=== PATIENT | male | born 1950 | race Caucasian/White ===

== ENCOUNTER 2021-01-20 12:40 | Inpatient (IN) | payer OTHER ==
[~2021-01-20] VITALS: Ht 177.8 cm; Wt 68.9 kg
--- OUTSIDE RECORDS SUMMARY | 2021-01-20 12:47 | XMS REPORT | Encounter Summary ---
Author Author [facility] Organization [facility] Healthcare Address Unknown Phone Unavailable Care Team Providers Care Evaluation Specialist Name Role Phone Juan Trejo PA-C PCP Sarah Sun RN [phone] [email or web address] Jo-Ann العلي MD Unavailable Encounter Details Care Team Description Date Type Department Link, Onbase 12/25/2020 [facility] [address] [id number] [place] [address] Social History Date Tobacco Use Types Packs/Day Years Used Never Smoker Smokeless Tobacco: Never Used Social Isolation Answer Date Recorded In a typical week, how many times do you talk on More than three times a week 11/16/2020 the phone with family, friends, or neig hbors? How often do you get together with friends or More than th ree times a week 11/16/2020 relatives? How often do you attend yazidi or hindu Never 11/16/2020 services? Do you belong to any clubs or organizations such No 11/16/2020 as yazidi groups, unions, fraternal or athletic groups, or school groups? How often do you attend meetings of the clubs or Never 11/16/2020 organizations you belong to? Are you now , , , , Divorce d 11/16/2020 never or living with a partner? Physical Activity Answer Date Recorded On average, how many days per week do you engage 4 days 11/16/2020 in moderate to strenuous exercise (like walking fast, running, jogging, dancing, swimmi ng, biking, or other activities that cause a light or heavy sweat)? On average, how many minutes do you engage in 60 min 11/16/2020 exercise at this level? Stress Answer Date Recorded Do you feel stress - tense, restless, nervous, or Only a l ittle 11/16/2020 anxious, or unable to sleep at night be cause your mind is troubled all the time - these d ays? Education Answer Date Recorded What is the highest level of school you have High school g raduate 11/16/2020 completed or the highest degree you hav e received? Financial Resource Strain Answer Date Recorde d How hard is it for you to pay for the very basics Not hard at all 11/16/2020 like food, housing, medical care, and h eating? Intimate Partner Violence Answer Date Recorde d Within the last year, have you been afraid of your No 11/16/2020 partner or ex-partner? Within the last year, have you been humiliated or No 11/16/2020 emotionally abused in other ways by you r partner or ex-partner? Within the last year, have you been kicked, hit, No 11/16/2020 slapped, or otherwise physically hurt b y your partner or ex-partner? Within the last year, have you been raped or No 11/16/2020 forced to have any kind of sexual activ ity by your partner or ex-partner? Food Insecurity Answer Date Recorded Within the past 12 months, you worried that your Never devin e 11/16/2020 food would run out before you got money to buy more. Within the past 12 months, the food you bought Never true 11/16/2020 just didn't last and you didn't have mo sherrie to get more. Transportation Needs Answer Date Recorded In the past 12 months, has lack of transportation No 11/16/2020 kept you from medical appointments or f rom getting medications? In the past 12 months, has lack of transportation No 11/16/2020 kept you from meetings, work, or gettin g things needed for daily living? Sex Assigned at Date Recorded Not on file Industry Job Start Date Occupation Not on file Not on file Not on file documented as of this encounter Plan of Treatment Not on filedocumented as of this encounter Visit Diagnoses Not on filedocumented in this encounter Care Teams Start Date End Date Evaluation Specialist Relationship Specialty 11/19/20 Juan Trejo PA-C PCP - General [address] [place] [address] 12/13/20 01/01/21 Sarah Sun treasury representative [email or web address] 01/03/21 Jo-Ann العلي MD Infectious [address] [facility] [place] [address] [email or web address] documented as of this encounter
--- OUTSIDE RECORDS SUMMARY | 2021-01-20 12:47 | XMS REPORT | Encounter Summary ---
Author Author [facility] Organization [facility] Healthcare Address Unknown Phone Unavailable Care Team Providers Care Hoist Mechanic Name Role Phone Juan Trejo PA-C PCP Sarah Sun RN [phone] [email or web address] Jo-Ann العلي MD Unavailable Encounter Details Care Team Description Date Type Department Haley Duvall APRN [address] [place] [address] [email or web address] Other termite control representative (current) drug therapy 12/17/2020 Lab Requisition LABORATORY [address] [id number] [place] [address] Social History Date Tobacco Use Types Packs/Day [...] 11/16/2020 relatives? How often do you attend buddhism or tenriism Never 11/16/2020 services? Do you belong to any clubs or organizations such No 11/16/2020 as buddhism groups, unions, fraternal or athletic groups, or [...] of school you have High school g [employer] 11/16/2020 completed or the highest degree you rhiannon e received? Financial Resource Strain Answer Date [...] Not on filedocumented as of this encounter Procedures Comments Procedure Name Priority Date/Time Associated Diag nosis C-REACTIVE PROTEIN Routine 12/17/2020 Other termite control representative (current) 5:44 AM CDT drug therapy documented in this encounter Results * C-Reactive Protein (12/17/2020 5:44 AM CDT) CRP 2.1 (H) <=0.9 mg/dL [facility] Specimen Blood Performing Organization Address City/State/ZIP Code P floridalma Number [facility] [address] [place] [address] documented in this encounter Visit Diagnoses Diagnosis Other nursing home (current) drug therapy documented in this encounter Care Teams Start Date End Date Hoist Mechanic Relationship Specialty 11/19/20 Juan Trejo PA-C PCP - General [address] [place], [place] [id number] 12/13/20 01/01/21 Sarah Sun fuel efficient automobile designer [email or web address] 01/03/21 Jo-Ann العلي MD Infectious [address] [facility] [place] [address] [email or web address] documented as of this encounter
--- OUTSIDE RECORDS SUMMARY | 2021-01-20 12:47 | XMS REPORT | Encounter Summary ---
Author Author [facility] Organization [facility] Healthcare Address Unknown Phone Unavailable Care Team Providers Care Clinical Data Assistant Name Role Phone Juan Trejo PA-C PCP Sarah Sun RN [phone] [email or web address] Encounter Details Care Team Description Date Type Department Dusty Deluna MD [address] [address] [email or web address] Kidney stone (Primary Dx); Urinary retention; MSSA infection, non-invasive; Chronic ankle pain, unspecified laterality; Chronic foot pain, unspecified laterality [facility] [address] [address] Social History Date Tobacco Use Types Packs/Day Years Used Never Assessed Social Isolation Answer Date Recorded In a typical week, how many times do you talk on More than three times a week 11/16/2020 the phone with family, friends, or neig hbors? How often do you get together with friends or More than th ree times a week 11/16/2020 relatives? How often do you attend jehovah's witness or caodaism Never 11/16/2020 services? Do you belong to any clubs or organizations such No 11/16/2020 as jehovah's witness groups, unions, fraternal or athletic groups, or [...] of school you have High school g [employer]ju[employer] 11/16/2020 completed or the highest degree you [...] on file documented as of this encounter Miscellaneous Notes * Addendum Note - John Yousif MA - 12/05/2020 10:15 AM CDT Addended by: JOHN YOUSIF on: 12/20/2020 10:32 AM Modules accepted: Orders, Level of Service, SmartSet * Progress Notes - Dusty Deluna MD - 12/05/2020 12:00 AM CDT Name: MAINOR BLANCA Date: 12/05/2020 : 1950 Page 2 The patient was seen at [facility] on December 05, 2020. CHIEF COMPLAINT: Mainor Blanca is a 70-year-old male patient with function and mobility deficits secondary to kidney stone, status post ureteral stent placeme nt; urinary retention, status post indwelling Park catheter placement; MSSA inf ection; acute exacerbation of chronic right foot and ankle pain; chronic pain, o n methadone treatment. HISTORY OF PRESENT ILLNESS: History was obtained from the patient as well as fr om the chart review. Mr. Blanca is a 70-year-old male, , who has been struggling wi th urological issues. The patient developed urinary retention and was found to have a kidney stone. The patient underwent ureteral stent placement. Recently, the patient presented to [facility] with abdominal pain. The patie nt required placement of Park catheter. He had hematuria. On blood culture he was found to have MSSA infection. He underwent sepsis workup including TAYLOR whe re no valvular vegetation was noted. The patient was seen by Infectious Disease who recommended antibiotic treatment through December 07. The patient has chronic right foot and ankle pain, and it was noted to be increase in the pain. Imaging studies ruled out any infection in that area. The patient was transferred to the [facility] for inpatient rehabilitation. PAST MEDICAL HISTORY: Kidney stone. Chronic pain. PAST SURGICAL HISTORY: Reviewed and noncontributory. CURRENT ALLERGIES/MEDICATIONS: Were reviewed and reconciled with the facility EMR. FAMILY HISTORY: Reviewed and noncontributory. SOCIAL HISTORY: The patient lives by himself. He denies any assistive device. Remote history o f drug use. Denies any tobacco use or ongoing alcohol use. REVIEW OF SYSTEMS: The patient complains of pain in his right foot. He has some abdominal discomfo rt. His appetite is poor. He is complaining of nausea. The patient has an ind welling Park. He denies any difficulty with speech, swallowing, or vision. He denies any constipation. He has difficulty with sleep at night. The rest of t he 12-point Review of Systems is negative. PHYSICAL EXAMINATION: Vital Signs: The patient is afebrile. Blood pressure is 121/70. SpO2 is 96%. General Appearance: The patient is alert and responsive. Lungs: Clear to auscultation. Cardiovascular: S1, S2 present. Abdomen: Soft. Genitourinary: The patient has an indwelling Park draining blood-stained urine . Psychological: The patient is pleasant, somewhat anxious. Musculoskeletal: There is no swelling or deformity of right foot or ankle. The patient has active right dorsiflexion. ASSESSMENT: Mainor Blanca is a 70-year-old male patient with function and mobility deficits secondary to kidney stone, status post ureteral stent placement; urinary retent ion, status post indwelling Park catheter placement; MSSA infection; acute exac erbation of chronic right foot and ankle pain; chronic pain, on methadone treatm ent. Kidney stone. Chronic pain. PLAN: 1. Continue physical therapy and occupational therapy. 2. Urology follow-up, kidney stone and recent stent placement. 3. Urinary retention. The patient has an indwelling Park catheter. 4. MSSA bacteremia. TAYLOR was negative for valvular vegetation. 5. The patient is on a regular diet. Maintain strict aspiration precautions. 6. The patient is on methadone for chronic pain. The patient will follow-up wit provider at [facility] for chronic pain management. 7. Park catheter care per Nursing. 8. I reviewed the patient's functional status. Functionally, the patient is simeon ited in participation because of pain and low endurance. 9. Will continue the current rehabilitation program to improve the patient's fun ction, mobility, and safety. DISCHARGE DISPOSITION: To home. CODE STATUS: THE PATIENT IS A FULL CODE. Dusty Deluna M.D. JENNIFER/ole VXP #: [id number] / DEP #: [id number] documented in this encounter Plan of Treatment Not on filedocumented as of this encounter Visit Diagnoses Diagnosis Kidney stone - Primary Calculus of kidney Urinary retention Retention of urine, unspecified MSSA infection, non-invasive Chronic ankle pain, unspecified lateral ity Chronic foot pain, unspecified laterali ty documented in this encounter Care Teams Start Date End Date Clinical Data Assistant Relationship Specialty 11/19/20 Juan Trejo PA-C PCP - General [address] [place] [address] 12/13/20 01/01/21 Sarah Sun RN Care Manager [email or web address] documented as of this encounter
--- OUTSIDE RECORDS SUMMARY | 2021-01-20 12:47 | XMS REPORT | Encounter Summary ---
Author Author [facility] Organization [facility] Healthcare Address Unknown Phone Unavailable Care Team Providers Care News Camera Person Name Role Phone Juan Trejo PA-C PCP Sarah Sun RN [phone] [email or web address] Jo-Ann العلي MD Unavailable Encounter Details Care Team Description Date Type Department Dusty Deluna MD [address] [address] [email or web address] Kidney stone (Primary Dx); Urinary retention; MSSA infection, non-invasive; Chronic ankle pain, unspecified laterality; Chronic foot pain, unspecified laterality 12/26/[address] [facility] Medicine [facility] [address] [address] Social History Date Tobacco Use [...] 11/16/2020 relatives? How often do you attend jainism or zoroastrian Never 11/16/2020 services? Do you belong to any clubs or organizations such No 11/16/2020 as jainism groups, unions, fraternal or athletic groups, or [...] Addendum Note - John Yousif MA - 12/19/2020 12:00 PM CDT Addended by: JOHN YOUSIF on: 2021 11:19 AM Modules accepted: Orders, Level of Service, SmartSet * Progress Notes - Dusty Deluna MD - 12/19/2020 12:00 AM CDT Name: MAINOR BLANCA Date: 12/19/2020 : 1950 Page 2 SUBJECTIVE: The patient was seen and examined at bedside in followup evaluation of function and mobility deficit secondary to right-sided ureteral stent placem ent for kidney stone, indwelling Park for urinary retention, MSSA infection, ri ght ankle and foot pain (orthopedic surgery has ruled out septic arthritis), and chronic pain. The patient is resting in bed and reports that he is doing okay. Still has Fole y catheter in place. He is walking short distances. The pain is somewhat mireille r controlled. He expresses displeasure with urologic care that he has received. PHYSICAL EXAMINATION: The patient's vitals are stable. He is afebrile. Blood pressure 98/67. Oxygen saturation 95%. General: The patient is alert and responsive. Lungs: Clear to auscultation. CV: S1, S2 present. Abdomen: Soft. Genitourinary: The patient has indwelling Park. Extremities: No calf tenderness. No swelling deformity of right ankle. Psychiatric: The patient is pleasant. Neuropsych assessment: The patient is alert and oriented x3. ASSESSMENT AND PLAN: 1. Continue PT/OT. 2. Park care per nursing. 3. Labs done on December 10 suggests a white cell count of 4.9. Sodium 136. Po tassium 3.9. 4. Pain management with methadone. 5. The patient is on Flomax for urinary retention. 6. The patient is on iron supplement. 7. MSSA bacteremia. Infectious Disease followup. Antibiotic completed. Transe sophageal echocardiogram was negative for vegetation. I reviewed the patient's functional status and discussed this with the rehabilit ation team. There has been behavior where the patient is self-limiting in parti cipation of therapy. Encouraged patient to participate well in therapy. The aamir cintron has agreed. Dusty Deluna M.D. JENNIEFR/[place] VXP #: [id number] / DEP #: [id number] documented in this encounter Plan of Treatment Not on filedocumented as of this encounter Visit Diagnoses Diagnosis Kidney stone - Primary Calculus of kidney Urinary retention Retention of urine, unspecified MSSA infection, non-invasive Chronic ankle pain, unspecified lateral ity Chronic foot pain, unspecified laterali ty documented in this encounter Care Teams Start Date End Date News Camera Person Relationship Specialty 11/19/20 Juan Trejo PA-C PCP - General [address] [place] [address] 12/13/20 01/01/21 Sarah Sun RN Care Manager [email or web address] 01/03/21 Jo-Ann العلي MD Infectious [address] [place] [address] [email or web address] documented as of this encounter
--- OUTSIDE RECORDS SUMMARY | 2021-01-20 12:47 | XMS REPORT | Encounter Summary ---
Author Author [facility] Organization [facility] Healthcare Address Unknown Phone Unavailable Care Team Providers Care Solar Energy System Installer Helper Name Role Phone Juan Trejo PA-C PCP Sarah Sun RN [phone] [email or web address]] Jo-Ann العلي MD Unavailable Encounter Details Care Team Description Date Type Department Desmond Murray MD [address] [place] [address] [email or web address] Essential (primary) hypertension 12/21/2020 Lab Requisition LABORATORY [address] [id number] [place], [place] [address] Social History Date Tobacco Use Types Packs/Day [...] 11/16/2020 relatives? How often do you attend judaism or gnosticism Never 11/16/2020 services? Do you belong to any clubs or organizations such No 11/16/2020 as judaism groups, unions, fraternal or athletic groups, or [...] Procedure Name Priority Date/Time Associated Diag nosis BLOOD CULTURE Routine 12/21/2020 Essential (prim iliana) 5:57 AM CDT hypertension documented in this encounter Results * Blood Culture (12/21/2020 5:57 AM CDT) Blood Culture, No Growth after 5 days [facility] Routine incubation LABORATORY Specimen Blood - Peripheral Performing Organization Address City/State/ZIP Code P floridalma Number [facility] [address] [place] [address] documented in this encounter Visit Diagnoses Diagnosis Essential (primary) hypertension Unspecified essential hypertension documented in this encounter Care Teams Start Date End Date Solar Energy System Installer Helper Relationship Specialty 11/19/20 Juan Trejo PA-C PCP - General [address] [place], [place] [id number] 12/13/20 01/01/21 Sarah Sun interactive marketing strategist [email or web address] 01/03/21 Jo-Ann العلي MD Infectious [address] [facility] Diseases [place], [place] [address] [email or web address] documented as of this encounter
--- OUTSIDE RECORDS SUMMARY | 2021-01-20 12:47 | XMS REPORT | Encounter Summary ---
Author Author [facility] Organization [facility] Address Unknown Phone Unavailable Care Team Providers Care Volleyball Assistant Coach Name Role Phone Juan Trejo PA-C PCP Sarah Sun RN [phone] [email or web address] Encounter Details Care Team Description Date Type Department Alie Peters V, PASSENGER CAR INSPECTOR [address] [place] [address] [email or web address] Constipation, unspecified constipation t ype (Primary Dx); Gross hematuria; Anemia due to acute blood loss; Methadone dependence (HCC); MSSA bacteremia; Iron deficiency 12/26/2020 Correction [facility] Post- Acute Care [address] [place] [address] Social History Date Tobacco Use Types Packs/Day [...] 11/16/2020 relatives? How often do you attend lutheran or scientologist Never 11/16/2020 services? Do you belong to any clubs or organizations such No 11/16/2020 as lutheran groups, unions, fraternal or athletic groups, or [...] as of this encounter Miscellaneous Notes * Patient Instructions - Alie Peters APRN - 12/27/2020 10:30 AM CDT START taking: Slow FE iron tablets every Thursday, Thursday, and Thursday Vitamin C every Thursday, Thursday, and Thursday Senna-docusate nightly These are all over the counter [facility] [place]. Iron and Vit C should not be long-term. STOP taking: Meloxicam (it caused kidney dysfunction) Follow up with Primary Care Provider in 1-2 weeks. Reschedule cystoscopy with Ur ology. * Progress Notes - Alie Peters APRN - 12/27/2020 10:30 AM CDT [facility] Post-Acute Care Discharge Note 12/27/2020 Name: Caden Blanca : 1950 Facility: [facility] Type of Visit: Discharge Visit Caden Blanca is a 70 y.o. male who is seen today for a sub-acute rehab (Med A) visit at [facility]. Per Dr. Murray's H&P dated 11/30, "This is a 70-year-old . He receives the bulk of his care through the [place] system. Several weeks ago, he was hospitalized at the [facility]. I am not privy to the details of that stay, except that a right-sided ureteral stent was placed because of kidney stones. A few days prior to November 10, at home, he began to have symptoms of urinary ret ention. He was advised by [facility] to begin self-catheterization. On November 10, he h ad diffuse abdominal pain and generalized weakness. He presented to the [facility]. According to the patient, he was sent home with a prescription for boo n medication after being there for a few hours. He then developed gross hematur ia and decided to go to the [facility]. He was admitted there late on November 10. While at the [facility], cultures of blood and urine were positive for MSSA. A Pedraza catheter was placed and he was started on CBI due to the hematuria. He h ad KOFI with a creatinine of 2.2. Followup blood cultures continued to be positi ve, which is what led to transfer to [facility]. He was at [facility] November 15 through November 29. He was seen by Dr. Escobar of Urology. The most recent Urology note was on November 16,the day afte r admission, in which Dr. Escobar indicated to continue Pedraza catheter. The patient was seen by Drs. العلي and Viji Briscoe of Infectious Diseases. [facility] blood cultures eventually were no growth. A transesophageal echo showed no vegetation. In the most recent Infectious Diseases note, Dr. Viji Briscoe doc umented that the MSSA bacteremia was "of possible urinary source." Recommendati on is to receive antibiotic therapy through December 07. Three other issues were addressed while at [facility]. The 1st is that he roberts d a recurrence of pain of the right foot/ankle. He has had problems there for m any years. Orthopedics saw him. They documented that they did not suspect sept ic arthritis. The 2nd issue is that he had elevated serum sodium. From admission to discharge , that lab went from 153 to 133. The 3rd issue is that his dosage of chronic methadone, which is prescribed by Dr Cesilia Fleming of , was adjusted to that which is dictated below." Patient is now at [facility] for therapies. Scheduled to discharge tomorrow. Seen today, patient resting in bed. Pedraza catheter in place with blood-tinged ur ine in the bag. He reports his R foot and ankle feel much better than what it wa s when he arrived. He states he is able to move it comfortably and walk on it. H is only complaint today is that he hasn't had a bowel movement in a few days. He reports he took milk of magnesia last night with no success. He is passing gas. No abdominal tenderness upon palpation. Bowel sounds are active. He said he will take a suppository this afternoon. Spoke with his sister on the phone and she is managing his [place] home health and setting up methadone clinic. Otherwise, ROS is negative. Patient Active Problem List Diagnosis Gross hematuria KOFI (acute kidney injury) ([facility]) BPH (benign prostatic hyperplasia) Hypernatremia Hypokalemia Elevated LFTs MSSA bacteremia Methadone dependence ([facility]) NSVT (nonsustained ventricular tachycardia) ([facility]) Complicated UTI (urinary tract infection) No Known Allergies No family history on file. Social History Socioeconomic History Marital status: Spouse name: Not on file Number of children: 2 Years of education: 12 Highest education level: High school graduate Occupational History Not on file Tobacco Use Smoking status: Never Smoker Smokeless tobacco: Never Used Substance and Sexual Activity Alcohol use: Not on file Drug use: Not on file Sexual activity: Not on file Other Topics Concern Not on file Social History Narrative Not on file Social Determinants of Health Financial Resource Strain: Low Risk Difficulty of Paying Living Expenses: Not hard at all Food Insecurity: No Food Insecurity Worried About Running Out of Food in the Last Year: Never true Ran Out of Food in the Last Year: Never true Transportation Needs: No Transportation Needs Lack of Transportation (Medical): No Lack of Transportation (Non-Medical): No Physical Activity: Sufficiently Active Days of Exercise per Week: 4 days Minutes of Exercise per Session: 60 min Stress: No Stress Concern Present Feeling of Stress : Only a little Social Connections: Socially Isolated Frequency of Communication with Friends and Family: More than three times a week Frequency of Social Gatherings with Friends and Family: More than three time s a week Attends Synagogue Services: Never Active Member of Clubs or Organizations: No Attends Club or Organization Meetings: Never Marital Status: Intimate Partner Violence: Not At Risk Fear of Current or Ex-Partner: No Emotionally Abused: No Physically Abused: No Sexually Abused: No No past medical history on file. Review of Systems: As per HPI, otherwise the 10-point ROS is negative. Physical Exam: VS: B/P 109/75 HR 78 RR 16 Afebrile O2 96% General: Adult male, alert, cooperative, in no distress, appearing his stated a ge Skin: Cool and dry Coronary: Regular rate and rhythm, no murmurs, rubs or gallops Lungs: Clear to auscultation bilaterally, respirations unlabored, no cough Abdomen: Soft, non-tender, non-distended, bowel sounds present Ext: no edema Genitourinary: pedraza catheter in place with hematuria Psych: Normal affect Neuro: Non-focal Code Status: Full Code Labs: Results in Past 30 Days Result Component Current Result Ref Range Previous Result Ref Range WBC 5.4 (12/24/2020) 3.5 - 10.5 10E9/L 4.5 (12/18/2020) 3.5 - 10.5 10E9/L RBC 2.96 (L) (12/24/2020) 4.32 - 5.72 10E12/L 2.81 (L) (12/18/2020) 4.32 - 5.72 10E 12/L Hemoglobin 8.7 (L) (12/24/2020) 13.5 - 17.5 g/dL 8.2 (L) (12/18/2020) 13.5 - 17.5 g /dL Hematocrit 28.8 (L) (12/24/2020) 38.8 - 50.0 % 26.7 (L) (12/18/2020) 38.8 - 50.0 % MCV 97.3 (H) (12/24/2020) 81.2 - 95.1 fL 95.0 (12/18/2020) 81.2 - 95.1 fL MCH 29.4 (12/24/2020) 26.0 - 34.0 pg 29.2 (12/18/2020) 26.0 - 34.0 pg MCHC 30.2 (L) (12/24/2020) 31.0 - 37.0 g/dL 30.7 (L) (12/18/2020) 31.0 - 37.0 g/dL RDW 13.9 (12/24/2020) 11.8 - 15.6 % 14.1 (12/18/2020) 11.8 - 15.6 % Platelets 243 (12/24/2020) 150 - 450 10E9/L 276 (12/18/2020) 150 - 450 10E9/L Lymphocytes % 19.2 (L) (12/24/2020) 22.0 - 49.0 % 19.1 (L) (12/18/2020) 22.0 - 49.0 % Monocytes % 9.2 (12/24/2020) 2.0 - 10.0 % 10.8 (H) (12/18/2020) 2.0 - 10.0 % Eosinophils % 2.2 (12/24/2020) <=5.0 % 2.0 (12/18/2020) <=5.0 % Basophils % 0.6 (12/24/2020) 0.0 - 2.5 % 0.7 (12/18/2020) 0.0 - 2.5 % Recent Labs 12/24/20 0900 12/18/20 0543 12/10/20 0539 12/03/20 0533 11/29/20 0613 11/28/20 0659 NA 137 137 136 135* 133* 135* K 3.8 3.8 3.9 4.1 3.6 3.6 CL 102 100 98* 99 95* 97* CO2 31 32 30 34 33 33 BUN 15 12 15 10 8 8 CREATININE 1.12 1.16 1.26* 1.00 1.04 1.03 GLU 111* 84 91 91 88 85 CALCIUM 9.2 8.7 8.7 8.7 8.5 8.8 BILITOT <0.3 0.3 <0.3 0.3 0.3 0.4 ALKPHOS 129* 126* 126* 130* 117 115 AST 12* 23 29 32 25 28 ALT <9* 15 13 <9* <9* <9* PROT 6.8 6.5 6.6 6.4 6.3 6.3 ALB 3.5 3.2* 3.2* 3.2* 3.0* 3.0* EGFR >59 >59 57* >59 >59 >59 ANIONGAP 4 5 8 2 5 5 TSH Date Value Ref Range Status 11/19/2020 2.640 0.400 - 4.000 uIU/mL Final No results found for: FREET4 No results found for: HGBA1C No results found for: CHOL, LDL, HDL, TRIG No results found for: PREALBUMIN No results found for: PSA No results found for: [id number] No results found for: FOLATE No results found for: HOMOS, HOMOCYSTEINE, MMAU, MMA No results found for: BNP Magnesium Date Value Ref Range Status 11/19/2020 1.7 1.6 - 2.3 mg/dL Final Phosphorus Date Value Ref Range Status 11/19/2020 2.4 (L) 2.7 - 4.5 mg/dL Final No results found for: VTDTO, VITD No results found for: CPK No results found for: SEDRATE Lab Results Component Value Date CRP 4.1 (H) 12/24/2020 CRP 2.0 (H) 12/18/2020 CRP 2.1 (H) 12/17/2020 Iron (ug/dL) Date Value 12/04/2020 27 (L) Iron Binding Capacity (ug/dL) Date Value 12/04/2020 253 Iron Saturation (%) Date Value 12/04/2020 11 (L) Imaging: MRI Foot Right (without contrast) Result Date: 11/28/2020 EXAM: MRI Right Foot without IV contrast INDICATION: >Recent trauma, unable to bear weight, worsening foot pain TECHNIQUE: Multiplanar, multisequence MRI of the right foot without IV contrast. COMPARISON: Right foot x-rays from 11/15/2020 FINDINGS: OSSEOUS: Prominent marrow edema is seen about the posterior subtalar joint and around the sinus tarsi most pronounced within the calcaneus side. Subchondral cystic change noted in this region.. There are few vertically oriented linear low signal lines in this region more posteriorly which could potentially represent developing insufficiency fracture lines.. No other areas of significant marrow edema are appreciated. ARTICULATIONS: More mild degenerative changes at the tibiotalar joint. Moderate subtalar joint arthrosis with loss of joint space and edema as described above.. Minimal osteophyte spur ring at the midfoot. Small ankle joint effusion. TENDONS & MUSCLES: Tendons and tendinous attachments are unremarkable. Muscles are normal without significant muscle edema or atrophy. OTHER: No soft tissue mass or fluid collection is identified. Plantar fascia is normal. Minimal fluid signal in the sinus tarsi near the subtalar joint. IMPRESSION: 1. Fairly pronounced edema about the posterior subtalar joint, detai led above, felt most likely reactive to relatively advanced subtalar arthropathy . 2. A few vertically oriented linear low signal foci in this region could repre sent developing insufficiency fracture. 3. Small tibiotalar joint effusion, nons pecific. If there is concern for infection, consider attempting fluid sampling. 4. Minimal fluid signal in the sinus tarsi. Correlate for sinus tarsi syndrome. Upload Result Date: 12/05/2020 <Finalized by HMI PACS interface> Assessment and Plan: 1. Urinary retention requiring Pedraza catheter/hematuria of uncertain etiology. W as scheduled for cystoscopy today but apparently he cancelled the appointment. H e needs to reschedule or follow up with urology. Continue pedraza catheter for now . 2. MSSA bacteremia. TAYLOR was negative for vegetation. Most likely source was urinary tract. He has now completed IV antibiotics as ordered by ID. Has a follo w up appointment with ID on 01/04. 3. Chronic pain of right foot. He reports it is much better. 4. Chronic methadone use.His sister has arranged him to restart the methadone clinic Thursday. 5. Anemia. Secondary to hematuria. Hgb today 8.7, improved from 8.2 last week. 6. Iron deficiency. He thinks the iron has constipated him. Sister requests Slo w Fe. That is fine. He can get it over the counter. 7. Acute kidney injury. NSAID was d/c while here at [facility].His creatinine is impr hany at 1.12. 8. Constipation: Will have RN give one Dulcolax suppository now. Will discharge him home on Senna-docusate 8.6-50mg tablet nightly. OTC. Updated Medication List: Current Outpatient Medications Medication Sig bisacodyl (FLEET) 10 MG/30ML ENEM bisacodyl [START ON 12/28/2020] Ferrous Sulfate (SLOW FE) 142 (45 Fe) MG TBCR Take 1 ta blet by mouth 3 (three) times a week. Take 1 tablet by mouth every Thursday, , and Thursday with Vitamin C hyoscyamine (LEVSIN/SL) 0.[address] 0.125 mg under the tongue e very 4 (four) hours as needed for Cramping. Magnesium Hydroxide (MILK OF MAGNESIA PO) Take 30 mLs by mouth as needed. methadone (DOLOPHINE) 10 MG tablet Take 16 tablets (160 mg total) by mouth d aily at 5 pm. (May cause QT prolongation and Torsades de pointes) naloxone (NARCAN) 4 MG/0.1ML nasal spray Place 1 spray nasally as needed for Opioid Reversal. ondansetron (ZOFRAN-ODT) 4 MG disintegrating tablet Take 4 mg by mouth every 6 (six) hours as needed for Nausea. senna-docusate (PERICOLACE) 8.6-50 MG Take 1 tablet by mouth at bedtime. tamsulosin (FLOMAX) 0.4 MG CAPS Take 0.4 mg by mouth at bedtime. [START ON 12/28/2020] vitamin C (ASCORBIC ACID) 250 MG tablet Take 1 tablet ( 250 mg total) by mouth 3 (three) times a week. Take MWF with iron No current facility-administered medications for this visit. Follow-up: Discharge home; follow up with PCP in 1-2 weeks I spent a total of 25 minutes in the care of this patient, with greater than 50% of the total time spent in counseling and coordination of care as detailed in t he above documentation. Alie Peters APRN Electronic Signature 12/27/2020 3:12 PM documented in this encounter Plan of Treatment Not on filedocumented as of this encounter Visit Diagnoses Diagnosis Constipation, unspecified constipation type - Primary Gross hematuria Anemia due to acute blood loss Acute posthemorrhagic anemia Methadone dependence (HCC) Opioid type dependence, unspecified MSSA bacteremia Iron deficiency Iron deficiency anemia, unspecified documented in this encounter Care Teams Start Date End Date Volleyball Assistant Coach Relationship Specialty 11/19/20 Juan Trejo PA-C PCP - General [address] [facility] [place], [place] [id number] 12/13/20 01/01/21 Sarah Sun video machines mechanic [email or web address] documented as of this encounter
--- OUTSIDE RECORDS SUMMARY | 2021-01-20 12:47 | XMS REPORT | Encounter Summary ---
Author Author [facility] Organization [facility] Address Unknown Phone Unavailable Care Team Providers Care Logistics Analytics Manager Name Role Phone Juan Trejo PA-C PCP Sarah Sun RN [phone] [email or web address] Encounter Details Care Team Description Date Type Department Sarah Sun RN [email or web address] 12/28/2020 Patient Sharif Byers`Jose Armando Care Outreach Management [address] [place] [address] Social History Date Tobacco Use [...] 11/16/2020 relatives? How often do you attend islam or mandaen Never 11/16/2020 services? Do you belong to any clubs or organizations such No 11/16/2020 as islam groups, unions, fraternal or athletic groups, or [...] as of this encounter Miscellaneous Notes * Progress Notes - Sarah Sun RN - 12/28/2020 11:19 AM CDT Patient: Caden Blanca : 1950 PCP: Juan Trejo PA-C Today's Date: 12/28/2020 Met with resident regarding Post Acute Care Management follow-up. Discussed stat us, plan of care and goals. Discussion as below: Assessment: Met with Caden this am for discharge instructions. He was found t o be resting in bed at this time. He denies, pain, shortness of breath, slight nausea reported although no vomiting or diarrhea. We reviewed all medications and appointments. He had no questions at this time. This RN did call and speak with Caden's sister Tatyana who will be helping w ith his care. Reviewed medications and appointments with her as well. Plan: Discharged home 12/28/20. Will follow up on Sunday 12/31. Medications: Outpatient Medications Marked as Taking for the 12/28/20 encounter (Patient Outre ach) with Sarah Sun, speeder worker Sig bisacodyl (FLEET) 10 MG/30ML ENEM bisacodyl Ferrous Sulfate (SLOW FE) 142 (45 Fe) MG TBCR Take 1 tablet by mouth 3 (three) times a week. Take 1 tablet by mouth every Thursday, Thursday, and Thursday with Vi tamin C hyoscyamine (LEVSIN/SL) 0.[address] 0.125 mg under the tongue ever y 4 (four) hours as needed for Cramping. Magnesium Hydroxide (MILK OF MAGNESIA PO) Take 30 mLs by mouth as needed. methadone (DOLOPHINE) 10 MG tablet Take 16 tablets (160 mg total) by mouth anjelica y at 5 pm. (May cause QT prolongation and Torsades de pointes) naloxone (NARCAN) 4 MG/0.1ML nasal spray Place 1 spray nasally as needed for Op ioid Reversal. ondansetron (ZOFRAN-ODT) 4 MG disintegrating tablet Take 4 mg by mouth every 6 (six) hours as needed for Nausea. senna-docusate (PERICOLACE) 8.6-50 MG Take 1 tablet by mouth at bedtime. tamsulosin (FLOMAX) 0.4 MG CAPS Take 0.4 mg by mouth at bedtime. vitamin C (ASCORBIC ACID) 250 MG tablet Take 1 tablet (250 mg total) by mouth 3 (three) times a week. Take MWF with iron Questions or concerns: Sister has concerns as [facility]. This RN is printing off notes and sending to Juan Trejo PA-C for review. Health Maintenance: Health Maintenance Due Topic Date Due Zoster Recombinant Vaccine (RZV,Shingrix) (1 of 2 - SV 2 Dose Standard) 1984 Breast Cancer Screening-Mammogram 07/10/2016 Reviewed upcoming appointments and patient verbalized understanding. Future Appointments Date Time Provider Department Center 01/04/2021 1:15 PM Jo-Ann العلي MD [address] Infectious D Will follow-up to discuss plan of care, goals and current status. Encouraged to call the Post Acute Video Tape Duplicator/office directly with questions, concerns or ch anges in the meantime. Sarah Sun RN 12/28/2020 documented in this encounter Plan of Treatment Not on filedocumented as of this encounter Visit Diagnoses Not on filedocumented in this encounter Care Teams Start Date End Date Logistics Analytics Manager Relationship Specialty 11/19/20 Juan Trejo PA-C PCP - General [address] [place] [address] 12/13/20 01/01/21 Sarah Sun RN Care Manager [email or web address] documented as of this encounter
--- OUTSIDE RECORDS SUMMARY | 2021-01-20 12:47 | XMS REPORT | Encounter Summary ---
Author Author [facility] Organization [facility] Address Unknown Phone Unavailable Care Team Providers Care Pharmacy Technician Infusion Name Role Phone Juan Trejo PA-C PCP Sarah Sun RN [phone] [email or web address] Jo-Ann العلي MD Unavailable Encounter Details Care Team Description Date Type Department Haley Duvall APRN [address] [place] [address] [email or web address] Essential (primary) hypertension 12/14/2020 Lab Requisition LABORATORY [id number] [place] [address] Social History Date Tobacco Use [...] 11/16/2020 relatives? How often do you attend cheondoism or mormon Never 11/16/2020 services? Do you belong to any clubs or organizations such No 11/16/2020 as cheondoism groups, unions, fraternal or athletic groups, or [...] Procedure Name Priority Date/Time Associated Diag nosis GASTROINTESTINAL PANEL Routine 12/13/2020 Jayy bermudez (primary) FILMARRAY PCR 5:00 PM CDT hypertension documented in this encounter Results * Gastrointestinal Panel FilmArray PCR (12/13/2020 5:00 PM CDT) Sapovirus (l, Negative Negative [facility] ll, lV, & V LABORATORY Campy PCR Negative Negative [facility] (jejuni, coli, LABORATORY upsaliensis) Vibrio cholera Negative Negative [facility] PCR LABORATORY C. difficile Negative Negative [facility] (toxin A/B) PCR LABORATORY Plesiomonas Negative Negative [facility] shigelloides LAB[facility]ATORY PCR Salmonella PCR Negative Negative [facility] Yersinia Negative Negative [facility] enterocolitica LAB[facility]ATORY PCR Vibrio Negative Negative [facility] (parahaemolytic LABORATORY us, vulnificus & cholerae) PCR Enteroaggregati Negative Negative [facility] ve E. coli LABORATORY (EAEC) PCR Enteropathogeni Negative Negative, N/A [facility] c E. coli LABORATORY (EPEC) PCR Enterotoxigenic Negative Negative [facility] E. coli (ETEC) LABORATORY lt/st PCR Shiga-like Negative Negative [facility] toxin-producing LABORATORY E. coli (STEC) stx1/stx2 PCR Shigella/Entero Negative Negative [facility] invasive E. LABORATORY coli (EIEC) PCR Cryptosporidium Negative Negative [facility] PCR LABORATORY Cyclospora Negative Negative [facility] cayetanensis LABORATORY PCR Entamoeba Negative Negative [facility] histolytica PCR LABORATORY Giardia lamblia Negative Negative [facility] PCR LABORATORY Adenovirus F Negative Negative [facility] 40/41 PCR LABORATORY Astrovirus PCR Negative Negative [facility] Norovirus Negative Negative [facility] GI/GII PCR LABORATORY Rotavirus A PCR Negative Negative [facility] Specimen Stool - Stool specimen (specimen) Performing Organization Address City/State/ZIP Code P floridalma Number [facility] [address] [place] [address] documented in this encounter Visit Diagnoses Diagnosis Essential (primary) hypertension Unspecified essential hypertension documented in this encounter Care Teams Start Date End Date Pharmacy Technician Infusion Relationship Specialty 11/19/20 Juan Trejo PA-C PCP - General [address] [place], [place] [id number] 12/13/20 01/01/21 Sarah Sun r d internship [email or web address] 01/03/21 Jo-Ann العلي MD Infectious [address] [facility] [place] [address] [email or web address] documented as of this encounter
--- OUTSIDE RECORDS SUMMARY | 2021-01-20 12:47 | XMS REPORT | Encounter Summary ---
Author Author [facility] Organization [facility] Healthcare Address Unknown Phone Unavailable Care Team Providers Care Visual Display Manager Name Role Phone Juan Trejo PA-C PCP Sarah Sun RN [phone] [email or web address] Encounter Details Care Team Description Date Type Department Haley Duvall APRN [address] [place], [place] [id number] [email or web address] Methadone dependence (HCC) (Primary Dx); Gross hematuria; MSSA bacteremia; Iron deficiency; KOFI (acute kidney injury) (HCC); Anemia, unspecified type; Numbness of fingers 12/17/2020 [facility] [address] [place], [place] [id number] Social History Date Tobacco Use Types Packs/Day [...] 11/16/2020 relatives? How often do you attend adventism or worship Never 11/16/2020 services? Do you belong to any clubs or organizations such No 11/16/2020 as adventism groups, unions, fraternal or athletic groups, or [...] encounter Miscellaneous Notes * Progress Notes - Haley Duvall APRN - 12/17/2020 10:15 AM CDT [facility] Progress Note 12/17/2020 Name: Mainor Blanca : 1950 Facility: [facility] ([facility] Type of Visit: Sub-Acute Mainor Blanca is a 70 y.o. male who is seen today for a sub-acute rehab (Med A) visit at [facility]. Per Dr. Murray's H&P dated 11/30/20, "This is a 70-year-old . He receives the bulk of his care through the [facility]. Several weeks ago, he was hospitalized at the [facility]. I am not privy to the details of that stay, except that a right-sided ureteral stent was placed because of kidney stones. A few days prior to November 10, at home, he began to have symptoms of urinary ret ention. He was advised by [facility] to begin self-catheterization. On November 10, he h ad diffuse abdominal pain and generalized weakness. He presented to the [facility]. According to the patient, he was sent home with a prescription for boo n medication after being there for a few hours. He then developed gross hematur ia and decided to go to the [facility]. He was admitted there late on November 10. While at the [facility], cultures of blood and urine were positive for MSSA. A Park catheter was placed and he was started on CBI due to the hematuria. He h ad KOFI with a creatinine of 2.2. Followup blood cultures continued to be positi ve, which is what led to transfer to [facility]. He was at [facility] November 15 through November 29. He was seen by Dr. Escobar of Urology. The most recent Urology note was on November 16,the day afte r admission, in which Dr. Escobar indicated to continue Park catheter. The patient was seen by Drs. العلي and Viji Briscoe of Infectious Diseases. Fo [facility] blood cultures eventually were no growth. A transesophageal echo showed no vegetation. In the most recent Infectious Diseases note, Dr. Vjii Briscoe doc umented that the MSSA bacteremia was "of possible urinary source." Recommendati on is to receive antibiotic therapy through December 07. Three other issues were addressed while at [facility]. The 1st is that he roberts d [...] is dictated below." Patient is now at [facility] for therapies. Seen today, Mainor is resting in bed. He states he is doing "ok" today. He tells me has an appointment this after noon with urology. Park catheter remains in place. He still has gross hematuria . He complains of continued pain in his right foot/ankle. He is comfortable at p resent, but has increased pain when he bears weight. He tells me his ankle was v ernie swollen at one point, but the swelling has improved. He does complain of garry e numbness in his 4th and 5th digits on his left hand. He had surgery on his lef t wrist "about 5 years ago." He denies pain in his wrist/hand or neck. He has eq ual berry planter strength bilaterally. The numbness has not interfered with the mobility of his hand. His diarrhea has resolved. Otherwise, he specifically denies SOB, cough, CP, palpitations, N/V, or abdominal pain. Patient Active Problem List Diagnosis Gross hematuria KOFI (acute kidney injury) (HCC) BPH (benign prostatic hyperplasia) Hypernatremia Hypokalemia Elevated LFTs MSSA bacteremia Methadone dependence (HCC) NSVT (nonsustained ventricular tachycardia) (HCC) Complicated UTI (urinary tract infection) Current Outpatient Medications Medication Sig bisacodyl (FLEET) 10 MG/30ML ENEM bisacodyl ferrous sulfate (KIMMY-IN-NICOLA) 325 (65 Fe) MG tablet Take 1 tablet (325 mg tot al) by mouth 3 (three) times a week. Take on MWF with vitamin C hyoscyamine (LEVSIN/SL) 0.125 MG SL tablet [...] 6 (six) hours as needed for Nausea. tamsulosin (FLOMAX) 0.4 MG CAPS Take 0.4 mg by mouth at bedtime. vitamin C (ASCORBIC ACID) 250 MG tablet Take 1 tablet (250 mg total) by mout h 3 (three) times a week. Take MWF with iron No current facility-administered medications for this visit. No Known Allergies No family history on [...] than three time s a week Attends Muslim Services: Never Active Member of Clubs or Organizations: No Attends Club or Organization Meetings: Never Marital Status: Intimate Partner Violence: Not At Risk Fear of Current or Ex-Partner: No Emotionally Abused: No Physically Abused: No Sexually Abused: No No past medical history on file. Review of Systems: As per HPI, otherwise the 10-point ROS is negative. Physical Exam: VS: 112/70, 98.4F, 70 BPM, 96% on RA, 17 breaths/min Physical Exam Constitutional: General: He is not in acute distress. Appearance: Normal appearance. Cardiovascular: Rate and Rhythm: Normal rate and regular rhythm. Pulmonary: Effort: Pulmonary effort is normal. Breath sounds: Normal breath sounds. Abdominal: General: Bowel sounds are increased. Palpations: Abdomen is soft. Tenderness: There is no abdominal tenderness. Genitourinary: Comments: Park in place, hematuria present. Musculoskeletal: Left hand: No swelling. Normal range of motion. Decreased sensation of the ul benedict distribution. Right lower leg: No edema. Left lower leg: No edema. Skin: General: Skin is warm and dry. Neurological: Mental Status: He is alert. Psychiatric: Attention and Perception: Attention normal. Mood and Affect: Affect is flat. Speech: Speech normal. Behavior: Behavior is withdrawn. Code Status: Full Code Labs: Results in Past 30 Days Result Component Current Result Ref Range Previous Result Ref Range WBC 4.9 (12/10/2020) 3.5 - 10.5 10E9/L 5.5 (12/03/2020) 3.5 - 10.5 10E9/L RBC 2.68 (L) (12/10/2020) 4.32 - 5.72 10E12/L 2.67 (L) (12/03/2020) 4.32 - 5.72 10 E12/L Hemoglobin 8.0 (L) (12/10/2020) 13.5 - 17.5 g/dL 8.1 (L) (12/03/2020) 13.5 - 17.5 g/dL Hematocrit 26.4 (L) (12/10/2020) 38.8 - 50.0 % 26.3 (L) (12/03/2020) 38.8 - 50.0 % MCV 98.5 (H) (12/10/2020) 81.2 - 95.1 fL 98.5 (H) (12/03/2020) 81.2 - 95.1 fL MCH 29.9 (12/10/2020) 26.0 - 34.0 pg 30.3 (12/03/2020) 26.0 - 34.0 pg MCHC 30.3 (L) (12/10/2020) 31.0 - 37.0 g/dL 30.8 (L) (12/03/2020) 31.0 - 37.0 g/dL RDW 14.6 (12/10/2020) 11.8 - 15.6 % 14.7 (12/03/2020) 11.8 - 15.6 % Platelets 299 (12/10/2020) 150 - 450 10E9/L 204 (12/03/2020) 150 - 450 10E9/L Lymphocytes % 23.2 (12/10/2020) 22.0 - 49.0 % 19.0 (L) (12/03/2020) 22.0 - 49.0 % Monocytes % 11.2 (H) (12/10/2020) 2.0 - 10.0 % 9.6 (12/03/2020) 2.0 - 10.0 % Eosinophils % 2.4 (12/10/2020) <=5.0 % 1.6 (12/03/2020) <=5.0 % Basophils % 0.4 (12/10/2020) 0.0 - 2.5 % 0.5 (12/03/2020) 0.0 - 2.5 % Recent Labs 12/10/20 0539 12/03/20 0533 11/29/20 0613 11/28/20 0659 11/27/20 0606 11/26/20 0629 NA 136 135* 133* 135* 134* 136 K 3.9 4.1 3.6 3.6 3.6 3.3* CL 98* 99 95* 97* 98* 100 CO2 30 34 33 33 31 32 BUN 15 10 8 8 10 10 CREATININE 1.26* 1.00 1.04 1.03 1.09 1.04 GLU 91 91 88 85 89 89 CALCIUM 8.7 8.7 8.5 8.8 8.3 8.2* BILITOT <0.3 0.3 0.3 0.4 0.3 0.4 ALKPHOS 126* 130* 117 115 112 106 AST 29 32 25 28 31 29 ALT 13 <9* <9* <9* <9* <9* PROT 6.6 6.4 6.3 6.3 6.1 5.8 ALB 3.2* 3.2* 3.0* 3.0* 2.9* 2.8* EGFR 57* >59 >59 >59 >59 >59 ANIONGAP 8 2 5 5 5 4 TSH Date Value Ref Range Status 11/19/2020 2.640 0.400 - 4.000 uIU/mL Final No results found for: FREET4 No results found for: HGBA1C No results found for: CHOL, LDL, HDL, TRIG No results found for: PREALBUMIN No results found for: PSA No results found for: [id number] No results found for: FOLATE No results [...] SEDRATE Lab Results Component Value Date CRP 2.1 (H) 12/17/2020 CRP 2.8 (H) 12/10/2020 CRP 4.4 (H) 12/03/2020 Iron (ug/dL) Date Value 12/04/2020 27 (L) Iron Binding Capacity (ug/dL) Date Value 12/04/2020 253 Iron Saturation (%) Date Value 12/04/2020 11 (L) @LABRCNTIP(laburin)@ Imaging: X-ray Chest 1 view Result Date: 11/15/2020 EXAM: Chest series INDICATION: PICC line placement TECHNIQUE: AP view(s) of the chest COMPARISON: None FINDINGS: Support apparatus: Right arm PICC has been plac ed, tip is at the cavoatrial junction. Lungs: Lungs are clear without consolidat ion or vascular congestion. Pleura: No pleural effusion. No pneumothorax. Heart and mediastinum: Cardiomediastinal silhoutte and great vessels are within normal limits. No evidence of mediastinal or hilar mass. Bones and soft tissues: No ac lucille osseous abnormalities. Upper abdomen: Unremarkable. IMPRESSION: Right arm PICC in expected location. Foot Right (2 views) Result Date: 11/15/2020 EXAM: Right foot series INDICATION: Pain TECHNIQUE: Frontal and lateral view(s) of the right foot COMPARISON: None FINDINGS: Bone mineralization is diffusely de creased. No lytic or destructive process. No acute or healing fracture. Normal o sseous alignment. Mild relative degenerative disease at the 1st MTP joint. The s oft tissues are unremarkable. IMPRESSION: Diffuse osteopenia without acute osseous abnormality. Abdomen and Pelvis with IV Contrast Result Date: 11/18/2020 EXAM: CT Abdomen and Pelvis with IV contrast INDICATION: bacteremia, unknown luis felipe rce TECHNIQUE: Multi-detector row CT images were acquired from the lung bases th rough the abdomen and pelvis with the use of IV contrast. Sagittal and coronal i mages were acquired from the transaxial data. All CT scans performed at this regional medical center utilize dose optimization techniques as appropriate to the exam, includin g the following: Automated exposure control and adjustment of the mA and/or KV a ccording to patient size (this includes techniques or standardized protocols for targeted exams where dose is matched to the indication/reason for exam). IV CON TRAST: 100 mL Omnipaque 350 ORAL CONTRAST: None DLP 280 mGycm COMPARISON: None F INDINGS: LOWER CHEST: There is mild pleural thickening at the posterior costophr enic angles more prominent on left than right. Lung bases are otherwise clear. L IVER: Unremarkable BILIARY SYSTEM: Gallbladder is unremarkable. Bile ducts are not dilated. PANCREAS: Unremarkable SPLEEN: Unremarkable ADRENALS: Unremarkab le KIDNEYS & URETERS: Small nonobstructing stone is present in the lower pole collecting system of the right kidney. The stone measures approximate 6 mm in size. Right internal ureteral stent is present and in satisfactory position. BLADDER: Park catheter noted in the bladder. REPRODUCTIVE ORGANS: Unremarkable GASTROINTESTINAL: The stomach, small bowel, and colon are unremarkable. The appendix is normal. MESENTERY/PERITONEUM/RETROPERITONEUM: Unremarkable VASCULAR: Unremarkable LYMPH NODES: No adenopathy OSSEOUS & SOFT TISSUES: Unremarkable IMPRESSION: 1. Nonobstructing lower pole right renal calculus. 2. Right internal ureteral stent. 3. Otherwise negative CT abdomen and pelvis. Electronically sig nolan by Antoine Martinez MD MRI Foot Right (without contrast) Result Date: [...] sinus tarsi. Correlate for sinus tarsi syndrome. Echo-TAYLOR (use contrast as indicated) Result Date: 11/21/2020 Transesophageal Echocardiogram Report Patient Name: MAINOR BLANCA Med Rec #: [id number] Reading MD: Jeff Guzmán MD [facility] Date: 11/21/2020 Referring MD: NASEEM العلي MD Technologist: Teri LANGLEY [id number] Location: [facility] : 1950 Room: [facility] Gender: Male Height: 70.08in BP: 137/80 mmHg Weight: 169.76lb HR: Diagnosis Cod es: I38 Endocarditis, valve unspecified Procedures: 90990 Echo TAYLOR 9 3325 Color Doppler Echo 31650 Spectral Doppler Echo Conclusions: Th e left ventricular systolic function is normal. The left ventricular chamber size is normal. Borderline LVH Mildly dilated right ventricular cavity siz e. The right ventricular systolic function is normal. The left atrium is m ildly dilated. There is no evidence of a thrombus in the left atrial appendag e. PICC catheter is visible in the RA. The aortic valve is sclerotic. T here is mild mitral valve regurgitation. Small plaque is seen in the arch and descending thoracic aorta. Mild valve changes are noted and appear to be con sistent with age of 70 years. No valvular vegetation identified on this exam. F indings Procedure Information The patient is being monitored per protocol. The quality of the study was good. Consent was obtained prior to the procedure. Pr e TAYLOR oral cavity was checked and revealed no overcrowding. The probe was passe d with no difficulty. Total sedation time was 12 minutes. There were no complic ations. Normal sinus rhythm noted at rest. Left Ventricle The left ventricular chamber size is normal. The left ventricular systolic function is normal. Bord jen LVH Right Ventricle Mildly dilated right ventricular cavity size. The ri ght ventricular systolic function is normal. Atria The left atrium is mildly dil ated. There is no evidence of a thrombus in the left atrial appendage. There i s no evidence of a patent foramen ovale. The right atrium is normal in size. T here is a prominent eustachian valve. PICC catheter is visible in the RA. Aorti c Valve There is a trileaflet aortic valve. The aortic valve is sclerotic. The re is no aortic valve stenosis. There is trace (trivial) aortic valve regurgita tion. Mitral Valve The mitral valve appears normal. Mitral leaflets are mildly thickened. There is no mitral valve prolapse. There is mild mitral valve regur gitation. There is no mitral valve stenosis. Pulmonic Valve The pulmonic valve is normal. There is mild pulmonic valve regurgitation. There is no pulmonic va lve stenosis. Tricuspid Valve Normal tricuspid valve structure. There is trace tricuspid valve regurgitation. Tricuspid regurgitation envelope is inadequate f or calculation of right ventricular systolic pressure. There is no tricuspid va lve stenosis. Great Vessels The pulmonary artery was not well visualized. Small plaque is seen in the arch and descending thoracic aorta. Venous The inferior v katie cava was not well visualized. Pericardium/Pleural There is no evidence of pe ricardial effusion. Jeff Guzmán MD electronically signed on 11/21/2020 6:16:5 2 PM with a status of Final CD Upload Result Date: 12/05/2020 <Finalized by HMI PACS interface> Assessment and Plan: 1. Kidney stone/History of R ureteral stent placement. This was done at [facility]. 2. Urinary retention requiring Park catheter/hematuria of uncertain etiology. Corinna yap remains in place today. Continues to have gross hematuria. He has a follow up with urology this afternoon. 3. MSSA bacteremia. TAYLOR was negative for vegetation. Most likely source was ur inary tract. He has now completed IV antibiotics as ordered by ID. Denies fevers /chills. Vitals stable. Labs improved. 4. Chronic pain of right foot. 5. Hypernatremia. Resolved. 6. Chronic methadone use. Continue Methadone as ordered. 7. Anemia. Last Hgb stable at 8.0. CBC tomorrow. 8. Iron deficiency. Iron saturation was 11%. Now on ferrous sulfate 325mg 3x wee kly with vitamin C 250 mg. 9. Acute kidney injury. CMP tomorrow. 10. Diarrhea. Resolved. GI panel was negative. 11. Numbness of 4th and 5th fingers, left hand. Hx of left wrist fracture. Possi ble ulnar nerve entrapment. It is not painful and has not affected hand/wrist mo bility. Defer workup to PCP. Follow-up: Next week I spent a total of 25 minutes in the care of this patient, with greater than 50% of the total time spent in counseling and coordination of care as detailed in t he above documentation. Haley Duvall APRN Electronic Signature 12/17/2020 2:02 PM documented in this encounter Plan of Treatment Not on filedocumented as of this encounter Visit Diagnoses Diagnosis Methadone dependence (HCC) - Primary Opioid type dependence, unspecified Gross hematuria MSSA bacteremia Iron deficiency Iron deficiency anemia, unspecified KOFI (acute kidney injury) (HCC) Acute kidney failure, unspecified Anemia, unspecified type Numbness of fingers Disturbance of skin sensation documented in this encounter Care Teams Start Date End Date Visual Display Manager Relationship Specialty 11/19/20 Juan Trejo PA-C PCP - General [address] [place] [address] 12/13/20 01/01/21 Sarah Sun RN Care Manager [email or web address] documented as of this encounter
--- OUTSIDE RECORDS SUMMARY | 2021-01-20 12:47 | XMS REPORT | Encounter Summary ---
Author Author [facility] Organization [facility] Address Unknown Phone Unavailable Care Team Providers Care Housekeeper Supervisor Name Role Phone Juan Trejo PA-C PCP Jo-Ann العلي MD Unavailable Reason for Visit * Reason Comments Other MSSA bacteremia Encounter Details Care Team Description Date Type Department Jo-Ann العلي MD [address] [place] [address] [email or web address]acte[facility] (Primary Dx) 2021 Telemedicine Loraine Azul Infec tious Disease [address] [place] [address] Social History Date Tobacco Use [...] 11/16/2020 relatives? How often do you attend synagogue or methodist Never 11/16/2020 services? Do you belong to any clubs or organizations such No 11/16/2020 as synagogue groups, unions, fraternal or athletic groups, or [...] encounter Miscellaneous Notes * Progress Notes - Jo-Ann العلي MD - 01/04/2021 1:15 PM CDT Images from the original note were not included. [address] [id number] Infectious Diseases Progress Note Patient Name: Caden Blanca : 1950 Date: 12/07/20 Referring Physician: No att. providers found Chief Complaint: MSSA bacteremia Background history: The patient is a 70 y.o. male with PMH of BPH, ureteral doc nt placement, nephrolithiasis, methadone dependence/ transferred from [place] for HERMES A bacteremia. Pt was admitted at [facility] in October/ November 2020. Pt with history of Rt sided ureteral stones, post ureteral stent placement on . Since then, he had hematuria. Pt was self catheterizing as per urology instructions, because of the hematuria. In the week prior, Pt presented to [place] for symptoms of hematuria, lower abdominal pain. Pt was found to have an KOFI, urinary catheter inserted. Pt also with feve rs, leukocytosis, thought to be septic. Pt had infection work up done- found to have blood cultures and urine cultures positive for MSSA. Transferred to [facility] for further care. Pt treated with Ancef initially. No obvious source of infection identified. CT A /P negative as well. Pt's repeat blood cultures were positive, therefore a TAYLOR w as obtained which was negative. PICC line placed at outside hospital was discont inued as well. Repeat Blood cultures obtained on 11/22/20 were finally negative. Pt was eventually discharged on ceftriaxone to complete a 2 week course of IV Ab x. Interval history: Pt currently seen in follow up via a video visit through [facility], due to ongoing pa ndemic and Pt preference. Pt not seen or examined in person. At last follow up on 12/07/20, Pt seen to be doing well. He had completed his IV Abx therapy with no signs or symptoms of infection. Pt did not require any furt her Abx. Pt was asked to obtain BCx x 2 at 2 weeks following completion of IV Abx- these have remained negative. Pt reports he has remained afebrile. He saw a urologist in [place], but is now go ing to be seen by a urologist at the [facility] who plans for removal of ure teral/ kidney stones. Pt accompanied by his on video call who reports he has had some skin peelin g of hand and fingers, is resolving now. No other complaints. Review of Systems: Respiratory: No cough or dyspnea Cardiac: No chest pain or palpitations GI: No vomiting or diarrhea Past Medical and Social history- Has been reviewed Please refer to my consult note from 11/16/20 Allergies: No Known Allergies Physical Examination: Temp: [98.3 F (36.8 C)-99.4 F (37.4 C)] 99.4 F (37.4 C) Heart Rate: [67-73] 67 Resp: [16-18] 18 BP: (123-135)/(67-81) 130/67 SpO2: [94 %-97 %] 97 % MAP (calculated): [88 mm Hg-99 mm Hg] 88 mm Hg There is no height or weight on file to calculate BMI. Patient weight not recorded Pt currently seen in follow up via a video visit through [facility], due to ongoing pa ndemic and Pt preference. Pt not seen or examined in person. Lab Results: No results for input(s): WBC, HGB, HCT, MCV, MCH, MCHC, PLT, RDWCV in the last 7 2 hours. No results for input(s): ALBE, NA, K, CO2, CL, BUN, ALT, AST in the last 72 hour s. Invalid input(s): GLUC, CA, TP, CREA, TAP, BILU Creatinine clearance cannot be calculated (Unknown ideal weight.) Microbiology: OSH- 11/10/20- BCx- 2/2- MSSA 11/13/20- BCx- GPCs UCx- MSSA 11/15/20- BCx- 1/2- Staphylococcus aureus 11/22/20- UCx- No growth 11/22/20- BCx- NGTD 12/13/20- GI panel- negative 12/21/20- BCx- NGTD Radiology: OSH- CT Angio Chest- No infiltrates. Pulmonary nodule seen. No pulmonary emboli 11/15/20- CXR-IMPRESSION: Right arm PICC in expected location. 11/18/20- CT A/P- IMPRESSION: 1. Nonobstructing lower pole right renal calculus. 2. Right internal ureteral stent. 3. Otherwise negative CT abdomen and pelvis. 11/21/20- TAYLOR- Conclusions: The left ventricular systolic function is normal. The left ventricular chamber size is normal. Borderline LVH Mildly dilated right ventricular cavity size. The right ventricular systolic function is normal. The left atrium is mildly dilated. There is no evidence of a thrombus in the left atrial appendage. PICC catheter is visible in the RA. The aortic valve is sclerotic. There is mild mitral valve regurgitation. Small plaque is seen in the arch and descending thoracic aorta. Mild valve changes are noted and appear to be consistent with age of 70 years. No valvular vegetation identified on this exam. 11/27/20- MRI Rt foot- IMPRESSION: 1. Fairly pronounced edema about the posterior subtalar joint, detailed above, f elt most likely reactive to relatively advanced subtalar arthropathy. 2. A few vertically oriented linear low signal foci in this region could represe nt developing insufficiency fracture. 3. Small tibiotalar joint effusion, nonspecific. If there is concern for infecti on, consider attempting fluid sampling. 4. Minimal fluid signal in the sinus tarsi. Correlate for sinus tarsi syndrome. Images reviewed Events: 11/21/20- TAYLOR ASSESSMENT: The patient is a 70 y.o. male who presents for a follow up. Pt with PMH of BPH, ureteral stent placement, nephrolithiasis, methadone dependence/ transferred [facility] for MSSA bacteremia. MSSA bacteremia- persistent Recent history of Rt ureteral stent placement Hematuria KOFI PLAN: -Pt currently seen in follow up via a video visit through [facility], due to ongoing p andemic and Pt preference. Pt not seen or examined in person. -Unknown source of MSSA bacteremia. No obvious skin source identified -CT A/P without any obvious source. Thought to possibly be secondary to self cat heterization. -TAYLOR negative for vegetations. PICC line inserted at OSH was removed -Finally, repeat BCx cleared -Pt treated with Ancef while admitted, was switched to ceftriaxone at the time o f discharge -Pt completed a 2 week course of IV Abx -At last visit- Pt doing well, no further Abx were recommended -Pt obtained repeat BCx at 2 weeks from completion of IV Abx- remained negative -Labs, cultures reviewed -No further Abx indicated presently -Peeling of skin of hand and toes- resolving. Pt's asked to send in photos if worse -Pt has urology follow up, planned for stone removal soon -Pt asked to call ID office with any recurrent/ worsening symptoms Jo-Ann العلي MD Electronic Signature 01/04/2021 1:46 PM Sharif Lin Infectious Diseases Pager: [phone] Clinic Phone: [phone]. Fax: [phone]. 50% or more of my time was spent in counseling/coordination of care discussing t he above. Total time spent was 30 minutes. documented in this encounter Plan of Treatment Not on filedocumented as of this encounter Visit Diagnoses Diagnosis Bacteremia - Primary documented in this encounter Care Teams Start Date End Date Housekeeper Supervisor Relationship Specialty 11/19/20 Juan Trejo PA-C PCP - General [address] [place] [address] 01/03/21 Jo-Ann العلي MD Infectious [address] [place], [place] [address] [email or web address] documented as of this encounter
--- OUTSIDE RECORDS SUMMARY | 2021-01-20 12:47 | XMS REPORT | Encounter Summary ---
Author Author [facility] Organization [facility] Address Unknown Phone Unavailable Care Team Providers Care Political Cartoonist Name Role Phone Juan Trejo PA-C PCP Sarah Sun RN [phone] [email or web address] Jo-Ann العلي MD Unavailable Encounter Details Care Team Description Date Type Department Link, Onbase 12/17/2020 OnBase Clinic [facility] nathan Scan [address] [id number] [place] [address] Social History Date Tobacco Use Types Packs/Day [...] 11/16/2020 relatives? How often do you attend religion or hoahaoism Never 11/16/2020 services? Do you belong to any clubs or organizations such No 11/16/2020 as religion groups, unions, fraternal or athletic groups, or [...] encounter Care Teams Start Date End Date Political Cartoonist Relationship Specialty 11/19/20 Juan Trejo PA-C PCP - General [address] [place] [address] 12/13/20 01/01/21 Sarah Sun italian lecturer [email or web address] 01/03/21 Jo-Ann العلي MD Infectious [address] [facility] [address] [email or web address] documented as of this encounter
--- OUTSIDE RECORDS SUMMARY | 2021-01-20 12:47 | XMS REPORT | Encounter Summary ---
Author Author [facility] Organization [facility] Address Unknown Phone Unavailable Care Team Providers Care Slot Shift Supervisor Name Role Phone Juan Trejo PA-C PCP Jo-Ann العلي MD Unavailable Encounter Details Care Team Description Date Type Department Dusty Deluna MD [address] [address] [email or web address] Kidney stone (Primary Dx); Urinary retention; MSSA infection, non-invasive; Chronic ankle pain, unspecified laterality; Chronic foot pain, unspecified laterality 2021 [facility] [address] [address] Social History Date Tobacco Use [...] 11/16/2020 relatives? How often do you attend religious or tenriism Never 11/16/2020 services? Do you belong to any clubs or organizations such No 11/16/2020 as religious groups, unions, fraternal or athletic groups, or [...] Addendum Note - John Yousif MA - 12/26/2020 11:30 AM CDT Addended by: JOHN YOUSIF on: 01/17/2021 10:17 AM Modules accepted: Orders, Level of Service, SmartSet * Progress Notes - Dusty Deluna MD - 12/26/2020 12:00 AM CDT Name: MAINOR BLANCA Date: 12/26/2020 : 1950 Page 1 SUBJECTIVE: This is a 70-year-old male patient with function and mobility defic its secondary to recurrent kidney stones status-post ureteral stent placement. The patient has an indwelling Park catheter. The patient has also seen Infecti ous Disease for MSSA bacteremia. The patient has chronic right foot and ankle p ain with intermittent exacerbation. During his stay at [facility] the patient's foot and ankle has not improved. He is ambulatory short dista nces with a walker. He still has indwelling Park. He will followup with Urolo gy as an outpatient. PHYSICAL EXAMINATION: The patient is afebrile. Blood pressure 109/75. General: The patient is alert and responsive. Lungs: Clear to auscultation. CV: S1, S2 present. Abdomen: Soft. Bowel sounds present. Genitourinary: Indwelling Park draining blood tinged urine. Extremities: No edema. He is ambulating short distances with a walker. Gait is antalgic. ASSESSMENT/PLAN: 1. Continue physical therapy and occupational therapy. 2. Labs done on December 24 suggestive of a white cell count of 5.4, hemoglobin 8.7. Sodium 137, potassium 3.8. 3. 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 4. Urinary retention. Ureteral stone. The patient has indwelling Park. Urolo gy followup. 5. Right foot pain has improved. Pain management with methadone. 6. Acute kidney injury, monitor renal function closely. 7. I reviewed the patient's functional status and discussed it with the rehabili tation team. 8. I reviewed the patient's discharge plan, he is in agreement. Dusty Deluna M.D. JENNIFER/kathleen VXP #: [id number] / DEP #: [id number] documented in this encounter Plan of Treatment Not on filedocumented as of this encounter Visit Diagnoses Diagnosis Kidney stone - Primary Calculus of kidney Urinary retention Retention of urine, unspecified MSSA infection, non-invasive Chronic ankle pain, unspecified lateral ity Chronic foot pain, unspecified laterali ty documented in this encounter Care Teams Start Date End Date Slot Shift Supervisor Relationship Specialty 11/19/20 Juan Trejo PA-C PCP - General [address] [place] [address] 01/03/21 Jo-Ann العلي MD Infectious [address] [facility] [place] [address] [email or web address] documented as of this encounter
--- OUTSIDE RECORDS SUMMARY | 2021-01-20 12:47 | XMS REPORT | Encounter Summary ---
Author Author [facility] Organization [facility] Address Unknown Phone Unavailable Care Team Providers Care Big 6 Dealer Name Role Phone Juan Trejo PA-C PCP Sarah Sun RN [phone] [email or web address] Jo-Ann العلي MD Unavailable Encounter Details Care Team Description Date Type Department Desmond Murray MD [address] [place] [address] [email or web address] Other intermission coordinator (current) drug therapy 12/10/2020 Lab Requisition LABORATORY [address] [id number] [place], [place] [id number] Social History Date Tobacco Use Types Packs/Day [...] 11/16/2020 relatives? How often do you attend scientology or adventist Never 11/16/2020 services? Do you belong to any clubs or organizations such No 11/16/2020 as scientology groups, unions, fraternal or athletic groups, or [...] Procedure Name Priority Date/Time Associated Diag nosis CBC WITH AUTO Routine 12/10/2020 Other fci (current) DIFFERENTIAL 5:39 AM CDT drug therapy CBC AND DIFFERENTIAL Routine 12/10/2020 Other tanja g term (current) 5:39 AM CDT drug therapy C-REACTIVE PROTEIN Routine 12/10/2020 Other fci (current) 5:39 AM CDT drug therapy COMPREHENSIVE METABOLIC Routine 12/10/2020 Other fci (current) PANEL 5:39 AM CDT drug therapy documented in this encounter Results * CBC auto differential (12/10/2020 5:39 AM CDT) WBC 4.9 3.5 - 10.5 10E9/L [facility] RBC 2.68 (L) 4.32 - 5.72 10E12/L [facility] Hemoglobin 8.0 (L) 13.5 - 17.5 g/dL [facility] Hematocrit 26.4 (L) 38.8 - 50.0 % [facility] MCV 98.5 (H) 81.2 - 95.1 fL [facility] MCH 29.9 26.0 - 34.0 pg [facility] MCHC 30.3 (L) 31.0 - 37.0 g/dL [facility] RDW 14.6 11.8 - 15.6 % [facility] Platelets 299 150 - 450 10E9/L [facility] nRBC 0.00 <=0.00 10E9/L [facility] Neutrophils % 62.8 40.0 - 75.0 % [facility] Lymphocytes % 23.2 22.0 - 49.0 % [facility] Monocytes % 11.2 (H) 2.0 - 10.0 % [facility] Eosinophils % 2.4 <=5.0 % [facility] Basophils % 0.4 0.0 - 2.5 % [facility] Neutrophils 3.09 1.70 - 7.00 10E9/L [facility] Lymphocytes 1.14 0.90 - 2.90 10E9/L [facility] Monocytes 0.55 0.30 - 0.90 10E9/L [facility] Eosinophils 0.12 0.05 - 0.50 10E9/L [facility] Basophils 0.02 0.00 - 0.30 10E9/L [facility] % nRBC 0 % [facility] Specimen Blood Performing Organization Address City/State/ZIP Code P flor[place] Number [facility] [address] [place] [address] * Comprehensive Metabolic Panel (12/10/2020 5:39 AM CDT) Sodium 136 136 - 145 mmol/L [facility] Potassium 3.9 3.6 - 4.9 mmol/L [facility] Chloride 98 (L) 99 - 111 mmol/L [facility] CO2 30 20 - 36 mmol/L [facility] Anion Gap 8 [facility] Glucose 91 74 - 106 mg/dL [facility] Total Protein 6.6 5.7 - 8.2 g/dL [facility] Albumin 3.2 (L) 3.4 - 4.8 g/dL [facility] Calcium 8.7 8.3 - 10.6 mg/dL [facility] BUN, Bld 15 6 - 20 mg/dL [facility] Creatinine 1.26 (H) 0.60 - 1.20 mg/dL [facility] eGFR 57 (L) >59 mL/min [facility] Total Bilirubin <0.3 0.0 - 1.2 mg/dL [facility] Alkaline 126 (H) 29 - 122 U/L [facility] Phosphatase LABORATORY ALT 13 10 - 46 U/L [facility] AST 29 16 - 37 U/L [facility] Specimen Blood Performing Organization Address City/[facility]/ZIP Code P [place] Number [facility] [address] [place] [address] * C-Reactive Protein (12/10/2020 5:39 AM CDT) CRP 2.8 (H) <=0.9 mg/dL [facility] Specimen Blood Performing Organization Address City/[facility]/ZIP Code P [place] Number [facility] [address] [place] [address] documented in this encounter Visit Diagnoses Diagnosis Other fci (current) drug therapy documented in this encounter Care Teams Start Date End Date Big 6 Dealer Relationship Specialty 11/19/20 Juan Trejo PA-C PCP - General [address] [place], [place] [id number] 12/13/20 01/01/21 Sarah Sun RN Care Manager [email or web address] 01/03/21 Jo-Ann العلي MD Infectious [address] [facility] [place] [address] [email or web address] documented as of this encounter
--- OUTSIDE RECORDS SUMMARY | 2021-01-20 12:47 | XMS REPORT | Encounter Summary ---
Author Author [facility] Organization [facility] Address Unknown Phone Unavailable Care Team Providers Care Dry Cell Assembly Supervisor Name Role Phone Juan Trejo PA-C PCP Encounter Details Care Team Description Date Type Department Haley Duvall APRN [address] [place] [address] [email or web address] Anemia due to acute blood loss (Primary Dx); Gross hematuria; MSSA bacteremia; Methadone dependence (HCC); Iron deficiency; KOFI (acute kidney injury) (HCC); Diarrhea, unspecified type 12/10/2020 Jail [facility] Post- Acute Care [address] [place] [address] Social History Date Tobacco Use [...] How often do you attend islam or hinduism Never 11/16/2020 services? Do you belong to [...] Progress Notes - Haley Duvall APRN - 12/10/2020 10:45 AM CDT [facility] Post-Acute Care Progress Note 12/10/2020 Name: Mainor Blanca : 1950 Facility: [facility] () Type of Visit: Sub-Acute Mainor Blanca is a 70 y.o. male who is seen today for a sub-acute rehab (Med A) visit at [facility]. Per Dr. Murray's H&P dated 11/30/20, "This is a 70-year-old [place]. He receives the bulk of his care through the [facility]. Several weeks ago, he was hospitalized at the [facility]. I am not privy to the details of that stay, except that a right-sided ureteral stent was placed because of kidney stones. A few days prior to November 10, at home, he began to have symptoms of urinary ret ention. He was advised by [facility] to begin self-catheterization. On November 10, he h ad diffuse abdominal pain and generalized weakness. He presented to the [facility]. According to the patient, he was sent home with a prescription for boo n medication after being there for a few hours. He then developed gross hematur ia and decided to go to the [facility]. He was admitted there late on November 10. While at the [facility], cultures of blood and urine were positive for MSSA. A Pedraza catheter was placed and he was started on CBI due to the hematuria. He h ad KOFI with a creatinine of 2.2. Followup blood cultures continued to be positi ve, which is what led to transfer to [facility]. He was at [facility] [place] November 15 through November 29. He was seen by Dr. Escobar of Urology. The most recent Urology note was on November 16,the day afte r admission, in which Dr. Escobar indicated to continue Pedraza catheter. The patient was seen by Drs. العلي and Viji Briscoe of Infectious Diseases. [facility] eventually were no growth. A transesophageal echo showed no vegetation. In the most recent Infectious Diseases note, Dr. Viji Briscoe doc umented that the MSSA bacteremia was "of possible urinary source." Recommendati on is to receive antibiotic therapy through December 07. Three other issues were addressed while at [facility]. The 1st is that he [...] is dictated below." Patient is now at [facility] for therapies. Patient was recently seen by Delfin Peters APRN. That note is reviewed. Seen today, Mainor is resting in bed. He states he is "not real well" today. He tells me he is having issues with his c atheter tubing, as the device that holds in place has broken. He continues to roberts ve hematuria. He voices frustration with urology regarding stent placement, rath er than stone extraction. He is not sure why this was done. He has not yet been told if/when he has a follow up with urology, which has also been frustrating fo r him. He denies pain at present. He states he has been having 2-3 episodes of d iarrhea daily since he arrived. He describes the stools as liquid. He denies abd ominal pain, nausea, or vomiting. He has completed IV antibiotics and his midlin e was discontinued. He denies fevers or chills. Beyond what is listed above, 10 point ROS is negative. Patient Active Problem List Diagnosis Gross hematuria KOFI (acute kidney injury) (HCC) BPH (benign prostatic hyperplasia) Hypernatremia Hypokalemia Elevated LFTs MSSA bacteremia Methadone dependence ([facility]) NSVT (nonsustained ventricular tachycardia) (HCC) Complicated UTI (urinary tract infection) Current Outpatient Medications Medication Sig bisacodyl (FLEET) 10 MG/30ML ENEM bisacodyl hyoscyamine (LEVSIN/SL) 0.[address] [...] Take 0.4 mg by mouth at bedtime. No current facility-administered medications for this visit. [...] than three time s a week Attends Yazidi Services: Never Active Member of Clubs or Organizations: No Attends Club or Organization Meetings: Never Marital Status: Intimate Partner Violence: Not At Risk Fear of Current or Ex-Partner: No Emotionally Abused: No Physically Abused: No Sexually Abused: No No past medical history on file. Review of Systems: As per HPI, otherwise the 10-point ROS is negative. Physical Exam: VS: 102/65, 98.9F, 82 BPM, 93% on RA, 18 breaths/min Physical Exam Constitutional: General: He is not in acute distress. Appearance: Normal appearance. Cardiovascular: Rate and Rhythm: Normal rate and regular rhythm. Pulmonary: Effort: Pulmonary effort is normal. Breath sounds: Normal breath sounds. Abdominal: General: Bowel sounds are increased. Palpations: Abdomen is soft. Tenderness: There is no abdominal tenderness. Genitourinary: Comments: Pedraza in place, hematuria present. Musculoskeletal: Right lower leg: No edema. Left lower [...] found for: PSA No results found for: [id number] No results found for: FOLATE No results [...] SEDRATE Lab Results Component Value Date CRP 2.8 (H) 12/10/2020 CRP 4.4 (H) 12/03/2020 CRP 1.8 (H) 11/17/2020 Iron (ug/dL) Date Value 12/04/2020 27 (L) [...] data. All CT scans performed at [facility] utilize dose optimization techniques as [...] is present and in satisfactory position. BLADDER: Pedraza catheter noted in the bladder. REPRODUCTIVE ORGANS: [...] Date: 11/21/2020 Transesophageal Echocardiogram Report Patient Name: MARE MAINOR, Med Rec #: [id number] Reading MD: Jeff Guzmán MD [facility] Date: 11/21/2020 Referring MD: NASEEM العلي MD Technologist: Teri Luther [facility] [place] [id number] Location: [facility] [place] : 1950 Room: 625 Gender: Male Height: 70.08in BP: 137/80 mmHg Weight: 169.76lb HR: Diagnosis Cod es: I38 Endocarditis, valve unspecified Procedures: 99232 Echo TAYLOR 9 3325 Color Doppler Echo 63441 Spectral Doppler Echo Conclusions: Th e left [...] CD Upload Result Date: 12/05/2020 <Finalized by I PACS interface> Assessment and Plan: 1. Kidney stone/History of R ureteral stent placement. This was done at [facility]. 2. Urinary retention requiring Pedraza catheter/hematuria of uncertain etiology. Fatoumata ramirez needs urology follow up. I am told his hiv/aids care nurse at the [facility] was getting this set up. Continue pedraza catheter for now. 3. MSSA bacteremia. TAYLOR was negative for vegetation. Most likely source was ur inary tract. He has now completed IV antibiotics as ordered by ID. 4. Chronic pain of right foot. He does not mention this today. 5. Hypernatremia. Resolved. It was noted this was likely due to NS IVF. 6. Chronic methadone use. This had to be sent to retail pharmacy for pickup d /t facility pharmacy unable to fill. 7. Anemia. Secondary to hematuria. Hgb stable at 8.0. Recheck CBC in 1 week. 8. Iron deficiency. Iron saturation was 11%. Start ferrous sulfate 325mg 3x week ly with vitamin C 250 mg. 9. Acute kidney injury. NSAID was d/c last week. He still has a somewhat elevate d creatinine, 1.26 today. Recheck CMP next week. 10. Diarrhea. Due to recent extended IV antibiotic use, get stool sample by PCR to rule out C. Diff as cause of diarrhea. Follow-up: Next week I spent a total of 25 minutes in the care of this patient, with greater than 50% of the total time spent in counseling and coordination of care as detailed in t he above documentation. Haley Duvall APRN Electronic Signature 12/10/2020 11:29 AM documented in this encounter Plan of Treatment Not on filedocumented as of this encounter Visit Diagnoses Diagnosis Anemia due to acute blood loss - Primar y Acute posthemorrhagic anemia Gross hematuria MSSA bacteremia Methadone dependence (HCC) Opioid type dependence, unspecified Iron deficiency Iron deficiency anemia, unspecified KOFI (acute kidney injury) (HCC) Acute kidney failure, unspecified Diarrhea, unspecified type documented in this encounter Care Teams Start Date End Date Dry Cell Assembly Supervisor Relationship Specialty 11/19/20 Juan Trejo PA-C PCP - General [address] [place] [address] documented as of this encounter
--- OUTSIDE RECORDS SUMMARY | 2021-01-20 12:47 | XMS REPORT | Encounter Summary ---
Author Author [facility] Organization [facility] Address Unknown Phone Unavailable Care Team Providers Care Quality Improvement Manager Name Role Phone Juan Trejo PA-C PCP Encounter Details Care Team Description Date Type Department Provider, Notinsystem_2, MODEL USER [address] [place] [address] 999.99 12/04/2020 [facility] nstic Encounter Radiology [address] [id number] [place] [address] Social History Date Tobacco Use Types Packs/Day [...] 11/16/2020 relatives? How often do you attend orthodox or catholic Never 11/16/2020 services? Do you belong to any clubs or organizations such No 11/16/2020 as orthodox groups, unions, fraternal or athletic groups, or [...] on file documented as of this encounter Medications at Time of Discharge Start Date End Date Medication Sig Dispensed Refills hyoscyamine (LEVSIN/SL) Place 0.125 0 0.125 MG SL tablet mg under the tongue every 4 (four) hours as needed for Cramping. naloxone (NARCAN) 4 Place 1 spray 0 MG/0.1ML nasal spray nasally as needed for Opioid Reversal. ondansetron (ZOFRAN-ODT) Take 4 mg by 0 4 MG disintegrating mouth every 6 tablet (six) hours as needed for Nausea. tamsulosin (FLOMAX) 0.4 Take 0.4 mg 0 MG CAPS by mouth at bedtime. 11/30/2020 12/07/2020 cefTRIAXone (ROCEPHIN) 1 Inject 2 g 14 g 0 g injectionIndications: into the vein MSSA bacteremia daily for 7 days. To be given through 12-07-2020. Weekly labs: CBC, CMP, CRP; results to Dr. العلي at [phone]. Midline care per facility protocol. 11/30/2020 12/13/2020 methadone (DOLOPHINE) 10 Take 16 224 tablet 0 MG tabletIndications: tablets (160 Methadone dependence mg total) by (HCC) mouth daily at 5 pm. (May cause QT prolongation and Torsades de pointes) documented as of this encounter Plan of Treatment Not on filedocumented as of this encounter Procedures Comments Procedure Name Priority Date/Time Associated Diag nosis CD Routine 12/04/2020 999.99 9:32 AM CDT documented in this encounter Results * CD Upload (12/04/2020 9:32 AM CDT) Modality Anatomical Region Laterality Computed Radiography Specimen Narrative PACS - 12/05/2020 9:41 AM CDT <Finalized by I PACS interface> Procedure Note Provider, Default, MODEL USER - 12/05/2020 <Finalized by [employer] PACS interface> Performing Organization Address City/State/ZIP Code P floridalma Number PACS documented in this encounter Visit Diagnoses Diagnosis 999.99 NO DIAGNOSIS documented in this encounter Care Teams Start Date End Date Quality Improvement Manager Relationship Specialty 11/19/20 Juan Trejo PA-C PCP - General [address] [facility] [place] [address] documented as of this encounter
--- OUTSIDE RECORDS SUMMARY | 2021-01-20 12:47 | XMS REPORT | Encounter Summary ---
Author Author [facility] Organization [facility] Address Unknown Phone Unavailable Care Team Providers Care Stock Receiver Name Role Phone Juan Trejo PA-C PCP Sarah Sun RN [phone] [email or web address] Jo-Ann العلي MD Unavailable Encounter Details Care Team Description Date Type Department Desmond Murray MD [address] [place] [address] [email or web address] 12/24/2020 Lab Requisition LABORATORY [address] [id number] [place], [place] [id number] Social History Date Tobacco Use Types Packs/Day [...] 11/16/2020 relatives? How often do you attend faith or yazidism Never 11/16/2020 services? Do you belong to any clubs or organizations such No 11/16/2020 as faith groups, unions, fraternal or athletic groups, or [...] Associated Diag nosis CBC WITH AUTO Routine 12/24/2020 DIFFERENTIAL 9:00 AM CDT CBC AND DIFFERENTIAL Routine 12/24/2020 9:00 AM CDT C-REACTIVE PROTEIN Routine 12/24/2020 9:00 AM CDT COMPREHENSIVE METABOLIC Routine 12/24/2020 PANEL 9:00 AM CDT documented in this encounter Results * CBC auto differential (12/24/2020 9:00 AM CDT) WBC 5.4 3.5 - 10.5 10E9/L [facility] RBC 2.96 (L) 4.32 - 5.72 10E12/L [facility] Hemoglobin 8.7 (L) 13.5 - 17.5 g/dL [facility] Hematocrit 28.8 (L) 38.8 - 50.0 % [facility] MCV 97.3 (H) 81.2 - 95.1 fL [facility] MCH 29.4 26.0 - 34.0 pg [facility] MCHC 30.2 (L) 31.0 - 37.0 g/dL [facility] RDW 13.9 11.8 - 15.6 % [facility] Platelets 243 150 - 450 10E9/L [facility] nRBC 0.00 <=0.00 10E9/L [facility] Neutrophils % 68.8 40.0 - 75.0 % [facility] Lymphocytes % 19.2 (L) 22.0 - 49.0 % [facility] Monocytes % 9.2 2.0 - 10.0 % [facility] Eosinophils % 2.2 <=5.0 % [facility] Basophils % 0.6 0.0 - 2.5 % [facility] Neutrophils 3.73 1.70 - 7.00 10E9/L [facility] LABORAT[facility] Lymphocytes 1.04 0.90 - 2.90 10E9/L [facility] Monocytes 0.50 0.30 - 0.90 10E9/L [facility] Eosinophils 0.12 0.05 - 0.50 10E9/L [facility] Basophils 0.03 0.00 - 0.30 10E9/L [facility] % nRBC 0 % [facility] Specimen Blood Performing Organization Address [facility] P floridalma Number [facility] [address] [place] [address] * Comprehensive Metabolic Panel (12/24/2020 9:00 AM CDT) Sodium 137 136 - 145 mmol/L [facility] Potassium 3.8 3.6 - 4.9 mmol/L [facility] Chloride 102 99 - 111 mmol/L [facility] CO2 31 20 - 36 mmol/L [facility] Anion Gap 4 [facility] Glucose 111 (H) 74 - 106 mg/dL [facility] Total Protein 6.8 5.7 - 8.2 g/dL [facility] Albumin 3.5 3.4 - 4.8 g/dL [facility] Calcium 9.2 8.3 - 10.6 mg/dL [facility] BUN, Bld 15 6 - 20 mg/dL [facility] Creatinine 1.12 0.60 - 1.20 mg/dL [facility] eGFR >59 >59 mL/min [facility] Total Bilirubin <0.3 0.0 - 1.2 mg/dL [facility] Alkaline 129 (H) 29 - 122 U/L [facility] Phosphatase LABORATORY ALT <9 (L) 10 - 46 U/L [facility] AST 12 (L) 16 - 37 U/L [facility] Specimen Blood Performing Organization Address City/[facility] P floridalma Number [facility] [address] [place] [address] * C-Reactive Protein (12/24/2020 9:00 AM CDT) CRP 4.1 (H) <=0.9 mg/dL [facility] Specimen Blood Performing Organization Address City/State/ZIP Code P floridalma Number [facility] [address] [place] [address] documented in this encounter Visit Diagnoses Not on filedocumented in this encounter Care Teams Start Date End Date Stock Receiver Relationship Specialty 11/19/20 Juan Trejo PA-C PCP - General [address] [place] [address] 12/13/20 01/01/21 Sarah Sun internet site designer [email or web address] 01/03/21 Jo-Ann العلي MD Infectious [address] [place] [address] [email or web address] documented as of this encounter
--- OUTSIDE RECORDS SUMMARY | 2021-01-20 12:47 | XMS REPORT | Encounter Summary ---
Author Author [facility] Organization [facility] Healthcare Address Unknown Phone Unavailable Care Team Providers Care Venetian Blind Washer Name Role Phone Juan Trejo PA-C PCP Sarah Sun RN [phone] [email or web address] Encounter Details Care Team Description Date Type Department Dusty Deluna MD [address] [address] [email or web address] Kidney stone (Primary Dx); Urinary retention; MSSA infection, non-invasive; Chronic ankle pain, unspecified laterality; Chronic foot pain, unspecified laterality [facility] [address] [address] Social History Date Tobacco Use [...] 11/16/2020 relatives? How often do you attend hinduism or muslim Never 11/16/2020 services? Do you belong to any clubs or organizations such No 11/16/2020 as hinduism groups, unions, fraternal or athletic groups, or [...] Addendum Note - John Yousif MA - 12/12/2020 9:45 AM CDT Addended by: JOHN YOUSIF on: 12/27/2020 03:06 PM Modules accepted: Orders, Level of Service, SmartSet * Progress Notes - Dusty Deluna MD - 12/12/2020 12:00 AM CDT Name: MAINOR BLANCA Date: 12/12/2020 : 1950 Page 2 SUBJECTIVE: The patient was seen and examined at bedside in evaluation of funct ion and mobility deficits secondary to urinary retention, ureteral stones status -post stent placement, indwelling Park catheter for urinary retention, acute ki dney injury, MSSA bacteremia urological source, right foot pain, chronic pain. The patient is undergoing inpatient rehabilitation at [facility]. He still has indwelling Park. He has right foot pain. The patient is ambul ating short distances. He is frustrated with blood in his urine. He has some p ain during urination. PHYSICAL EXAMINATION: The patient's vitals are stable. He is afebrile. Blood p ressure 117/65. Oxygen saturation 94%. General: The patient is alert and responsive. Lungs: Clear to auscultation. CV: S1, S2 present. Abdomen: Soft. Bowel sounds present. Extremities: The right lower extremity is elevated on a few pillows. Intact dis nathan pulses noted. No visible swelling or deformity. Ice pack is in place. Genitourinary: The patient has indwelling Prak. Blood tinged urine was noted in the urine bag. Psychiatric: The patient is pleasant, somewhat anxious. Neuropsych assessment: The patient is alert and oriented x3. ASSESSMENT/PLAN: 1. Continue physical therapy and occupational therapy. 2. Chronic pain management with methadone. The patient is on bowel protocol. 3. Park care per nursing. Encourage oral hydration. 4. Labs done on December 10, 2020, suggestive of white cell count of 4.9, hemoglob in 8, sodium 136, potassium 3.9. 5. I reviewed the patient's functional status. The patient is self limiting. __ . The patients participation in therapy is limited by pain in his rig ht foot and ankle. The patient is awaiting shoe for his right foot. 6. Continue current rehabilitation program to improve the patient's function, mo bility and safety. 7. Family training will be completed prior to discharge. Dusty Deluna M.D. JENNIFER/kathleen VXP #: [id number] / DEP #: [id number] documented in this encounter Plan of Treatment Not on filedocumented as of this encounter Visit Diagnoses Diagnosis Kidney stone - Primary Calculus of kidney Urinary retention Retention of urine, unspecified MSSA infection, non-invasive Chronic ankle pain, unspecified lateral ity Chronic foot pain, unspecified laterali ty documented in this encounter Care Teams Start Date End Date Venetian Blind Washer Relationship Specialty 11/19/20 Juan Trejo PA-C PCP - General [address] [place] [address] 12/13/20 01/01/21 Sarah Sun RN Care Manager [email or web address] documented as of this encounter
--- OUTSIDE RECORDS SUMMARY | 2021-01-20 12:47 | XMS REPORT | Clinical Summary ---
Author Author [facility] Address Unknown Phone Unavailable Care Team Providers Care Customer Account Specialist Name Role Phone Juan Trejo PA-C PCP Naseem العلي MD Unavailable Allergies No known active allergies Medications End Date Status Medication Sig Dispensed Refills Start Date Active tamsulosin (FLOMAX) 0.4 Take 0.4 mg 0 MG CAPS by mouth at bedtime. Active ondansetron (ZOFRAN-ODT) Take 4 mg by 0 4 MG disintegrating mouth every 6 tablet (six) hours as needed for Nausea. Active hyoscyamine (LEVSIN/SL) Place 0.125 0 0.125 MG SL tablet mg under the tongue every 4 (four) hours as needed for Cramping. Active naloxone (NARCAN) 4 Place 1 spray 0 MG/0.1ML nasal spray nasally as needed for Opioid Reversal. Active bisacodyl (FLEET) 10 bisacodyl 0 MG/30ML ENEM Active Magnesium Hydroxide (MILK Take 30 mLs 0 OF MAGNESIA PO) by mouth as needed. Active methadone (DOLOPHINE) 10 Take 16 224 tablet 0 0 MG tabletIndications: tablets (160 1 Methadone dependence mg total) by (HCC) mouth daily at 5 pm. (May cause QT prolongation and Torsades de pointes) Active vitamin C (ASCORBIC ACID) Take 1 tablet 15 tablet 0 250 MG tablet (250 mg 1 total) by mouth 3 (three) times a week. Take MWF with iron Active senna-docusate Take 1 tablet 30 tablet 0 (PERICOLACE) 8.6-50 MG by mouth at 1 bedtime. Active Ferrous Sulfate (SLOW FE) Take 1 tablet 15 tablet 0 142 (45 Fe) MG TBCR by mouth 3 1 (three) times a week. Take 1 tablet by mouth every Thursday, Thursday, and Thursday with Vitamin C Active sulfamethoxazole-trimetho TAKE 1 TABLET 0 prim (BACTRIM DS) 800-160 (800/160MG) 1 MG per tablet BY MOUTH TWO TIMES A DAY FOR INFECTION. TAKE WITH WATER/AVOID SUNLIGHT. START TAKING ON 01/01 (SEVEN DAYS BEFORE SURGERY) Active acetaminophen (TYLENOL) Take 500 mg 0 500 MG tablet by mouth every 6 (six) hours as needed for Mild Pain. 12/27/2020 Discontinued ferrous sulfate Take 1 tablet 0 (KIMMY-IN-NICOLA) 325 (65 Fe) (325 mg 1 MG tablet total) by mouth 3 (three) times a week. Take on MWF with vitamin C 12/27/2020 Discontinued (Reorder) vitamin C (ASCORBIC ACID) Take 1 tablet 0 11/19 250 MG tablet (250 mg 1 total) by mouth 3 (three) times a week. Take MWF with iron Active Problems Problem Noted Date NSVT (nonsustained ventricular tachycardia) 11/20/19 21 Gross hematuria 11/15/2020 KOFI (acute kidney injury) 11/15/2020 BPH (benign prostatic hyperplasia) 11/15/2020 Hypernatremia 11/15/2020 Hypokalemia 11/15/2020 Elevated LFTs 11/15/2020 MSSA bacteremia 11/15/2020 Methadone dependence 11/15/2020 Complicated UTI (urinary tract infectio n) Encounters Care Team Description Date Type Specialty Naseem العلي MD Bacteremia (Primary Dx) 2021 Telemedicine Infectious Diseases Dusty Deluna MD Kidney stone (Primary Dx); Urinary retention; MSSA infection, non-invasive; Chronic ankle pain, unspecified laterality; Chronic foot pain, unspecified laterality 2021 [facility] Thelma Moreno RN 01/02/2021 Transitional Care Management Care Management (TCM) Dechand, Sarah S, RN 12/28/2020 Patient Care Management Outreach Sarah Sun RN 12/27/2020 Patient Care Management Outreach Dusty Deluna MD Kidney stone (Primary Dx); Urinary retention; MSSA infection, non-invasive; Chronic ankle pain, unspecified laterality; Chronic foot pain, unspecified laterality 12/26/2020 [facility] Alie Peters APRN Constipation, unspecified constipation t ype (Primary Dx); Gross hematuria; Anemia due to acute blood loss; Methadone dependence (HCC); MSSA bacteremia; Iron deficiency 12/26/2020 [facility] Internal Medicine Link, Onbase 12/25/2020 [facility] Scan Desmond Murray MD 12/24/2020 Lab Requisition Lab Desmond Murray MD Essential (primary) hypertension 12/21/2020 Lab Requisition Lab Haley Duvall APRN Essential (primary) hypertension 12/18/2020 Lab Requisition Lab Haley Duvall APRN Methadone dependence (HCC) (Primary Dx); Gross hematuria; MSSA bacteremia; Iron deficiency; KOFI (acute kidney injury) (HCC); Anemia, unspecified type; Numbness of fingers 12/17/2020 [facility] Internal Medicine Link, Onbase 12/17/2020 [facility] Scan Haley Duvall APRN Other computer terminal operator (current) drug therapy 12/17/2020 Lab Requisition Lab Dusty Deluna MD Kidney stone (Primary Dx); Urinary retention; MSSA infection, non-invasive; Chronic ankle pain, unspecified laterality; Chronic foot pain, unspecified laterality 12/14/2020 [facility] Haley Duvall APRN Essential (primary) hypertension 12/14/2020 Lab Requisition Lab Sarah Sun RN 12/13/2020 Patient Care Management Outreach Haley Duvall APRN Methadone dependence (HCC) 12/13/2020 Orders Only Internal Medicine Haley Duvall APRN Anemia due to acute blood loss (Primary Dx); Gross hematuria; MSSA bacteremia; Methadone dependence (HCC); Iron deficiency; KOFI (acute kidney injury) (HCC); Diarrhea, unspecified type 12/10/2020 [facility] Internal Medicine Haley Duvall APRN Essential (primary) hypertension 12/10/2020 Lab Requisition Lab Desmond Murray MD Other computer terminal operator (current) drug therapy 12/10/2020 Lab Requisition Lab Naseem العلي MD MSSA bacteremia (Primary Dx) 12/07/2020 Office Visit Infectious Diseases Naseem العلي MD Other (D/C midline ) 12/07/2020 Telephone Infectious Diseases Dusty Deluna MD Kidney stone (Primary Dx); Urinary retention; MSSA infection, non-invasive; Chronic ankle pain, unspecified laterality; Chronic foot pain, unspecified laterality 12/06/2020 [facility] Provider, [email or web address], MODEL USER [phone] 12/04/2020 Hospital Radiology Encounter Alie Peters APRN Essential (primary) hypertension 12/04/2020 Lab Requisition Lab Alie Peters APRN Anemia due to acute blood loss (Primary Dx); Gross hematuria; MSSA bacteremia 12/03/2020 [facility] Internal Medicine Haley Duvall APRN Essential (primary) hypertension 12/03/2020 Lab Requisition Lab Desmond Murray MD Gross hematuria (Primary Dx); Anemia due to acute blood loss; Benign prostatic hyperplasia with lower urinary tract symptoms, symptom details unspecified; Stage 3 chronic kidney disease, unspecified whether stage 3a or 3b CKD (HCC); Methadone dependence (HCC) 11/30/2020 [facility] Internal Medicine Haley Duvall APRN Methadone dependence (HCC) 11/30/2020 Orders Only Internal Medicine Haley Duvall APRN Methadone dependence (HCC) (Primary Dx) 11/30/2020 Orders Only Internal Medicine Yo Murray MD Alshekh Mousa, Amer, MD Racherla, Sumiran, MD MSSA bacteremia (Primary Dx) 11/15/2020 Hospital - Encounter 11/29/2020 from Last 3 Months Social History Date Tobacco Use Types Packs/Day [...] 11/16/2020 relatives? How often do you attend sabianism or evangelical Never 11/16/2020 services? Do you belong to any clubs or organizations such No 11/16/2020 as sabianism groups, unions, fraternal or athletic groups, or [...] file Not on file Not on file Last Filed Vital Signs Reading Time Taken Comments Vital Sign 114/68 12/07/2020 2:13 PM CDT Blood Pressure 83 12/07/2020 2:13 PM CDT Pulse 36.9 C (98.5 F) 12/07/2020 2:13 PM CDT Temperature 16 12/07/2020 2:13 PM CDT Respiratory Rate 95% 12/07/2020 2:13 PM CDT Oxygen Saturation - - Inhaled Oxygen Concentration 71.6 kg (157 lb 14.4 oz) 11/29/2020 3:02 AM CDT Weight 177.8 cm (5' 10") 11/29/2020 3:02 AM CDT Height 22.66 11/29/2020 3:02 AM CDT Body Mass Index Plan of Treatment Health Maintenance Due Date Last Done Comments Pneumo-Vaccine: 65+Yrs (1 [birth year]02/1956 of 4 - PCV13) Pneumo-Vaccine: Peds (0-5 01[birth year]02[birth year]1958 Yrs) & At-Risk Patients (6-64 Yrs) (1 of 4 - PCV13) Hepatitis C Screening 01/02/1970 DTaP,Tdap,and Td Vaccines 01/02/1971 (1 - Tdap) Colon Cancer Screening 01/02/2002 Zoster Vaccine (1 of 2) 01/02/2002 Influenza Vaccine (#1) 2020 02/17/2018 COVID-19 Vaccine Completed 06/20/2020, 05/23/2020 HIB Vaccines Aged Out No longer eligible based on patient's age to complete this topic IPV Vaccines Aged Out No longer eligible based on patient's age to complete this topic Meningococcal Vaccine Aged Out No longer eligib le based on patient's age to complete this topic Rotavirus Vaccines Aged Out No longer eligible based on patient's age to complete this topic Procedures Comments Procedure Name Priority Date/Time Associated Diag nosis CBC WITH AUTO Routine 12/24/2020 DIFFERENTIAL 9:00 AM CDT COMPREHENSIVE METABOLIC Routine 12/24/2020 PANEL 9:00 AM CDT CBC AND DIFFERENTIAL Routine 12/24/2020 9:00 AM CDT C-REACTIVE PROTEIN Routine 12/24/2020 9:00 AM CDT BLOOD CULTURE Routine 12/21/2020 Essential (prim iliana) 5:57 AM CDT hypertension CBC WITH AUTO Routine 12/18/2020 Essential (prim iliana) DIFFERENTIAL 5:43 AM CDT hypertension C-REACTIVE PROTEIN Routine 12/18/2020 Essential ( primary) 5:43 AM CDT hypertension COMPREHENSIVE METABOLIC Routine 12/18/2020 Essent ial (primary) PANEL 5:43 AM CDT hypertension CBC AND DIFFERENTIAL Routine 12/18/2020 Essential (primary) 5:43 AM CDT hypertension C-REACTIVE PROTEIN Routine 12/17/2020 Other care home (current) 5:44 AM CDT drug therapy GASTROINTESTINAL PANEL Routine 12/13/2020 Essenti al (primary) FILMARRAY PCR 5:00 PM CDT hypertension STOOL CULTURE BY PCR Routine 12/10/2020 Essential (primary) 1:55 PM CDT hypertension CBC WITH AUTO Routine 12/10/2020 Other computer terminal operator (current) DIFFERENTIAL 5:39 AM CDT drug therapy COMPREHENSIVE METABOLIC Routine 12/10/2020 Other computer terminal operator (current) PANEL 5:39 AM CDT drug therapy CBC AND DIFFERENTIAL Routine 12/10/2020 Other tanja g term (current) 5:39 AM CDT drug therapy C-REACTIVE PROTEIN Routine 12/10/2020 Other computer terminal operator (current) 5:39 AM CDT drug therapy CD Routine 12/04/2020 999.99 9:32 AM CDT IRON SATURATION Routine 12/04/2020 Essential (luli esdras) 6:28 AM CDT hypertension IRON BINDING CAPACITY Routine 12/04/2020 Essentia l (primary) 6:28 AM CDT hypertension IRON Routine 12/04/2020 Essential (prim iliana) 6:28 AM CDT hypertension CBC WITH AUTO Routine 12/03/2020 Essential (prim iliana) DIFFERENTIAL 5:33 AM CDT hypertension COMPREHENSIVE METABOLIC Routine 12/03/2020 Essent ial (primary) PANEL 5:33 AM CDT hypertension CBC AND DIFFERENTIAL Routine 12/03/2020 Essential (primary) 5:33 AM CDT hypertension C-REACTIVE PROTEIN Routine 12/03/2020 Essential ( primary) 5:33 AM CDT hypertension COVID-19 ANTIGEN Routine 11/29/2020 1:15 PM CDT COVID-19 PCR/AG Routine 11/29/2020 1:15 PM CDT CBC WITH AUTO Timed 11/29/2020 DIFFERENTIAL 6:13 AM CDT COMPREHENSIVE METABOLIC Timed 11/29/2020 PANEL 6:13 AM CDT CBC AND DIFFERENTIAL Timed 11/29/2020 6:13 AM CDT EKG 12-LEAD 11/29/2020 12:00 AM CDT TELEMETRY WAVEFORMS 11/28/2020 11:01 PM CDT TELEMETRY WAVEFORMS 11/28/2020 11:00 AM CDT TELEMETRY WAVEFORMS 11/28/2020 10:42 AM CDT CBC WITH AUTO Timed 11/28/2020 DIFFERENTIAL 6:59 AM CDT COMPREHENSIVE METABOLIC Timed 11/28/2020 PANEL 6:59 AM CDT CBC AND DIFFERENTIAL Timed 11/28/2020 6:59 AM CDT TELEMETRY WAVEFORMS 11/27/2020 11:09 PM CDT MRI FOOT RIGHT WO Routine 11/27/2020 CONTRAST 8:40 PM CDT TELEMETRY WAVEFORMS 11/27/2020 9:42 AM CDT CBC WITH AUTO Timed 11/27/2020 DIFFERENTIAL 6:06 AM CDT COMPREHENSIVE METABOLIC Timed 11/27/2020 PANEL 6:06 AM CDT CBC AND DIFFERENTIAL Timed 11/27/2020 6:06 AM CDT EKG 12-LEAD Routine 11/27/2020 5:48 AM CDT TELEMETRY WAVEFORMS 11/27/2020 1:59 AM CDT TELEMETRY WAVEFORMS 11/26/2020 11:00 PM CDT TELEMETRY WAVEFORMS 11/26/2020 11:00 AM CDT EKG 12-LEAD Routine 11/26/2020 9:36 AM CDT CBC WITH AUTO Timed 11/26/2020 DIFFERENTIAL 6:30 AM CDT CBC AND DIFFERENTIAL Timed 11/26/2020 6:30 AM CDT COMPREHENSIVE METABOLIC Timed 11/26/2020 PANEL 6:29 AM CDT TELEMETRY WAVEFORMS 11/25/2020 11:00 PM CDT TELEMETRY WAVEFORMS 11/25/2020 7:16 PM CDT TELEMETRY WAVEFORMS 11/25/2020 12:33 PM CDT TELEMETRY WAVEFORMS 11/25/2020 10:17 AM CDT CBC WITH AUTO Timed 11/25/2020 DIFFERENTIAL 7:21 AM CDT COMPREHENSIVE METABOLIC Timed 11/25/2020 PANEL 7:21 AM CDT CBC AND DIFFERENTIAL Timed 11/25/2020 7:21 AM CDT EKG 12-LEAD Routine 11/25/2020 6:06 AM CDT TELEMETRY WAVEFORMS 11/24/2020 11:01 PM CDT EKG 12-LEAD Routine 11/24/2020 7:52 AM CDT TELEMETRY WAVEFORMS 11/24/2020 7:00 AM CDT CBC WITH AUTO Timed 11/24/2020 DIFFERENTIAL 6:00 AM CDT COMPREHENSIVE METABOLIC Timed 11/24/2020 PANEL 6:00 AM CDT CBC AND DIFFERENTIAL Timed 11/24/2020 6:00 AM CDT TELEMETRY WAVEFORMS 11/24/2020 3:00 AM CDT TELEMETRY WAVEFORMS 11/23/2020 9:04 PM CDT TELEMETRY WAVEFORMS 11/23/2020 9:12 AM CDT CBC WITH AUTO Timed 11/23/2020 DIFFERENTIAL 6:57 AM CDT COMPREHENSIVE METABOLIC Timed 11/23/2020 PANEL 6:57 AM CDT CBC AND DIFFERENTIAL Timed 11/23/2020 6:57 AM CDT EKG 12-LEAD Routine 11/23/2020 6:10 AM CDT TELEMETRY WAVEFORMS 11/22/2020 11:00 PM CDT URINALYSIS, REFLEX Routine 11/22/2020 CULTURE IF NEEDED 9:29 PM CDT URINE CULTURE Routine 11/22/2020 9:29 PM CDT TELEMETRY WAVEFORMS 11/22/2020 8:28 PM CDT TELEMETRY WAVEFORMS 11/22/2020 11:13 AM CDT BLOOD CULTURE Timed 11/22/2020 7:16 AM CDT COMPREHENSIVE METABOLIC Timed 11/22/2020 PANEL 7:02 AM CDT CBC WITH AUTO Timed 11/22/2020 DIFFERENTIAL 7:00 AM CDT CBC AND DIFFERENTIAL Timed 11/22/2020 7:00 AM CDT BLOOD CULTURE Timed 11/22/2020 7:00 AM CDT TELEMETRY WAVEFORMS 11/21/2020 11:00 PM CDT TELEMETRY WAVEFORMS 11/21/2020 8:03 PM CDT TELEMETRY WAVEFORMS 11/21/2020 7:46 PM CDT NI ECHO-TAYLOR Routine 11/21/2020 4:20 PM CDT TELEMETRY WAVEFORMS 11/21/2020 10:37 AM CDT TELEMETRY WAVEFORMS 11/21/2020 7:59 AM CDT TELEMETRY WAVEFORMS 11/21/2020 7:58 AM CDT CBC WITH AUTO Timed 11/21/2020 DIFFERENTIAL 7:08 AM CDT COMPREHENSIVE METABOLIC Timed 11/21/2020 PANEL 7:08 AM CDT CBC AND DIFFERENTIAL Timed 11/21/2020 7:08 AM CDT TELEMETRY WAVEFORMS 11/20/2020 11:02 PM CDT TELEMETRY WAVEFORMS 11/20/2020 10:48 AM CDT CBC WITH AUTO Timed 11/20/2020 DIFFERENTIAL 7:35 AM CDT COMPREHENSIVE METABOLIC Timed 11/20/2020 PANEL 7:35 AM CDT CBC AND DIFFERENTIAL Timed 11/20/2020 7:35 AM CDT TELEMETRY WAVEFORMS 11/19/2020 11:05 PM CDT POTASSIUM Routine 11/19/2020 3:43 PM CDT EKG 12-LEAD Routine 11/19/2020 11:37 AM CDT TELEMETRY WAVEFORMS 11/19/2020 10:26 AM CDT EKG 12-LEAD Routine 11/19/2020 6:10 AM CDT TELEMETRY CODE/EVENT 11/19/2020 STRIP REPORT 4:29 AM CDT TELEMETRY WAVEFORMS 11/19/2020 4:27 AM CDT TELEMETRY WAVEFORMS 11/19/2020 4:27 AM CDT TELEMETRY WAVEFORMS 11/19/2020 4:27 AM CDT TELEMETRY WAVEFORMS 11/19/2020 4:27 AM CDT TELEMETRY WAVEFORMS 11/19/2020 4:24 AM CDT TELEMETRY WAVEFORMS 11/19/2020 4:24 AM CDT TELEMETRY WAVEFORMS 11/19/2020 4:22 AM CDT CBC WITH AUTO Timed 11/19/2020 DIFFERENTIAL 3:49 AM CDT TSH Routine 11/19/2020 3:49 AM CDT PHOSPHORUS STAT 11/19/2020 3:49 AM CDT MAGNESIUM STAT 11/19/2020 3:49 AM CDT COMPREHENSIVE METABOLIC Timed 11/19/2020 PANEL 3:49 AM CDT CBC AND DIFFERENTIAL Timed 11/19/2020 3:49 AM CDT EKG 12-LEAD Routine 11/19/2020 3:26 AM CDT TELEMETRY WAVEFORMS 11/19/2020 3:11 AM CDT TELEMETRY WAVEFORMS 11/19/2020 3:10 AM CDT TELEMETRY WAVEFORMS 11/19/2020 3:10 AM CDT TELEMETRY WAVEFORMS 11/19/2020 3:10 AM CDT TELEMETRY WAVEFORMS 11/19/2020 3:10 AM CDT TELEMETRY WAVEFORMS 11/19/2020 3:10 AM CDT TELEMETRY WAVEFORMS 11/18/2020 11:[address] ABDOMEN PELVIS W Routine 11/18/2020 CONTRAST 5:25 PM CDT TELEMETRY WAVEFORMS 11/18/2020 11:34 AM CDT CBC WITH AUTO Timed 11/18/2020 DIFFERENTIAL 8:31 AM CDT COMPREHENSIVE METABOLIC Timed 11/18/2020 PANEL 8:31 AM CDT CBC AND DIFFERENTIAL Timed 11/18/2020 8:31 AM CDT EKG 12-LEAD Routine 11/18/2020 6:38 AM CDT TELEMETRY WAVEFORMS 11/18/2020 12:00 AM CDT TELEMETRY WAVEFORMS 11/17/2020 10:44 PM CDT PHOSPHORUS Routine 11/17/2020 7:26 PM CDT MAGNESIUM STAT 11/17/2020 7:26 PM CDT POTASSIUM STAT 11/17/2020 7:26 PM CDT TELEMETRY WAVEFORMS 11/17/2020 10:08 AM CDT CBC WITH AUTO Timed 11/17/2020 DIFFERENTIAL 8:39 AM CDT C-REACTIVE PROTEIN Routine 11/17/2020 8:39 AM CDT COMPREHENSIVE METABOLIC Timed 11/17/2020 PANEL 8:39 AM CDT CBC AND DIFFERENTIAL Timed 11/17/2020 8:39 AM CDT EKG 12-LEAD Routine 11/17/2020 6:28 AM CDT TELEMETRY WAVEFORMS 11/17/2020 1:31 AM CDT TELEMETRY WAVEFORMS 11/16/2020 11:56 PM CDT TELEMETRY WAVEFORMS 11/16/2020 11:55 PM CDT TELEMETRY WAVEFORMS 11/16/2020 11:00 PM CDT MAGNESIUM STAT 11/16/2020 10:02 PM CDT BASIC METABOLIC PANEL STAT 11/16/2020 10:02 PM CDT TELEMETRY WAVEFORMS 11/16/2020 8:44 PM CDT TELEMETRY WAVEFORMS 11/16/2020 3:30 PM CDT TELEMETRY WAVEFORMS 11/16/2020 3:21 PM CDT EKG 12-LEAD Routine 11/16/2020 2:22 PM CDT CBC WITH AUTO Timed 11/16/2020 DIFFERENTIAL 10:12 AM CDT MAGNESIUM Routine 11/16/2020 10:12 AM CDT HC PROCALCITONIN Timed 11/16/2020 10:12 AM CDT COMPREHENSIVE METABOLIC Timed 11/16/2020 PANEL 10:12 AM CDT CBC AND DIFFERENTIAL Timed 11/16/2020 10:12 AM CDT EKG 12-LEAD Routine 11/15/2020 11:09 PM CDT XR FOOT RIGHT AP AND Routine 11/15/2020 LATERAL 7:56 PM CDT XR CHEST PA OR AP Routine 11/15/2020 7:55 PM CDT CBC WITH AUTO Timed 11/15/2020 DIFFERENTIAL 7:31 PM CDT HC PROCALCITONIN Routine 11/15/2020 7:31 PM CDT COMPREHENSIVE METABOLIC Timed 11/15/2020 PANEL 7:31 PM CDT CBC AND DIFFERENTIAL Timed 11/15/2020 7:31 PM CDT BLOOD CULTURE PCR Routine 11/15/2020 IDENTIFICATION PANEL 7:31 PM CDT BLOOD CULTURE Timed 11/15/2020 7:31 PM CDT BLOOD CULTURE Timed 11/15/2020 7:25 PM CDT from Last 3 Months Results * CBC auto differential (12/24/2020 9:00 AM CDT) Only the most recent of 19 results within the time period is included. WBC 5.4 3.5 - 10.5 10E9/L [facility] RBC 2.96 (L) 4.32 - 5.72 10E12/L [facility] Hemoglobin 8.7 (L) 13.5 - 17.5 g/dL [facility] Hematocrit 28.8 (L) 38.8 - 50.0 % [facility] MCV 97.3 (H) 81.2 - 95.1 fL [facility] MCH 29.4 26.0 - 34.0 pg [facility] MCHC 30.2 (L) 31.0 - 37.0 g/dL [facility] RDW 13.9 11.8 - 15.6 % [facility] Platelets 243 150 - 450 10E9/L [facility] nRBC 0.00 <=0.00 10E9/L [facility] Neutrophils % 68.8 40.0 - 75.0 % [facility] Lymphocytes % 19.2 (L) 22.0 - 49.0 % [facility] Monocytes % 9.2 2.0 - 10.0 % [facility] Eosinophils % 2.2 <=5.0 % [facility] Basophils % 0.6 0.0 - 2.5 % [facility] Neutrophils 3.73 1.70 - 7.00 10E9/L [facility] Lymphocytes 1.04 0.90 - 2.90 10E9/L [facility] Monocytes 0.50 0.30 - 0.90 10E9/L [facility] Eosinophils 0.12 0.05 - 0.50 10E9/L [facility] Basophils 0.03 0.00 - 0.30 10E9/L [facility] % nRBC 0 % [facility] Specimen Blood Performing Organization Address City/State/ZIP Code P [place] Number [facility] [address] [place] [address] * C-Reactive Protein (12/24/2020 9:00 AM CDT) Only the most recent of 6 results within the time period is included. Pathologist [facility] CRP 4.1 (H) <=0.9 mg/dL [facility] Specimen Blood Performing Organization Address City/[facility]/ZIP [facility] P [place] Number [facility] [address] [place] [id number] * Comprehensive Metabolic Panel (12/24/2020 9:00 AM CDT) Only the most recent of 19 results within the time period is included. [facility] Sodium 137 136 - 145 mmol/L [facility] Potassium 3.8 3.6 - 4.9 mmol/L [facility] Chloride 102 99 - 111 mmol/L [facility] CO2 31 20 - 36 mmol/L [facility] Anion Gap 4 [facility] Glucose 111 (H) 74 - 106 mg/dL [facility] Total Protein 6.8 5.7 - 8.2 g/dL [facility] Albumin 3.5 3.4 - 4.8 g/dL [facility] Calcium 9.2 8.3 - 10.6 mg/dL [facility] BUN, Bld 15 6 - 20 mg/dL [facility] Creatinine 1.12 0.60 - 1.20 mg/dL [facility] eGFR >59 >59 mL/min [facility] Total Bilirubin <0.3 0.0 - 1.2 mg/dL [facility] Alkaline 129 (H) 29 - 122 U/L [facility] Phosphatase LABORATORY ALT <9 (L) 10 - 46 U/L [facility] AST 12 (L) 16 - 37 U/L [facility] Specimen Blood Performing Organization Address City/[facility]/ZIP Code [place] Number [facility] [address] [place] [phone] * Blood Culture (12/21/2020 5:57 AM CDT) Only the most recent of 5 results within the time period is included. [facility] Blood Culture, No Growth after 5 days [facility] Routine incubation LABORATORY Specimen Blood - Peripheral Performing Organization Address City/State/ZIP [facility] P [place] Number [facility] [address] [place] [address] * Gastrointestinal Panel FilmArray PCR (12/13/2020 5:00 PM CDT) Pathologist [facility] Sapovirus (l, Negative Negative [place] [facility] ll, [...] Organization Address City/State/ZIP Code P [place] Number [facility] [address] [place] [address] * STOOL CULTURE BY PCR (12/10/2020 1:55 PM CDT) Pathologist [facility] Salmonella NegativeComment: Negative [facility] [facility] species [facility] Shigella NegativeComment: Negative [facility] species/[facility] Shiga NegativeComment: Negative [facility] toxin/[facility] Campylobacter NegativeComment: Negative [facility] species [facility] Specimen Stool - Stool specimen (specimen) Performing Organization Address [facility]/ZIP Code P [place] Number [facility] [address] [place] [phone] * CD Upload (12/04/2020 9:32 AM CDT) Modality Anatomical Region Laterality Computed Radiography Specimen Narrative PACS - 12/05/2020 9:41 AM CDT <Finalized by [facility] PACS interface> Procedure Note Provider, Default, MODEL USER - 12/05/2020 <Finalized by [facility] PACS interface> Performing Organization Address [facility] Code P [place] Number PACS * Iron Saturation (12/04/2020 6:28 AM CDT) Iron Saturation 11 (L)Comment: Unable to 20 - 55 % [facility] calculate due to one or both LABORATORY results out of reportable range. Specimen Blood Performing Organization Address [facility] P [place] Number [facility] [address] [place] [phone] * Iron Binding Capacity (12/04/2020 6:28 AM CDT) Iron Binding 253 250 - 450 ug/dL [facility] Capacity [facility] Specimen Blood Performing Organization Address [facility] P [place] Number [facility] [address] [place] [phone] * Iron (12/04/2020 6:28 AM CDT) Iron 27 (L) 81 - 208 ug/dL [facility] Specimen Blood Performing Organization Address City/[facility] P [place] Number [facility] [address] [place] [address] * COVID-19 ANTIGEN (11/29/2020 1:15 PM CDT) COVID-19 Negative Negative [facility] Antigen LABORATORY Specimen Nose - Swab of internal nose (specimen) Performing Organization Address [facility] P [place] Number [facility] [address] [place] [address] * TELEMETRY WAVEFORMS (11/28/2020 11:01 PM CDT) Only the most recent of 55 results within the time period is included. TELE FL 0.16 PHILIPSTELEMONI TORING TELE QRS 0.08 PHILIPSTELEMONI TORING TELE QT 0.36 PHILIPSTELEMONI TORING TELE COMMENTS SDB HR-60 PHILIPSTELEMONI TORING TELE rsr PHILIPSTELEMONI INTERPRETATION TORING NIGHT TIME BABYSITTER/TOBACCO CLASSER Yes PHILIPSTELEMONI APPROVED TORING Specimen Performing Organization Address City/State/ZIP Code [place] Number [facility]ITOR[facility] * MRI Foot Right (without contrast) (11/27/2020 8:40 PM CDT) Modality Anatomical Region Laterality Magnetic Resonance Ankle, Foot Specimen Impressions [facility] - 11/28/2020 9:22 AM CDT IMPRESSION: 1. Fairly pronounced edema about the pos terior subtalar joint, detailed above, felt most likely reactive to relatively advanced subtalar arthropathy. 2. A few vertically oriented linear low signal foci in this region could represent developing insufficiency fracture. 3. Small tibiotalar joint effusion, nons pecific. If there is concern for infection, consider attempting fluid sampling. 4. Minimal fluid signal in the sinus tar si. Correlate for sinus tarsi syndrome. Narrative [facility] - 11/28/2020 9:22 AM CDT EXAM: MRI Right Foot without IV contrast [...] and edema as described above.. Minimal osteophyte spurring at the midfoot. Small ankle joint effusion. TENDONS & MUSCLES: Tendons and tendinous attachments are unremarkable. Muscles are normal without significant muscle edema or atrophy. OTHER: No soft tissue mass or fluid collection is identified. Plantar fascia is normal. Minimal fluid signal in the sinus tarsi near the subtalar joint. Procedure Note Darrion Steele MD - 11/28/2020 EXAM: MRI Right Foot without IV [...] and edema as described above.. Minimal osteophyte spurring at the midfoot. Small ankle joint effusion. TENDONS & MUSCLES: Tendons and tendinous attachments are unremarkable. Muscles are normal without significant muscle edema or atrophy. OTHER: No soft tissue mass or fluid collection is identified. Plantar fascia is normal. Minimal fluid signal in the sinus tarsi near the subtalar joint. IMPRESSION: IMPRESSION: 1. Fairly pronounced edema about the pos terior subtalar joint, detailed above, felt most likely reactive to relatively advanced subtalar arthropathy. 2. A few vertically oriented linear low signal foci in this region could represent developing insufficiency fracture. 3. Small tibiotalar joint effusion, nons pecific. If there is concern for infection, consider attempting fluid sampling. 4. Minimal fluid signal in the sinus tar si. Correlate for sinus tarsi syndrome. Performing Organization Address City/State/ZIP Code [place] Number [facility] [place] [place], [place] * EKG 12 lead (11/27/2020 5:48 AM CDT) Only the most recent of 12 results within the time period is included. Height PHILIPSECG Heart Rate 66 bpm PHILIPSECG Interval 909 ms PHILIPSECG Atrial Rate 65 ms PHILIPSECG SV P-R Interval 174 ms PHILIPSECG P Duration 114 ms PHILIPSECG P Horizontal -7 deg PHILIPSECG [place] P Front [place] 85 deg PHILIPSECG Q Onset 499 ms PHILIPSECG QRSD Interval 80 ms PHILIPSECG QT Interval 403 ms PHILIPSECG QTcB 423 ms PHILIPSECG QTcF 416 ms PHILIPSECG QRS Horizontal 13 deg PHILIPSECG [place] QRS AXIS 55 deg PHILIPSECG I40 Horizontal 58 deg PHILIPSECG [place] I40 Front [place] 84 deg PHILIPSECG T-40 Horizontal -7 deg PHILIPSECG [place] T-40 Front [place] 47 deg PHILIPSECG T Horizontal 28 deg PHILIPSECG [place] T Wave [place] 63 deg PHILIPSECG S-T HORIZONTAL 29 deg PHILIPSECG AXIS S-T FRONT AXIS 87 deg PHILIPSECG ECG Impression - NORMAL ECG - PHILIPSECG ECG Impression SR PHILIPSECG ECG Impression Sinus rhythm PHILIPSECG ECG Impression normal P axis, V-rate 60-99 PHILIPSEC G Specimen Performing Organization Address City/State/ZIP Code [place] Number PHILIPSECG * Urinalysis, Reflex Culture If Needed (11/22/2020 9:29 PM CDT) Color, UA Red [facility] Appearance Cloudy [facility] Specific 1.013 1.003 - 1.030 [facility] [place], [facility] pH, UA 7.0 5.0 - 8.0 [facility] Leukoesterase, 3+ (A) Negative [facility] Nitrites, UA Negative Negative [facility] Protein, UA 2+ (A) Negative [facility] Glucose, UA Negative Negative [facility] Ketones, UA Negative Negative [facility] Urobilinogen, 0.2 0.2 EU [facility] Bilirubin, UA Negative Negative [facility] Hemoglobin, UA 3+ (A) Negative [facility] Squam Epithel, Rare [facility] WBC, UA 21-50 (A) 0 - 3 [facility] RBC, UA >100 (A) 0 - 3 [facility] Hyaline Casts, 3 [facility] Specimen Urine - Urine specimen (specimen) Narrative [facility] - 11/22/2020 9:44 PM CDT Urine was cultured. Urinalysis results indicated culture criteria was met. Performing Organization Address City/State/ZIP Code [place] [facility] [address] [place] [address] * Urine Culture (11/22/2020 9:29 PM CDT) Urine Culture No Growth [facility] Specimen Urine - Urine specimen (specimen) Performing Organization Address City/State/ZIP Code P [place] Number [facility] [address] [place] [address] * CVUS Echo-TAYLOR (use contrast as indicated) (11/21/2020 4:20 PM CDT) Modality Anatomical Region Laterality Ultrasound Chest Specimen Narrative [facility] - 11/21/2020 6:16 PM CDT Transesophageal Echocardiogram Report Patient Name: MAINOR BLANCA, [facility] Rec #: [id number] Reading MD: Jeff Guzmán MD Study Date: 11/21/2020 Referring MD: NASEEM العلي MD Technologist: Teri LANGLEY Location: [facility] : 1950 Room: [facility] Gender: Male Height: 70.08in BP: 137/80 mmHg Weight: 169.76lb HR: Diagnosis Codes: I38 Endocarditis, valve unspecified Procedures: 91110 Echo TAYLOR 27683 Color Doppler Echo 33906 Spectral Doppler Echo Conclusions: The left ventricular systolic function is [...] No valvular vegetation identified on this exam. Findings Procedure Information The patient is being monitored per protocol. The quality of the study was good. Consent was obtained prior to the procedure. Pre TAYLOR oral cavity was checked and revealed no overcrowding. The probe was passed with no difficulty. Total sedation time was 12 minutes. There were no complications. Normal sinus rhythm noted at rest. Left Ventricle The left ventricular chamber size is normal. The left ventricular systolic function is normal. Borderline LVH Right Ventricle Mildly dilated right ventricular cavity size. The right ventricular systolic function is normal. Atria The left atrium is mildly dilated. There is no evidence of a thrombus in the left atrial appendage. There is no evidence of a patent foramen ovale. The right atrium is normal in size. There is a prominent eustachian valve. PICC catheter is visible in the RA. Aortic Valve There is a trileaflet aortic valve. The aortic valve is sclerotic. There is no aortic valve stenosis. There is trace (trivial) aortic valve regurgitation. Mitral Valve The mitral valve appears normal. Mitral leaflets are mildly thickened. There is no mitral valve prolapse. There is mild mitral valve regurgitation. There is no mitral valve stenosis. Pulmonic Valve The pulmonic valve is normal. There is mild pulmonic valve regurgitation. There is no pulmonic valve stenosis. Tricuspid Valve Normal tricuspid valve structure. There is trace tricuspid valve regurgitation. Tricuspid regurgitation envelope is inadequate for calculation of right ventricular systolic pressure. There is no tricuspid valve stenosis. Great Vessels The pulmonary artery was not well visualized. Small plaque is seen in the arch and descending thoracic aorta. Venous The inferior vena cava was not well visualized. Pericardium/Pleural There is no evidence of pericardial effusion. Jeff Guzmán MD electronically signed on 11/21/2020 6:16:52 PM with a status of Final Procedure Note Jeff Guzmán MD - 11/21/2020 Transesophageal Echocardiogram Report Patient Name: MAINOR BLANCA, Med Rec #: [id number] Reading MD: Jeff Guzmán MD Study Date: 11/21/2020 Referring MD: NASEEM العلي MD Technologist: Teri LANGLEY SV Location: [facility] : 1950 Room: [facility] Gender: Male Height: 70.08in BP: 137/80 mmHg Weight: 169.76lb HR: Diagnosis Codes: I38 Endocarditis, valve unspecified Procedures: 84772 Echo TAYLOR 89100 Color Doppler Echo 03856 Spectral Doppler Echo Conclusions: The left ventricular systolic function is [...] No valvular vegetation identified on this exam. Findings Procedure Information The patient is being monitored per protocol. The quality of the study was good. Consent was obtained prior to the procedure. Pre TAYLOR oral cavity was checked and revealed no overcrowding. The probe was passed with no difficulty. Total sedation time was 12 minutes. There were no complications. Normal sinus rhythm noted at rest. Left Ventricle The left ventricular chamber size is normal. The left ventricular systolic function is normal. Borderline LVH Right Ventricle Mildly dilated right ventricular cavity size. The right ventricular systolic function is normal. Atria The left atrium is mildly dilated. There is no evidence of a thrombus in the left atrial appendage. There is no evidence of a patent foramen ovale. The right atrium is normal in size. There is a prominent eustachian valve. PICC catheter is visible in the RA. Aortic Valve There is a trileaflet aortic valve. The aortic valve is sclerotic. There is no aortic valve stenosis. There is trace (trivial) aortic valve regurgitation. Mitral Valve The mitral valve appears normal. Mitral leaflets are mildly thickened. There is no mitral valve prolapse. There is mild mitral valve regurgitation. There is no mitral valve stenosis. Pulmonic Valve The pulmonic valve is normal. There is mild pulmonic valve regurgitation. There is no pulmonic valve stenosis. Tricuspid Valve Normal tricuspid valve structure. There is trace tricuspid valve regurgitation. Tricuspid regurgitation envelope is inadequate for calculation of right ventricular systolic pressure. There is no tricuspid valve stenosis. Great Vessels The pulmonary artery was not well visualized. Small plaque is seen in the arch and descending thoracic aorta. Venous The inferior vena cava was not well visualized. Pericardium/Pleural There is no evidence of pericardial effusion. Jeff Guzmán MD electronically signed on 11/21/2020 6:16:52 PM with a status of Final Performing Organization Address [facility] P [place] Number [facility] * Potassium (11/19/2020 3:43 PM CDT) Only the most recent of 2 results within the time period is included. Potassium 3.3 (L) 3.6 - 4.9 mmol/L [facility] Specimen Blood Performing Organization Address [facility] P [place] Number [facility] [address] [place] [address] * TELEMETRY CODE/EVENT STRIP REPORT (11/19/2020 4:29 AM CDT) Specimen Performing Organization Address [facility] P [place] Number [facility]ITOR[facility] * TSH (11/19/2020 3:49 AM CDT) TSH 2.640 0.400 - 4.000 uIU/mL [facility] Specimen Blood Performing Organization Address [facility] [place] Number [facility] [address] [place] [address] * Phosphorus (11/19/2020 3:49 AM CDT) Only the most recent of 2 results within the time period is included. Phosphorus 2.4 (L) 2.7 - 4.5 mg/dL [facility] Specimen Blood Performing Organization Address [facility] [place] Number [facility] [address] [place] [address] * Magnesium (11/19/2020 3:49 AM CDT) Only the most recent of 4 results within the time period is included. Magnesium 1.7 1.6 - 2.3 mg/dL [facility] Specimen Blood Performing Organization Address [facility] [place] Number [facility] [address] [place] [address] * CT ABDOMEN PELVIS W CONTRAST (11/18/2020 5:25 PM CDT) Modality Anatomical Region Laterality Computed Tomography Abdomen, Pelvis, Hip Specimen Impressions [facility] - 11/18/2020 11:51 PM CDT IMPRESSION: 1. Nonobstructing lower pole right renal calculus. 2. Right internal ureteral stent. 3. Otherwise negative CT abdomen and pel vis. Electronically signed by Antoine Martinez MD Narrative [facility] - 11/18/2020 11:51 PM CDT EXAM: CT Abdomen and Pelvis with IV contrast INDICATION: bacteremia, unknown source TECHNIQUE: Multi-detector row CT images were acquired from the lung bases through the abdomen and pelvis with the use of IV contrast. Sagittal and coronal images were acquired from the transaxial data. All CT scans performed at this facility utilize dose optimization techniques as appropriate to the exam, including the following: Automated exposure control and adjustment of the mA and/or KV according to patient size (this includes techniques or standardized protocols for targeted exams where dose is matched to the indication/reason for exam). IV CONTRAST: 100 mL Omnipaque 350 ORAL CONTRAST: None DLP 280 mGycm COMPARISON: None FINDINGS: LOWER CHEST: There is mild pleural thickening at the posterior costophrenic angles more prominent on left than right. Lung bases are otherwise clear. LIVER: Unremarkable BILIARY SYSTEM: Gallbladder is unremarkable. Bile ducts are not dilated. PANCREAS: Unremarkable SPLEEN: Unremarkable ADRENALS: Unremarkable KIDNEYS & URETERS: Small nonobstructing stone is [...] No adenopathy OSSEOUS & SOFT TISSUES: Unremarkable Procedure Note Antoine Martinez MD - 11/18/2020 EXAM: CT Abdomen and Pelvis with IV contrast INDICATION: bacteremia, unknown source TECHNIQUE: Multi-detector row CT images were acquired from the lung bases through the abdomen and pelvis with the use of IV contrast. Sagittal and coronal images were acquired from the transaxial data. All CT scans performed at this facility utilize dose optimization techniques as appropriate to the exam, including the following: Automated exposure control and adjustment of the mA and/or KV according to patient size (this includes techniques or standardized protocols for targeted exams where dose is matched to the indication/reason for exam). IV CONTRAST: 100 mL Omnipaque 350 ORAL CONTRAST: None DLP 280 mGycm COMPARISON: None FINDINGS: LOWER CHEST: There is mild pleural thickening at the posterior costophrenic angles more prominent on left than right. Lung bases are otherwise clear. LIVER: Unremarkable BILIARY SYSTEM: Gallbladder is unremarkable. Bile ducts are not dilated. PANCREAS: Unremarkable SPLEEN: Unremarkable ADRENALS: Unremarkable KIDNEYS & URETERS: Small nonobstructing stone is [...] adenopathy OSSEOUS & SOFT TISSUES: Unremarkable IMPRESSION: IMPRESSION: 1. Nonobstructing lower pole right renal calculus. 2. Right internal ureteral stent. 3. Otherwise negative CT abdomen and pel vis. Electronically signed by Antoine Martinez MD Performing Organization Address City/State/ZIP Code [place] Number [facility] * Basic metabolic panel (11/16/2020 10:02 PM CDT) Sodium 152 (H) 136 - 145 mmol/L [facility] Potassium 2.7 (LL) 3.6 - 4.9 mmol/L [facility] Chloride 116 (H) 99 - 111 mmol/L [facility] CO2 31 20 - 36 mmol/L [facility] Anion Gap 5 [facility] Glucose 167 (H) 74 - 106 mg/dL [facility] Calcium 8.0 (L) 8.3 - 10.6 mg/dL [facility] BUN, Bld 27 (H) 6 - 20 mg/dL [facility] Creatinine 1.27 (H) 0.60 - 1.20 mg/dL [facility] eGFR 56 (L) >59 mL/min [facility] Specimen Blood Performing Organization Address City/State/ZIP Code P [place] Number [facility] [address] [place] [address] * Procalcitonin (11/16/2020 10:12 AM CDT) Only the most recent of 2 results within the time period is included. Procalcitonin 2.54 (H) <=0.09 ng/ml [facility] Specimen Blood Narrative [facility] - 11/16/2020 11:34 AM CDT PCT <0.5 ng/ml represents low risk of severe sepsis. PCT >2 ng/ml represents high risk of severe sepsis. PCT concentrations <0.5 ng/ml do not exclude bacterial infection. Localized bacterial infections without systemic signs or systemic infection in its initial states (<6 hours) can be associated with concentrations <0.5 ng/ml. If sepsis is highly suspected, it is recommended to retest PCT within 6-24 hours when initial concentration of <2 ng/ml are obtained. PCT elevation may occur independent of sepsis in newborns, and patients with non-infectious conditions (e.g. multiple trauma, fermin, major surgery, prolonged, or severe cardiogenic shock). Performing Organization Address City/State/ZIP Code P [place] Number [facility] [address] [place] [address] * XR Foot Right (2 views) (11/15/2020 7:56 PM CDT) Modality Anatomical Region Laterality Computed Radiography Foot, Ankle Specimen Impressions [facility] - 11/15/2020 9:01 PM CDT IMPRESSION: Diffuse osteopenia without acute osseous abnormality. Narrative [facility] - 11/15/2020 9:01 PM CDT EXAM: Right foot series INDICATION: Pain TECHNIQUE: Frontal and lateral view(s) of the right foot COMPARISON: None FINDINGS: Bone mineralization is diffusely decreased. No lytic or destructive process. No acute or healing fracture. Normal osseous alignment. Mild relative degenerative disease at the 1st MTP joint. The soft tissues are unremarkable. Procedure Note Darrion Steele MD - 11/15/2020 EXAM: Right foot series INDICATION: Pain TECHNIQUE: Frontal and lateral view(s) of the right foot COMPARISON: None FINDINGS: Bone mineralization is diffusely decreased. No lytic or destructive process. No acute or healing fracture. Normal osseous alignment. Mild relative degenerative disease at the 1st MTP joint. The soft tissues are unremarkable. IMPRESSION: IMPRESSION: Diffuse osteopenia without acute osseous abnormality. Performing Organization Address [facility]/ZIP Code P [place] Number LUC[place] Aquino * XR CHEST PA OR AP (11/15/2020 7:55 PM CDT) Modality Anatomical Region Laterality Computed Radiography Chest Specimen Impressions [facility] - 11/15/2020 8:59 PM CDT IMPRESSION: Right arm PICC in expected location. Narrative [facility] - 11/15/2020 8:59 PM CDT EXAM: Chest series INDICATION: PICC line placement TECHNIQUE: AP view(s) of the chest COMPARISON: None FINDINGS: Support apparatus: Right arm PICC has been placed, tip is at the cavoatrial junction. Lungs: Lungs are clear without consolidation or vascular congestion. Pleura: No pleural effusion. No pneumothorax. Heart and mediastinum: Cardiomediastinal silhoutte and great vessels are within normal limits. No evidence of mediastinal or hilar mass. Bones and soft tissues: No acute osseous abnormalities. Upper abdomen: Unremarkable. Procedure Note Darrion Steele MD - 11/15/2020 EXAM: Chest series INDICATION: PICC line placement TECHNIQUE: AP view(s) of the chest COMPARISON: None FINDINGS: Support apparatus: Right arm PICC has been placed, tip is at the cavoatrial junction. Lungs: Lungs are clear without consolidation or vascular congestion. Pleura: No pleural effusion. No pneumothorax. Heart and mediastinum: Cardiomediastinal silhoutte and great vessels are within normal limits. No evidence of mediastinal or hilar mass. Bones and soft tissues: No acute osseous abnormalities. Upper abdomen: Unremarkable. IMPRESSION: IMPRESSION: Right arm PICC in expected location. Performing Organization Address City/[facility]/ZIP Code P [place] Number LUCIO Aquino * Blood Culture PCR Identification Panel (11/15/2020 7:31 PM CDT) Staphylococcus Positive (AA) Negative [facility] aureus PCR [facility] Specimen Blood - Peripheral Narrative [facility] - 11/20/2020 1:46 AM CDT This test panel detects: Enterococcus spp., Listeria monocytogenes, Staphylococcus spp., Staphylococcus aureus, Streptococcus spp., Streptococcus agalactiae, Streptococcus pneumoniae, Streptococcus pyogenes, mecA - Methicillin resistance gene, van A/B - Vancomycin resistance gene, Acinetobacter baumannii, Enterobacteriaceae spp., Enterobacter cloacae complex, Escherichia coli, Klebsiella oxytoca, Klebsiella pneumoniae, Proteus spp., Serratia marcescens, Haemophilus influenza, Neisseria meningitides, Pseudomonas aeruginosa, KPC - carbapenem resistance gene, Vannesa albicans, Vannesa glabrata, Vannesa krusei, Vannesa parapsilosis, Vannesa tropicalis. Performing Organization Address City/State/ZIP Code P [place] Number [facility] [address] [place] [address] from Last 3 Months Insurance Type Payer Benefit Subscriber ID Effective Phone Address Plan / Dates Group [facility] [id number] 2020- 11 PC SS UNAUTHORIZ Present [address] [place] [address] [facility]LY [facility] [id number] 2020- [phone] [address] [place] [address] Advance Directives For more information, please contact: [phone] Patient Airport Security Screener Explanation Type Date Recorded Advance Directives and Living Will Power of Administrative Medical Director POWER_OF_ATTORNEY Power of Administrative Medical Director 11/21/2020 3:34 PM Date Inactivated Comments Code Status Date Activated Full Code 11/24/2020 3:33 PM 11/24/2020 3:33 PM Full Code 11/15/2020 6:16 PM Care Teams Start Date End Date Customer Account Specialist Relationship Specialty 11/19/20 Juan Trejo PA-C PCP - General [address] [place] [address] 01/03/21 Naseem العلي MD Infectious [address] [place] [address] [email or web address] [place]
--- OUTSIDE RECORDS SUMMARY | 2021-01-20 12:47 | XMS REPORT | Encounter Summary ---
Author Author [facility] Organization [facility] Address Unknown Phone Unavailable Care Team Providers Care Scraper Operator Name Role Phone Juan Trejo PA-C PCP Sarah Sun RN [phone] [email or web address] Encounter Details Care Team Description Date Type Department Haley Duvall APRN [address] [place] [address] [email or web address] Methadone dependence (HCC) 12/13/2020 Orders Only [facility] Post- Acute Care [address] [place] [address] Social History Date Tobacco Use [...] 11/16/2020 relatives? How often do you attend worship or caodaism Never 11/16/2020 services? Do you belong to any clubs or organizations such No 11/16/2020 as worship groups, unions, fraternal or athletic groups, or [...] encounter Visit Diagnoses Diagnosis Methadone dependence (HCC) Opioid type dependence, unspecified documented in this encounter Care Teams Start Date End Date Scraper Operator Relationship Specialty 11/19/20 Juan Trejo PA-C PCP - General [address] [place] [address] 12/13/20 01/01/21 Sarah Sun RN Care Manager [email or web address] documented as of this encounter
--- OUTSIDE RECORDS SUMMARY | 2021-01-20 12:47 | XMS REPORT | Encounter Summary ---
Author Author [facility] Organization [facility] Address Unknown Phone Unavailable Care Team Providers Care Registered Nurse Obstetrics Name Role Phone Juan Trejo PA-C PCP Sarah Sun RN [phone] [email or web address] Encounter Details Care Team Description Date Type Department Sarah Sun RN [email or web address] 12/27/2020 Patient Sharif Byers`Jose Armando Care Outreach Management [address] [place] [address] Social History Date Tobacco Use [...] 11/16/2020 relatives? How often do you attend sikh or spiritism Never 11/16/2020 services? Do you belong to any clubs or organizations such No 11/16/2020 as sikh groups, unions, fraternal or athletic groups, or [...] encounter Care Teams Start Date End Date Registered Nurse Obstetrics Relationship Specialty 11/19/20 Juan Trejo PA-C PCP - General [address] [facility] [place] [id number] 12/13/20 01/01/21 Sarah Sun capacity planning analyst [email or web address] documented as of this encounter
--- OUTSIDE RECORDS SUMMARY | 2021-01-20 12:47 | XMS REPORT | Encounter Summary ---
Author Author [facility] Organization [facility] Address Unknown Phone Unavailable Care Team Providers Care Sewage Plant Supervisor Name Role Phone Juan Trejo PA-C PCP Sarah Sun RN [phone] [email or web address] Encounter Details Care Team Description Date Type Department Sarah Sun RN [email or web address] 12/13/2020 Patient Sharif Byers`Jose Armando Care Outreach Management [address] [place] [address] Social History Date Tobacco Use [...] 11/16/2020 relatives? How often do you attend advent or druze Never 11/16/2020 services? Do you belong to any clubs or organizations such No 11/16/2020 as advent groups, unions, fraternal or athletic groups, or [...] Progress Notes - Sarah Sun RN - 12/13/2020 11:02 AM CDT Patient: Caden Blanca : 1950 PCP: Juan Trejo PA-C Today's Date: 12/13/2020 Met with resident regarding Post Acute Care Management follow-up. Discussed stat us, plan of care and goals. Discussion as below: Assessment: Caden was found to be resting in watching television. He is alert and oriented to person, place and time. Reports discomfort in his right foot, h e does have slight edema in his right foot (1+ non-pitting edema). He also repo rts slight discomfort to his RLQ. No need for medication at this time. Per rep orts of nursing staff he has been having some diarrhea at times. He does take methadone, staff at [facility] working on getting his script filled. Lisa Duvall APRN has called in script for refill of his methadone. He states that he has been driving himself to appointments. He does have siblin gs and friends that can help "depending on what it is." Plan: Home Questions or concerns: No immediate questions or concerns. 12/13/20 1100 PAC Flowsheet PAC Facility Name [facility] Facility customer contact representative Nursing Staff Facility contact phone [phone] Date admitted to PAC facility 11/29/20 Primary diagnosis in hospital UTI/BPH Caregiver/family contact name Tatyana Blanca: Sister Caregiver/family contact phone [phone] Preferred pharmacy [facility] Medicaid application started no Projected discharge destination home Current DME no DME Needed at Discharge yes DME needed at discharge Front wheel walker ([facility] could sisal picker his new walker. Will follow up) PCP follow up appointment scheduled no Specialty follow up appointment scheduled yes Currently established with PCP CM or ALBARO no Health Maintenance: Health Maintenance Due Topic Date Due Zoster Recombinant Vaccine (RZV,Shingrix) (1 of 2 - SVH 2 Dose Standard) 1984 Breast Cancer Screening-Mammogram 07/10/2016 Reviewed upcoming appointments and patient verbalized understanding. Future Appointments Date Time Provider Department Center 01/04/2021 1:15 PM Jo-Ann العلي MD 901 Inf Dis Infectious D Will follow-up to discuss plan of care, goals and current status. Encouraged to call the Post Acute Environmental Monitoring Technician/office directly with questions, concerns or ch anges in the meantime. Sarah Sun RN 12/13/2020 documented in this encounter Plan of Treatment Not on filedocumented as of this encounter Visit Diagnoses Not on filedocumented in this encounter Care Teams Start Date End Date Sewage Plant Supervisor Relationship Specialty 11/19/20 Juan Trejo PA-C PCP - General [address] [place], [place] [id number] 12/13/20 01/01/21 Sarah Sun RN Care Manager [email or web address] documented as of this encounter
--- OUTSIDE RECORDS SUMMARY | 2021-01-20 12:47 | XMS REPORT | Encounter Summary ---
Author Author [facility] Organization [facility] Address Unknown Phone Unavailable Care Team Providers Care Polystyrene Bead Molder Name Role Phone Juan Trejo PA-C PCP Sarah Sun RN [phone] [email or web address] Reason for Visit * Reason Comments Other MSSA bacteremia Encounter Details Care Team Description Date Type Department Jo-Ann العلي MD [address] [place] [address] [email or web address] [place] MSSA bacteremia (Primary Dx) 12/07/2020 Office Visit Sharif Liang Infec tious Disease [address] [place] [address] Social History Date Tobacco Use [...] 11/16/2020 relatives? How often do you attend denominational or holiness Never 11/16/2020 services? Do you belong to any clubs or organizations such No 11/16/2020 as denominational groups, unions, fraternal or athletic groups, or [...] on file documented as of this encounter Last Filed Vital Signs Reading Time Taken Comments Vital Sign 114/68 12/07/2020 2:13 PM CDT Blood Pressure 83 12/07/2020 2:13 PM CDT Pulse 36.9 C (98.5 F) 12/07/2020 2:13 PM CDT Temperature 16 12/07/2020 2:13 PM CDT Respiratory Rate 95% 12/07/2020 2:13 PM CDT Oxygen Saturation - - Inhaled Oxygen Concentration - - Weight - - Height - - Body Mass Index documented in this encounter Miscellaneous Notes * Progress Notes - Jo-Ann العلي MD - 12/07/2020 2:00 PM CDT Images from the original note were not included. [address] [id number] Infectious Diseases Progress Note Patient Name: Caden Blanca : 1950 Date: 12/07/20 Referring Physician: No att. providers found Chief Complaint: MSSA bacteremia Background history: The patient is a 70 y.o. male with PMH of BPH, ureteral doc nt placement, nephrolithiasis, methadone dependence/ transferred from [place] for HERMES A bacteremia. [facility]. Pt with history of Rt sided ureteral stones, post ureteral stent placement on . Since then, he had hematuria. Pt was self catheterizing as per urology instructions, because of the hematuria. In the week prior, Pt presented to [place] for symptoms of hematuria, lower abdominal pain. Pt was found to have an KOFI, urinary catheter inserted. Pt also with feve rs, leukocytosis, thought to be septic. Pt had infection work up done- found to have blood cultures and urine cultures positive for MSSA. [facility]. Pt treated with [...] of IV Ab x. Interval history: Pt presents for a follow up. He is doing well. Pt has remained afebrile. Pt continues to have an indwelling urinary catheter. He does not yet have a urology follow up. Pt denies any pain. No Respiratory/ GI complaints either. Pt has completed his IV Abx today. Review of Systems: Respiratory: No cough or [...] to calculate BMI. Patient weight not recorded General: Comfortable. Not in acute distress HEENT: PERRLA, MMM Neck: Supple. Lungs: CTAB. Cardiac: Regular rate and rhythm. No murmurs. Abdomen: Soft. Positive bowel sounds. Non-tender.Non-distended Genitourinary: + urinary catheter. Vascular:PP+, No LE edema. . Neurologic: CN intact. No focal neurologic deficit. Psychiatric: Oriented, Appropriate affect Vascular access: Midline Lab Results: Recent Labs 12/24/20 0900 WBC 5.4 HGB 8.7* HCT 28.8* MCV 97.3* MCH 29.4 MCHC 30.2* PLT 243 Recent Labs 12/24/20 0900 NA 137 K 3.8 CO2 31 CL 102 BUN 15 ALT <9* AST 12* Creatinine clearance cannot be calculated (Unknown ideal weight.) OSH- Procalcitonin- 15 Ref. Range 11/15/2020 19:31 11/16/2020 10:12 Procalcitonin Latest Ref Range: <=0.09 ng/ml 3.27 (H) 2.54 (H) Ref. Range 11/17/2020 08:39 CRP Latest Ref Range: <=0.9 mg/dL 1.8 (H) Microbiology: OSH- 11/10/20- BCx- 2/2- MSSA 11/13/20- BCx- GPCs UCx- MSSA 11/15/20- BCx- 1/2- Staphylococcus aureus 11/22/20- UCx- No growth 11/22/20- BCx- NGTD Radiology: OSH- CT Angio Chest- [...] ureteral stent placement, nephrolithiasis, methadone dependence/ transferred [facility] for MSSA bacteremia. Sepsis MSSA bacteremia- persistent Recent history of Rt ureteral stent placement Hematuria KOFI PLAN: -Unknown source of MSSA bacteremia. No obvious skin source identified -CT A/P without any obvious source. Thought to possibly be secondary to self cat heterization. -TAYLOR negative for vegetations. PICC line inserted at OSH removed -Finally, repeat BCx cleared -Pt treated with Ancef while admitted, was switched to ceftriaxone at the time o f discharge -Pt has now completed a 2 week course of IV Abx -No signs and symptoms of infection presently. No further Abx indicated -Midline to be discontinued -Will assist Pt in obtaining urology follow up -Pt asked to call ID office with any recurrent/ worsening symptoms Jo-Ann العلي MD Electronic Signature 12/25/2020 11:20 AM [facility] Pager: [phone] Clinic Phone: [phone]. Fax: [phone]. documented in this encounter Plan of Treatment Not on filedocumented as of this encounter Visit Diagnoses Diagnosis MSSA bacteremia - Primary documented in this encounter Care Teams Start Date End Date Polystyrene Bead Molder Relationship Specialty 11/19/20 Juan Trejo PA-C PCP - General [address] [place], [place] [phone] 12/13/20 01/01/21 Sarah Sun carbon accountant [email or web address] documented as of this encounter
--- OUTSIDE RECORDS SUMMARY | 2021-01-20 12:47 | XMS REPORT | Encounter Summary ---
Author Author [facility] Organization [facility] Address Unknown Phone Unavailable Care Team Providers Care Oracle Ascp Consultant Name Role Phone Juan Trejo PA-C PCP Sarah Sun RN [phone] [email or web address] Jo-Ann العلي MD Unavailable Encounter Details Care Team Description Date Type Department Haley Duvall APRN [address] [place] [address] [email or web address] Essential (primary) hypertension 12/10/2020 Lab Requisition LABORATORY [address] [id number] [place] [address] Social History Date Tobacco Use [...] How often do you attend yazidi or methodist Never 11/16/2020 services? Do you [...] Procedure Name Priority Date/Time Associated Diag nosis STOOL CULTURE BY PCR Routine 12/10/2020 Essential (primary) 1:55 PM CDT hypertension documented in this encounter Results * STOOL CULTURE BY PCR (12/10/2020 1:55 PM CDT) Salmonella NegativeComment: Negative [facility] Shigella NegativeComment: Negative [facility] species/[facility] Shiga NegativeComment: Negative [facility] toxin/[facility] Campylobacter NegativeComment: Negative [facility] Specimen Stool - Stool specimen (specimen) Performing Organization Address City/State/ZIP Code P floridalma Number [facility] [address] [place] [address] documented in this encounter Visit Diagnoses Diagnosis Essential (primary) hypertension Unspecified essential hypertension documented in this encounter Care Teams Start Date End Date Oracle Ascp Consultant Relationship Specialty 11/19/20 Juan Trejo PA-C PCP - General [address] [place], [place] [id number] 12/13/20 01/01/21 Sarah Sun RN Care Manager [email or web address] 01/03/21 Jo-Ann العلي MD Infectious [address] [facility] [place] [address] [email or web address] documented as of this encounter
--- OUTSIDE RECORDS SUMMARY | 2021-01-20 12:47 | XMS REPORT | Encounter Summary ---
Author Author [facility] Organization [facility] Address Unknown Phone Unavailable Care Team Providers Care Hedis Analyst Name Role Phone Juan Trejo PA-C PCP Encounter Details Care Team Description Date Type Department Thelma Moreno RN 01/02/2021 Transitional [facility] Care Care Management Management (TCM) [address] [place] [address] Social History Date Tobacco Use Types Packs/Day [...] 11/16/2020 relatives? How often do you attend restorationist or jew Never 11/16/2020 services? Do you belong to any clubs or organizations such No 11/16/2020 as restorationist groups, unions, fraternal or athletic groups, or [...] encounter Miscellaneous Notes * Progress Notes - Thelma Moreno RN - 01/02/2021 9:16 AM CDT Patient: Caden Blanca : 1950 PCP: Juan Trejo PA-C Today's Date: 01/02/2021 Contacted Caden Blanca regarding Transitional Care Management (TCM) phone call . Patient questions or concerns: Patient reports that he hasn't had a bowel moveme nt in a few days. He was going to try some warm prune juice and if that doesn't work, he was going to have his sister get a suppository from the drug store. Assessment: Call placed to Caden for TCM follow up. He reports that he is doing well, other than feeling constipated (see above). He states that he was able to lease picker all of his medications. He is scheduled for a video visit on 01/[address] العلي. Caden is aware of this and doesn't have any questions. No needs or concerns at this time. Health Maintenance: Health Maintenance Due Topic Date Due Pneumo-Vaccine: 65+Yrs (1 of 4 - PCV13) Never done Pneumo-Vaccine: Peds (0-5 Yrs) & At-Risk Patients (6-64 Yrs) (1 of 4 - PCV13) Never done Hepatitis C Screening Never done DTaP,Tdap,and Td Vaccines (1 - Tdap) Never done Zoster Vaccine (1 of 2) Never done Colon Cancer Screening Never done Reviewed upcoming appointments and patient verbalized understanding. Future Appointments Date Time Provider Department Center 01/04/2021 1:15 PM Jo-Ann العلي MD 901 Inf Dis Infectious D 01/02/21 0000 Transitional Care Management Admission date 11/29/20 Discharge date 12/28/20 Date interactive contact was made to patient or caregiver 01/02/21 Do you have questions about your home instructions? No Were you able to fill and lease picker all of your prescriptions? Yes Do you have questions about your medication instructions? No Do you know when your follow up appointment is? Yes Do you have transportation to your appointment? No Do you need anything between now and your scheduled appointment? No Medications reviewed with patient and correct dose is in the chart? Patient decl ined Care Team updated & specialists added as needed? Yes 2 call attempts were made but I did NOT reach the patient Not Applicable Reviewed Survey Participation? No Thelma Moreno RN 01/02/2021 9:16 AM documented in this encounter Plan of Treatment Not on filedocumented as of this encounter Visit Diagnoses Not on filedocumented in this encounter Care Teams Start Date End Date Hedis Analyst Relationship Specialty 11/19/20 Juan Trejo PA-C PCP - General [address] [place], [place] [phone] documented as of this encounter
--- OUTSIDE RECORDS SUMMARY | 2021-01-20 12:47 | XMS REPORT | Encounter Summary ---
Author Author [facility] Organization [facility] Address Unknown Phone Unavailable Care Team Providers Care Exhaust Tender Name Role Phone Juan Trejo PA-C PCP Reason for Visit * Reason Onset Date Comments Other 12/07/2020 D/C midline Encounter Details Care Team Description Date Type Department Jo-Ann العلي MD [address] [place] [address] [email or web address] Other (D/C midline ) 12/07/2020 Telephone Sharif Liang Infec tious Disease [address] [place] [address] Social History Date Tobacco Use [...] 11/16/2020 relatives? How often do you attend rastafari or spiritism Never 11/16/2020 services? Do you belong to any clubs or organizations such No 11/16/2020 as rastafari groups, unions, fraternal or athletic groups, or [...] as of this encounter Miscellaneous Notes * Telephone Encounter - Michael Teague LPN - 12/07/2020 2:50 PM CDT Sent order with patient to DC midline after last dose of Rocephin today and bloo d cultures X2 in 2 weeks. documented in this encounter Plan of Treatment Not on filedocumented as of this encounter Visit Diagnoses Not on filedocumented in this encounter Care Teams Start Date End Date Exhaust Tender Relationship Specialty 11/19/20 Juan Trejo PA-C PCP - General [address] [place], [place] [phone] documented as of this encounter
--- OUTSIDE RECORDS SUMMARY | 2021-01-20 12:47 | XMS REPORT | Encounter Summary ---
Author Author [facility] Organization [facility] Address Unknown Phone Unavailable Care Team Providers Care Home Performance Consultant Name Role Phone Juan Trejo PA-C PCP Sarah Sun RN [phone] [email or web address] Jo-Ann العلي MD Unavailable Encounter Details Care Team Description Date Type Department Haley Duvall APRN [address] [place] [address] [email or web address] Essential (primary) hypertension 12/18/2020 Lab Requisition LABORATORY [address] [id number] [place] [address] Social History Date Tobacco Use [...] 11/16/2020 relatives? How often do you attend orthodoxy or restoration Never 11/16/2020 services? Do you belong to any clubs or organizations such No 11/16/2020 as orthodoxy groups, unions, fraternal or athletic groups, or [...] Associated Diag nosis CBC WITH AUTO Routine 12/18/2020 Essential (prim iliana) DIFFERENTIAL 5:43 AM CDT hypertension CBC AND DIFFERENTIAL Routine 12/18/2020 Essential (primary) 5:43 AM CDT hypertension C-REACTIVE PROTEIN Routine 12/18/2020 Essential ( primary) 5:43 AM CDT hypertension COMPREHENSIVE METABOLIC Routine 12/18/2020 Essent ial (primary) PANEL 5:43 AM CDT hypertension documented in this encounter Results * CBC auto differential (12/18/2020 5:43 AM CDT) WBC 4.5 3.5 - 10.5 10E9/L [facility] RBC 2.81 (L) 4.32 - 5.72 10E12/L [facility] Hemoglobin 8.2 (L) 13.5 - 17.5 g/dL [facility] Hematocrit 26.7 (L) 38.8 - 50.0 % [facility] MCV 95.0 81.2 - 95.1 fL [facility] MCH 29.2 26.0 - 34.0 pg [facility] MCHC 30.7 (L) 31.0 - 37.0 g/dL [facility] RDW 14.1 11.8 - 15.6 % [facility] Platelets 276 150 - 450 10E9/L [facility] nRBC 0.00 <=0.00 10E9/L [facility] Neutrophils % 67.4 40.0 - 75.0 % [facility] Lymphocytes % 19.1 (L) 22.0 - 49.0 % [facility] Monocytes % 10.8 (H) 2.0 - 10.0 % [facility] Eosinophils % 2.0 <=5.0 % [facility] Basophils % 0.7 0.0 - 2.5 % [facility] Neutrophils 3.00 1.70 - 7.00 10E9/L [facility] Lymphocytes 0.85 (L) 0.90 - 2.90 10E9/L [facility] Monocytes 0.48 0.30 - 0.90 10E9/L [facility] Eosinophils 0.09 0.05 - 0.50 10E9/L [facility] Basophils 0.03 0.00 - 0.30 10E9/L [facility] % nRBC 0 % [facility] Specimen Blood Performing Organization Address City/[facility]/ZIP Code P floridalma Number [facility] [address] [place] [address] * C-Reactive Protein (12/18/2020 5:43 AM CDT) [facility] CRP 2.0 (H) <=0.9 mg/dL [facility] Specimen Blood Performing Organization Address City/[facility] P floridalma Number [facility] [address] [place] [address] * Comprehensive Metabolic Panel (12/18/2020 5:43 AM CDT) [facility] Sodium 137 136 - 145 mmol/L [facility] Potassium 3.8 3.6 - 4.9 mmol/L [facility] Chloride 100 99 - 111 mmol/L [facility] CO2 32 20 - 36 mmol/L [facility] Anion Gap 5 [facility] Glucose 84 74 - 106 mg/dL [facility] Total Protein 6.5 5.7 - 8.2 g/dL [facility] Albumin 3.2 (L) 3.4 - 4.8 g/dL [facility] Calcium 8.7 8.3 - 10.6 mg/dL [facility] BUN, Bld 12 6 - 20 mg/dL [facility] Creatinine 1.16 0.60 - 1.20 mg/dL [facility] eGFR >59 >59 mL/min [facility] Total Bilirubin 0.3 0.0 - 1.2 mg/dL [facility] Alkaline 126 (H) 29 - 122 U/L [facility] Phosphatase LABORATORY ALT 15 10 - 46 U/L [facility] AST 23 16 - 37 U/L [facility] Specimen Blood Performing Organization Address City/State/ZIP Code P floridalma Number [facility] [address] [place] [address] documented in this encounter Visit Diagnoses Diagnosis Essential (primary) hypertension Unspecified essential hypertension documented in this encounter Care Teams Start Date End Date Home Performance Consultant Relationship Specialty 11/19/20 Juan Trejo PA-C PCP - General [address] [place], [place] [id number] 12/13/20 01/01/21 Sarah Sun RN Care Manager [email or web address] 01/03/21 Jo-Ann العلي MD Infectious [address] [facility] [place] [address] [email or web address] documented as of this encounter
--- OUTSIDE RECORDS SUMMARY | 2021-01-20 12:48 | XMS REPORT | Encounter Summary ---
Author Author [facility] Organization [facility] Address Unknown Phone Unavailable Care Team Providers Care Skip Miner Blasting Name Role Phone Juan Trejo PA-C PCP Encounter Details Care Team Description Date Type Department Haley Duvall APRN [address] [place] [address] [email or web address] Methadone dependence (HCC) 11/30/2020 Orders Only [facility] Post- Acute Care [address] [place] [address] Social History Date Tobacco Use [...] 11/16/2020 relatives? How often do you attend uatsdin or jewish Never 11/16/2020 services? Do you belong to any clubs or organizations such No 11/16/2020 as uatsdin groups, unions, fraternal or athletic groups, or [...] encounter Care Teams Start Date End Date Skip Miner Blasting Relationship Specialty 11/19/20 Juan Trejo PA-C PCP - General [address] [place], [place] [id number] documented as of this encounter
--- OUTSIDE RECORDS SUMMARY | 2021-01-20 12:48 | XMS REPORT | Encounter Summary ---
Author Author [facility] Organization [facility] Address Unknown Phone Unavailable Care Team Providers Care Water Plumber Name Role Phone Juan Trejo PA-C PCP Sarah Sun RN [phone] [email or web address] Jo-Ann العلي MD Unavailable Encounter Details Care Team Description Date Type Department Haley Duvall APRN [address] [place] [address] [email or web address] Essential (primary) hypertension 12/03/2020 Lab Requisition LABORATORY [id number] [place] [address] Social History Date Tobacco Use [...] 11/16/2020 relatives? How often do you attend methodist or roman catholic Never 11/16/2020 services? Do you belong to any clubs or organizations such No 11/16/2020 as methodist groups, unions, fraternal or athletic groups, or [...] Associated Diag nosis CBC WITH AUTO Routine 12/03/2020 Essential (prim iliana) DIFFERENTIAL 5:33 AM CDT hypertension CBC AND DIFFERENTIAL Routine 12/03/2020 Essential (primary) 5:33 AM CDT hypertension C-REACTIVE PROTEIN Routine 12/03/2020 Essential ( primary) 5:33 AM CDT hypertension COMPREHENSIVE METABOLIC Routine 12/03/2020 Essent ial (primary) PANEL 5:33 AM CDT hypertension documented in this encounter Results * CBC auto differential (12/03/2020 5:33 AM CDT) WBC 5.5 3.5 - 10.5 10E9/L [facility] RBC 2.67 (L) 4.32 - 5.72 10E12/L [facility] Hemoglobin 8.1 (L) 13.5 - 17.5 g/dL [facility] Hematocrit 26.3 (L) 38.8 - 50.0 % [facility] MCV 98.5 (H) 81.2 - 95.1 fL [facility] MCH 30.3 26.0 - 34.0 pg [facility] MCHC 30.8 (L) 31.0 - 37.0 g/dL [facility] RDW 14.7 11.8 - 15.6 % [facility] Platelets 204 150 - 450 10E9/L [facility] nRBC 0.00 <=0.00 10E9/L [facility] Neutrophils % 69.3 40.0 - 75.0 % [facility] Lymphocytes % 19.0 (L) 22.0 - 49.0 % [facility] Monocytes % 9.6 2.0 - 10.0 % [facility] Eosinophils % 1.6 <=5.0 % [facility] Basophils % 0.5 0.0 - 2.5 % [facility] Neutrophils 3.83 1.70 - 7.00 10E9/L [facility] Lymphocytes 1.05 0.90 - 2.90 10E9/L [facility] Monocytes 0.53 0.30 - 0.90 10E9/L [facility] Eosinophils 0.09 0.05 - 0.50 10E9/L [facility] Basophils 0.03 0.00 - 0.30 10E9/L [facility] % nRBC 0 % [facility] Specimen Blood Performing Organization Address City/State/ZIP Code P [place] Number [facility] [address] [place] [address] * Comprehensive Metabolic Panel (12/03/2020 5:33 AM CDT) Sodium 135 (L) 136 - 145 mmol/L [facility] Potassium 4.1 3.6 - 4.9 mmol/L [facility] Chloride 99 99 - 111 mmol/L [facility] CO2 34 20 - 36 mmol/L [facility] Anion Gap 2 [facility] Glucose 91 74 - 106 mg/dL [facility] Total Protein 6.4 5.7 - 8.2 g/dL [facility] Albumin 3.2 (L) 3.4 - 4.8 g/dL [facility] Calcium 8.7 8.3 - 10.6 mg/dL [facility] BUN, Bld 10 6 - 20 mg/dL [facility] Creatinine 1.00 0.60 - 1.20 mg/dL [facility] eGFR >59 >59 mL/min [facility] Total Bilirubin 0.3 0.0 - 1.2 mg/dL [facility] Alkaline 130 (H) 29 - 122 U/L [facility] Phosphatase LABORATORY ALT <9 (L) 10 - 46 U/L [facility] AST 32 16 - 37 U/L [facility] Specimen Blood Performing Organization Address City/State/ZIP Code P [place] Number [facility] [address] [place] [address] * C-Reactive Protein (12/03/2020 5:33 AM CDT) CRP 4.4 (H) <=0.9 mg/dL [facility] Specimen Blood Performing Organization Address City/State/ZIP Code P [place] Number [facility] [address] [place] [address] documented in this encounter Visit Diagnoses Diagnosis Essential (primary) hypertension Unspecified essential hypertension documented in this encounter Care Teams Start Date End Date Water Plumber Relationship Specialty 11/19/20 Juan Trejo PA-C PCP - General [address] [place], [place] [id number] 12/13/20 01/01/21 Sarah Sun RN Care Manager [email or web address] 01/03/21 Jo-Ann العلي MD Infectious [address] [place] [place] [address] [email or web address] documented as of this encounter
--- OUTSIDE RECORDS SUMMARY | 2021-01-20 12:48 | XMS REPORT | Encounter Summary ---
Author Author [facility] Organization [facility] Address Unknown Phone Unavailable Care Team Providers Care Aquatic Facility Manager Name Role Phone Juan Trejo PA-C PCP Encounter Details Care Team Description Date Type Department Desmond Murray MD [address] [place] [address] [email or web address] Gross hematuria (Primary Dx); Anemia due to acute blood loss; Benign prostatic hyperplasia with lower urinary tract symptoms, symptom details unspecified; Stage 3 chronic kidney disease, unspecified whether stage 3a or 3b CKD (HCC); Methadone dependence (HCC) 11/30/2020 Long Term [facility] Post- Acute Care [address] [place] [address] Social History Date Tobacco Use [...] 11/16/2020 relatives? How often do you attend mormon or shinto Never 11/16/2020 services? Do you belong to any clubs or organizations such No 11/16/2020 as mormon groups, unions, fraternal or athletic groups, or [...] encounter Miscellaneous Notes * Progress Notes - Desmond Murray MD - 11/30/2020 12:00 AM CDT PATIENT: Caden Blanca MR#: [id number] PAGE 2 : 1950 [facility]. HISTORY OF PRESENT ILLNESS: This is a 70-year-old . He receiv es the bulk of his care through the [facility]. Several weeks ago, he was hospit alized at the [facility]. I am not privy to the details of that st ay, except that a right-sided ureteral stent was placed because of kidney stones . A few days prior to November 10, at home, he began to have symptoms of urinary ret ention. He was advised by [facility] to begin self-catheterization. On November 10, he h ad diffuse abdominal pain and generalized weakness. He presented to the [facility]. According to the patient, he was sent home with a prescription for boo n medication after being there for a few hours. He then developed gross hematur ia and decided to go to the [facility]. He was admitted there late on November 10. While at the [facility], cultures of blood and urine were positive for MSSA. A Park catheter was placed and he was started on CBI due to the hematuria. He h ad KOFI with a creatinine of 2.2. Followup blood cultures continued to be positi ve, which is what led to transfer to [facility]. He was at [facility] November 15 through November 29. He was seen by Dr. Escobar of Urology. The most recent Urology note was on November 16,the day afte r admission, in which Dr. Escobar indicated to continue Park catheter. The patient was seen by Drs. العلي and Viji Briscoe of Infectious Diseases. Fo llowup blood cultures eventually were no growth. A transesophageal echo showed no vegetation. In the most recent Infectious Diseases note, Dr. Viji Briscoe doc umented that the MSSA bacteremia was "of possible urinary source." Recommendati on is to receive antibiotic therapy through December 07. Three other issues were addressed while at [facility]. The 1st is that [...] was adjusted to that which is dictated below. He said today his appetite is quite poor. He is not nauseated. He has no abdom inal pain. At first, when I went in the room, he said "I'm still bleeding." Th e urine in the Park bag is blood-tinged, but there is no isa hematuria. He junior jansen said that it "looks a lot better than it did." PAST MEDICAL HISTORY: 1. Kidney stones. As I noted above, several weeks ago he underwent placement of right ureteral stent at [facility]. 2. BPH. 3. Chronic pain, for which he is on methadone. DISCHARGE MEDICATIONS: Ceftriaxone 2 g IV daily through December 07; Levsin 0.1 25 mg every 4 hours p.r.n.; meloxicam 15 daily; methadone 160 mg every 5 p.m.; n aloxone p.r.n.; Zofran p.r.n.; Flomax 0.4 at bedtime. I want to note that the pharmacy that supplies [facility] refuses to fill the methadone prescription. ALLERGIES: None. SOCIAL HISTORY: Remote history of drug abuse. He told me he has not been smoki ng or drinking alcohol. REVIEW OF SYSTEMS: He has no current shortness of breath or chest discomfort. He denies abdominal pain, current nausea, diarrhea or constipation. PHYSICAL EXAMINATION: VITALS: 109/60, heart rate 76, room air 94%. GENERAL: At first, he made rather poor eye contact, but as we continued to visi t he would look me in the eye. He seems calm and comfortable at this time. As I noted, the urine in the Park bag is blood-tinged, but there is no isa hemat uria and no clots. SKIN: No rash. CORONARY: Regular rate. No murmur. LUNG LEE: Clear. No crackles. ABDOMEN: I palpated everywhere and there is no pain including in the suprapubic region. EXTREMITIES: Somewhat gaunt. No pitting edema. HOSPITAL STUDIES: 1. Chest x-ray: Unremarkable. 2. X-ray right foot: Osteopenia. No acute abnormality. 3. CT abdomen and pelvis: Nonobstructing lower pole right renal calculus, right internal ureteral stent, otherwise negative. LABS: Creatinine at discharge 1. TSH 2.5. During his [facility] stay, hemo globin went from 7.1 to 8.0 with an MCV of 98. IMPRESSION/PLAN: 1. History a few weeks ago of right ureteral stent placement at [facility] b ecause of kidney stone. 2. Urinary retention requiring Park catheter/hematuria of uncertain etiology. I do not believe he underwent cystoscopy while at [facility] or at the [facility]. Cause of bleeding is unclear. It did get much better with CBI. It will be of vital importance that we get him set up to see a urologist. He does not know the name of the urologist in [place] who placed the stent. My hope is that someone at the [facility] in the Urology Department there can see him in the near future. In the meantime, I think we should maintain the Park catheter. 3. MSSA bacteremia. TAYLOR was negative for vegetation. Most likely source was ur inary tract. Complete antibiotic as per Infectious Diseases. 4. Chronic pain of right foot. 5. Hypernatremia, resolved. 6. Chronic methadone use. The [facility] refuses to fill this. I have instructed the nurse to contact the [facility] to see if we can acquire it there. 7. Anemia, probably in most part secondary to hematuria. 8. Acute kidney injury. He still has a somewhat elevated creatinine. Discontin ue nonsteroidal anti-inflammatory drug. He came with orders to get a CBC, comprehensive, and CRP on a weekly basis. 50% or more of my time was spent in counseling and coordination of care. Total time spent was 50 minutes. ADDENDUM: When my nurse practitioner sees him, one of the goals will be to secu re a Urology followup, hopefully at the [facility]. Desmond Murray M.D. [email or web address]//[email or web address] Job ID: [id number] documented in this encounter Plan of Treatment Not on filedocumented as of this encounter Visit Diagnoses Diagnosis Gross hematuria - Primary Anemia due to acute blood loss Acute posthemorrhagic anemia Benign prostatic hyperplasia with lower urinary tract symptoms, symptom details unspecified Stage 3 chronic kidney disease, unspeci fied whether stage 3a or 3b CKD (HCC) Methadone dependence (HCC) Opioid type dependence, unspecified documented in this encounter Care Teams Start Date End Date Aquatic Facility Manager Relationship Specialty 11/19/20 Juan Trejo PA-C PCP - General [address] [place], [place] [id number] documented as of this encounter
--- OUTSIDE RECORDS SUMMARY | 2021-01-20 12:48 | XMS REPORT | Encounter Summary ---
Author Author [facility] Organization [facility] Address Unknown Phone Unavailable Care Team Providers Care Medical Education Manager Name Role Phone Juan Trejo PA-C PCP Encounter Details Care Team Description Date Type Department Alie Peters V, PLAN NURSE [address] [place] [address] [email or web address] Anemia due to acute blood loss (Primary Dx); Gross hematuria; MSSA bacteremia 12/03/2020 [facility] [address] [place] [address] Social History Date Tobacco Use [...] How often do you attend synagogue or jehovah's witness Never 11/16/2020 services? Do you belong to [...] completed or the highest degree you rhiannon ramirez received? Financial Resource Strain Answer Date Recorde [...] encounter Miscellaneous Notes * Progress Notes - HarikawaedAlie VSANCHEZ - 12/03/2020 10:45 AM CDT [facility] Progress Note 12/03/2020 Name: Mainor Blanca : 1950 Facility: [facility] () Type of Visit: Sub-Acute Mainor Blanca is a 70 y.o. male who is seen today for a sub-acute rehab (Med A) visit at [facility]. Per Dr. Murray's H&P dated 11/30/20, "He receives the bulk of his care through the [facility]. Several weeks ago, he was hospitalized at the [facility]. I am not privy to the details of that stay, except that a right-sided ureteral stent was placed because of kidney stones. A few days prior to November 10, at home, he began to have symptoms of urinary ret ention. He was advised by [facility] to begin self-catheterization. On November 10, he h ad diffuse abdominal pain and generalized weakness. He presented to the [facility]. According to the patient, he was sent home with a prescription for boo n medication after being there for a few hours. He then developed gross hematur ia and decided to go to the [facility]. He was admitted there late on November 10. While at the [facility], cultures of blood and urine were positive for MSSA. A Park catheter was placed and he was started on CBI due to the hematuria. He h ad KOFI with a creatinine of 2.2. Followup blood cultures continued to be positi ve, which is what led [facility] He was at [facility] November 15 through November 29. He was seen by Dr. Escobar of Urology. The most recent Urology note was on November 16,the day afte r admission, in which Dr. Escobar indicated to continue Park catheter. The patient was seen by Drs. العلي and Viji Briscoe of Infectious Diseases. Grace tijerina blood cultures eventually were no growth. A transesophageal echo showed no vegetation. In the most recent Infectious Diseases note, Dr. Viji Briscoe doc umented that the MSSA bacteremia was "of possible urinary source." Recommendati on is to receive antibiotic therapy through December 07. Three other issues were addressed [facility]. The 1st is that he roberts d [...] adjusted to that which is dictated below. Patient is now at [facility] [place] for therapies. Dr. Murray saw the patient 3 da ys ago. That note is reviewed. He dc'd mobic and ordered labs. [place] [facility]. I told him I couldn't answer that. I asked if he'd had a cysto since being in and he did not think so. He is willing to go to the [facility] in [place] for f/u so I will try to get that scheduled. He denies trouble with the catheter. No blood in the drainage bag. No trouble with constipation. Denies SOB/cough, CP, palpita tions, fevers/chills, insomnia, N/V, diminished appetite, or uncontrolled pain. Otherwise, 10 pt ROS is negative. Patient Active Problem List Diagnosis Gross hematuria KOFI (acute kidney injury) (HCC) BPH (benign prostatic hyperplasia) Hypernatremia Hypokalemia Elevated LFTs MSSA bacteremia Methadone dependence (HCC) NSVT (nonsustained ventricular tachycardia) ([facility]) Complicated UTI (urinary tract infection) No Known Allergies No family history on file. Social History Socioeconomic History Marital status: Spouse name: Not on file Number of children: 2 Years of education: 12 Highest education level: High school graduate Occupational History Not on file Tobacco Use Smoking status: Not on file Substance and Sexual Activity Alcohol use: Not [...] than three time s a week Attends Restorationism Services: Never Active Member of Clubs or Organizations: No Attends Club or Organization Meetings: Never Marital Status: Intimate Partner Violence: Not At Risk Fear of Current or Ex-Partner: No Emotionally Abused: No Physically Abused: No Sexually Abused: No No past medical history on file. Review of Systems: As per HPI, otherwise the 10-point ROS is negative. Physical Exam: VS: 114/73 afeb 75 General: Adult male, alert, cooperative, in no distress, appearing his stated a ge Skin: Cool and dry, large area of ecchymosis on the L anterior forearm Coronary: Regular rate and rhythm, no murmurs, rubs or gallops Lungs: Clear to auscultation bilaterally, respirations unlabored, no cough Abdomen: Soft, non-tender, non-distended, bowel sounds present Ext: no edema Psych: Normal affect Neuro: Non-focal Code Status: Full Code Labs: Results in Past 30 Days Result Component Current Result Ref Range Previous Result Ref Range WBC 5.5 (12/03/2020) 3.5 - 10.5 10E9/L 5.0 (11/29/2020) 3.5 - 10.5 10E9/L RBC 2.67 (L) (12/03/2020) 4.32 - 5.72 10E12/L 2.66 (L) (11/29/2020) 4.32 - 5.72 10 E12/L Hemoglobin 8.1 (L) (12/03/2020) 13.5 - 17.5 g/dL 8.0 (L) (11/29/2020) 13.5 - 17.5 g/dL Hematocrit 26.3 (L) (12/03/2020) 38.8 - 50.0 % 25.9 (L) (11/29/2020) 38.8 - 50.0 % MCV 98.5 (H) (12/03/2020) 81.2 - 95.1 fL 97.4 (H) (11/29/2020) 81.2 - 95.1 fL MCH 30.3 (12/03/2020) 26.0 - 34.0 pg 30.1 (11/29/2020) 26.0 - 34.0 pg MCHC 30.8 (L) (12/03/2020) 31.0 - 37.0 g/dL 30.9 (L) (11/29/2020) 31.0 - 37.0 g/dL RDW 14.7 (12/03/2020) 11.8 - 15.6 % 15.3 (11/29/2020) 11.8 - 15.6 % Platelets 204 (12/03/2020) 150 - 450 10E9/L 184 (11/29/2020) 150 - 450 10E9/L Lymphocytes % 19.0 (L) (12/03/2020) 22.0 - 49.0 % 17.6 (L) (11/29/2020) 22.0 - 49. 0 % Monocytes % 9.6 (12/03/2020) 2.0 - 10.0 % 9.5 (11/29/2020) 2.0 - 10.0 % Eosinophils % 1.6 (12/03/2020) <=5.0 % 2.2 (11/29/2020) <=5.0 % Basophils % 0.5 (12/03/2020) 0.0 - 2.5 % 0.4 (11/29/2020) 0.0 - 2.5 % Recent Labs 12/03/20 0533 11/29/20 0613 11/28/20 0659 11/27/20 0606 11/26/20 0629 11/25/20 0721 NA 135* 133* 135* 134* 136 136 K 4.1 3.6 3.6 3.6 3.3* 3.6 CL 99 95* 97* 98* 100 100 CO2 34 33 33 31 32 31 BUN 10 8 8 10 10 11 CREATININE 1.00 1.04 1.03 1.09 1.04 1.11 GLU 91 88 85 89 89 109* CALCIUM 8.7 8.5 8.8 8.3 8.2* 8.0* BILITOT 0.3 0.3 0.4 0.3 0.4 0.3 ALKPHOS 130* 117 115 112 106 111 AST 32 25 28 31 29 35 ALT <9* <9* <9* <9* <9* <9* PROT 6.4 6.3 6.3 6.1 5.8 5.9 ALB 3.2* 3.0* 3.0* 2.9* 2.8* 3.0* EGFR >59 >59 >59 >59 >59 >59 ANIONGAP 2 5 5 5 4 5 TSH Date Value Ref Range Status 11/19/2020 2.640 0.400 - 4.000 uIU/mL Final No results found for: FREET4 No results found for: HGBA1C No results found for: CHOL, LDL, HDL, TRIG No results found for: PREALBUMIN No results found for: PSA No results found for: [id number] No results found for: FOLATE No results [...] SEDRATE Lab Results Component Value Date CRP 4.4 (H) 12/03/2020 CRP 1.8 (H) 11/17/2020 No results found for: IRON No results found for: TIBC No results found for: ISAT Imaging: X-ray Chest 1 view Result Date: [...] mass. Bones and soft tissues: No ac [place] osseous abnormalities. Upper abdomen: Unremarkable. IMPRESSION: Right [...] data. All CT scans performed at this [facility] utilize dose optimization techniques as [...] Patient Name: MAINOR BLANCA Med Rec #: [id number] Reading MD: Jeff Guzmán MD [facility] Date: 11/21/2020 Referring MD: NASEEM العلي MD Technologist: Teri LANGLEY [place] [id number] Location: [facility] : 1950 Room: [facility] Gender: Male Height: 70.08in BP: 137/80 mmHg Weight: 169.76lb HR: Diagnosis Cod es: I38 Endocarditis, valve unspecified Procedures: 69929 Echo TAYLOR 9 3325 Color Doppler Echo 59146 Spectral Doppler Echo Conclusions: Th e left [...] 2 PM with a status of Final Assessment and Plan: 1. History of recent R ureteral stent placement at [facility] because of kid sherrie stone. 2. Urinary retention requiring Park catheter/hematuria of uncertain etiology. He needs urology f/u in [place]. I will attempt to arrange that. 3. MSSA bacteremia. TAYLOR was negative for vegetation. Most likely source was ur inary tract. He has 4 more days of the Ab. 4. Chronic pain of right foot. 5. Hypernatremia, resolved. 6. Chronic methadone use. In order to get the medication, the facility had to [facility]. 7. Anemia, probably in most part secondary to hematuria. Get iron and TIBC tomor row. 8. Acute kidney injury. Creat 1.0 today. Mobic was stopped. Updated Medication List: Current Outpatient Medications Medication Sig cefTRIAXone (ROCEPHIN) 1 g injection Inject 2 g into the vein daily for 7 da ys. To be given through 12-07-2020. Weekly labs: CBC, CMP, CRP; results to Dr. العلي at [phone]. Midline care per facility protocol. hyoscyamine (LEVSIN/SL) 0.[address] 0.125 mg under the tongue e very 4 (four) hours as needed for Cramping. methadone (DOLOPHINE) 10 MG tablet Take 16 [...] current facility-administered medications for this visit. Follow-up: Thursday I spent a total of 25 minutes in the care of this patient, with greater than 50% of the total time spent in counseling and coordination of care as detailed in t he above documentation. Alie Peters APRN Electronic Signature 12/03/2020 3:28 PM documented in this encounter Plan of Treatment Not on filedocumented as of this encounter Visit Diagnoses Diagnosis Anemia due to acute blood loss - Primar y Acute posthemorrhagic anemia Gross hematuria MSSA bacteremia documented in this encounter Care Teams Start Date End Date Medical Education Manager Relationship Specialty 11/19/20 Juan Trejo PA-C PCP - General [address] [place] [address] documented as of this encounter
--- OUTSIDE RECORDS SUMMARY | 2021-01-20 12:48 | XMS REPORT | Encounter Summary ---
Author Author [facility] Organization [facility] Address Unknown Phone Unavailable Care Team Providers Care Traveling Inventory Associate Name Role Phone Juan Trejo PA-C PCP Encounter Details Care Team Description Date Type Department Haley Duvall APRN [address] [place] [address] [email or web address] Methadone dependence (HCC) (Primary Dx) 11/30/2020 Orders Only [facility] Post- Acute Care [address] [place] [address] Social History Date Tobacco Use [...] 11/16/2020 relatives? How often do you attend druze or voodoo Never 11/16/2020 services? Do you belong to any clubs or organizations such No 11/16/2020 as druze groups, unions, fraternal or athletic groups, or [...] (HCC) - Primary Opioid type dependence, unspecified documented in this encounter Care Teams Start Date End Date Traveling Inventory Associate Relationship Specialty 11/19/20 Juan Trejo PA-C PCP - General [address] [facility] [place] [id number] documented as of this encounter
--- OUTSIDE RECORDS SUMMARY | 2021-01-20 12:48 | XMS REPORT | Encounter Summary ---
Author Author [facility] Organization [facility] Healthcare Address Unknown Phone Unavailable Care Team Providers Care Manager Studio Name Role Phone Juan Trejo PA-C PCP Sarah Sun RN [phone] [email or web address] Jo-Ann العلي MD Unavailable Encounter Details Care Team Description Date Type Department Alie Peters V, FRUIT PICKER MACHINE OPERATOR [address] [place] [address] [email or web address] Essential (primary) hypertension 12/04/2020 Lab Requisition LABORATORY [id number] [place], [place] [address] Social History Date Tobacco Use Types Packs/Day [...] 11/16/2020 relatives? How often do you attend yarsani or bahai Never 11/16/2020 services? Do you belong to any clubs or organizations such No 11/16/2020 as yarsani groups, unions, fraternal or athletic groups, or [...] Procedure Name Priority Date/Time Associated Diag nosis IRON SATURATION Routine 12/04/2020 Essential (luli esdras) 6:28 AM CDT hypertension IRON BINDING CAPACITY Routine 12/04/2020 Essentia l (primary) 6:28 AM CDT hypertension IRON Routine 12/04/2020 Essential (prim iliana) 6:28 AM CDT hypertension documented in this encounter Results * Iron Saturation (12/04/2020 6:28 AM CDT) Iron Saturation 11 (L)Comment: Unable to 20 - 55 % [facility] calculate due to one or both LABORATORY results out of reportable range. Specimen Blood Performing Organization Address City/[facility]/ZIP Code P floridalma Number [facility] [address] [place] [phone] * Iron Binding Capacity (12/04/2020 6:28 AM CDT) Iron Binding 253 250 - 450 ug/dL [facility] Capacity LABORATORY Specimen Blood Performing Organization Address City/[facility]/ZIP [facility] P floridalma Number [facility] [address] [place] [id number] * Iron (12/04/2020 6:28 AM CDT) Iron 27 (L) 81 - 208 ug/dL [facility] LABORATORY Specimen Blood Performing Organization Address City/[facility]/ZIP Code P floridalma Number [facility] [address] [place] [address] documented in this encounter Visit Diagnoses Diagnosis Essential (primary) hypertension Unspecified essential hypertension documented in this encounter Care Teams Start Date End Date Manager Studio Relationship Specialty 11/19/20 Juan Trejo PA-C PCP - General [address] [place] [id number] 12/13/20 01/01/21 Sarah Sun composing machine operator/tender [email or web address] 01/03/21 Jo-Ann العلي MD Infectious [address] [place] [address] [email or web address] documented as of this encounter
--- OUTSIDE RECORDS SUMMARY | 2021-01-20 12:49 | XMS REPORT | Encounter Summary ---
Author Author [facility] Address Unknown Phone Unavailable Care Team Providers [employer] Consultant Name Role Phone Juan Trejo PA-C PCP Provider, Michelystem MODEL USER PCP Unavail able Juan Trejo PA-C PCP Reason for Referral * Hospital-Follow up (Routine) - Closed Diagnoses / Procedures Referred By Contact Referred To [facility] Kody Ramey MD [address] [address] Kody Ramey MD [address] [address] Orthopedic Surgery Referral ID Status Reason Start Date Expiration Visits Vi sits Date Requested Authorized [id number] Closed Post-Hospital Follow up 11/29/2020 11/29/2021 1 1 * Hospital-Follow up (Routine) - New Request Diagnoses / Procedures [facility]erred By [facility] [address] [place] [id number] Referral ID Status Reason Start Date Expiration Visits Vi sits Date Requested Authorized [id number] New Request Post-Hospital Follow up 11/24/2020 11/24/2021 1 1 Reason for Visit * Auth/Cert Diagnoses / Procedures Referred By Contact Referred To [facility] Specialty Diagnoses Gross hematuria hematuria Gross hematuria Referral ID Status Reason Start Date Expiration Visits Vi sits Date Requested Authorized [id number] 1 1 Encounter Details Care Team Description Date Type Department Yo Murray MD [address] [place] [address] [email or web address] Ashley Haile MD [address] [place] [address] [email or web address] Desirae Gatica MD [address] [place] [address] MSSA bacteremia (Primary Dx) 11/15/2020 [facility] h - Encounter [address] 11/29/2020 [id number] [place] [address] Social History Date Tobacco Use [...] How often do you attend methodist or yazidism Never 11/16/2020 services? Do you [...] Signs Reading Time Taken Comments Vital Sign 117/71 11/29/2020 8:02 AM CDT Blood Pressure 82 11/29/2020 8:02 AM CDT Pulse 37 C (98.6 F) 11/29/2020 8:02 AM CDT Temperature 18 11/29/2020 8:02 AM CDT Respiratory Rate 95% 11/29/2020 8:02 AM CDT Oxygen Saturation - - Inhaled Oxygen Concentration 71.6 kg (157 lb 14.4 oz) 11/29/2020 3:02 AM CDT Weight 177.8 cm (5' 10") 11/29/2020 3:02 AM CDT Height 22.66 11/29/2020 3:02 AM CDT Body Mass Index documented in this encounter Discharge Instructions * Instructions* Jonatan Berger RN - 11/24/2020 Images from the original note were not included. Midline Catheter A midline catheter is a thin, flexible tube that is inserted into a vein in the upper arm or at the bend in the elbow. Its tip ends at or near the armpit (axill iliana) area. A midline catheter is a type of IV access. What are the risks? Generally, midline catheters are safe to use. However, problems may occur, inclu ding: Clots. A clot can form in the midline catheter or at its tip. Phlebitis. This is when the vein becomes warm, swollen, and tender. A red str eak may develop along the vein where the midline catheter is inserted. Leakage (infiltration) of IV fluids or medicine into the surrounding tissue o f the vein. This can cause swelling, pain, and tissue damage in the arm with the midline catheter. Infection. Nerve or tendon injury or irritation during midline catheter insertion. How are midline catheters used? A midline catheter is used to: Give IV fluids and nutrients. Give medicines. Draw blood. Give blood back to the body, such as during a blood transfusion or hemodialys is. Inject a contrast dye for a CT scan (power injection). Provide IV access for treatment that lasts 14 weeks. Follow these instructions at home: Follow instructions from your health care provider about how to take care of you r midline catheter at home. To make sure that your catheter works well: Wash your hands with soap and water before and after caring for or using for your midline catheter. If soap and water are not available, use hand grounds restoration specialist. Before connecting a syringe or tubing to your midline catheter, scrub the tip of your catheter with a new alcohol wipe for 1014 seconds. Allow the catheter tip to dry completely. Do this every time before you connect the syringe or tu joe to your midline. Do not let the midline catheter bandage (dressing) get wet. Cover it with a w atertight covering when you take a bath or a shower. Change the dressing right a way if it becomes wet. Do not take baths, swim, or use a hot tub until your health care provider king roves. Do not pull on the midline catheter or tubing. Doing that can move the midlin e catheter out of its place in the vein. If the midline catheter is pulled out o f place, the IV fluids or medicine you are getting can leak into the surrounding tissue. Do not allow blood pressure monitoring or needle punctures on the side where the midline catheter is located. Do not lift anything that is heavier than 10 lb (4.5 kg) or the limit given b y your health care provider. Check your insertion site every day for signs of infection. Check for: Redness, swelling, or pain. Fluid or blood. Warmth. Pus or a bad smell. Contact a health care provider if: The dressing is loose and the midline catheter insertion site is exposed. The skin is irritated where the dressing has been applied. Get help right away if: You have chills or fever. There is bleeding at the site where the midline catheter enters your arm. There is drainage, redness, swelling, discomfort, or warmth in the arm with t he midline catheter. You are unable to flush your midline catheter or it feels blocked. The midline catheter is partially or completely pulled out. Your catheter is broken or leaking. You are dizzy. You have shortness of breath. You have an irregular heartbeat. Summary A midline catheter is a thin, flexible tube that is inserted into a vein in t he upper arm or at the bend in the elbow. A midline catheter is used to give IV fluids or nutrients, give medicines, dr aw blood, give blood back to the body, inject a dye for a CT scan (power injecti on), or provide IV access for treatment that lasts 14 weeks. Check your insertion site every day for signs of infection. Signs include red ness, swelling, pain, fluid, blood, warmth, pus, or a bad smell. This information is not intended to replace advice given to you by your health c are provider. Make sure you discuss any questions you have with your health care provider. Document Revised: 06/11/2020 Document Reviewed: 05/08/2017 [employer] Patient Education 2020 [employer]. documented in this encounter Medications at Time of Discharge [...] CMP, CRP; results to Dr. العلي at [phone]. Midline care per facility protocol. 12/03/2020 meloxicam (MOBIC) 7.5 MG Take 15 mg by 0 tablet mouth daily. 11/30/2020 methadone (DOLOPHINE) 10 Take 160 mg 0 MG tablet by mouth Daily At 5 pm. May cause QT prolongation and Torsades de pointes documented as of this encounter Miscellaneous Notes * Progress Notes - Julien Miller RN - 11/29/2020 4:10 PM CDT Transportation here at this time for transfer to shelter facility. Revie wed with sprinkling truck driver, patient name as it appears on discharge instructions and confir med correct patient for transport. Discharge instructions, Follow up appointment s, Medications & plan of care packet sent with sprinkling truck driver, and report called to facility. No questions or concerns at this time. PICC and park remain intact at discharge. Dressed and all belongings sent out with transport. Placed in wheelchair and discharge from discharge lounge at this time. * Progress Notes - Giulia Burton, RN - 11/29/2020 3:10 PM CDT Today's Date: 11/29/2020 Time: Notes: 1508: Oumou w/ [facility] called - pt needs evening dose of methadone prior to leavin g as facility will not have supply until tomorrow AM. Sandy, izaiah [facility] nurse notified. 1250: Patient will be discharged to: [facility] [place] authroized Notes: Needs discharge COVID AG test resulted prior to leaving ID is changing discharge IVAB to Rocephin daily - needs first dose here Transportation provided by: Facility Transportation Date: 11/29/20 Time: 1500 Equipment requested for transportation: Wheelchair Pharmacy has been changed to: [facility] Patient notified: Yes - he is agreeable Family notified: TARA Guerra has updated sister, Tatyana who is delighted w/ discharge plan so he could get IP rehab Caregiver notified: Patient has identified caregiver, pt & his sister - Tatyana who was contacted by Giulia Burton RN, regarding the patient's identified discharge goal. Nurse to Nurse Report Number: [id number] Infection: COVID-19 Rule Out Isolation: No active isolations PPE worn by staff: did not enter room PPE worn by patient: did not enter room Was in close contact with the patient (6 ft or less for 10 minutes or more)? No 1055: VM from Mari castro/ TARA: TARA arzola has signed/approved SNF at [facility] for 30 days. Mari has emailed & left VM for [facility] w/ [facility]. On 2nd attempt, NICK was able to speak to [facility]um[facility] who will contact Mari to get auth #. [facility] has bed available today if necessary paperwork received. No discharge IM required as pt does not have Medicare A or B. Communicated with: Phone calls/text; chart review; virtual visit Discharge Goal: Disposition: Senior Living Facility (SNF) (pending VA auth) Pharmacy changed to: [facility] Infection: COVID-19 Rule Out Isolation: No active isolations PPE worn by staff: did not enter room PPE worn by patient: did not enter room Was in close contact with the patient (6 ft or less for 10 minutes or more)? No Giulia Burton RN Electronically Signed Today's Date: 11/28/2020 Time: Notes: 1535: Phone call from TARA Guerra: She requested [facility] transfer & was denied. Reports multiple phone calls / emails advocating for [place] coverage for SNF care as pt appears to not have Medicare A active, low income & had been sent to from the [place] for care. Mari is waiting for Dr Cervantes, [place] administrative review for request for SNF. Mari will call [facility] w/ [facility] to discuss 2nd review to accept if [place] authorization is approved. 1305: S/w [facility] who reports request for authorization for [facility] was emigdio lora today. This CM informed [place] that [facility] had denied pt earlier this week due t o lack of insurance coverage or auth from them. S/w [facility] w/ [facility] to update that [place] was referring again. O[facility] will call Kerri ramirez, [place] community care nurse at ext [phone] to get more info. [facility] reports pt davies s not have Medicare A benefits. She will call back when more info available. No ortho consult/recommendations in chart at this time. 1115: Is medically ready for discharge when plan is complete. Midline placed 8 -7. Needs cefazolin or rocephin through 8-20 & IP rehab. If [place] does not approve IP rehab: 1. Will explore pt staying w/ sister 2. Would need for rehab - need VA approval 3. Home IVAB: Infusions arranged by [place] if sister is willing to do. Pt likely not reliable to self infuse. Frandy w/ rehab called: He is providing dual recommendations. Pt was fixated on new stress fx in foot during today's visit - "wants a shoe for it." Pt holds f oot higher than needed off floor therefore more off balanced than usual. Ortho consult today. 1030: left for TARA Guerra, [phone]: Requesting update on SNF request. Communicated with: Text/phone calls from care team Discharge Goal: Disposition: Senior Living Facility (SNF) (pending VA auth) Pharmacy changed to: [facility]anged back to [facility] as no accepting facility Infection: COVID-19 Rule Out Isolation: No active isolations PPE worn by staff: did not enter room PPE worn by patient: did not enter room Was in close contact with the patient (6 ft or less for 10 minutes or more)? No Giulia Burton RN Electronically Signed Today's Date: 11/27/2020 Time: 11:19 AM Notes: Call Mari Dasilva line worker for PCP in [place] [phone], she is going to investigate patient status for getting into rehab. Sent clinical to [phone]. Spoke with Sister in [place], she has been in contact with the Care in the [facility] regarding eligibility as well, She could potential take him Home but w ould need to setup the Methadone Supply, patient gets out of , would need the HH and MAHNAZ authorized thru [facility]. Tatyana also requested follow up on Why patient continues no to be able to walk on Right foot, and if the Kidney Stone and stent removal could be done while inpatient here. Sent Message to Renato MARIN/NATALIO regard ing this request. Tatyana is trying to get the [facility] to authorize SNF due to his Low income status, not the service connected regulation. Karena Bonilla checked Medicare Status and patient is inactive, Oumou at [facility] check ed as well and he is not active. 1146: Received call from Mari DALE at [place] , she is resubmitting the consult fo r SNF , she reports that the [place] physician has already approved, so she is contac ting the [facility] training personnel supervisor and requesting the [place] contract for rehab care since the has no other resources . Updated Sister.and Patient 1300: Discussed the Availability of Methadone with Pharmacist/ Colby, He said he had to connect the Clinic at and go thru a simple process, he said the use of the Methadone was for addiction withdrawal and not pain, he was able to see when the script was last filled and reports patient should have a ten day supply at home Dr Gatica indicated he had spoke with Dr. Michelle Burns at psychiatry about t he dosage of the Methadone Communicated with: See note Discharge Goal: Disposition: Senior Living Facility (SNF) (HCR pending) Pharmacy changed to: na Infection: COVID-19 Rule Out Isolation: No active isolations PPE worn by staff: surgical mask and face shield PPE worn by patient: no PPE worn Was in close contact with the patient (6 ft or less for 10 minutes or more)? No Kehinde Harvey RN Electronically Signed Today's Date: 11/26/2020 Time: 4:07 PM Notes: [place] authorization failed as SWS authorizing said he was only 60% Service connected so they would not authorized SNF, Called and spoke Sister Tatyana at great length, Patient does have Medicare par t A, attempting to get this information as well from [facility]. Need to get the Information regarding Medicare Billing at [facility] guidelines for Visit there. Tatyana wonder what plan is for stent removal Does need 6 weeks of Antibiotic IV Communicated with: See Note Discharge Goal: Disposition: Senior Living Facility (SNF) (HCR pending) Pharmacy changed to: NA Infection: COVID-19 Rule Out Isolation: No active isolations PPE worn by staff: did not enter room PPE worn by patient: did not enter room Was in close contact with the patient (6 ft or less for 10 minutes or more)? No Kehinde Harvey RN Electronically Signed Today's Date: 11/26/2020 Time: 10:01 AM Notes: Called Fiona at the [place] Care in the [phone], she reports she submitted the referral on Thursday and Doctor Andrea approved this AM. The referra l now must go to the line worker to make Authorization arrangements with [facility], Sent [facility]ou a message at [facility]....pending bed availability. Updated patient. Discussed with Infectious disease on DC ABX. Communicated with: See note Discharge Goal: Disposition: Senior Living Facility (SNF) (HCR pending) [facility] Infection: COVID-19 Rule Out Isolation: No active isolations PPE worn by staff: surgical mask and face shield PPE worn by patient: no PPE worn Was in close contact with the patient (6 ft or less for 10 minutes or more)? No Kehinde Harvey RN Electronically Signed Today's Date: 11/23/2020 Time: 2:17 PM Notes: 3:10 Notified by Rufino at [place] that RFS was received. 2:15 [facility] was decliined by [facility]. Recommending SNF. [facility]. [facility] is contracted by [place] and patient chose [facility] as first choic e. Referral sent to [facility] . Spoke to [facility]um[facility] and they do not have beds now but may have by Thursday. RFS resubmitted to [place]. Communicated with: Patient; TOMAS Gross. Infection: No active infections Isolation: No active isolations PPE worn by staff: surgical mask and face shield PPE worn by patient: no PPE worn Was in close contact with the patient (6 ft or less for 10 minutes or more)? No Referrals Destination - Admitted Since 11/15/2020 Service Provider Request Status Selected Services Address Phone Fax Last Update d [facility] Pending - Request Sent N/A [address] [facility] 66 [phone] Giulia Burton, RN 11/21/2020 14[address] [facility] Pending - Request Sent N/A [address] [facility] [phone] Darline Marrufo RN 11/23 1406 Home Medical Care - Admitted Since 11/15/2020 Coordination has not been started for this encounter. Dialysis/Infusion - Admitted Since 11/15/2020 Coordination has not been started for this encounter. Community Resources - Admitted Since 11/15/2020 Coordination has not been started for this encounter. Darline Marrufo RN * Progress Notes - Alize Fairchild RN - 11/29/2020 2:13 PM CDT Patient arrived to the [facility]. * Plan of Care - Alize Fairchild RN - 11/29/2020 2:12 PM CDT Problem: INFECTION PREVENTION Goal: Absence or improvement of infection during hospitalization Outcome: Completed Problem: PAIN Goal: Verbalizes/displays adequate comfort level or baseline comfort level helenin g hospitalization Outcome: Completed Problem: SAFETY - FALL Goal: Absence from falls during hospitalization Outcome: Completed Problem: DISCHARGE PLANNING Goal: Discharge to next level of care with appropriate resources Outcome: Completed Problem: GENITOURINARY Goal: Urinary catheter remains patent; urinary tract remains free from infection during hospitalization Outcome: Completed Problem: METABOLIC/FLUID AND ELECTROLYTES Goal: Electrolytes remain within normal limits during hospitalization Outcome: Completed Problem: ANXIETY Goal: Will report anxiety at manageable levels Outcome: Completed Problem: MUSCULOSKELETAL Goal: Return mobility to safest level of function prior to discharge Outcome: Completed Goal: Return ADL status to a safe level of function prior to discharge Description: Outcome: Completed Problem: SKIN/TISSUE INTEGRITY Goal: Skin integrity remains intact during hospitalization Outcome: Completed Goal: Incision(s), wounds(s) or drain site(s) healing without S/S of infection d uring hospitalization Description: I Outcome: Completed Goal: Oral mucous membranes remain intact during hospitalization Outcome: Completed Problem: HEMATOLOGIC Goal: Maintains hematologic stability during hospitalization Outcome: Completed Problem: GASTROINTESTINAL Goal: Maintains or returns to baseline bowel function prior to discharge Outcome: Completed Goal: Maintains adequate nutritional intake during hospitalization Outcome: Completed Problem: Decreased Ability to Complete ADLs Goal: Maximize independence in ADLs prior to discharge Outcome: Completed Problem: Functional Mobility Goal: Maximize mobility to the highest level of function prior to discharge Outcome: Completed * Rx Pharmacy Consult - Tyrone Mayo RPh - 11/29/2020 1:37 PM CDT Pharmacy Discharge Referral Form Review Inpatient consult to pharmacy: Patient discharging, please review discharge ref erral form. Discharge medication referral form reviewed. There were no issues identified wi th the discharge referral form. The Hospitalist and floor nurse were contacted with information. Thank you, Tyrone Mayo 11/29/20 * Progress Notes - Og Davis - 11/29/2020 12:57 PM CDT [address] 29 Nov 2020 - Follow up today with pt who was awake in bed, room had sh ades drawn and lights out, television on. He said that things were okay today, he was to be discharged to inpatient physical rehab. Offered words of blessing. Mask x Face Shield x PPE N/A Maintain 6 ft Yes Others present: Pt, associate francine Davis Electronically Signed 11/29/2020 1:05 PM Spiritual Care Note Patient Name: Mainor Blanca : 1950 Referring Physician: Juan Trejo PA-C Admission Date: 11/15/2020 Room/Bed: 625/[facility] Admitting Diagnosis/Principal Problem Gross hematuria Demographic Information Patient's Race: White or [1] Patient's Ethnic Group: Non- [1] Patient's Marital Status: [4] Patient's Temple: Pentecostalism [32] Address: [address] [place] [address] [place], [place] [17], [facility] Spiritual Encounter Reason for visit: Continuing Plan of Care Referral source: Admission Screening Person visited: Patient Encounter type: Routine Location of encounter: Unit (comment) Surgical encounter type: Tenriism care provided: Tenriism Online Merchandising Manager, Prayer Sacraments/Rites: Contact spiritual leader/methodist: Spiritual care provided: Spiritual/Emotional Support and Online Merchandising Manager Follow-up: Needed Affiliation Assessment Tenriism/Spiritual affiliation: Pentecostalism Chen group support: [place] Patient shared he'd been here for a while and he doesn't know when he will leave . He said his delivery tech came to see him from [place]. THey've known each other a lo ng time. He said he misses the Olympics, more interesting than regular televisio n. He welcomed continued prayers and visits. Vishnu Robison Spiritual Care Provider * Plan of Care - Imtiza Cornelius Jr., MONICA - 11/29/2020 12:25 PM CDT Nursing End of Shift Summary Note Changes During This Shift: Procedures/Interventions: All scheduled medications administered. No PRN medications given. Family/Social Issues: PT calm & cooperative this evening. Additional Updates/Changes: Med clear d/c. Likely d/c to [facility] today. Code Status: The patient's current code status is Full Code, and has not changed within the p revious 24 hours. Significant Event: No Risk Assessment Scores: Liat: 20 Melo: 60 Current Status: Most recent assessment documentation: Neuro (WDL): Exceptions to WDL Level of Consciousness: Alert Orientation Level: Oriented X4 Cognition: Follows commands Respiratory (WDL): Within Defined Limits SpO2: 95 % $ RT Oxygen Device: None (Room air)* Cardiac Cardiac (WDL): Within Defined Limits Gastrointestinal Gastrointestinal (WDL): Within Defined Limits Last BM Date: 11/28/20 Abdomen Inspection: Nondistended Bowel Sounds (All Quadrants): Active Tenderness: No guarding Passing Flatus: Yes Gastrointestinal Additional Assessments: No Genitourinary Genitourinary (WDL): Exceptions to WDL Urinary Device: Yes Urinary Device Type: Urethral Catheter Most recent mobility documentation: Activity: Ambulate in room, Dangle Level of Assistance: 1:1 Assistive Device: Front wheel walker, Gait Belt Imtiaz Cornelius Jr, MONICA Problem: INFECTION PREVENTION Goal: Absence or improvement of infection during hospitalization Outcome: Progressing Problem: PAIN Goal: Verbalizes/displays adequate comfort level or baseline comfort level durin g hospitalization Outcome: Progressing Problem: SAFETY - FALL Goal: Absence from falls during hospitalization Outcome: Progressing Problem: DISCHARGE PLANNING Goal: Discharge to next level of care with appropriate resources Outcome: Progressing Problem: GENITOURINARY Goal: Urinary catheter remains patent; urinary tract remains free from infection during hospitalization Outcome: Progressing Problem: METABOLIC/FLUID AND ELECTROLYTES Goal: Electrolytes remain within normal limits during hospitalization Outcome: Progressing Problem: ANXIETY Goal: Will report anxiety at manageable levels Outcome: Progressing Problem: MUSCULOSKELETAL Goal: Return mobility to safest level of function prior to discharge Outcome: Progressing Goal: Return ADL status to a safe level of function prior to discharge Description: Outcome: Progressing Problem: SKIN/TISSUE INTEGRITY Goal: Skin integrity remains intact during hospitalization Outcome: Progressing Goal: Incision(s), wounds(s) or drain site(s) healing without S/S of infection d uring hospitalization Description: I Outcome: Progressing Goal: Oral mucous membranes remain intact during hospitalization Outcome: Progressing Problem: HEMATOLOGIC Goal: Maintains hematologic stability during hospitalization Outcome: Progressing Problem: GASTROINTESTINAL Goal: Maintains or returns to baseline bowel function prior to discharge Outcome: Progressing Goal: Maintains adequate nutritional intake during hospitalization Outcome: Progressing * Discharge Summary - Desirae Gatica MD - 11/29/2020 11:15 AM CDT Images from the original note were not included. [address] [place] [id number] Discharge Summary Patient ID: Mainor Blanca [id number] 70 y.o. 1950 Admit Date: 11/15/2020 Discharge Date: 11/29/20 Admitting Physician: Ashley Barrera MD Discharge Physician: Desirae Gatica MD Admission Diagnoses: Gross hematuria [R31.0] Discharge Diagnoses: Active Hospital Problems: Diagnosis Date Noted *Principal Problem*: Gross hematuria [R31.0] 11/15/2020 Complicated UTI (urinary tract infection) [N39.0] NSVT (nonsustained ventricular tachycardia) ([facility]) [I47.2] 11/19/2020 KOFI (acute kidney injury) ([facility]) [N17.9] 11/15/2020 BPH (benign prostatic hyperplasia) [N40.0] 11/15/2020 Hypernatremia [E87.0] 11/15/2020 Hypokalemia [E87.6] 11/15/2020 Elevated LFTs [R79.89] 11/15/2020 MSSA bacteremia [R78.81, B95.61] 11/15/2020 Methadone dependence ([facility]) [F11.20] 11/15/2020 Resolved Hospital Problems No resolved problems to display. Indication for Admission: Mainor Blanca is a 70 y.o. male who is directly admit [facility] for gross hematuria and bacteremia. Patient has history of BPH, he does intermittent straight cath at home 3 times a day chronically. Patient reports that he was admitted to the [facility] on 11/10 for hematuria, lower abdo eloise pain. Patient reports that several hours prior to admission, he started n oticing difficulties straight cathing himself at home, associated with gross hem aturia. He also reports associated lower abdominal pain, radiating to his epiga strium. At the [facility] ED, was found and KOFI with gross hematuria. Patient was admit sammy to inpatient, Park catheter was placed with CBI started. Urine and blood c ultures collected on 11/10 both grew MSSA. Patient was started on cefazolin. Maryellen cintron reports that hematuria improved with CBI and his abdominal pain completely resolved. Documents from [facility] indicates that patient was admitted on 11/10 for KOIF and chest pain. Upon further questioning, patient reports that his chest pain on 11/10 was actual ly abdominal pain radiating from suprapubic area, completely resolved after Fole y cath was placed. Patient is active at baseline, and he denies any anginal exe rtional symptoms. Denies any history of cardiac disease. Repeat blood culture on 11/13 came back today positive for gram-positive cocci. Thus, a transfer was requested. Patient reports history of nephrolithiasis status post ureteral stent placement about 2.5 weeks ago. He denies taking antiplatelets or any blood thinners at [facility]. Patient reports history of old right foot injury. While walking at home few day s ago, he reinjured his right foot while stepping on it but denies any associate d falls. Since that time of reinjury, he reports sharp pain in right foot upon weightbearing. Currently patient is alert and oriented x4. Of note, patient tested negative for COVID-9 at [facility]. (Per H&P) Hospital Course: During this hospitalization the following diagnosis were discu ssed with patient / family: Gross hematuria: Patient presented as transfer from the [facility] for further manage ment of gross hematuria as well as MSSA bacteremia as further detailed above in H&P. Patient has a history of BPH and performs straight cath three times a day at baseline. Patient also has history of recent nephrolithiasis s/p ureteral stent placement. Patient was admitted to the [facility] on 11/10/20 with gross hematuria and lower abdominal pain. Park catheter was placed and he was started on CBI. He was then transferred here to [facility] for further urological evaluation. On arrival, his urine was pink in color. He was continued on CBI. Urology (Dr. Escobar) was consulted and felt that hematuria was likely secondary to traumatic cath vs recent urological procedure. He recommended trying to wean CBI off but keeping Park catheter in place. CBI continued to run for several more days. Patient worked with physical and occupational therapies and was discharged to [facility] for ongoing rehabilitation efforts. Patient discharged in stable condition. Patient will need to follow up with PCP within 7 days and with Urology. MSSA bacteremia: Urine and blood cultures collected at outside hospital on grew MSSA. PICC line was placed in [facility] and patient was started on cefazoli n at outside hospital. Blood cultures were repeated on 11/13/20 were again positi ve. He was continued on IV cefazolin on arrival here. Infectious Disease (Dr. Shantanu lucas) was consulted and recommended discontinuing PICC line as patient had not cleared bacteremia before PICC line was placed. However patient refused to have PICC line removed as he does not have good peripheral IV access due to history o f drug abuse. CT abdomen/pelvis was unremarkable for any source of infection. Bl ood cultures were repeated here on 11/15/20 and had no growth after 48 hours. PIC C line was removed on 11/22/20. Infectious Disease recommended switching antibioti cs to IV Rocephin 2 grams daily to continue for 2 weeks. However, then on 11/20/20 , one of the blood cultures began growing staph aureus again. ID recommended PIC C line and TAYLOR was ordered which showed no evidence of valvular vegetation on ex am with LV of normal size and systolic function with an EF of 65%. Midline place d on 11/24/20. Infectious Disease recommended IV Cefazolin 2mg q8hr (if unable to do Cefazaling, then would recommend IV Rocephin daily) through 12/07, with weekl y labs and follow up in ID clinic in 2 weeks. History of nephrolithiasis requiring right ureteral sent placement on October 18, 2020: Patient's sister requested a definitive plan of possible intervention dur ing hospital stay for his nephrolithiasis especially given his staph aureus bact eremia. Urology consulted and started CBI and likely due to tramatic catheteriza tion. CBI titrated down and discontinued on 11/20/20. Dr. Escobar recommended outpati ent follow-up with his urologist for further treatment and to avoid further katie pulation in setting of recent staph bacteremia. Acute on chronic right foot pain: Recent fall with exacerbation of chronic ri ght foot pain. Swelling noted. Xray negative. MRI foot showed fairly pronounced edema related to advanced arthropathy. Orthopedics were consulted, no further r ecommendations at this time NSVT: During hospitalization, patient had a few runs of asymptomatic nonsusta ined V tach. QTC was within normal limits on EKG. Replaced electrolytes and cont inued to monitor closely on telemetry. KOFI: Creatinine on initial labs at outside hospital was 2.19 in the setting o f gross hematuria with possible obstruction. Park catheter was placed and he wa s started on IV fluids. Creatinine improved and was down to 1.21 on arrival here . Continued to monitor closely. Hypernatremia: Sodium was noted to be elevated at 155 on arrival here, associ ated with hyperchloremia. Patient reported that he had been on continuous IV flu ids while he was hospitalized at the [facility]. Suspect hypernatremia iatrogenic due to normal saline. He was given several doses of IV lasix 20 mg with improvement. R esolved. Hypokalemia: Mild. Monitored closely and replaced as needed. Resolved. Elevated LFTs: Patient denied any abdominal pain. Monitored closely. LFTs con tinued to trend down. Right foot pain: Patient has history of right foot fracture. He reported he h ad re-injured his foot recently and has had increased pain with weightbearing ev er since. X-ray on arrival showed diffuse osteopenia without acute osseous abnor mality. BPH: Chronic. Continued home medications. Methadone dependence: Patient is on methadone reportedly due to history of dr tristen abuse when he was younger. EKG here showed prolonged QTC. Discussed with [facility] ent's psychiatrist, Dr. Michelle Burns at who prescribes and manages patient's m ethadone regimen and she recommended decreasing dose by 5 mg until QTC <500. Therefore, patient was continued on methadone 155 mg with close monitoring of serial EKGs. Admission Condition: serious Discharged Condition: stable Consults: Infectious Disease, Rehabilitation Medicine and Urology Procedures and therapies with patients results: Radiology: X-ray Chest 1 view Result Date: 11/15/2020 IMPRESSION: Right arm PICC in expected location. XR Foot Right (2 views) Result Date: 11/15/2020 IMPRESSION: Diffuse osteopenia without acute osseous abnormality. CT Abdomen and Pelvis with IV Contrast Result Date: 11/18/2020 IMPRESSION: 1. Nonobstructing lower pole right renal calculus. 2. Right internal ureteral stent. 3. Otherwise negative CT abdomen and pelvis. Recent Labs Lab 11/29/20 0611/28/20 0659 11/27/20 0606 WBC 5.0 4.6 4.2 HGB 8.0* 8.1* 7.8* HCT 25.9* 26.1* 25.8* PLT 184 186 181 NEUTOPHILPCT 70.3 66.8 66.9 LYMPHOPCT 17.6* 18.6* 18.8* MONOPCT 9.5 11.0* 10.7* EOSPCT 2.2 3.2 3.1 Recent Labs Lab 11/29/20 0611/28/20 0659 11/27/20 0606 NA 133* 135* 134* K 3.6 3.6 3.6 CL 95* 97* 98* CO2 33 33 31 BUN 8 8 10 CREATININE 1.04 1.03 1.09 GLU 88 85 89 CALCIUM 8.5 8.8 8.3 PROT 6.3 6.3 6.1 BILITOT 0.3 0.4 0.3 ALKPHOS 117 115 112 ALT <9* <9* <9* AST 25 28 31 No results for input(s): CPK, CKMB, TROPONINI, CKIND in the last 168 hours. No results for input(s): APTT, INR, LABPROT in the last 168 hours. TSH Date Value Ref Range Status 11/19/2020 2.640 0.400 - 4.000 uIU/mL Final No results for input(s): CHOL, TRIG, HDL, LDL, NHDL in the last 168 hours. Disposition: [facility] Patient Instructions: Current Discharge Medication List START taking these medications Details cefTRIAXone (ROCEPHIN) 1 g injection Inject 2 g into the vein daily for 7 days. To be given through 12-07-2020. Weekly labs: CBC, CMP, CRP; results to Dr. العلي at [phone]. Midline care per facility protocol. Qty: 14 g, Refills: 0 Associated Diagnoses: MSSA bacteremia CONTINUE these medications which have NOT CHANGED Details hyoscyamine (LEVSIN/SL) 0.[address] 0.125 mg under the tongue every 4 (four) hours as needed for Cramping. meloxicam (MOBIC) 7.5 MG tablet Take 15 mg by mouth daily. methadone (DOLOPHINE) 10 MG tablet Take 160 mg by mouth Daily At 5 pm. May cause QT prolongation and [place] pointes naloxone (NARCAN) 4 MG/0.1ML nasal spray Place 1 spray nasally as needed for Opi oid Reversal. ondansetron (ZOFRAN-ODT) 4 MG disintegrating tablet Take 4 mg by mouth every 6 ( six) hours as needed for Nausea. tamsulosin (FLOMAX) 0.4 MG CAPS Take 0.4 mg by mouth at bedtime. Activity: activity as tolerated Diet: regular diet Wound Care: none needed Follow-up: Contact information for follow-up providers Naseem العلي MD Follow up on 12/07/2020. Specialty: Infectious Diseases Why: 2:00 pm Contact information: [address] [facility] [address] Kody Ramey MD. Schedule an appointment as soon as possible for a visit i n 1 week(s). Specialty: Orthopedics Contact information: [address] [facility] [address] Contact information for after-discharge care Destination [facility] . Service: Senior Living Contact information: [address] [place] [phone] Future Appointments Date Time Provider Department Center 12/07/2020 2:00 PM Naseem العلي MD [address] [facility] [address] Infectious D Instructions given to: Patient and staff Patient Teaching: See DC Instructions Total Discharge time: 35 minutes Signed: Heydi Jarquin RN / Renato Cantor RN Hospitalist Nurse Associate Examined patient on the day of discharge, alert and oriented x3, feeling better, abdomen soft, nontender, Park catheter present with mild blood-tinged urine bu t no clots, moving all 4 extremities, no SI/HI , lungs clear to auscultation has midline for ceftriaxone for MSSA bacteremia secondary to unclear source, he will need follow-up with ID clinic prior to discontinuing antibiotics And outpatient urology follow-up for management of his renal stone requiring ure teral stent placement early October at [facility]. Desirae Gatica MD Electronically Signed 11/29/2020 4:05 PM Desirae Gatica MD Electronically Signed 11/29/2020 4:04 PM CC: Juan Daniels Dr., PA-C [facility] * Progress Notes - Kindra Longoria COTA - 11/29/2020 9:49 AM CDT [address] [phone] Occupational Therapy Patient Name: Mainor Blanca : 1950 Billing Number: [id number] Physician: Desirae Gatica MD Admission Dx: Gross hematuria [R31.0] Admit Date: 11/15/2020 Principal Problem: Gross hematuria Today's Date: 11/29/2020 Occupational Therapy Progress Note Precautions: fall risk Medical Equipment: urinary catheter Subjective: Nursing gives permission to treat. Patient gives permission to treat . Pain rating: Pt reported 0/10 pain at rest however " If I put any weight on it then it hurts". Patient stated goal: to get better Objective: Patient receiving skilled Occupational Therapy treatment for Self-Ca re Management Training, functional transfer training, energy conservation, coord ination activities, endurance activities, safety training, patient/family educat ion and home management training. Mainor is alert. He was supine in bed when therapist arrived. Functional Transfer Instruction: Supine to sit: modified independently and set-up, extra time and HOB elevated fo r task Sit to supine: modified independently and extra time for task Sit to stand: From EOB requiring minimal assist of 1 staff and verbal cues for t ask, safety and correct hand placement Stand to sit: To EOB requiring minimal assist of 1 staff and verbal cues for tas k and safety Toilet transfer: requiring minimal assist of 1 staff and verbal cues for task an d safety. Ambulated with front-wheeled walker requiring minimal assist of 1 staff to bathr oom and to the bedside; Distance: 15' x 2. Pt ambulated in room and maintained NWB in R LE due to pain. Pt did place foot o n floor while standing at sink. Self-Care Management Training: Grooming: hand hygiene standing at the sink requiring minimal assist of 1 staff. Pt had LOB and required assistance to recover. Endurance: limited: reports fatigue and needs frequent rest breaks Therapeutic Exercises: None this session Neuromuscular Re-Education: None Testing Completed: None Education Provided: Fall prevention strategies Role of Occupational Therapy and OT Plan of Care Additional Comments: returned patient to bed call light placed in reach pad alarm activated Assessment / Recommendations: Patient presents with decreased strength, decreased safety, decreased ability to perform self-cares, decreased ability to perform functional transfers, general debilitation, decreased endurance, decreased mobility and increased risk for fal ls. Patient continues to benefit from Occupational Therapy. ST addressed Short-term Goals: (Time frame=Length of stay) 1.Pt will stand at sink for all grooming tasks modified independent and good saf ety addressed 11/29 2.Pt will complete UE/LE dressing modified independent with use of adaptive equi pment as needed addressed 11/26 3.Pt will complete toilet transfer modified independent with good safety address ed 11/29 4.Pt will complete toileting modified independent 5.Pt will be SBA for shower transfer with good safety 6.Pt will tolerate BUE graded exercise to increase strength and endurance for AD Ls addressed 11/21 7.Pt will increase AM-PAC Daily Living score to at [id number] of 24 or no mo re than 0% impairment to increase patient's self care skills addressed 11/26 Occupational Therapy Discharge Recommendations: Plan: Discharge to Inpatient Rehabilitation or Senior Living Facility or Swing bed Reasons for Rehab: Fall risk/balance deficits, Physical assist is needed for saf ety and Lack of adequate support at home Activity Tolerance: Patient would likely tolerate 3 hours of therapy Projected Equipment for discharge: Will continue to assess. Patient will have support person available post discharge? Unknown - patient re porting that his sister wants him to come live with her Plan: Continue plan of care. Time in/out: Charge: 2 self-care management training Infection: COVID-19 Rule Out Isolation: No active isolations PPE worn by staff: surgical mask, gloves and face shield PPE worn by patient: no PPE worn MELISSA Anderson Date: 11/29/2020 * Plan of Care - Jonatan Berger RN - 11/29/2020 7:40 AM CDT No evidence of erythema, edema or drainage from midline insertion site. * Progress Notes - Yenifer Smith RN - 11/29/2020 6:52 AM CDT [address] [phone] Orthopaedic Team Daily Progress Note 11/29/2020 The patient was rounded on today by CIRO Ojeda, RN, NA and Dr. Jason fraire MD.. Orthopaedics is the consulting Service This note documents the patient's recent hospital course and the exam as observe d by both the physician and the nurse associate today. All elements of the patie nt's plan documented here have been formulated by the physician and communicated to the orthopaedic team. If questions about this plan arise please contact the orthopaedic team for mirta fication. Patient Name: Mainor Blanca : 1950 Primary Care Provider: Juan Trejo PA-C Admission Date: 11/15/2020 Reason for Admission: Gross hematuria [R31.0] Subjective: Patient is resting in the bed and is alert and oriented. Patient reports pain wh en ambulating. Continues on IV abx. Denies any needs at this time. PHYSICAL EXAMINATION Vital Signs: Visit Vitals BP 117/71 (BP Location: Right arm, Patient Position: Supine) Pulse 82 Temp 98.6 F (37 C) Resp 18 Ht 1.778 m (5' 10") Wt 71.6 kg (157 lb 14.4 oz) SpO2 95% BMI 22.66 kg/m General: in no apparent distress, alert and oriented times 3 Cardiovascular: Normal Peripheral Perfusion Lungs: Symmetric chest rise and non-labored respirations. Musculoskeletal/Neurologic/Skin: Patient is able to DF/PF of RLE. Sensations ar e NV intact to light touch and palpations. Noted to have an area of redness on t he anterior foot near toes. Appears to be a popped blister. Continue to encourag e DF/PF of RLE. LAB Hematology Recent Labs 11/29/20 0613 11/17/20 0839 11/16/20 1012 WBC 5.0 < > 12.7* RBC 2.66* < > 2.57* HGB 8.0* < > 7.8* HCT 25.9* < > 24.8* MCV 97.4* < > 96.5* MCH 30.1 < > 30.4 MCHC 30.9* < > 31.5 RDW 15.3 < > 16.0* PLT 184 < > 384 NEUTOPHILPCT 70.3 < > 91.1* LYMPHOPCT 17.6* < > 4.2* PCT -- -- 2.54* EOSPCT 2.2 < > 0.0 BASOPCT 0.4 < > 0.1 < > = values in this interval not displayed. Chemistry Recent Labs 11/29/20 0613 NA 133* K 3.6 CL 95* CO2 33 BUN 8 CREATININE 1.04 GLU 88 CALCIUM 8.5 BILITOT 0.3 ALKPHOS 117 AST 25 ALT <9* PROT 6.3 ALB 3.0* EGFR >59 CoagulationNo results for input(s): LABPROT, INR in the last 720 hours. Urinalysis Recent Labs 11/22/209 BILIRUBINUR Negative COLORU Red GLUCOSEU Negative HGBUR 3+* KETONESU Negative LEUKOCYTESUR 3+* NITUR Negative PHUR 7.0 RBCUA >100* SPECGRAV 1.013 SQEP Rare UROBILINOGEN 0.2 WBCUA 21-50* PROCEDURE(S): IMPRESSION: Mainor Blanca is a 70 y.o. male PLAN outlined by Physician and/or Midlevel Provider: Activity: activity as tolerated Physical Therapy: PT/OT recommendations Weight-Bearing Status: As tolerated DVT Prophylaxis recommendations: Per Hospitalist's Recommendations Dressing Recommendations: Per ET recommendations Pain Management: PRN Prescriptions as per MRT PT/OT for mobilization, gait training and ADL instruction Social Work for discharge planning Patient Education: Probable increased pain, swelling, redness, ecchymosis over t he next couple of weeks and to call our office with any and all questions or con cerns. Follow-up: Physician follow-up in 10-14 days Ortho will sign off at this time. Will be available if needed. Yenifer Smith RN BSN Electronic Signature 11/29/2020 9:38 AM This note requires a provider co-signature if authored by a nurse associate. * Consults - Yenifer Smith RN - 11/29/2020 6:14 AM CDT Associated Order(s): IP CONSULT TO ORTHOPEDIC SURGERY Note entered to clear Orthopedic consult basket. Please see official consult not e completed by Dr Ramey on 11/28/20. Yenifer Smith RN * Plan of Care - Stephanie Summers RN - 11/29/2020 3:13 AM CDT Nursing End of Shift Summary Note Changes During This Shift: Procedures/Interventions: Park remains in place with pink tinged urine. IV antibiotics continued. Family/Social Issues: None Additional Updates/Changes: Patient would like shoes for discharge. Has insoles to wear with shoes. Code Status: The patient's current code status is Full Code, and has not changed within the p revious 24 hours. Significant Event: No Risk Assessment Scores: Liat: 20 Melo: 60 Current Status: Most recent assessment documentation: Neuro (WDL): Exceptions to WDL Level of Consciousness: Alert Orientation Level: Oriented X4 Cognition: Follows commands Respiratory (WDL): Within Defined Limits Respiratory Pattern: Regular, Unlabored Chest Assessment: Chest expansion symmetrical Bilateral Breath Sounds: Clear SpO2: 94 % $ RT Oxygen Device: None (Room air)* Cardiac Cardiac (WDL): Within Defined Limits Cardiac Regularity: Regular Heart Sounds: S1, S2 Jugular Venous Distention (JVD): No Cardiac Rhythm: Normal sinus rhythm Gastrointestinal Gastrointestinal (WDL): Within Defined Limits Last BM Date: 11/25/20 Abdomen Inspection: Nondistended Bowel Sounds (All Quadrants): Active Tenderness: No guarding Passing Flatus: Yes Gastrointestinal Additional Assessments: No Genitourinary Genitourinary (WDL): Exceptions to WDL Genitourinary Symptoms: Unable to assess Urinary Device: Yes Urinary Device Type: Urethral Catheter Most recent mobility documentation: Activity: Resting in Bed Level of Assistance: Standby assist, set-up cues, supervision of patient - no roberts nds on Assistive Device: Front wheel walker, Gait Belt Stephanie Summers RN Problem: INFECTION PREVENTION Goal: Absence or improvement of infection during hospitalization Outcome: Progressing Problem: PAIN Goal: Verbalizes/displays adequate comfort level or baseline comfort level durin g hospitalization Outcome: Progressing Problem: SAFETY - FALL Goal: Absence from falls during hospitalization Outcome: Progressing Problem: METABOLIC/FLUID AND ELECTROLYTES Goal: Electrolytes remain within normal limits during hospitalization Outcome: Progressing Problem: ANXIETY Goal: Will report anxiety at manageable levels Outcome: Progressing Problem: SKIN/TISSUE INTEGRITY Goal: Skin integrity remains intact during hospitalization Outcome: Progressing Goal: Incision(s), wounds(s) or drain site(s) healing without S/S of infection d uring hospitalization Description: I Outcome: Progressing Goal: Oral mucous membranes remain intact during hospitalization Outcome: Progressing Problem: HEMATOLOGIC Goal: Maintains hematologic stability during hospitalization Outcome: Progressing Problem: GASTROINTESTINAL Goal: Maintains or returns to baseline bowel function prior to discharge Outcome: Progressing Goal: Maintains adequate nutritional intake during hospitalization Outcome: Progressing Problem: Decreased Ability to Complete ADLs Goal: Maximize independence in ADLs prior to discharge Outcome: Progressing Problem: Functional Mobility Goal: Maximize mobility to the highest level of function prior to discharge Outcome: Progressing Problem: DISCHARGE PLANNING Goal: Discharge to next level of care with appropriate resources Outcome: Not Progressing Note: Patient still waiting on insurance approval for inpatient rehab. Problem: GENITOURINARY Goal: Urinary catheter remains patent; urinary tract remains free from infection during hospitalization Outcome: Not Progressing Note: Park remains in place with pink tinged urine. Problem: MUSCULOSKELETAL Goal: Return mobility to safest level of function prior to discharge Outcome: Not Progressing Note: Patient remains weak from prolonged hospital stay. Goal: Return ADL status to a safe level of function prior to discharge Description: Outcome: Not Progressing Note: Swelling to RLE causing patient to become more unsteady. * Consults - Kody Ramey MD - 11/28/2020 5:19 PM CDT [address] [address] Orthopedic Consultation 11/28/2020 Patient Name: Mainor Blanca : 1950 Primary Care Provider: Juan Trejo PA-C Admission Date: 11/15/2020 REASON FOR CONSULTATION r ankle soreness HISTORY OF PRESENT ILLNESS Mainor Blanca is a 70 y.o. male With increased atraumatic r ankle pain over la st few days PAST MEDICAL HISTORY No past medical history on file. PAST SURGICAL HISTORY No past surgical history on file. ALLERGIES No Known Allergies MEDICATIONS Current Facility-Administered Medications Medication Dose Route Frequency Provider Last Rate Last Admin calcium carbonate (TUMS) chewable tablet 1,000 mg 1,000 mg Oral BID PRN Alie Seth APRN 1,000 mg at 11/23/20 2215 ceFAZolin (ANCEF) 2000 mg in sterile water (PF) 20 mL IV syringe 2,000 mg I ntravenous Q8H Naseem العلي MD 2,000 mg at 11/28/20 0956 dextrose (GLUTOSE) 40 % oral gel 15-30 g 15-30 g Oral PRN Jude Haile MD Or glucagon (GLUCAGEN) injection 1 mg 1 mg Intravenous PRN Ashley Haile MD Or glucagon (GLUCAGEN) injection 1 mg 1 mg Intramuscular PRN Jude Haile MD Or dextrose 50 % solution 25 g 25 g Intravenous PRN Ashley Haile MD Or dextrose 50 % solution 50 g 50 g Intravenous PRN Ashley Haile MD LORazepam (ATIVAN) tablet 0.5 mg 0.5 mg Oral Q4H PRN Ashley Haile M D 0.5 mg at 11/16/20 1259 methadone (DOLOPHINE) tablet 155 mg 155 mg Oral Daily At 1700 Ashley Haile MD 155 mg at 11/28/20 1721 prochlorperazine (COMPAZINE) injection 10 mg 10 mg Intravenous Q6H PRN [facility] glen Ashley Barrera MD 10 mg at 11/20/20 1705 sodium chloride 0.9% flush bag 25 mL Intravenous flush line as needed Ashley Perry MD Stopped at 11/23/20 1900 tamsulosin (FLOMAX) capsule 0.4 mg 0.4 mg Oral Bedtime Ashley Haile MD 0.4 mg at 11/27/202056 PHYSICAL EXAMINATION Vital Signs: Visit Vitals BP 128/75 (BP Location: Right arm, Patient Position: Supine) Pulse 80 Temp 98.2 F (36.8 C) Resp 20 Ht 5' 10" (1.778 m) Wt 157 lb 11.2 oz (71.5 kg) SpO2 100% BMI 22.63 kg/m General: Well-developed, well-nourished, and in NAD Musculoskeletal: No erythema. Minimal swelling. Pain larterally Neurological: A&O x3. Motor & sensory function grossly intact. Integumentary: Warm, dry, and intact. No lesions. RADIOLOGY slight effusion. Degenerative changes of subtalar jt ASSESSMENT intra-articular infection Unlikely PLAN will follow conservatively Entered by MD Kody Santos MD, Electronic Signature 11/28/2020 5:23 PM * Progress Notes - Jasmyne Samson RN - 11/28/2020 3:30 PM CDT Leadership round completed at this time. Assisted patient back to bed, patient denies further needs or concerns with care. Bed alarm on and call light within reach. * Progress Notes - Desirae Gatica MD - 11/28/2020 2:03 PM CDT Images from the original note were not included. [address] [address] Hospitalist Progress Note 11/28/2020 Patient Name: Mainor Blanca : 1950 Primary Care Physician: Juan Trejo PA-C Admission Date: 11/15/2020 Loc: 625/625-A LOS: 13 days SUBJECTIVE: Patient resting in chair, no gross hematuria but has pink-tinged urine in Park bag, lungs clear to auscultation, TAYLOR negative for endocarditis, repeat blood c ultures drawn from 11/22/2020 ntd. Has midline placed now, on IV cefazolin Spoke with patient's sister yesterday, patient had right ureteral stent placed for nephrolithiasis on October 18 by urology at [place], I discussed with Dr. Escobar urolog y again on 11/27/2020, he recommended just outpatient follow-up with urology at t his time for continuity of care purposes and he does not think it is too early t o manipulate there is urethral/bladder given possible recent trauma and his niles turia is slowly resolving at this time and recent staph bacteremia. Given worsening right foot pain, MRI foot was ordered which showed probably adva nced subtalar arthropathy. There is also questioned possible new insufficiency fracture, tibiotalar effusion, consulted orthopedics for further input OBJECTIVE: Scheduled Medications: ceFAZolin 2,000 mg Intravenous Q8H methadone 155 mg Oral Daily At 1700 tamsulosin 0.4 mg Oral Bedtime Infusions: PRN Medications: calcium carbonate, dextrose OR glucagon OR glucagon OR dextrose OR dextrose, LORazepam, prochlorperazine, sodium chloride Vital signs in last 24 hours: Temp: [98 F (36.7 C)-98.6 F (37 C)] 98 F (36.7 C) Heart Rate: [73-78] 76 Resp: [18-19] 18 BP: (112-123)/(67-77) 115/67 SpO2: [93 %-98 %] 98 % MAP (calculated): [83 mm Hg-92 mm Hg] 83 mm Hg I&O: 11/27 0701 - 11/28 0700 In: 1000 [P.O.:960; I.V.:40] Out: 2650 [Urine:2650] Exam: Visit Vitals BP 115/67 (BP Location: Right arm, Patient Position: Supine) Pulse 76 Temp 98 F (36.7 C) Resp 18 Ht 1.778 m (5' 10") Wt 71.5 kg (157 lb 11.2 oz) SpO2 98% BMI 22.63 kg/m Temp (24hrs), Av.4 F (36.9 C), Min:98 F (36.7 C), Max:98.6 F (37 C) General: Adult male, alert, cooperative, no resp distress, appears stated age Head: Normocephalic, atraumatic Eyes: EOM's intact Neck: No JVD, no bruits Lungs: Clear to auscultation bilaterally, respirations unlabored Chest Wall: No tenderness or deformity Heart: Regular rate and rhythm, no murmurs, rubs, or gallop Abdomen: Soft, non-tender, non-distended, bowel sounds present Ext: Trace edema in b/l ankles Vascular: Distal pulses intact Skin: Warm and dry Neuro: Non-focal Psych: Normal affect Labs / Imaging: All recent data have been reviewed. PROBLEM LIST: Principal Problem: Gross hematuria Active Problems: KOFI (acute kidney injury) (HCC) BPH (benign prostatic hyperplasia) Hypernatremia Hypokalemia Elevated LFTs MSSA bacteremia Methadone dependence (HCC) NSVT (nonsustained ventricular tachycardia) (HCC) Complicated UTI (urinary tract infection) ASSESSMENT / PLAN: Gross hematuria Admitted to OSH with gross hematuria on 11/10. History of BPH and recent right u reteral stent placement for kidney stones in first week of October. Urology consul sammy Park catheter was placed and started on CBI, overall hematuria is improving. suspected hematuria is related to traumatic catheterization, recommended keeping Park catheter in place, given clinical improvement, CBI is stopped, he will be discharged with Park catheter and will need outpatient follow-up History of nephrolithiasis requiring right ureteral stent placement on October 18 021: -Patient's sister requested a definitive plan of possible intervention during is hospital stay for his nephrolithiasis especially given his staph aureus bacte edgar -I reached out to urology again on 11/27/[address] Macias and he recommended ou tpatient follow-up with his urologist as before for continued of care purposes a nd to avoid further manipulation in the setting of recent staph bacteremia Acute on chronic right foot pain: -Recent fall with exacerbation of chronic right foot pain, noted some swelling a s well, x-rays negative, MRI of foot comments on possible new insufficiency frac ture, small tibiotalar effusion. In the setting of recent staph bacteremia, gissel mckeon consult Ortho to comment on possibly the insufficiency fracture and also if th is effusion needs to be sampled MSSA bacteremia Urine and blood cultures collected on 11/10 grew MSSA. Source: renal/UTI possibl y?. Hx of recent right ureteral stent placement (October 18, 2020] PICC line was placed in right upper extremity, and patient was started on cefazo dalia. However blood cultures from 11/15/2020 again were growing staph aureus and hence PICC line was removed Denies any having artificial joints, valves or implantable cardiac devices. TAYLOR negative for endocarditis CT abdomen/pelvis on 11/18 showed no obvious source of bacteremia. Repeat blood cultures from 11/22/2020 sent and are -ve to date, Has midline, DC to [facility] bed available, per ID he will need IV antibiotics at least until 12/07 and he will need ID follow-up in the clinic prior to discontin uing these Hypernatremia Resolved KOFI Creatinine on initial labs was 2.19 in setting of gross hematuria with possible obstruction. Resolved Elevated LFTs No abdominal pain or tenderness at this time. LFTs trended down. NSVT Few runs of asymptomatic nonsustained V. tach on telemetry on 11/19. TSH 2.640. QTc is WNL on EKG. we will replete electrolytes aggressively Hypokalemia Monitor and replace as needed. BPH Chronic. Continue home medications. Atypical chest pain Patient reports that this was an abdominal pain radiating from his suprapubic ar ea in setting of gross hematuria. No specific EKG changes were mentioned (no EKG to review). Troponin x3 was negat josefina. Noncardiac, improved after Park catheter was inserted. Methadone dependence Reportedly due to history of drug abuse when he was young. EKG on 11/16 showed prolonged QTC. Discussed with Dr. Michelle Burns at psychiatry who prescribes and manages mandi 's methadone regimen, recommended decreasing total daily dose 25 mg till QTC< 500. Home dose of 160 mg daily was decreased to 155 mg daily on 11/16. Repeat EKG on 11/17 showed QTC <500. Continue to monitor daily EKG. DVT prophylaxis SCDs. Code Full code. Continued hospitalization is necessary due to bacteremia Disposition: rehab / SNF as per PT/OT recs Expected date of discharge: When bed available Desirae Gatica MD Electronic Signature 11/28/2020 2:03 PM * Progress Notes - Gibran Stuart COTA - 11/28/2020 1:43 PM CDT [address] [address] Occupational Therapy Patient Name: Mainor Blanca : 1950 Billing Number: [id number] Physician: Desirae Gatica MD Admission Dx: Gross hematuria [R31.0] Admit Date: 11/15/2020 Principal Problem: Gross hematuria Today's Date: 11/28/2020 Therapy Session Not Completed Patient declined Occupational Therapy Treatment session. Reason(s) session was not done: Pt declined therapy at this time as pt persevera ting on " I need a shoe" before I do anything now. Pt provided with encouragemen t with participation however still politely declined wanting to wait until speak ing with a physician. Plan: Will attempt again on 11/29 Infection: COVID-19 Rule Out Isolation: No active isolations PPE worn by staff: surgical mask and face shield PPE worn by patient: no PPE worn MELISSA Conrad Electronically Signed 11/28/2020 2:35 PM * Plan of Care - Imtiaz Cornelius Jr., MONICA - 11/28/2020 11:52 AM CDT Nursing End of Shift Summary Note Changes During This Shift: Procedures/Interventions: All scheduled medications administered. No PRN medications given. Family/Social Issues: PT calm & cooperative this evening. Additional Updates/Changes: Med stable d/c. Ortho consult; possible beginning stress fracture L foot. Will need OP Ivabx thru 12/07. Rehab pending [place] insurance approval. OP urology fol low up. Ortho no medical intervention of ankle. Code Status: The patient's current code status is Full Code, and has not changed within the p revious 24 hours. Significant Event: No Risk Assessment Scores: Liat: 20 Melo: 60 Current Status: Most recent assessment documentation: Neuro (WDL): Exceptions to WDL Level of Consciousness: Alert Orientation Level: Oriented X4 Cognition: Follows commands Respiratory (WDL): Within Defined Limits SpO2: 98 % $ RT Oxygen Device: None (Room air)* Cardiac Cardiac (WDL): Within Defined Limits Gastrointestinal Gastrointestinal (WDL): Within Defined Limits Last BM Date: 11/25/20 Abdomen Inspection: Nondistended Bowel Sounds (All Quadrants): Active Tenderness: No guarding Passing Flatus: Yes GI Symptoms: (pt denies) Gastrointestinal Additional Assessments: No Genitourinary Genitourinary (WDL): Exceptions to WDL Urinary Device: Yes Urinary Device Type: Urethral Catheter Most recent mobility documentation: Activity: Ambulate in room, Chair Level of Assistance: Standby assist, set-up cues, supervision of patient - no roberts nds on Assistive Device: Front wheel walker, Gait Belt Imtiaz Cornelius Jr, MONICA Problem: INFECTION PREVENTION Goal: Absence or improvement of infection during hospitalization Outcome: Progressing Problem: PAIN Goal: Verbalizes/displays adequate comfort level or baseline comfort level durin g hospitalization Outcome: Progressing Problem: SAFETY - FALL Goal: Absence from falls during hospitalization Outcome: Progressing Problem: DISCHARGE PLANNING Goal: Discharge to next level of care with appropriate resources Outcome: Progressing Problem: GENITOURINARY Goal: Urinary catheter remains patent; urinary tract remains free from infection during hospitalization Outcome: Progressing Problem: METABOLIC/FLUID AND ELECTROLYTES Goal: Electrolytes remain within normal limits during hospitalization Outcome: Progressing Problem: ANXIETY Goal: Will report anxiety at manageable levels Outcome: Progressing Problem: MUSCULOSKELETAL Goal: Return mobility to safest level of function prior to discharge Outcome: Progressing Goal: Return ADL status to a safe level of function prior to discharge Description: Outcome: Progressing Problem: SKIN/TISSUE INTEGRITY Goal: Skin integrity remains intact during hospitalization Outcome: Progressing Goal: Incision(s), wounds(s) or drain site(s) healing without S/S of infection d uring hospitalization Description: I Outcome: Progressing Goal: Oral mucous membranes remain intact during hospitalization Outcome: Progressing Problem: HEMATOLOGIC Goal: Maintains hematologic stability during hospitalization Outcome: Progressing Problem: GASTROINTESTINAL Goal: Maintains or returns to baseline bowel function prior to discharge Outcome: Progressing Goal: Maintains adequate nutritional intake during hospitalization Outcome: Progressing * Progress Notes - Gibran Stuart COTA - 11/28/2020 11:17 AM CDT [address] [address] Occupational Therapy Patient Name: Mainor Blanca : 1950 Billing Number: [id number] Physician: Desirae Gatica MD Admission Dx: Gross hematuria [R31.0] Admit Date: 11/15/2020 Principal Problem: Gross hematuria Today's Date: 11/28/2020 Therapy Session Not Completed Patient declined Occupational Therapy Treatment session. Reason(s) session was not done: Pt on phone with friend/family upon entry while sitting in recliner asking for time to talk on phone. 1 st attempt at 1005 pt re ceiving morning medications at this time. Plan: Will attempt again as schedule allows Infection: COVID-19 Rule Out Isolation: No active isolations PPE worn by staff: surgical mask and face shield PPE worn by patient: no PPE worn MELISSA Conrad Electronically Signed 11/28/2020 11:27 AM * Progress Notes - Frandy Valadez CPTA - 11/28/2020 11:08 AM CDT [address] [address] Physical Therapy Patient Name: Mainor Blanca : 1950 Billing Number: [id number] Physician: Desirae Gatica MD Admission Dx: Gross hematuria [R31.0] Admit Date: 11/15/2020 Principal Problem: Gross hematuria Today's Date: 11/28/2020 Physical Therapy Treatment Note S: Nursing gives permission to treat. Patient gives permission to treat. Mr. Hellen strickland stated that the Dr told him that he has stress fracture in his foot. The maryellen cintron was very concerned and focused on getting shoes and this was relayed to rubia miranda RN and disability case manager. O: Precautions: fall risk Medical Equipment: urinary catheter Mental Status: alert and anxious Pain Ratin/10 mild pain for pain in the right foot with patient stating th at "it would be higher if I tried to walk on it." Endurance: limited: needs frequent rest breaks and pain in the right foot Weight Bearing Status: no current orders in chart or any restrictions. Patient chooses to keep the rig ht foot off of the floor due to pain Bed Mobility/Transfers: Supine to sit: modified independently and no cues required for task Sit to stand: From bed requiring stand by assist (SBA) and no cues required for task Stand to sit: To recliner requiring stand by assist (SBA) and no cues required f or task Gait: Distance: 45' Device: front-wheeled walker Assist: SBA Gait deviations: NWB gait per patient's preference Stairs: not tested decreased activity tolerance Exercise/ROM: bilateral ankle pumps and long arc quads Standardized Testing: AM-PAC Basic Mobility Inpatient Short Form How much difficulty does the patient have ... 1. Turning over in bed (including adjusting bedclothes, sheets, and blankets)? 3 A little 2. Sitting down on and standing up from a chair with arms (wheelchair, bedside c ommode, etc.)? 4 None 3. Moving from lying on back to sitting on the side of the bed? 4 None How much help from another person does the patient currently need .... 1. Moving to and from a bed to a chair (including wheelchair)? 3 A little 2. Need to walk in hospital room? 3 A little 3. Climbing 3-5 steps with a railing? 1 Total Total Score: 18 / 24 (46.58% impaired) Patient left with call light placed within reach, pad alarm activated and patie nt up in the recliner post treatment A: Mr. Blanca presented resting in bed with the lights out, door closed and bli nds closed and patient watching TV upon entering room. Patient was very distract ed and anxious about the status of his right foot and wanting shoes. He stated t hat he could go live with his sister in [place] but wasn't sure if she had st airs to negotiate at her home or not. Gait is somewhat erratic and slightly unst rosa due to patient not wanting to put his right foot on the floor but no actual loss of balance. P: Continue plan of care. 1. Goals: Bed Transfer Goal: Patient will complete a bed transfer (from flat bed without rails) with independenceto progress toward independent bed transf ers.Addressed 11/28 2. Sit to stand Goal: Patient will complete sit to stand transfer with indepen dence with front-wheeled walkerto progress toward independent transfers.Addr essed 11/28 3. Gait Goal: Patient will complete gait withindependenceon level surfaces w ithfront-wheeled walkerfor 150feet to progress toward independent gait.Add ressed 11/28 4. Stair Goal: Patient will be able to negotiate1+1stairs [id number] withstep togait pattern, front wheeled walker, andwith modified independe nce. 5. Balance Goal: Patient will perform 3minutes of static and dynamic standin g balance activities with 0-1 upper extremity support with good balance to impro ve independence with transfers and gait Test Goal: Patient will improve score onAMPACto at least18/24to demonstr ate minimal detectable change in functional mobility safety and independence. Me t 11/28 Physical Therapy Discharge Recommendations: Plan[facility] If pt does not qualify or declines placement, pt could go home. Support fro m family/friends and out patient PT or home health PT Reasons for Rehab: Fall risk/balance deficits and Physical assist is needed for safety Activity Tolerance: Patient would likely tolerate 3 hours of therapy Transportation: Patient safe to transport by wheelchair. Projected Equipment for discharge: front wheeled walker Today's charge: Therapeutic exercise 1 unit(s) Gait training 1 unit(s) Time spent with patient: [id number] Infection: COVID-19 Rule Out Isolation: No active isolations PPE worn by staff: surgical mask, gloves and face shield PPE worn by patient: no PPE worn AMBERLY Early 11/28/2020 11:08 AM * Progress Notes - Hien Spangler RD LD - 11/28/2020 10:29 AM CDT [address] [address] Patient Name: Mainor Blanca : 1950 Primary Care Physician: Juan Trejo PA-C Admission Date: 11/15/2020 RM/BED: 625/625-A Length of Stay: LOS: 13 days Nutrition Assessment Chief Complaint: No chief complaint on file. REASON FOR ASSESSMENT: Follow-up NUTRITION INTERVENTIONS Nutrition Prescription: Est Kcal needs: 3420-0416 Kcal (25-30 kcal/kg Actual BW) REE/EEE Calculator Est protein needs: 71-85 g (1-1.2 g/kg Actual BW) Est fluid needs: 2268 mL (1500 ml 1st 20 kg + 15 ml/kg remainder body weight ( > 50 yo) Actual BW) Intervention: Meals and Snacks Encourage good po intake as tolerated. May offer diet appropriate snacks/supple ments prn. Goals: Pt will consume > 75% of meals (to include protein source) on average by follow up. NUTRITION DIAGNOSIS Nutrition Problem: Resolved Nutrition Diagnosis (problem): Inadequate oral intake Related to (etiology): decreased appetite As Evidenced by (signs/symptoms): 100%, 100%, 50% meal intake recorded since l ast RD note (11/21) Nutrition Problem: Resolved Nutrition Diagnosis (problem): Altered GI function Related to (etiology): constipation As Evidenced by (signs/symptoms): pt has not had a BM since admission (11/15) p er I/O records Nutrition Problem: New Nutrition Diagnosis (problem): Increased nutrient needs (protein) Related to (etiology): current medical condition As Evidenced by (signs/symptoms): assessed protein needs 1.0-1.2 g/kg Actual B W ASSESSMENT Mainor Blanca is a 70 y.o. male admitted with Gross hematuria. Current diet is regular with 100% x 2 meals recorded since last RD note (11/26). Liat nutritio n score = 3, indicating adequate po intake. Hyponatremia and hypochloremia note d. Wt has ranged from 154-174 lb via bed scale and standing scale since admissi on. Nutrition History: 11/16/20: Pt with decreased po intake for> 5 days and unintentional wt loss per nursing nutrition screen. Pt with abdominal pain area captain. Note pt tried taking PO meds last night and began to cough and became tearful and did not take remaining meds per nursing note. No wt hx available to assess. Pt appears a bit dry per review of labs; dx KOFI noted. Anthropometrics: Height: 1.778 m (5' 10") Most recent weight: Weight: 71.5 kg (157 lb 11.2 oz) (11/28/20409) Weight Method: Bed scale (11/28/20409) Utilized 11/25 standing scale wt of 156 lb (71.2 kg) in calculations. IBW: 75.5 kg 9% IBW Adj BW: --- Body mass index is 22.52 kg/m. Active Medical Diagnoses this Hospitalization: Principal Problem: Gross hematuria Active Problems: KOFI (acute kidney injury) (HCC) BPH (benign prostatic hyperplasia) Hypernatremia Hypokalemia Elevated LFTs MSSA bacteremia Methadone dependence (HCC) NSVT (nonsustained ventricular tachycardia) (HCC) Complicated UTI (urinary tract infection) He has no past medical history on file. He has no past surgical history on file. No Known Allergies Current diet order: Regular Oral intake: Last documented- % of meal eaten: 100 % Current EN: - GRV: - Current PN: - Nutrition screen: Home Tube feeding/PN : No Poor appetite > 5 days : Yes Unintentional weight loss : Yes Nutrition screen score : 10 Liat Scale Score: 20 Nutrition: Adequate Skin: generalized bruising/redness; pinkness to bilateral heels; redness on cocc yx; blister to R foot; bruising to LUE; 1+ BLE edema noted per RN shift assessme nt Labs: Recent Labs Lab 11/28/20 0659 11/27/20 0606 11/26/20 0630 11/26/20 0629 11/25/20 0721 NA 135* 134* -- 136 136 K 3.6 3.6 -- 3.3* 3.6 CL 97* 98* -- 100 100 BUN 8 10 -- 10 11 CREATININE 1.03 1.09 -- 1.04 1.11 GLU 85 89 -- 89 109* CALCIUM 8.8 8.3 -- 8.2* 8.0* CO2 33 31 -- 32 31 HGB 8.1* 7.8* 7.5* -- 7.7* HCT 26.1* 25.8* 24.2* -- 25.7* WBC 4.6 4.2 3.8 -- 5.0 NEUTOPHILPCT 66.8 66.9 68.4 -- 74.2 ALB 3.0* 2.9* -- 2.8* 3.0* No results for input(s): PHOS, MG in the last 168 hours. No results for input(s): TRIG, LIPASE, AMYLASE in the last 168 hours. No results found for: AMMONIA, HGBA1C Current Medications: Scheduled Meds: ceFAZolin 2,000 mg Intravenous Q8H methadone 155 mg Oral Daily At 1700 tamsulosin 0.4 mg Oral Bedtime Continuous Infusions: none TOP FRAME [employer]ER Medications: Prior to Admission medications Medication Sig Start Date End Date Taking? Authorizing Provider hyoscyamine (LEVSIN/SL) 0.[address] 0.125 mg under the tongue every 4 (four) hours as needed for Cramping. Yes Outreach, Physician meloxicam (MOBIC) 7.5 MG tablet Take 15 mg by mouth daily. Yes Outreach, Physi nigel methadone (DOLOPHINE) 10 MG tablet Take 160 mg by mouth Daily At 5 pm. May cause QT prolongation and Torsades de pointes Yes Outreach, Physician naloxone (NARCAN) 4 MG/0.1ML nasal spray Place 1 spray nasally as needed for Opi oid Reversal. Yes Outreach, Physician ondansetron (ZOFRAN-ODT) 4 MG disintegrating tablet Take 4 mg by mouth every 6 ( six) hours as needed for Nausea. Yes Outreach, Physician tamsulosin (FLOMAX) 0.4 MG CAPS Take 0.4 mg by mouth at bedtime. Yes Outreach, Physician Vitals: SpO2: 98 % Oxygen Device: None (Room air)* Temp (24hrs), Av.4 F (36.9 C), Min:98 F (36.7 C), Max:98.6 F (37 C) Intake/Output Summary (Last 24 hours) at 11/28/2020 1029 Last data filed at 11/28/2020 1010 Gross per 24 hour Intake 1220 ml Output 1850 ml Net -630 ml Fluid balance since admit: - 17,841 mL Last BM: 11/25, passing flatus per RN shift assessment MONITORING AND EVALUATION food and beverage intake weight Reassess according to Level of Care: within 4-6 days (Moderate). RD remains avai lable prn. SHEN Kohli Electronic Signature 11/28/2020 10:29 AM * Plan of Care - Stephanie Summers RN - 11/28/2020 2:34 AM CDT Nursing End of Shift Summary Note Changes During This Shift: Procedures/Interventions: IV antibiotics continued. MRI of right foot completed this shift. No need to pain medication this shift. Family/Social Issues: None Additional Updates/Changes: Waiting on insurance approval for inpatient rehab. Code Status: The patient's current code status is Full Code, and has not changed within the p revious 24 hours. Significant Event: No Risk Assessment Scores: Liat: 20 Melo: 60 Current Status: Most recent assessment documentation: Neuro (WDL): Exceptions to WDL Level of Consciousness: Alert Orientation Level: Oriented X4 Cognition: Appropriate judgement Respiratory (WDL): Within Defined Limits Respiratory Pattern: Regular, Unlabored Chest Assessment: Chest expansion symmetrical Bilateral Breath Sounds: Clear SpO2: 97 % $ RT Oxygen Device: None (Room air)* Cardiac Cardiac (WDL): Exceptions to WDL Cardiac Regularity: Regular Heart Sounds: S1, S2 Jugular Venous Distention (JVD): No Cardiac Rhythm: Normal sinus rhythm Gastrointestinal Gastrointestinal (WDL): Within Defined Limits Last BM Date: 11/25/20 Abdomen Inspection: Soft, Nondistended Bowel Sounds (All Quadrants): Active Tenderness: No guarding Passing Flatus: Yes Gastrointestinal Additional Assessments: No Genitourinary Genitourinary (WDL): Exceptions to WDL Genitourinary Symptoms: Unable to assess Urinary Device: Yes Urinary Device Type: Urethral Catheter Most recent mobility documentation: Activity: Sleeping Level of Assistance: Minimal assist, patient does 75% or more Assistive Device: Front wheel walker, Gait Belt Stephanie Summers RN Problem: INFECTION PREVENTION Goal: Absence or improvement of infection during hospitalization Outcome: Progressing Problem: PAIN Goal: Verbalizes/displays adequate comfort level or baseline comfort level durin g hospitalization Outcome: Progressing Problem: SAFETY - FALL Goal: Absence from falls during hospitalization Outcome: Progressing Problem: GENITOURINARY Goal: Urinary catheter remains patent; urinary tract remains free from infection during hospitalization Outcome: Progressing Problem: METABOLIC/FLUID AND ELECTROLYTES Goal: Electrolytes remain within normal limits during hospitalization Outcome: Progressing Problem: ANXIETY Goal: Will report anxiety at manageable levels Outcome: Progressing Problem: MUSCULOSKELETAL Goal: Return mobility to safest level of function prior to discharge Outcome: Progressing Goal: Return ADL status to a safe level of function prior to discharge Description: Outcome: Progressing Problem: SKIN/TISSUE INTEGRITY Goal: Skin integrity remains intact during hospitalization Outcome: Progressing Goal: Incision(s), wounds(s) or drain site(s) healing without S/S of infection d uring hospitalization Description: I Outcome: Progressing Goal: Oral mucous membranes remain intact during hospitalization Outcome: Progressing Problem: HEMATOLOGIC Goal: Maintains hematologic stability during hospitalization Outcome: Progressing Problem: GASTROINTESTINAL Goal: Maintains or returns to baseline bowel function prior to discharge Outcome: Progressing Goal: Maintains adequate nutritional intake during hospitalization Outcome: Progressing Problem: Decreased Ability to Complete ADLs Goal: Maximize independence in ADLs prior to discharge Outcome: Progressing Problem: Functional Mobility Goal: Maximize mobility to the highest level of function prior to discharge Outcome: Progressing Problem: DISCHARGE PLANNING Goal: Discharge to next level of care with appropriate resources Outcome: Not Progressing Note: Patient needing inpatient rehab. Waiting on insurance approval. * Consults - Kody Ramey MD - 11/28/2020 12:00 AM CDT CONSULTATION CLAIM ADMINISTRATOR: Kody Ramey MD NAME: MAINOR BLANCA ADMIT DATE: 11/15/2020 ROOM NO: 625 UNIT NO: [id number] : 1950 PATIENT TYPE: I [place], [place] Page 1 CONSULTATION DATE OF CONSULTATION: 11/28/2020 HISTORY OF PRESENT ILLNESS: Mainor is a pleasant 70-year-old aidan, who has had s ome trouble with right ankle swelling and soreness over the last 3 or 4 days. Fatoumata ramirez had a remote history of a fall about 5 years ago off a ladder. He has had an MSSA bacteremia. He had a stent placed recently in the kidney. With inspection of the ankle, there is no erythema. He has minimal warmth. There is slight so ft tissue swelling. He does have some tenderness along the ATFL laterally. Wit h his MRI, there is a slight increase over physiologic fluid in the tibiotalar j oint. He has some soft tissue swelling noted peripherally. He also has degener ative change along the subtalar joint. At this point, given his clinical history and his MRI appearance, an intra-artic ular infection is unlikely. We will follow him closely conservatively at this point. CLAIM ADMINISTRATOR: Kody Ramey MD BP//MEDQ Job ID: [id number] CC: KODY RAMEY MD * Progress Notes - Tatyana Rodriguez, CPTA - 11/27/2020 4:24 PM CDT [address] [address] Physical Therapy Patient Name: Mainor Blanca : 1950 Billing Number: [id number] Physician: Desirae Gatica MD Admission Dx: Gross hematuria [R31.0] Admit Date: 11/15/2020 Principal Problem: Gross hematuria Today's Date: 11/27/2020 Physical Therapy Treatment Note S: Nursing (Hector Wilson getting report)gives permission to treat. Patient giv es permission to treat. Pt did report the need for shoes, however sister lives in [place]. Pt asked a uthor what size her shoes were, author reported irrelevance. O: Precautions: fall risk Medical Equipment: urinary catheter Mental Status: alert Pain Ratin/10 mild pain at rest following TX, 3/10 with NWB gait, pt repor sammy he would have 4/10 if he weight bears on right foot. Endurance: limited: pain in right foot. Weight Bearing Status: no restrictions Pt has MRI for right foot ordered. Pt remained NWB due to pain. Bed Mobility/Transfers: Supine to sit: modified independently and extra time for task Scooting: EOB modified independently and no cues required for task Sit to supine: modified independently and extra time for task Sit to stand: From EOB requiring minimal assist of 1 staff and verbal cues for c orrect hand placement Stand to sit: To EOB requiring minimal assist of 1 staff and no cues required fo r task Gait: Distance: 60' Device: front-wheeled walker Assist: minimal assist of 1 staff Gait deviations: pt NWB on RLE performs hopping on LLE. No LOB fatigues with dis tance with reported increase pain 3/10 with rest pain decreased to 1/10. Stairs: not tested Increased pain and decreased activity tolerance Exercise/ROM: Long arc quads, quad sets, seated hip flexion, straight leg raise on CASSIA LE's X 10. Standardized Testing: not addressed. Patient left with call light placed within reach and bed alarm activated A: Pt resting in supine agreeable to TX with c/o increased pain during gait. Pt required no assist with bed mobility however HOB was modified upon entry to [facility]. Pt progressed with gait distance however declines weight bearing through RLE secondary to pain. Pt put forth good effort with LE exercises. Pt will require shoes at time of DC to allow for best progression of activity. P: Continue plan of care. Goals: 1. Bed Transfer Goal: Patient will complete a bed transfer (from flat bed with out rails) with independenceto progress toward independent bed transfers.Add ressed 11/23 2. Sit to stand Goal: Patient will complete sit to stand transfer with indepen dence with front-wheeled walkerto progress toward independent transfers.Addr essed 11/23 3. Gait Goal: Patient will complete gait withindependenceon level surfaces w ithfront-wheeled walkerfor 150feet to progress toward independent gait.Add ressed 11/23 4. Stair Goal: Patient will be able to negotiate1+1stairs [id number] withstep togait pattern, front wheeled walker, andwith modified independe nce. 5. Balance Goal: Patient will perform 3minutes of static and dynamic standin g balance activities with 0-1 upper extremity support with good balance to impro ve independence with transfers and gait 6. Test Goal: Patient will improve score onAMPACto at least18/24to demon strate minimal detectable change in functional mobility safety and independence. Addressed 11/23 Physical Therapy Discharge Recommendations: Plan: Discharge to Inpatient Rehabilitation or Senior Living Facility or [facility] Reasons for Rehab: Fall risk/balance deficits, Physical assist is needed for sa fety, Lack of adequate support at home, Unable to manage restrictions/precaution s/equipment and pain. Activity Tolerance: Patient would likely tolerate 3 hours of therapy Transportation: Patient safe to transport by wheelchair. Projected Equipment for discharge: front wheeled walker, shoes. Today's charge: Therapeutic exercise 1 unit(s) Gait training 2 unit(s) Time spent with patient: [id number] Infection: COVID-19 Rule Out Isolation: No active isolations PPE worn by staff: surgical mask, gloves and face shield PPE worn by patient: mask at all times AMBERLY Greenwood 11/27/2020 4:24 PM * Plan of Care - Hector Cortés RN - 11/27/2020 3:04 PM CDT Nursing End of Shift Summary Note Changes During This Shift: Procedures/Interventions: Pt ambulating with staff 3-4 times a shift, MRI of R foot in relation to pain to rule out any missed fractures. Awaiting [place] insurance approval. 155 methadone provided for pt. Family/Social Issues: Pt pleasant and cooperative with staff. Additional Updates/Changes: R Foot MRI. Code Status: The patient's current code status is Full Code, and has not changed within the p revious 24 hours. Significant Event: No Risk Assessment Scores: Liat: 20 Melo: 60 Current Status: Most recent assessment documentation: Neuro (WDL): Within Defined Limits Level of Consciousness: Alert Orientation Level: Oriented X4 Cognition: Appropriate judgement, Follows commands Respiratory (WDL): Exceptions to WDL Respiratory Pattern: Regular, Unlabored Chest Assessment: Chest expansion symmetrical Bilateral Breath Sounds: Clear SpO2: 96 % $ RT Oxygen Device: None (Room air)* Cardiac Cardiac (WDL): Exceptions to WDL Cardiac Regularity: Regular Heart Sounds: S1, S2 Jugular Venous Distention (JVD): No Cardiac Rhythm: Normal sinus rhythm Gastrointestinal Gastrointestinal (WDL): Within Defined Limits Last BM Date: 11/27/20 Abdomen Inspection: Soft, Nondistended Bowel Sounds (All Quadrants): Active Tenderness: No guarding Passing Flatus: Yes Genitourinary Genitourinary (WDL): Exceptions to WDL Most recent mobility documentation: Activity: Ambulate in [place] Level of Assistance: 1:1 Assistive Device: Front wheel walker, Gait Belt Hector Cortés RN Problem: INFECTION PREVENTION Goal: Absence or improvement of infection during hospitalization Outcome: Progressing Problem: PAIN Goal: Verbalizes/displays adequate comfort level or baseline comfort level [facility] hospitalization Outcome: Progressing Problem: SAFETY - FALL Goal: Absence from falls during hospitalization Outcome: Progressing Problem: DISCHARGE PLANNING Goal: Discharge to next level of care with appropriate resources Outcome: Progressing Problem: GENITOURINARY Goal: Urinary catheter remains patent; urinary tract remains free from infection during hospitalization Outcome: Progressing Problem: METABOLIC/FLUID AND ELECTROLYTES Goal: Electrolytes remain within normal limits during hospitalization Outcome: Progressing Problem: HEMATOLOGIC Goal: Maintains hematologic stability during hospitalization Outcome: Progressing Problem: GASTROINTESTINAL Goal: Maintains or returns to baseline bowel function prior to discharge Outcome: Progressing Goal: Maintains adequate nutritional intake during hospitalization Outcome: Progressing Problem: ANXIETY Goal: Will report anxiety at manageable levels Outcome: Progressing Problem: MUSCULOSKELETAL Goal: Return mobility to safest level of function prior to discharge Outcome: Progressing Goal: Return ADL status to a safe level of function prior to discharge Description: Outcome: Progressing Problem: SKIN/TISSUE INTEGRITY Goal: Skin integrity remains intact during hospitalization Outcome: Progressing Goal: Incision(s), wounds(s) or drain site(s) healing without S/S of infection d uring hospitalization Outcome: Progressing Goal: Oral mucous membranes remain intact during hospitalization Outcome: Progressing * Progress Notes - Desirae Gatica MD - 11/27/2020 2:37 PM CDT Images from the original note were not included. [address] [place], [place] [address] Hospitalist Progress Note 11/27/2020 Patient Name: Mainor Blanca : 1950 Primary Care Physician: Juan Trejo PA-C Admission Date: 11/15/2020 Loc: 625/625-A LOS: 12 days SUBJECTIVE: Patient resting in chair, no gross hematuria but has pink-tinged urine in Park bag, lungs clear to auscultation, has chronic right foot pain but is slightly wo rse than before, also noted to have mild swelling, TAYLOR negative for endocarditis , repeat blood cultures drawn from 11/22/2020 ntd. Has midline placed now Spoke with patient's sister, patient had right ureteral stent placed for nephro lithiasis on October 18 by urology at [place], OBJECTIVE: Scheduled Medications: ceFAZolin 2,000 mg Intravenous Q8H methadone 155 mg Oral Daily At 1700 tamsulosin 0.4 mg Oral Bedtime Infusions: PRN Medications: calcium carbonate, dextrose OR glucagon OR glucagon OR dextrose OR dextrose, LORazepam, prochlorperazine, sodium chloride Vital signs in last 24 hours: Temp: [98.3 F (36.8 C)-98.8 F (37.1 C)] 98.6 F (37 C) Heart Rate: [66-73] 73 Resp: [16-19] 19 BP: (105-118)/(65-77) 112/73 SpO2: [96 %-97 %] 96 % MAP (calculated): [78 mm Hg-90 mm Hg] 86 mm Hg MAP (mmHg): [88] 88 I&O: / 0701 - 08 0700 In: 520 [P.O.:500; I.V.:20] Out: 2250 [Urine:2250] Exam: Visit Vitals BP 112/73 (BP Location: Right arm, Patient Position: Sitting) Pulse 73 Temp 98.6 F (37 C) Resp 19 Ht 1.778 m (5' 10") Wt 70.1 kg (154 lb 8 oz) SpO2 96% BMI 22.17 kg/m Temp (24hrs), Av.6 F (37 C), Min:98.3 F (36.8 C), Max:98.8 F (37.1 C) General: Adult male, alert, cooperative, no resp distress, appears stated age Head: Normocephalic, atraumatic Eyes: EOM's intact Neck: No JVD, no bruits Lungs: Clear to auscultation bilaterally, respirations unlabored Chest Wall: No tenderness or deformity Heart: Regular rate and rhythm, no murmurs, rubs, or gallop Abdomen: Soft, non-tender, non-distended, bowel sounds present Ext: Trace edema in b/l ankles Vascular: Distal pulses intact Skin: Warm and dry Neuro: Non-focal Psych: Normal affect Labs / Imaging: All recent data have been reviewed. PROBLEM LIST: Principal Problem: Gross hematuria Active Problems: KOFI (acute kidney injury) ([facility]) BPH (benign prostatic hyperplasia) Hypernatremia Hypokalemia Elevated LFTs MSSA bacteremia Methadone dependence ([facility]) NSVT (nonsustained ventricular tachycardia) ([facility]) Complicated UTI (urinary tract infection) ASSESSMENT / PLAN: Gross hematuria Admitted to OSH with gross hematuria on 11/10. History of BPH and recent right u reteral stent placement. Urology consulted Park catheter was placed and started on CBI, overall hematuria is improving. suspected hematuria is related to traumatic catheterization, recommended keeping Park catheter in place, given clinical improvement, CBI is stopped, he will be discharged with Park catheter and will need outpatient follow-up History of nephrolithiasis requiring right ureteral stent placement on October 18 021: -Patient's sister requested a definitive plan of possible intervention during [facility] hospital stay for his nephrolithiasis especially given his staph aureus bacte remia -We will reach out to urology today on 11/27/2020 if they want to intervene durin g this hospitalization or if they would recommend it as an outpatient Acute on chronic right foot pain: -Recent fall with exacerbation of chronic right foot pain, noted some swelling a s well, x-rays negative, will obtain MRI of right foot to look for occult fractu re MSSA bacteremia Urine and blood cultures collected on 11/10 grew MSSA. Source: renal/UTI possibl y?. Hx of recent right ureteral stent placement (October 18, 2020] PICC line was placed in right upper extremity, and patient was started on cefazo dalia. However blood cultures from 11/15/2020 again were growing staph aureus and hence PICC line was removed Denies any having artificial joints, valves or implantable cardiac devices. TAYLOR negative for endocarditis CT abdomen/pelvis on 11/18 showed no obvious source of bacteremia. Repeat blood cultures from 11/22/2020 sent and are -ve to date, Has midline, DC to snfwhen bed available, per ID he will need IV antibiotics at least until 12/07 and he will need ID follow-up in the clinic prior to discontin uing these Hypernatremia Resolved KOFI Creatinine on initial labs was 2.19 in setting of gross hematuria with possible obstruction. Resolved Elevated LFTs No abdominal pain or tenderness at this time. LFTs trended down. NSVT Few runs of asymptomatic nonsustained V. tach on telemetry on 11/19. TSH 2.640. QTc is WNL on EKG. we will replete electrolytes aggressively Hypokalemia Monitor and replace as needed. BPH Chronic. Continue home medications. Atypical chest pain Patient reports that this was an abdominal pain radiating from his suprapubic ar ea in setting of gross hematuria. No specific EKG changes were mentioned (no EKG to review). Troponin x3 was negat josefina. Noncardiac, improved after Park catheter was inserted. Methadone dependence Reportedly due to history of drug abuse when he was young. EKG on 11/16 showed prolonged QTC. Discussed with Dr. Michelle Burns at psychiatry who prescribes and manages patijames coulter's methadone regimen, recommended decreasing total daily dose 25 mg till QTC< 500. Home dose of 160 mg daily was decreased to 155 mg daily on 11/16. Repeat EKG on 11/17 showed QTC <500. Continue to monitor daily EKG. DVT prophylaxis SCDs. Code Full code. Continued hospitalization is necessary due to bacteremia Disposition: rehab / SNF as per PT/OT recs Expected date of discharge: When bed available Desirae Gatica MD Electronic Signature 11/27/2020 2:37 PM * Progress Notes - Lindy Martinez COTA - 11/27/2020 2:00 PM CDT [address] [address] Occupational Therapy Patient Name: Mainor Blanca : 1950 Billing Number: [id number] Physician: Desirae Gatica MD Admission Dx: Gross hematuria [R31.0] Admit Date: 11/15/2020 Principal Problem: Gross hematuria Today's Date: 11/27/2020 Occupational Therapy Progress Note Precautions: fall risk Medical Equipment: urinary catheter Subjective: Nursing gives permission to treat. Patient gives permission to treat . Pain ratin/10 mild pain in foot Patient stated goal: to get better Objective: Patient receiving skilled Occupational Therapy treatment for Self-Ca re Management Training, functional transfer training, energy conservation, coord ination activities, endurance activities, safety training, patient/family educat ion and home management training. Mainor is alert. He was supine in bed when therapist arrived. Functional Transfer Instruction: Supine to sit: modified independently and set-up, extra time and HOB elevated fo r task Sit to supine: modified independently and extra time for task Sit to stand: From EOB requiring minimal assist of 1 staff and verbal cues for t ask, safety and correct hand placement Stand to sit: To EOB requiring minimal assist of 1 staff and verbal cues for tas k and safety Ambulated with front-wheeled walker requiring minimal assist of 1 staff in the h allway; Distance: ~20'. Self-Care Management Training: None this session Endurance: limited: reports fatigue and needs frequent rest breaks Therapeutic Exercises: None this session Neuromuscular Re-Education: None Testing Completed: None Education Provided: Fall prevention strategies Role of Occupational Therapy and OT Plan of Care Additional Comments: returned patient to bed call light placed in reach pad alarm activated Assessment / Recommendations: Patient presents with decreased strength, decreased safety, decreased ability to perform self-cares, decreased ability to perform functional transfers, general debilitation, decreased endurance, decreased mobility and increased risk for fal ls. Patient continues to benefit from Occupational Therapy. ST addressed Short-term Goals: (Time frame=Length of stay) 1.Pt will stand at sink for all grooming tasks modified independent and good saf ety 2.Pt will complete UE/LE dressing modified independent with use of adaptive equi pment as needed addressed 11/26 3.Pt will complete toilet transfer modified independent with good safety address ed sit to stand 11/27 4.Pt will complete toileting modified independent 5.Pt will be SBA for shower transfer with good safety 6.Pt will tolerate BUE graded exercise to increase strength and endurance for AD Ls addressed 11/21 7.Pt will increase AM-PAC Daily Living score to at [id number] of 24 or no mo re than 0% impairment to increase patient's self care skills addressed 11/26 Occupational Therapy Discharge Recommendations: Plan: Discharge to Inpatient Rehabilitation or Senior Living Facility or Swing bed Reasons for Rehab: Fall risk/balance deficits, Physical assist is needed for saf ety and Lack of adequate support at home Activity Tolerance: Patient would likely tolerate 3 hours of therapy Projected Equipment for discharge: Will continue to assess. Patient will have support person available post discharge? Unknown - patient re porting that his sister wants him to come live with her Plan: Continue plan of care. Time in/out: [id number] Charge: 1 self-care management training 1 non-billable: time spent while patient was on the phone with family member Infection: COVID-19 Rule Out Isolation: No active isolations PPE worn by staff: surgical mask, gloves and face shield PPE worn by patient: mask only when ambulating in halls MELISSA Maldonado Date: 11/27/2020 * Plan of Care - Stephanie Summers RN - 11/27/2020 12:41 AM CDT Nursing End of Shift Summary Note Changes During This Shift: Procedures/Interventions: IV antibiotics continued. Park remains in place. Red/pink output this shift. No need for pain medication. Family/Social Issues: None Additional Updates/Changes: Need inpatient rehab. Waiting on insurance approval. Code Status: The patient's current code status is Full Code, and has not changed within the p revious 24 hours. Significant Event: No Risk Assessment Scores: Liat: 20 Melo: 60 Current Status: Most recent assessment documentation: Neuro (WDL): Within Defined Limits Level of Consciousness: Alert Orientation Level: Oriented X4 Cognition: Follows commands Respiratory (WDL): Exceptions to WDL Respiratory Pattern: Regular, Unlabored Chest Assessment: Chest expansion symmetrical Bilateral Breath Sounds: Clear, Diminished SpO2: 97 % $ RT Oxygen Device: None (Room air)* Cardiac Cardiac (WDL): Exceptions to WDL Cardiac Regularity: Regular Heart Sounds: S1, S2 Jugular Venous Distention (JVD): No Cardiac Rhythm: Normal sinus rhythm Gastrointestinal Gastrointestinal (WDL): Within Defined Limits Last BM Date: 11/25/20 Abdomen Inspection: Soft, Nondistended Bowel Sounds (All Quadrants): Active Tenderness: No guarding Passing Flatus: Yes Gastrointestinal Additional Assessments: No Genitourinary Genitourinary (WDL): Exceptions to WDL Genitourinary Symptoms: Unable to assess Urinary Device: Yes Urinary Device Type: Urethral Catheter Most recent mobility documentation: Activity: Resting in Bed Stephanie Summers RN Problem: INFECTION PREVENTION Goal: Absence or improvement of infection during hospitalization Outcome: Progressing Problem: PAIN Goal: Verbalizes/displays adequate comfort level or baseline comfort level durin g hospitalization Outcome: Progressing Problem: SAFETY - FALL Goal: Absence from falls during hospitalization Outcome: Progressing Problem: METABOLIC/FLUID AND ELECTROLYTES Goal: Electrolytes remain within normal limits during hospitalization Outcome: Progressing Problem: ANXIETY Goal: Will report anxiety at manageable levels Outcome: Progressing Problem: MUSCULOSKELETAL Goal: Return mobility to safest level of function prior to discharge Outcome: Progressing Goal: Return ADL status to a safe level of function prior to discharge Description: Outcome: Progressing Problem: SKIN/TISSUE INTEGRITY Goal: Skin integrity remains intact during hospitalization Outcome: Progressing Goal: Incision(s), wounds(s) or drain site(s) healing without S/S of infection d uring hospitalization Description: I Outcome: Progressing Goal: Oral mucous membranes remain intact during hospitalization Outcome: Progressing Problem: HEMATOLOGIC Goal: Maintains hematologic stability during hospitalization Outcome: Progressing Problem: GASTROINTESTINAL Goal: Maintains or returns to baseline bowel function prior to discharge Outcome: Progressing Goal: Maintains adequate nutritional intake during hospitalization Outcome: Progressing Problem: Decreased Ability to Complete ADLs Goal: Maximize independence in ADLs prior to discharge Outcome: Progressing Problem: Functional Mobility Goal: Maximize mobility to the highest level of function prior to discharge Outcome: Progressing Problem: DISCHARGE PLANNING Goal: Discharge to next level of care with appropriate resources Outcome: Not Progressing Note: Need to inpatient rehab. Waiting for insurance approval. Problem: GENITOURINARY Goal: Urinary catheter remains patent; urinary tract remains free from infection during hospitalization Outcome: Not Progressing Note: Urine remains red/pink in color. * Progress Notes - Desirae Gatica MD - 11/26/2020 4:05 PM CDT Images from the original note were not included. [address] [id number] Hospitalist Progress Note 11/26/2020 Patient Name: Mainor Blanca : 1950 Primary Care Physician: Juan Trejo PA-C Admission Date: 11/15/2020 Loc: 625/625-A LOS: 11 days SUBJECTIVE: Patient resting in chair, no gross hematuria but has pink-tinged urine in Park bag, lungs clear to auscultation, has chronic right foot pain, TAYLOR negative for endocarditis, repeat blood cultures drawn from 11/22/2020 ntd. Has midline placed now OBJECTIVE: Scheduled Medications: ceFAZolin 2,000 mg Intravenous Q8H methadone 155 mg Oral Daily At 1700 tamsulosin 0.4 mg Oral Bedtime Infusions: PRN Medications: calcium carbonate, dextrose OR glucagon OR glucagon OR dextrose OR dextrose, LORazepam, prochlorperazine, sodium chloride Vital signs in last 24 hours: Temp: [98.2 F (36.8 C)-99 F (37.2 C)] 98.2 F (36.8 C) Heart Rate: [72-88] 88 Resp: [16] 16 BP: (96-120)/(70-79) 111/76 SpO2: [96 %-100 %] 100 % MAP (calculated): [80 mm Hg-90 mm Hg] 88 mm Hg MAP (mmHg): [81] 81 I&O: 11/25 0701 - 11/26 0700 In: 935 [P.O.:925; I.V.:10] Out: 2150 [Urine:2150] Exam: Visit Vitals BP 111/76 (BP Location: Right arm, Patient Position: Sitting) Pulse 88 Temp 98.2 F (36.8 C) Resp 16 Ht 1.778 m (5' 10") Wt 70.2 kg (154 lb 12.8 oz) SpO2 100% BMI 22.21 kg/m Temp (24hrs), Av.6 F (37 C), Min:98.2 F (36.8 C), Max:99 F (37.2 C) General: Adult male, alert, cooperative, no resp distress, appears stated age Head: Normocephalic, atraumatic Eyes: EOM's intact Neck: No JVD, no bruits Lungs: Clear to auscultation bilaterally, respirations unlabored Chest Wall: No tenderness or deformity Heart: Regular rate and rhythm, no murmurs, rubs, or gallop Abdomen: Soft, non-tender, non-distended, bowel sounds present Ext: Trace edema in b/l ankles Vascular: Distal pulses intact Skin: Warm and dry Neuro: Non-focal Psych: Normal affect Labs / Imaging: All recent data have been reviewed. PROBLEM LIST: Principal Problem: Gross hematuria Active Problems: KOFI (acute kidney injury) (HCC) BPH (benign prostatic hyperplasia) Hypernatremia Hypokalemia Elevated LFTs MSSA bacteremia Methadone dependence (HCC) NSVT (nonsustained ventricular tachycardia) ([facility]) Complicated UTI (urinary tract infection) ASSESSMENT / PLAN: Gross hematuria Admitted to OSH with gross hematuria on 11/10. History of BPH and recent right u reteral stent placement. Urology consulted Park catheter was placed and started on CBI, overall hematuria is improving. suspected hematuria is related to traumatic catheterization, recommended keeping Park catheter in place, given clinical improvement, CBI is stopped, he will be discharged with Park catheter and will need outpatient follow-up MSSA bacteremia Urine and blood cultures collected on 11/10 grew MSSA. Source: renal/UTI possibl y?. Hx of recent right ureteral stent placement (2.5 wks ago per patient' report ). PICC line was placed in right upper extremity, and patient was started on cefazo dalia. However blood cultures from 11/15/2020 again were growing staph aureus and hence PICC line was removed Denies any having artificial joints, valves or implantable cardiac devices. TAYLOR negative for endocarditis CT abdomen/pelvis on 11/18 showed no obvious source of bacteremia. Repeat blood cultures from 11/22/2020 sent and are -ve to date, Has midline, DC to snfwhen bed available, per ID he will need IV antibiotics at least until 12/07 and he will need ID follow-up in the clinic prior to discontin uing these Hypernatremia Resolved KOFI Creatinine on initial labs was 2.19 in setting of gross hematuria with possible obstruction. Resolved Elevated LFTs No abdominal pain or tenderness at this time. LFTs trended down. NSVT Few runs of asymptomatic nonsustained V. tach on telemetry on 11/19. TSH 2.640. QTc is WNL on EKG. we will replete electrolytes aggressively Hypokalemia Monitor and replace as needed. BPH Chronic. Continue home medications. Atypical chest pain Patient reports that this was an abdominal pain radiating from his suprapubic ar ea in setting of gross hematuria. No specific EKG changes were mentioned (no EKG to review). Troponin x3 was negat josefina. Noncardiac, improved after Park catheter was inserted. Methadone dependence Reportedly due to history of drug abuse when he was young. EKG on 11/16 showed prolonged QTC. Discussed with Dr. Michelle Burns at psychiatry who prescribes and manages mandi coulter's methadone regimen, recommended decreasing total daily dose 25 mg till QTC< 500. Home dose of 160 mg daily was decreased to 155 mg daily on 11/16. Repeat EKG on 11/17 showed QTC <500. Continue to monitor daily EKG. Right foot pain Since reinjury at home while walking few days ago. Hx of right foot fracture. X-ray showed no fractures. PT/OT. DVT prophylaxis SCDs. Code Full code. Continued hospitalization is necessary due to bacteremia Disposition: rehab / SNF as per PT/OT recs Expected date of discharge: When bed available Desirae Gatica MD Electronic Signature 11/26/2020 4:05 PM * Plan of Care - Denzel Pathak RN - 11/26/2020 2:33 PM CDT Nursing End of Shift Summary Note Changes During This Shift: Procedures/Interventions: Afebrile to low grade temperatures today. Continues on IV antibiotics. Right ank le swelling and edema noted by PT/OT staff today. They also noted absence of lat eral xray of right foot. Family/Social Issues: Continues on methadone treatment with daily EKG's per orders. Tolerated well. Additional Updates/Changes: Waiting on rehab bed at [facility]. Code Status: The patient's current code status is Full Code, and has not changed within the p revious 24 hours. Significant Event: No Risk Assessment Scores: Liat: 20 Melo: 60 Current Status: Most recent assessment documentation: Neuro (WDL): Within Defined Limits Level of Consciousness: Alert Orientation Level: Oriented X4 Cognition: Follows commands Respiratory (WDL): Exceptions to WDL Respiratory Pattern: Regular, Unlabored Chest Assessment: Chest expansion symmetrical Bilateral Breath Sounds: Clear, Diminished SpO2: 100 % $ RT Oxygen Device: None (Room air)* Cardiac Cardiac (WDL): Within Defined Limits Cardiac Regularity: Regular Heart Sounds: S1, S2 Jugular Venous Distention (JVD): No Cardiac Rhythm: Normal sinus rhythm Gastrointestinal Gastrointestinal (WDL): Within Defined Limits Last BM Date: 11/25/20 Abdomen Inspection: Soft, Nondistended Bowel Sounds (All Quadrants): Active Tenderness: Nontender, No guarding Passing Flatus: Yes Gastrointestinal Additional Assessments: No Genitourinary Genitourinary (WDL): Exceptions to WDL Genitourinary Symptoms: Unable to assess Urinary Device: Yes Urinary Device Type: Urethral Catheter Most recent mobility documentation: Activity: Sleeping Level of Assistance: 1:1 Assistive Device: Front wheel walker, Gait Belt Denzel Pathak RN Problem: INFECTION PREVENTION Goal: Absence or improvement of infection during hospitalization Outcome: Progressing Afebrile to low grade temperatures noted today. Continues on IV antibiotics wit hout signs of adverse reaction. Problem: PAIN Goal: Verbalizes/displays adequate comfort level or baseline comfort level durin g hospitalization Outcome: Progressing Denies pain when asked. Pain medications per orders. Problem: SAFETY - FALL Goal: Absence from falls during hospitalization Outcome: Progressing 1:1 to 2:1 staff assist. Worked with PT/OT. Problem: GASTROINTESTINAL Goal: Maintains adequate nutritional intake during hospitalization Outcome: Progressing Eating and drinking monitored. * Progress Notes - Hien Spangler, RD LD - 11/26/2020 1:35 PM CDT [address] [address] Patient Name: Mainor Blanca : 1950 Primary Care Physician: Juan Trejo PA-C Admission Date: 11/15/2020 RM/BED: 625/625-A Length of Stay: LOS: 11 days Nutrition Assessment Chief Complaint: No chief complaint on file. REASON FOR ASSESSMENT: Follow-up NUTRITION INTERVENTIONS Nutrition Prescription: Est Kcal needs: 5818-3649 Kcal (25-30 kcal/kg Actual BW) REE/EEE Calculator Est protein needs: 71-85 g (1-1.2 g/kg Actual BW) Est fluid needs: 2268 mL (1500 ml 1st 20 kg + 15 ml/kg remainder body weight ( > 50 yo) Actual BW) Intervention: Meals and Snacks Encourage good po intake as tolerated. May offer diet appropriate snacks/supple ments prn. Goals: Pt will consume > 65% of meals (to include protein source) on average by follow up. NUTRITION DIAGNOSIS Nutrition Problem: Improvement shown/unresolved Nutrition Diagnosis (problem): Inadequate oral intake Related to (etiology): decreased appetite As Evidenced by (signs/symptoms): 100%, 100%, 50% meal intake recorded since l ast RD note (11/21) Nutrition Problem: Resolved Nutrition Diagnosis (problem): Altered GI function Related to (etiology): constipation As Evidenced by (signs/symptoms): pt has not had a BM since admission (11/15) p er I/O records ASSESSMENT Mainor Blanca is a 70 y.o. male admitted with Gross hematuria. Current diet is regular with 100%, 100%, 50% meal intake recorded since last RD note (11/21). Gomes spect some meals are lacking documentation; liat nutrition score = 3, indicati ng adequate po intake. Hypokalemia noted. Corrected Ca++ 2' depleted albumin = 9.16 mg/dL (WNL). Wt has ranged from 154-174 lb via bed scale and standing sca le since admission. Nutrition History: 11/16/20: Pt with decreased po intake for> 5 days and unintentional wt loss per nursing nutrition screen. Pt with abdominal pain area captain. Note pt tried taking PO meds last night and began to cough and became tearful and did not take remaining meds per nursing note. No wt hx available to assess. Pt appears a bit dry per review of labs; dx KOFI noted. Anthropometrics: Height: 1.778 m (5' 10") Most recent weight: Weight: 70.2 kg (154 lb 12.8 oz) (11/26/20434) Weight Method: Bed scale (refused standing scale) (11/26/20434) Utilized 11/25 standing scale wt of 156 lb (71.2 kg) in calculations. IBW: 75.5 kg 9% IBW Adj BW: --- Body mass index is 22.52 kg/m. Active Medical Diagnoses this Hospitalization: Principal Problem: Gross hematuria Active Problems: KOFI (acute kidney injury) (HCC) BPH (benign prostatic hyperplasia) Hypernatremia Hypokalemia Elevated LFTs MSSA bacteremia Methadone dependence (HCC) NSVT (nonsustained ventricular tachycardia) (HCC) Complicated UTI (urinary tract infection) He has no past medical history on file. He has no past surgical history on file. No Known Allergies Current diet order: Regular Oral intake: Last documented- % of meal eaten: 50 % Current EN: - GRV: - Current PN: - Nutrition screen: Home Tube feeding/PN : No Poor appetite > 5 days : Yes Unintentional weight loss : Yes Nutrition screen score : 10 Liat Scale Score: 20 Nutrition: Adequate Skin: redness to lower back and coccyx; pinkness to bilateral heels; blister to R foot; bruising to LUE; 1+ RLE edema noted per RN shift assessment Labs: Recent Labs Lab 11/26/20 0630 11/26/20 0629 11/25/20 0721 11/24/20 0600 11/23/20 0657 NA -- 136 136 135* 135* K -- 3.3* 3.6 3.7 3.9 CL -- 100 100 99 100 BUN -- 10 11 14 13 CREATININE -- 1.04 1.11 1.17 1.08 GLU -- 89 109* 90 96 CALCIUM -- 8.2* 8.0* 8.5 8.2* CO2 -- 32 31 30 31 HGB 7.5* -- 7.7* 7.9* 8.5* HCT 24.2* -- 25.7* 26.0* 28.2* WBC 3.8 -- 5.0 6.2 5.9 NEUTOPHILPCT 68.4 -- 74.2 76.8* 72.3 ALB -- 2.8* 3.0* 2.9* 3.0* No results for input(s): PHOS, MG in the last 168 hours. No results for input(s): TRIG, LIPASE, AMYLASE in the last 168 hours. No results found for: AMMONIA, HGBA1C Current Medications: Scheduled Meds: ceFAZolin 2,000 mg Intravenous Q8H methadone 155 mg Oral Daily At 1700 tamsulosin 0.4 mg Oral Bedtime Continuous Infusions: none [employer]ER Medications: Prior to Admission medications Medication Sig Start Date End Date Taking? Authorizing Provider hyoscyamine (LEVSIN/SL) 0.[address] 0.125 mg under the tongue every 4 (four) hours as needed for Cramping. Yes Outreach, Physician meloxicam (MOBIC) 7.5 MG tablet Take 15 mg by mouth daily. Yes Outreach, Physi nigel methadone (DOLOPHINE) 10 MG tablet Take 160 mg by mouth Daily At 5 pm. May cause QT prolongation and Torsades de pointes Yes Outreach, Physician naloxone (NARCAN) 4 MG/0.1ML nasal spray Place 1 spray nasally as needed for Opi oid Reversal. Yes Outreach, Physician ondansetron (ZOFRAN-ODT) 4 MG disintegrating tablet Take 4 mg by mouth every 6 ( six) hours as needed for Nausea. Yes Outreach, Physician tamsulosin (FLOMAX) 0.4 MG CAPS Take 0.4 mg by mouth at bedtime. Yes Outreach, Physician Vitals: SpO2: 96 % Oxygen Device: None (Room air)* Temp (24hrs), Av.7 F (37.1 C), Min:98.4 F (36.9 C), Max:99 F (37.2 C) Intake/Output Summary (Last 24 hours) at 11/26/2020 1335 Last data filed at 11/26/2020 0905 Gross per 24 hour Intake 945 ml Output 1850 ml Net -905 ml Fluid balance since admit: - 14,921 mL Last BM: 11/25, passing flatus per RN shift assessment MONITORING AND EVALUATION food and beverage intake weight Reassess according to Level of Care: within 4-6 days (Moderate). RD remains brenda lopez. SHEN Kohli Electronic Signature 11/26/2020 1:35 PM * Progress Notes - Kindra Longoria COTA - 11/26/2020 12:58 PM CDT [address] [address] Occupational Therapy Patient Name: Mainor Blanca : 1950 Billing Number: [id number] Physician: Desirae Gatica MD Admission Dx: Gross hematuria [R31.0] Admit Date: 11/15/2020 Principal Problem: Gross hematuria Today's Date: 11/26/2020 Occupational Therapy Progress Note Precautions: fall risk Medical Equipment: urinary catheter Subjective: Nursing gives permission to treat. Patient gives permission to treat . Pain rating: Pt reported pain in R LE, did not formally rate, pt very sensitive to tactile touch Patient stated goal: to get better and to go home Objective: Patient receiving skilled Occupational Therapy treatment for Self-Ca re Management Training, functional transfer training, coordination activities, e ndurance activities and safety training. Mainor is alert. He was supine in bed when therapist arrived. Functional Transfer Instruction: Supine to sit: modified independently and no cues required for task and HOB slig htly elevated Scooting: to EOB modified independently and no cues required for task Sit to stand to sit: from EOB to EOB requiring minimal assistance of 1 staff See CPTA note for further details Self-Care Management Training: Lower body dressing: While sitting at edge of the bed patient donned shorts requ iring minimal assistance to landon over R foot, pt attempted however due to pain u nable to complete. Pt stood at EOB requiring minimal assistance for standing ba henrry to complete donning over hips. Upper body dressing: while seated at EOB pt donned shirt independently Endurance: limited: reports fatigue and needs frequent rest breaks Therapeutic Exercises: Not in plan of care at this time Neuromuscular Re-Education: Not in plan of care at this time Testing Completed: AM-PAC Daily Activity Inpatient Short Form This assessment uses predictive values to measure possible level of assistance n eeded to complete daily activities. Scores below reflect both direct observatio n, and clinical judgement based on patient's performance. How much help from another person does the patient currently need ... 1. Putting on and taking off regular lower body clothing? 3 A little 2. Bathing (including washing, rinsing, drying)? 3 A little 3.Toileting, which includes using toilet, bedpan or urinal? 3 A little 4. Putting on and taking off regular upper body clothing? 4 None 5. Taking care of personal grooming such as brushing teeth? 4 None 6. Eating meals? 4 None Total Score: 21 / 24 (32.79%) AM-PAC Functional Stages: Score 20-22: Score suggests that the pt. may require some assistance with housekeeping and laundry, but otherwise they may be able t o complete daily tasks of bathing, dressing, grooming and eating independently w ithout much difficulty. Education Provided: Fall prevention strategies Role of Occupational Therapy and OT Plan of Care Additional Comments: returned patient to chair call light placed in reach pad alarm activated nurse (RN/BOND CLERK) notified Assessment / Recommendations: Patient presents with decreased strength, decreased safety, decreased ability to perform self-cares, decreased ability to perform functional transfers, decrease d endurance, decreased mobility, balance impairment, limitations due to pain and increased risk for falls. ST, 3 and 6 addressed Short-term Goals: (Time frame= Length of stay) 1.Pt will stand at sink for all grooming tasks modified independent and good saf ety 2.Pt will complete UE/LE dressing modified independent with use of adaptive equi pment as needed addressed 11/26 3.Pt will complete toilet transfer modified independent with good safety address ed sit to stand 11/26 4.Pt will complete toileting modified independent 5.Pt will be SBA for shower transfer with good safety 6.Pt will tolerate BUE graded exercise to increase strength and endurance for AD Ls addressed 11/21 7.Pt will increase AM-PAC Daily Living score to at least 23 out of 24 or no more than 0% impairment to increase patient's self care skills addressed 11/26 10/06 4 Occupational Therapy Discharge Recommendations: Plan: Discharge to Inpatient Rehabilitation or Senior Living Facility or Swing bed Reasons for Rehab: Fall risk/balance deficits, Physical assist is needed for saf ety and Lack of adequate support at home Activity Tolerance: Patient would likely tolerate 3 hours of therapy Projected Equipment for discharge: Will continue to assess. Patient will have support person available post discharge? Unknown however pt r eported today (11/21) that his sister wants him to live with her. Plan: Continue plan of care. Time in/out: [id number] Charge: 1 self-care management training 1 non-billable: co-tx with CPTA 1 non-billable nursing Infection: COVID-19 Rule Out Isolation: No active isolations PPE worn by staff: surgical mask, gloves and face shield PPE worn by patient: no PPE worn MELISSA Anderson Date: 11/26/2020 * Progress Notes - Marion Hinojosa CPTA - 11/26/2020 12:46 PM CDT [place] [id number] Physical Therapy Patient Name: Mainor Blanca : 1950 Billing Number: [id number] Physician: Desirae Gatica MD Admission Dx: Gross hematuria [R31.0] Admit Date: 11/15/2020 Principal Problem: Gross hematuria Today's Date: 11/26/2020 Physical Therapy Treatment Note S: Nursing gives permission to treat. Patient gives permission to treat. O: Precautions: fall risk Medical Equipment: urinary catheter Mental Status: alert and oriented x 3 Pain Rating: Pt continued to report complaints of pain with tactile touch of hi s R foot/ankle and any pressure on his R foot when attempting stance on R foot. He had pain with tactile touch on the top of his foot, at his ankle, and his macey l. Pt's R latera ankle/malleolus area appeared very edematous with observed ann ing edema when compared to his L LE. This author did make his nurse Stef aware. This author did elevate pt's R foot at the end of tx. Endurance: limited: reports pain Weight Bearing Status: no restrictions Bed Mobility/Transfers: Supine to sit: requiring stand by assist (SBA) and set-up for task Sit to stand: From bed requiring minimal assist of 1 staff and manual assistance and verbal instruction for task and safe walker management Stand to sit: To recliner requiring minimal assist of 1 staff and EOB requiring minimal assist of 1 staff and verbal cues and manual assistance for task Gait: Distance: Pt performing only 5 feet Device: front-wheeled walker Assist: minimal assist of 1 staff Gait deviations: antalgic gait, very slow margarita as limited by pain. Patient a ppears to be bearing about 50% weight through R LE. This author did attempt to progress pt towards a crutches today. Demonstration a long with verbal and tactile cues were given on use. He was unable to/did not fe el comfortable taking step with the crutches. Stairs: not tested not safe at this time Exercise/ROM: Education provided on passive DF stretching, standing gastroc str etch, active ankle pf/df, toe flexion/ext, and attempted ankle rotation with min imal assistance but pt is unable to actively rotate ankles and appeared very sti ff/rigid. Standardized Testing:not tested Patient left with call light placed within reach and chair alarm activated A: Patient limited by pain in regards to transfers. He did not tolerate WB on hi s R LE and was only able to complete short distances of gait this AM. Pt did ind icate he has not been moving his R foot much at all, so this author encouraged p t to begin performing ROM with exercises above to improve activity tolerance and mobility. Placement still recommended at discharge as patient continues to req uire physical assist and skilled intervention with all mobility tasks. P: Continue plan of care. Continue active and active assisted R ankle ROM as ruy erated Goals: By the end of the patient's stay 1. Bed Transfer Goal: Patient will complete a bed transfer (from flat bed with out rails) with independenceto progress toward independent bed transfers. Addr essed 11/23 2. Sit to stand Goal: Patient will complete sit to stand transfer with indepen dence with front-wheeled walkerto progress toward independent transfers. Addre ssed 11/23 3. Gait Goal: Patient will complete gait withindependenceon level surfaces w ithfront-wheeled walkerfor 150feet to progress toward independent gait. Addr essed 11/23 4. Stair Goal: Patient will be able to negotiate1+1stairs [id number] withstep togait pattern, front wheeled walker, andwith modified independe nce. 5. Balance Goal: Patient will perform 3minutes of static and dynamic standin g balance activities with 0-1 upper extremity support with good balance to impro ve independence with transfers and gait 6. Test Goal: Patient will improve score onAMPACto at least18/24to demon strate minimal detectable change in functional mobility safety and independence. Addressed 11/23 Physical Therapy Discharge Recommendations: Plan: Discharge to Inpatient Rehabilitation or Senior Living Facil ity or Swingbed Reasons for Rehab: Fall risk/balance deficits, Physical assist is ne eded for safety and Lack of adequate support at home Activity Tolerance: Patient would likely tolerate 3 hours of therapy Transportation: Patient safe to transport by wheelchair. Projected Equipment for discharge: front wheeled walker Today's charge: Therapeutic activity 1 unit(s) Non-billable co-tx with TORRES and time spent while doctor is speaking with pt and nursing performing tasks 2 units(s) Time spent with patient: [id number] Infection: COVID-19 Rule Out Isolation: No active isolations PPE worn by staff: surgical mask, gloves and face shield PPE worn by patient: no PPE worn AMBERLY Moyer 11/26/2020 12:46 PM * Plan of Care - Stephanie Summers RN - 11/26/2020 12:55 AM CDT Nursing End of Shift Summary Note Changes During This Shift: Procedures/Interventions: IV antibiotics given. No need for pain medication this shift. Park remains in place. Will keep until follow up appointment. Family/Social Issues: Patient updated family on current status. Additional Updates/Changes: Waiting on rehab approval. Code Status: The patient's current code status is Full Code, and has not changed within the p revious 24 hours. Significant Event: No Risk Assessment Scores: Liat: 20 Melo: 60 Current Status: Most recent assessment documentation: Neuro (WDL): Within Defined Limits Level of Consciousness: Alert Orientation Level: Oriented X4 Cognition: Follows commands Respiratory (WDL): Exceptions to WDL Respiratory Pattern: Regular, Unlabored Chest Assessment: Chest expansion symmetrical Bilateral Breath Sounds: Clear, Diminished SpO2: 96 % $ RT Oxygen Device: None (Room air)* Cardiac Cardiac (WDL): Within Defined Limits Cardiac Regularity: Regular Heart Sounds: S1, S2 Jugular Venous Distention (JVD): No Cardiac Rhythm: Normal sinus rhythm Gastrointestinal Gastrointestinal (WDL): Within Defined Limits Last BM Date: 11/25/20 Abdomen Inspection: Soft, Nondistended Bowel Sounds (All Quadrants): Active Tenderness: Nontender Passing Flatus: Yes Gastrointestinal Additional Assessments: No Genitourinary Genitourinary (WDL): Exceptions to WDL Genitourinary Symptoms: Unable to assess Urinary Device: Yes Urinary Device Type: Urethral Catheter Most recent mobility documentation: Activity: Resting in Bed Level of Assistance: Standby assist, set-up cues, supervision of patient - no roberts nds on Stephanie Summers RN Problem: INFECTION PREVENTION Goal: Absence or improvement of infection during hospitalization Outcome: Progressing Problem: PAIN Goal: Verbalizes/displays adequate comfort level or baseline comfort level durin g hospitalization Outcome: Progressing Problem: SAFETY - FALL Goal: Absence from falls during hospitalization Outcome: Progressing Problem: GENITOURINARY Goal: Urinary catheter remains patent; urinary tract remains free from infection during hospitalization Outcome: Progressing Problem: METABOLIC/FLUID AND ELECTROLYTES Goal: Electrolytes remain within normal limits during hospitalization Outcome: Progressing Problem: ANXIETY Goal: Will report anxiety at manageable levels Outcome: Progressing Problem: SKIN/TISSUE INTEGRITY Goal: Skin integrity remains intact during hospitalization Outcome: Progressing Goal: Incision(s), wounds(s) or drain site(s) healing without S/S of infection d uring hospitalization Description: I Outcome: Progressing Goal: Oral mucous membranes remain intact during hospitalization Outcome: Progressing Problem: GASTROINTESTINAL Goal: Maintains or returns to baseline bowel function prior to discharge Outcome: Progressing Goal: Maintains adequate nutritional intake during hospitalization Outcome: Progressing Problem: Decreased Ability to Complete ADLs Goal: Maximize independence in ADLs prior to discharge Outcome: Progressing Problem: Functional Mobility Goal: Maximize mobility to the highest level of function prior to discharge Outcome: Progressing Problem: DISCHARGE PLANNING Goal: Discharge to next level of care with appropriate resources Outcome: Not Progressing Note: Patient waiting on placement. [facility] Problem: MUSCULOSKELETAL Goal: Return mobility to safest level of function prior to discharge Outcome: Not Progressing Note: Patient weak from hospital stay will require rehab at discharge. Goal: Return ADL status to a safe level of function prior to discharge Description: Outcome: Not Progressing Note: PT/OT working with patient. Inpatient rehab recommended. Problem: HEMATOLOGIC Goal: Maintains hematologic stability during hospitalization Outcome: Not Progressing Note: Patient hemoglobin 7.7. will recheck in AM. * Progress Notes - Desirae Gatica MD - 11/25/2020 2:48 PM CDT Images from the original note were not included. [address] [place], [place] [id number] Hospitalist Progress Note 11/25/2020 Patient Name: Mainor Blanca : 1950 Primary Care Physician: Juan Trejo PA-C Admission Date: 11/15/2020 Loc: 625/625-A LOS: 10 days SUBJECTIVE: Patient resting in chair, no gross hematuria but has pink-tinged urine in Park bag, lungs clear to auscultation, has chronic right foot pain, TAYLOR negative for endocarditis, repeat blood cultures drawn from 11/22/2020 ntd. Has midline placed now OBJECTIVE: Scheduled Medications: ceFAZolin 2,000 mg Intravenous Q8H methadone 155 mg Oral Daily At 1700 tamsulosin 0.4 mg Oral Bedtime Infusions: PRN Medications: calcium carbonate, dextrose OR glucagon OR glucagon OR dextrose OR dextrose, LORazepam, prochlorperazine, sodium chloride Vital signs in last 24 hours: Temp: [98.2 F (36.8 C)-98.7 F (37.1 C)] 98.7 F (37.1 C) Heart Rate: [70-85] 73 Resp: [16] 16 BP: (108-116)/(73-81) 116/81 SpO2: [95 %-98 %] 98 % MAP (calculated): [85 mm Hg-93 mm Hg] 93 mm Hg I&O: 11/24 0701 - 11/25 0700 In: 2106.9 [P.O.:840; I.V.:1266.9] Out: 1974 [Urine:1975] Exam: Visit Vitals BP 116/81 (BP Location: Right arm, Patient Position: Supine) Pulse 73 Temp 98.7 F (37.1 C) Resp 16 Ht 1.778 m (5' 10") Wt 71.2 kg (156 lb 14.4 oz) SpO2 98% BMI 22.51 kg/m Temp (24hrs), Av.4 F (36.9 C), Min:98.2 F (36.8 C), Max:98.7 F (37 .1 C) General: Adult male, alert, cooperative, no resp distress, appears stated age Head: Normocephalic, atraumatic Eyes: EOM's intact Neck: No JVD, no bruits Lungs: Clear to auscultation bilaterally, respirations unlabored Chest Wall: No tenderness or deformity Heart: Regular rate and rhythm, no murmurs, rubs, or gallop Abdomen: Soft, non-tender, non-distended, bowel sounds present Ext: Trace edema in b/l ankles Vascular: Distal pulses intact Skin: Warm and dry Neuro: Non-focal Psych: Normal affect Labs / Imaging: All recent data have been reviewed. PROBLEM LIST: Principal Problem: Gross hematuria Active Problems: KOFI (acute kidney injury) (HCC) BPH (benign prostatic hyperplasia) Hypernatremia Hypokalemia Elevated LFTs MSSA bacteremia Methadone dependence (HCC) NSVT (nonsustained ventricular tachycardia) ([facility]) Complicated UTI (urinary tract infection) ASSESSMENT / PLAN: Gross hematuria Admitted to OSH with gross hematuria on 11/10. History of BPH and recent right u reteral stent placement. Urology consulted Park catheter was placed and started on CBI, overall hematuria is improving. suspected hematuria is related to traumatic catheterization, recommended keeping Park catheter in place, given clinical improvement, CBI is stopped, he will be discharged with Park catheter and will need outpatient follow-up MSSA bacteremia Urine and blood cultures collected on 11/10 grew MSSA. Source: renal/UTI possibl y?. Hx of recent right ureteral stent placement (2.5 wks ago per patient' report ). PICC line was placed in right upper extremity, and patient was started on cefazo dalia. However blood cultures from 11/15/2020 again were growing staph aureus and hence PICC line was removed Denies any having artificial joints, valves or implantable cardiac devices. TAYLOR negative for endocarditis CT abdomen/pelvis on 11/18 showed no obvious source of bacteremia. Repeat blood cultures from 11/22/2020 sent and are -ve to date, Has midline, DC to rehab when bed available, per ID he will need IV antibiotics at least until 12/07 and he will need ID follow-up in the clinic prior to discon tinuing these Hypernatremia Resolved KOFI Creatinine on initial labs was 2.19 in setting of gross hematuria with possible obstruction. Resolved Elevated LFTs No abdominal pain or tenderness at this time. LFTs trended down. NSVT Few runs of asymptomatic nonsustained V. tach on telemetry on 11/19. TSH 2.640. QTc is WNL on EKG. we will replete electrolytes aggressively Hypokalemia Monitor and replace as needed. BPH Chronic. Continue home medications. Atypical chest pain Patient reports that this was an abdominal pain radiating from his suprapubic ar ea in setting of gross hematuria. No specific EKG changes were mentioned (no EKG to review). Troponin x3 was negat josefina. Noncardiac, improved after Park catheter was inserted. Methadone dependence Reportedly due to history of drug abuse when he was young. EKG on 11/16 showed prolonged QTC. D[facility] with Dr. Michelle Burns [facility], recommended decreasing total daily dose 25 mg till QTC< 500. Home dose of 160 mg daily was decreased to 155 mg daily on 11/16. Repeat EKG on 11/17 showed QTC <500. Continue to monitor daily EKG. Right foot pain Since reinjury at home while walking few days ago. Hx of right foot fracture. X-ray showed no fractures. PT/OT. DVT prophylaxis SCDs. Code Full code. Continued hospitalization is necessary due to bacteremia Disposition: rehab / SNF as per PT/OT recs Expected date of discharge: When bed available Desirae Gatica MD Electronic Signature 11/25/2020 2:48 PM * Progress Notes - Lani Ulloa - 11/25/2020 11:32 AM CDT Today's Date: 11/25/2020 Time: 11:32 AM Notes: SW notified by pt nurse, Stef, pt would like to talk about d/c. SW spoke to pt at bedside. Pt concerned about ability to get methadone if he [facility]. SW told pt that would need to be discussed with the facility once placeme nt is found. Communicated with: Stef, Patient Discharge Goal: Disposition: Senior Living Facility (SNF) (HCR pending) Pharmacy changed to: Not changed Infection: COVID-19 Rule Out Isolation: No active isolations PPE worn by staff: surgical mask and face shield PPE worn by patient: no PPE worn Was in close contact with the patient (6 ft or less for 10 minutes or more)? No Lani Ulloa LMSW * Plan of Care - Jonatan Berger RN - 11/25/2020 7:45 AM CDT No evidence of erythema, edema or drainage from midline insertion site. * Plan of Care - Laquita Dawkins RN - 11/25/2020 12:22 AM CDT Images from the original note were not included. Problem: INFECTION PREVENTION Goal: Absence or improvement of infection during hospitalization Outcome: Progressing Note: Microbiology Results (last 14 days) Procedure Component Value Units Date/Time COVID-19 PCR/Ag [[id number]] Order Status: No result Specimen: Nasopharyngeal Swab Urine Culture [[id number]] Collected: 11/22/202128 Order Status: Completed Specimen: Urine, Unspecified Source Updated: 11/24/20 0 747 Urine Culture No Growth Blood Culture x2 [[id number]] Collected: 11/22/20 0700 Order Status: Completed Specimen: Blood from Peripheral Updated: 11/24/20 0732 Blood Culture, Routine No Growth after 48 hours incubation Blood Culture x2 [[id number]] Collected: 11/22/20 0716 Order Status: Completed Specimen: Blood from Peripheral Updated: 11/24/20 0732 Blood Culture, Routine No Growth after 48 hours incubation Blood Culture x2 [[id number]] (Susceptibility) Collected: 11/15/201930 Order Status: Completed Specimen: Blood from Peripheral Updated: 11/22/20720 Blood Culture, Routine Staphylococcus aureus Gram Stain Gram-positive cocci in singles,pairs, clusters Blood Culture x2 [[id number]] Collected: 11/15/201924 Order Status: Completed Specimen: Blood from Peripheral Updated: 11/20/20 194 Blood Culture, Routine No Growth after 5 days incubation Blood Culture PCR Identification Panel [[id number]] (Abnormal) Collected: 11/15 Order Status: Completed Specimen: Blood from Peripheral Updated: 11/20/20 0146 Staphylococcus aureus PCR Positive Narrative: This test panel detects: Enterococcus spp., Listeria monocytogenes, Staphyloco ccus spp., Staphylococcus aureus, Streptococcus spp., Streptococcus agalactiae, Streptococcus pneumoniae, Streptococcus pyogenes, mecA - Methicillin resistance gene, van A/B - Vancomycin resistance gene, Acinetobacter baumannii, Enterobacte riaceae spp., Enterobacter cloacae complex, Escherichia coli, Klebsiella oxytoca , Klebsiella pneumoniae, Proteus spp., Serratia marcescens, Haemophilus influenz a, Neisseria meningitides, Pseudomonas aeruginosa, KPC - carbapenem resistance g kiersten, Vannesa albicans, Vannesa glabrata, Vannesa krusei, Vannesa parapsilosis, C andida tropicalis. No results found for: HGBA1C Lab Results Component Value Date CREATININE 1.17 11/24/2020 Magnesium Date Value Ref Range Status 11/19/2020 1.7 1.6 - 2.3 mg/dL Final Lab Results Component Value Date CALCIUM 8.5 11/24/2020 PHOS 2.4 (L) 11/19/2020 Lab Results Component Value Date NA 135 (L) 11/24/2020 K 3.7 11/24/2020 CL 99 11/24/2020 CO2 30 11/24/2020 BUN 14 11/24/2020 CREATININE 1.17 11/24/2020 GLU 90 11/24/2020 CALCIUM 8.5 11/24/2020 BILITOT 0.4 11/24/2020 ALKPHOS 122 11/24/2020 AST 38 (H) 11/24/2020 ALT <9 (L) 11/24/2020 PROT 5.9 11/24/2020 ALB 2.9 (L) 11/24/2020 EGFR >59 11/24/2020 ANIONGAP 6 11/24/2020 Lab Results Component Value Date WBC 6.2 11/24/2020 HGB 7.9 (L) 11/24/2020 HCT 26.0 (L) 11/24/2020 MCV 99.2 (H) 11/24/2020 PLT 211 11/24/2020 No results found for: DDIMER No results found for: CKTOTAL, CKMB, CKMBINDEX, TROPONINI Vitals (last day) Date/Time Temp Pulse Resp BP SpO2 Weight 11/24/201999 98.2 F (36.8 C) 70 16 108/76 97 % no documentation 11/24/20 1448 97.6 F (36.4 C) 75 16 132/82 95 % no documentation 11/24/20 0759 98 F (36.7 C) 76 16 129/79 98 % no documentation 11/24/20 0619 no documentation no documentation no documentation no documen tation no documentation 71.7 kg (158 lb 1.6 oz) 11/24/20 0300 99 F (37.2 C) 89 16 (Abnormal) 149/86 94 % no documenta tion Problem: PAIN Goal: Verbalizes/displays adequate comfort level or baseline comfort level [facility] hospitalization Outcome: Progressing Problem: SAFETY - FALL Goal: Absence from falls during hospitalization Outcome: Progressing Problem: GENITOURINARY Goal: Urinary catheter remains patent; urinary tract remains free from infection during hospitalization Outcome: Progressing Problem: ANXIETY Goal: Will report anxiety at manageable levels Outcome: Progressing Problem: SKIN/TISSUE INTEGRITY Goal: Skin integrity remains intact during hospitalization Outcome: Progressing Goal: Incision(s), wounds(s) or drain site(s) healing without S/S of infection d uring hospitalization Description: I Outcome: Progressing Goal: Oral mucous membranes remain intact during hospitalization Outcome: Progressing Problem: GASTROINTESTINAL Goal: Maintains or returns to baseline bowel function prior to discharge Outcome: Progressing Goal: Maintains adequate nutritional intake during hospitalization Outcome: Progressing Problem: DISCHARGE PLANNING Goal: Discharge to next level of care with appropriate resources Outcome: Not Progressing Note: Discharge planning not yet complete. Problem: METABOLIC/FLUID AND ELECTROLYTES Goal: Electrolytes remain within normal limits during hospitalization Outcome: Not Progressing Note: Lab Results Component Value Date NA 135 (L) 11/24/2020 K 3.7 11/24/2020 CL 99 11/24/2020 CO2 30 11/24/2020 Lab Results Component Value Date CALCIUM 8.5 11/24/2020 PHOS 2.4 (L) 11/19/2020 Magnesium Date Value Ref Range Status 11/19/2020 1.7 1.6 - 2.3 mg/dL Final Phosphorus Date Value Ref Range Status 11/19/2020 2.4 (L) 2.7 - 4.5 mg/dL Final Problem: MUSCULOSKELETAL Goal: Return mobility to safest level of function prior to discharge Outcome: Not Progressing Note: Patient continues to require 1:1 assistance for mobility Goal: Return ADL status to a safe level of function prior to discharge Description: Outcome: Not Progressing Note: Continues to require staff assistance for ADLs Problem: HEMATOLOGIC Goal: Maintains hematologic stability during hospitalization Outcome: Not Progressing Note: Lab Results Component Value Date WBC 6.2 11/24/2020 HGB 7.9 (L) 11/24/2020 HCT 26.0 (L) 11/24/2020 MCV 99.2 (H) 11/24/2020 PLT 211 11/24/2020 Problem: Decreased Ability to Complete ADLs Goal: Maximize independence in ADLs prior to discharge Outcome: Not Progressing Note: Continues to require staff assistance for ADLs Problem: Functional Mobility Goal: Maximize mobility to the highest level of function prior to discharge Outcome: Not Progressing Note: Patient continues to require 1:1 assistance for mobility * Plan of Care - Corona Nelson RN - 11/24/2020 10:19 PM CDT Nursing End of Shift Summary Note Changes During This Shift: Procedures/Interventions: No changes this shift awaiting referral to HCR Family/Social Issues: Did not speak to family this shift Additional Updates/Changes: Changes noted above Code Status: The patient's current code status is Full Code, and has not changed within the p revious 24 hours. Significant Event: No Risk Assessment Scores: Liat: 20 Melo: 60 Current Status: Most recent assessment documentation: Neuro (WDL): Within Defined Limits Respiratory (WDL): Exceptions to WDL Respiratory Pattern: Regular, Unlabored Chest Assessment: Chest expansion symmetrical Bilateral Breath Sounds: Clear, Diminished SpO2: 95 % $ RT Oxygen Device: None (Room air)* Cardiac Cardiac (WDL): Within Defined Limits Cardiac Rhythm: Normal sinus rhythm Gastrointestinal Gastrointestinal (WDL): Within Defined Limits Gastrointestinal Additional Assessments: No Genitourinary Genitourinary (WDL): Exceptions to WDL Urinary Device: Yes Urinary Device Type: Urethral Catheter Most recent mobility documentation: Activity: Bathroom privileges, Back to bed Level of Assistance: Standby assist, set-up cues, supervision of patient - no roberts nds on Assistive Device: Front wheel walker Corona Nelson RN Problem: INFECTION PREVENTION Goal: Absence or improvement of infection during hospitalization Outcome: Progressing Problem: PAIN Goal: Verbalizes/displays adequate comfort level or baseline comfort level durin g hospitalization Outcome: Progressing Problem: SAFETY - FALL Goal: Absence from falls during hospitalization Outcome: Progressing Problem: DISCHARGE PLANNING Goal: Discharge to next level of care with appropriate resources Outcome: Progressing Note: Awaiting approval to HCR Problem: GENITOURINARY Goal: Urinary catheter remains patent; urinary tract remains free from infection during hospitalization Outcome: Progressing Problem: METABOLIC/FLUID AND ELECTROLYTES Goal: Electrolytes remain within normal limits during hospitalization Outcome: Progressing Problem: ANXIETY Goal: Will report anxiety at manageable levels Outcome: Progressing Problem: MUSCULOSKELETAL Goal: Return mobility to safest level of function prior to discharge Outcome: Progressing Goal: Return ADL status to a safe level of function prior to discharge Description: Outcome: Progressing Problem: SKIN/TISSUE INTEGRITY Goal: Skin integrity remains intact during hospitalization Outcome: Progressing Goal: Incision(s), wounds(s) or drain site(s) healing without S/S of infection d uring hospitalization Description: I Outcome: Progressing Goal: Oral mucous membranes remain intact during hospitalization Outcome: Progressing Problem: HEMATOLOGIC Goal: Maintains hematologic stability during hospitalization Outcome: Progressing Problem: GASTROINTESTINAL Goal: Maintains or returns to baseline bowel function prior to discharge Outcome: Progressing Goal: Maintains adequate nutritional intake during hospitalization Outcome: Progressing * Plan of Care - Diane Jaocbs LPN - 11/24/2020 6:03 PM CDT Nursing End of Shift Summary Note Changes During This Shift: Procedures/Interventions: Midline placed via IVT. Continue MAHNAZ. Family/Social Issues: Pt updates family self. Additional Updates/Changes: None. Code Status: The patient's current code status is Full Code, and has not changed within the p revious 24 hours. Significant Event: No Risk Assessment Scores: Liat: 20 Melo: 60 Current Status: Most recent assessment documentation: Neuro (WDL): Within Defined Limits Level of Consciousness: Alert Orientation Level: Oriented X4 Cognition: Follows commands Respiratory (WDL): Exceptions to WDL Respiratory Pattern: Regular, Unlabored Chest Assessment: Chest expansion symmetrical Bilateral Breath Sounds: Clear, Diminished SpO2: 95 % $ RT Oxygen Device: None (Room air)* Cardiac Cardiac (WDL): Within Defined Limits Cardiac Regularity: Regular Heart Sounds: S1, S2 Jugular Venous Distention (JVD): No Cardiac Rhythm: Normal sinus rhythm Gastrointestinal Gastrointestinal (WDL): Within Defined Limits Last BM Date: 11/23/20 Gastrointestinal Additional Assessments: No Genitourinary Genitourinary (WDL): Exceptions to WDL Genitourinary Symptoms: Unable to assess Urinary Device: Yes Urinary Device Type: Urethral Catheter Most recent mobility documentation: Activity: Resting in Bed Diane Jacobs LPN Problem: INFECTION PREVENTION Goal: Absence or improvement of infection during hospitalization Outcome: Progressing Problem: PAIN Goal: Verbalizes/displays adequate comfort level or baseline comfort level durin g hospitalization Outcome: Progressing Problem: SAFETY - FALL Goal: Absence from falls during hospitalization Outcome: Progressing Problem: DISCHARGE PLANNING Goal: Discharge to next level of care with appropriate resources Outcome: Progressing Problem: GENITOURINARY Goal: Urinary catheter remains patent; urinary tract remains free from infection during hospitalization Outcome: Progressing Problem: METABOLIC/FLUID AND ELECTROLYTES Goal: Electrolytes remain within normal limits during hospitalization Outcome: Progressing Problem: ANXIETY Goal: Will report anxiety at manageable levels Outcome: Progressing Problem: MUSCULOSKELETAL Goal: Return mobility to safest level of function prior to discharge Outcome: Progressing Goal: Return ADL status to a safe level of function prior to discharge Description: Outcome: Progressing Problem: SKIN/TISSUE INTEGRITY Goal: Skin integrity remains intact during hospitalization Outcome: Progressing Goal: Incision(s), wounds(s) or drain site(s) healing without S/S of infection d uring hospitalization Description: I Outcome: Progressing Goal: Oral mucous membranes remain intact during hospitalization Outcome: Progressing Problem: HEMATOLOGIC Goal: Maintains hematologic stability during hospitalization Outcome: Progressing Problem: GASTROINTESTINAL Goal: Maintains or returns to baseline bowel function prior to discharge Outcome: Progressing Goal: Maintains adequate nutritional intake during hospitalization Outcome: Progressing * Plan of Care - Jonatan Berger RN - 11/24/2020 5:30 PM CDT Midline inserted as a sterile procedure. * Procedures - Jonatan Berger RN - 11/24/2020 5:15 PM CDT Procedure(s): INSERT MIDLINE CATHETER Order for Midline received & verified from Dr. Gatica for patient to receive manager terminal antibiotic. Chart reviewed. No contraindications to Midline placement noted. Signed consent form on chart. Risks (infection, thrombus formation, bleeding or inability to place PICC) & benefits (manager terminal medication infusion up to 30 days & may use for lab draws w/ MD order) were discussed with patient. Patient voiced understanding and consents to Midline placement. Creatinine was 1.17 on 11/24/2020. Pt has history of KOFI, but no hookman consult. The left brachial vein easily accessed; guidewire and introducer advanced withou t difficulty. Catheter trimmed to 12cm & advanced without difficulty. Skin cleansed with chlorascrub, then skin prep and Stat-Lock applied. CHG dressing placed over the site to secure. The single lumen has brisk blood return and flushed with 20ml of Normal Saline. Patient tolerated procedure well. Midline care information given verbally while at bedside, but written information placed in patient's AVS which includes infection prevention information. The patient was also given a Midline patient care guide & infection prevention fact sheet provided by the Midline substation operator transforming. Message left for NATALIO Contreras & notified that the Midline is in & available for use, but to use new tubing with initial access. * Progress Notes - Desirae Gatcia MD - 11/24/2020 2:39 PM CDT Images from the original note were not included. [address] [address] Hospitalist Progress Note 11/24/2020 Patient Name: Mainor Blanca : 1950 Primary Care Physician: Juan Trejo PA-C Admission Date: 11/15/2020 Loc: 625/625-A LOS: 9 days SUBJECTIVE: Patient resting in chair, no gross hematuria but has pink-tinged urine in Park bag, lungs clear to auscultation, has chronic right foot pain, TAYLOR negative for endocarditis, repeat blood cultures drawn from 11/22/2020 ntd OBJECTIVE: Scheduled Medications: ceFAZolin 2,000 mg Intravenous Q8H methadone 155 mg Oral Daily At 1700 tamsulosin 0.4 mg Oral Bedtime Infusions: PRN Medications: calcium carbonate, dextrose OR glucagon OR glucagon OR dextrose OR dextrose, LORazepam, prochlorperazine, sodium chloride Vital signs in last 24 hours: Temp: [98 F (36.7 C)-99 F (37.2 C)] 98 F (36.7 C) Heart Rate: [72-89] 76 Resp: [16] 16 BP: (129-149)/(79-86) 129/79 SpO2: [94 %-98 %] 98 % MAP (calculated): [96 mm Hg-107 mm Hg] 96 mm Hg I&O: 11/23 0701 - 11/24 0700 In: 1760 [P.O.:1750; I.V.:10] Out: 1650 [Urine:1650] Exam: Visit Vitals BP 129/79 (BP Location: Left arm, Patient Position: Supine) Pulse 76 Temp 98 F (36.7 C) Resp 16 Ht 1.778 m (5' 10") Wt 71.7 kg (158 lb 1.6 oz) SpO2 98% BMI 22.68 kg/m Temp (24hrs), Av.4 F (36.9 C), Min:98 F (36.7 C), Max:99 F (37.2 C) General: Adult male, alert, cooperative, no resp distress, appears stated age Head: Normocephalic, atraumatic Eyes: EOM's intact Neck: No JVD, no bruits Lungs: Clear to auscultation bilaterally, respirations unlabored Chest Wall: No tenderness or deformity Heart: Regular rate and rhythm, no murmurs, rubs, or gallop Abdomen: Soft, non-tender, non-distended, bowel sounds present Ext: Trace edema in b/l ankles Vascular: Distal pulses intact Skin: Warm and dry Neuro: Non-focal Psych: Normal affect Labs / Imaging: All recent data have been reviewed. PROBLEM LIST: Principal Problem: Gross hematuria Active Problems: KOFI (acute kidney injury) (HCC) BPH (benign prostatic hyperplasia) Hypernatremia Hypokalemia Elevated LFTs MSSA bacteremia Methadone dependence (HCC) NSVT (nonsustained ventricular tachycardia) (HCC) Complicated UTI (urinary tract infection) ASSESSMENT / PLAN: Gross hematuria Admitted to OSH with gross hematuria on 11/10. History of BPH and recent right u reteral stent placement. Urology consulted Park catheter was placed and started on CBI, overall hematuria is improving. suspected hematuria is related to traumatic catheterization, recommended keeping Park catheter in place, given clinical improvement, CBI is stopped, he will be discharged with Park catheter and will need outpatient follow-up MSSA bacteremia Urine and blood cultures collected on 11/10 grew MSSA. Source: renal/UTI possibl y?. Hx of recent right ureteral stent placement (2.5 wks ago per patient' report ). PICC line was placed in right upper extremity, and patient was started on cefazo dalia. However blood cultures from 11/15/2020 again were growing staph aureus and hence PICC line was removed Denies any having artificial joints, valves or implantable cardiac devices. TAYLOR negative for endocarditis CT abdomen/pelvis on 11/18 showed no obvious source of bacteremia. Repeat blood cultures from 11/22/2020 sent and are -ve to date, patient can get a midline and will DC to rehab when bed available, per ID he wi ll need IV antibiotics at least until 12/07 and he will need ID follow-up in the clinic prior to discontinuing these Hypernatremia Resolved KOFI Creatinine on initial labs was 2.19 in setting of gross hematuria with possible obstruction. Resolved Elevated LFTs No abdominal pain or tenderness at this time. LFTs trended down. NSVT Few runs of asymptomatic nonsustained V. tach on telemetry on 11/19. TSH 2.640. QTc is WNL on EKG. we will replete electrolytes aggressively Hypokalemia Monitor and replace as needed. BPH Chronic. Continue home medications. Atypical chest pain Patient reports that this was an abdominal pain radiating from his suprapubic ar ea in setting of gross hematuria. No specific EKG changes were mentioned (no EKG to review). Troponin x3 was negat josefina. Noncardiac, improved after Park catheter was inserted. Methadone dependence Reportedly due to history of drug abuse when he was young. EKG on 11/16 showed prolonged QTC. Discussed with Dr. Micehlle Burns at psychiatry who prescribes and manages mandi coulter's methadone regimen, recommended decreasing total daily dose 25 mg till QTC< 500. Home dose of 160 mg daily was decreased to 155 mg daily on 11/16. Repeat EKG on 11/17 showed QTC <500. Continue to monitor daily EKG. Right foot pain Since reinjury at home while walking few days ago. Hx of right foot fracture. X-ray showed no fractures. PT/OT. DVT prophylaxis SCDs. Code Full code. Continued hospitalization is necessary due to bacteremia Disposition: rehab / SNF as per PT/OT recs Expected date of discharge: When bed available Desirae Gatica MD Electronic Signature 11/24/2020 2:39 PM * Plan of Care - Stephanie Summers RN - 11/24/2020 12:51 AM CDT Images from the original note were not included. Nursing End of Shift Summary Note Changes During This Shift: Procedures/Interventions: Park remains in place. [place] tinged urine. Ancef continued. Tums ordered PRN for heartburn. Patient showered early this AM. Family/Social Issues: None Additional Updates/Changes: Discharge pending. Waiting on rehab acceptance. Will need PICC or midline placed today if cultures remain negative. Code Status: The patient's current code status is Full Code, and has not changed within the p revious 24 hours. Significant Event: No Risk Assessment Scores: Liat: 19 Melo: 60 Current Status: Most recent assessment documentation: Neuro (WDL): Within Defined Limits Level of Consciousness: Alert Orientation Level: Oriented X4 Cognition: Follows commands Respiratory (WDL): Exceptions to WDL Respiratory Pattern: Regular Chest Assessment: Chest expansion symmetrical Bilateral Breath Sounds: Clear, Diminished SpO2: 96 % $ RT Oxygen Device: None (Room air)* Cardiac Cardiac (WDL): Exceptions to WDL Cardiac Regularity: Regular Heart Sounds: S1, S2 Jugular Venous Distention (JVD): No Cardiac Rhythm: Normal sinus rhythm Gastrointestinal Gastrointestinal (WDL): Within Defined Limits Last BM Date: 11/23/20 Abdomen Inspection: Soft, Nondistended Bowel Sounds (All Quadrants): Active Tenderness: No guarding, Nontender Passing Flatus: Yes Gastrointestinal Additional Assessments: No Genitourinary Genitourinary (WDL): Exceptions to WDL Genitourinary Symptoms: Unable to assess Urinary Device: Yes Urinary Device Type: Urethral Catheter Most recent mobility documentation: Activity: Watch TV Level of Assistance: 1:1 Assistive Device: Front wheel walker, Gait Belt Stephanie Summers RN Problem: INFECTION PREVENTION Goal: Absence or improvement of infection during hospitalization Outcome: Progressing Note: Microbiology Results (last 14 days) Procedure Component Value Units Date/Time Blood Culture x2 [[id number]] Collected: 11/22/20 0700 Order Status: Completed Specimen: Blood from Peripheral Updated: 11/23/20 0732 Blood Culture, Routine No growth after 24 hours incubation Blood Culture x2 [[id number]] Collected: 11/22/20 0716 Order Status: Completed Specimen: Blood from Peripheral Updated: 11/23/20 0732 Blood Culture, Routine No growth after 24 hours incubation Urine Culture [[id number]] Collected: 11/22/202128 Order Status: Resulted Specimen: Urine, Unspecified Source Updated: 08/05/21 21 39 Blood Culture x2 [[id number]] (Susceptibility) Collected: 11/15/201930 Order Status: Completed Specimen: Blood from Peripheral Updated: 11/22/20 0721 Blood Culture, Routine Staphylococcus aureus Gram Stain Gram-positive cocci in singles,pairs, clusters Blood Culture x2 [[id number]] Collected: 11/15/201924 Order Status: Completed Specimen: Blood from Peripheral Updated: 11/20/20 1947 Blood Culture, Routine No Growth after 5 days incubation Blood Culture PCR Identification Panel [[id number]] (Abnormal) Collected: 11/15 Order Status: Completed Specimen: Blood from Peripheral Updated: 11/20/20 0146 Staphylococcus aureus PCR Positive Narrative: This test panel detects: Enterococcus spp., Listeria monocytogenes, Staphyloco ccus spp., Staphylococcus aureus, Streptococcus spp., Streptococcus agalactiae, Streptococcus pneumoniae, Streptococcus pyogenes, mecA - Methicillin resistance gene, van A/B - Vancomycin resistance gene, Acinetobacter baumannii, Enterobacte riaceae spp., Enterobacter cloacae complex, Escherichia coli, Klebsiella oxytoca , Klebsiella pneumoniae, Proteus spp., Serratia marcescens, Haemophilus influenz a, Neisseria meningitides, Pseudomonas aeruginosa, KPC - carbapenem resistance g kiersten, Vannesa albicans, Vannesa glabrata, Avnnesa krusei, Vannesa parapsilosis, C andida tropicalis. No results found for: HGBA1C Lab Results Component Value Date CREATININE 1.08 11/23/2020 Magnesium Date Value Ref Range Status 11/19/2020 1.7 1.6 - 2.3 mg/dL Final Lab Results Component Value Date CALCIUM 8.2 (L) 11/23/2020 PHOS 2.4 (L) 11/19/2020 Lab Results Component Value Date NA 135 (L) 11/23/2020 K 3.9 11/23/2020 CL 100 11/23/2020 CO2 31 11/23/2020 BUN 13 11/23/2020 CREATININE 1.08 11/23/2020 GLU 96 11/23/2020 CALCIUM 8.2 (L) 11/23/2020 BILITOT 0.5 11/23/2020 ALKPHOS 130 (H) 11/23/2020 AST 44 (H) 11/23/2020 ALT 9 (L) 11/23/2020 PROT 6.0 11/23/2020 ALB 3.0 (L) 11/23/2020 EGFR >59 11/23/2020 ANIONGAP 4 11/23/2020 Lab Results Component Value Date WBC 5.9 11/23/2020 HGB 8.5 (L) 11/23/2020 HCT 28.2 (L) 11/23/2020 MCV 100.0 (H) 11/23/2020 PLT 242 11/23/2020 No results found for: DDIMER No results found for: CKTOTAL, CKMB, CKMBINDEX, TROPONINI Vitals (last day) Date/Time Temp Pulse Resp BP SpO2 Weight 11/23/202031 98.3 F (36.8 C) 72 16 135/79 96 % no documentation 11/23/20 1438 98.3 F (36.8 C) 86 16 125/77 97 % no documentation 11/23/20 0814 98.5 F (36.9 C) 90 16 (Abnormal) 145/80 98 % no documen tation 11/23/20 0418 98.6 F (37 C) 71 16 129/74 91 % 75.4 kg (166 lb 4.8 oz) Problem: PAIN Goal: Verbalizes/displays adequate comfort level or baseline comfort level sejal bradford hospitalization Outcome: Progressing Problem: SAFETY - FALL Goal: Absence from falls during hospitalization Outcome: Progressing Problem: GENITOURINARY Goal: Urinary catheter remains patent; urinary tract remains free from infection during hospitalization Outcome: Progressing Problem: ANXIETY Goal: Will report anxiety at manageable levels Outcome: Progressing Problem: SKIN/TISSUE INTEGRITY Goal: Skin integrity remains intact during hospitalization Outcome: Progressing Goal: Incision(s), wounds(s) or drain site(s) healing without S/S of infection d uring hospitalization Description: I Outcome: Progressing Goal: Oral mucous membranes remain intact during hospitalization Outcome: Progressing Problem: HEMATOLOGIC Goal: Maintains hematologic stability during hospitalization Outcome: Progressing Note: Lab Results Component Value Date WBC 5.9 11/23/2020 HGB 8.5 (L) 11/23/2020 HCT 28.2 (L) 11/23/2020 MCV 100.0 (H) 11/23/2020 PLT 242 11/23/2020 Problem: GASTROINTESTINAL Goal: Maintains or returns to baseline bowel function prior to discharge Outcome: Progressing Goal: Maintains adequate nutritional intake during hospitalization Outcome: Progressing Problem: DISCHARGE PLANNING Goal: Discharge to next level of care with appropriate resources Outcome: Not Progressing Note: Discharge planning not yet complete. Problem: METABOLIC/FLUID AND ELECTROLYTES Goal: Electrolytes remain within normal limits during hospitalization Outcome: Not Progressing Note: Lab Results Component Value Date NA 135 (L) 11/23/2020 K 3.9 11/23/2020 CL 100 11/23/2020 CO2 31 11/23/2020 Lab Results Component Value Date CALCIUM 8.2 (L) 11/23/2020 PHOS 2.4 (L) 11/19/2020 Magnesium Date Value Ref Range Status 11/19/2020 1.7 1.6 - 2.3 mg/dL Final Phosphorus Date Value Ref Range Status 11/19/2020 2.4 (L) 2.7 - 4.5 mg/dL Final Problem: MUSCULOSKELETAL Goal: Return mobility to safest level of function prior to discharge Outcome: Not Progressing Note: Patient continues to require 1:1 assistance for mobility Goal: Return ADL status to a safe level of function prior to discharge Description: Outcome: Not Progressing Note: Continues to require staff assistance for ADLs Problem: Decreased Ability to Complete ADLs Goal: Maximize independence in ADLs prior to discharge Outcome: Not Progressing Note: Continues to require staff assistance for ADLs Problem: Functional Mobility Goal: Maximize mobility to the highest level of function prior to discharge Outcome: Not Progressing Note: Patient continues to require 1:1 assistance for mobility * Plan of Care - Cathie Ramirez RN - 11/23/2020 3:44 PM CDT Nursing End of Shift Summary Note Changes During This Shift: Procedures/Interventions: PT/OT Family/Social Issues: N/A Additional Updates/Changes: Pt ready for d/c per care team. Pt awaiting placement. [facility] and [facility] referrals mad e. Pt will need midline for Iv abx. Pt to d/c with keila. Code Status: The patient's current code status is Full Code, and has not changed within the p revious 24 hours. Significant Event: No Risk Assessment Scores: Liat: 19 Melo: 60 Current Status: Most recent assessment documentation: Neuro (WDL): Within Defined Limits Level of Consciousness: Alert Orientation Level: Oriented X4 Cognition: Follows commands Respiratory (WDL): Exceptions to WDL Respiratory Pattern: Regular Chest Assessment: Chest expansion symmetrical Bilateral Breath Sounds: Diminished, Clear SpO2: 97 % $ RT Oxygen Device: None (Room air)* Cardiac Cardiac (WDL): Within Defined Limits Cardiac Regularity: Regular Heart Sounds: S1, S2 Gastrointestinal Gastrointestinal (WDL): Within Defined Limits Abdomen Inspection: Soft, Nondistended Bowel Sounds (All Quadrants): Active Tenderness: Tenderness Passing Flatus: Yes Gastrointestinal Additional Assessments: No Genitourinary Genitourinary (WDL): Exceptions to WDL Urinary Device: Yes Urinary Device Type: Urethral Catheter Most recent mobility documentation: Activity: Resting in Bed Level of Assistance: 1:1 Assistive Device: Front wheel walker, Gait Belt Cathie Ramirez RN Problem: INFECTION PREVENTION Goal: Absence or improvement of infection during hospitalization Outcome: Progressing Problem: PAIN Goal: Verbalizes/displays adequate comfort level or baseline comfort level sejal bradford hospitalization Outcome: Progressing Problem: SAFETY - FALL Goal: Absence from falls during hospitalization Outcome: Progressing Problem: DISCHARGE PLANNING Goal: Discharge to next level of care with appropriate resources Outcome: Progressing Problem: GENITOURINARY Goal: Urinary catheter remains patent; urinary tract remains free from infection during hospitalization Outcome: Progressing Problem: METABOLIC/FLUID AND ELECTROLYTES Goal: Electrolytes remain within normal limits during hospitalization Outcome: Progressing Problem: HEMATOLOGIC Goal: Maintains hematologic stability during hospitalization Outcome: Progressing Problem: GASTROINTESTINAL Goal: Maintains or returns to baseline bowel function prior to discharge Outcome: Progressing Goal: Maintains adequate nutritional intake during hospitalization Outcome: Progressing Problem: ANXIETY Goal: Will report anxiety at manageable levels Outcome: Progressing Problem: MUSCULOSKELETAL Goal: Return mobility to safest level of function prior to discharge Outcome: Progressing Goal: Return ADL status to a safe level of function prior to discharge Description: Outcome: Progressing Problem: SKIN/TISSUE INTEGRITY Goal: Skin integrity remains intact during hospitalization Outcome: Progressing Goal: Incision(s), wounds(s) or drain site(s) healing without S/S of infection d uring hospitalization Description: I Outcome: Progressing Goal: Oral mucous membranes remain intact during hospitalization Outcome: Progressing * Progress Notes - Desirae Gatica MD - 11/23/2020 1:37 PM CDT Images from the original note were not included. [address] [address] Hospitalist Progress Note 11/23/2020 Patient Name: Mainor Blanca : 1950 Primary Care Physician: Juan Trejo PA-C Admission Date: 11/15/2020 Loc: 625/625-A LOS: 8 days SUBJECTIVE: Patient resting in chair, no gross hematuria but has pink-tinged urine in Park bag, lungs clear to auscultation, has chronic right foot pain, TAYLOR negative for endocarditis, repeat blood cultures drawn from 11/22/2020 ntd OBJECTIVE: Scheduled Medications: ceFAZolin 2,000 mg Intravenous Q8H methadone 155 mg Oral Daily At 1700 tamsulosin 0.4 mg Oral Bedtime Infusions: PRN Medications: dextrose OR glucagon OR glucagon OR dextrose OR dextrose, LORaze angela, prochlorperazine, sodium chloride Vital signs in last 24 hours: Temp: [98.3 F (36.8 C)-98.6 F (37 C)] 98.5 F (36.9 C) Heart Rate: [71-90] 90 Resp: [16] 16 BP: (119-145)/(74-87) 145/80 SpO2: [91 %-98 %] 98 % MAP (calculated): [92 mm Hg-102 mm Hg] 102 mm Hg I&O: 08/ 0701 - 11/23 0700 In: 870 [P.O.:840; I.V.:30] Out: 1725 [Urine:1725] Exam: Visit Vitals BP (!) 145/80 (BP Location: Left arm, Patient Position: Supine) Pulse 90 Temp 98.5 F (36.9 C) Resp 16 Ht 1.778 m (5' 10") Wt 75.4 kg (166 lb 4.8 oz) SpO2 98% BMI 23.86 kg/m Temp (24hrs), Av.5 F (36.9 C), Min:98.3 F (36.8 C), Max:98.6 F (37 C) General: Adult male, alert, cooperative, no resp distress, appears stated age Head: Normocephalic, atraumatic Eyes: EOM's intact Neck: No JVD, no bruits Lungs: Clear to auscultation bilaterally, respirations unlabored Chest Wall: No tenderness or deformity Heart: Regular rate and rhythm, no murmurs, rubs, or gallop Abdomen: Soft, non-tender, non-distended, bowel sounds present Ext: Trace edema in b/l ankles Vascular: Distal pulses intact Skin: Warm and dry Neuro: Non-focal Psych: Normal affect Labs / Imaging: All recent data have been reviewed. PROBLEM LIST: Principal Problem: Gross hematuria Active Problems: KOFI (acute kidney injury) ([facility]) BPH (benign prostatic hyperplasia) Hypernatremia Hypokalemia Elevated LFTs MSSA bacteremia Methadone dependence ([facility]) NSVT (nonsustained ventricular tachycardia) ([facility]) Complicated UTI (urinary tract infection) ASSESSMENT / PLAN: Gross hematuria Admitted to OSH with gross hematuria on 11/10. History of BPH and recent right u reteral stent placement. Urology consulted Park catheter was placed and started on CBI, overall hematuria is improving. suspected hematuria is related to traumatic catheterization, recommended keeping Park catheter in place, given clinical improvement, CBI is stopped, he will be discharged with Park catheter and will need outpatient follow-up MSSA bacteremia Urine and blood cultures collected on 11/10 grew MSSA. Source: renal/UTI possibl y?. Hx of recent right ureteral stent placement (2.5 wks ago per patient' report ). PICC line was placed in right upper extremity, and patient was started on cefazo dalia. However blood cultures from 11/15/2020 again were growing staph aureus and hence PICC line was removed Denies any having artificial joints, valves or implantable cardiac devices. TAYLOR negative for endocarditis CT abdomen/pelvis on 11/18 showed no obvious source of bacteremia. Repeat blood cultures from 11/22/2020 sent and are -ve to date, blood cultures are negative by the morning of 11/24/2020, patient can get a midline and will DC to r ab when bed available, per ID he will need IV antibiotics at least until 12/07 and he will need ID follow-up in the clinic prior to discontinuing these Hypernatremia Resolved KOFI Creatinine on initial labs was 2.19 in setting of gross hematuria with possible obstruction. Resolved Elevated LFTs No abdominal pain or tenderness at this time. LFTs trended down. NSVT Few runs of asymptomatic nonsustained V. tach on telemetry on 11/19. TSH 2.640. QTc is WNL on EKG. we will replete electrolytes aggressively Hypokalemia Monitor and replace as needed. BPH Chronic. Continue home medications. Atypical chest pain Patient reports that this was an abdominal pain radiating from his suprapubic ar ea in setting of gross hematuria. No specific EKG changes were mentioned (no EKG to review). Troponin x3 was negat josefina. Noncardiac, improved after Park catheter was inserted. Methadone dependence Reportedly due to history of drug abuse when he was young. EKG on 11/16 showed prolonged QTC. Discussed with Dr. Michelle Burns at psychiatry who prescribes and manages mandi coulter's methadone regimen, recommended decreasing total daily dose 25 mg till QTC< 500. Home dose of 160 mg daily was decreased to 155 mg daily on 11/16. Repeat EKG on 11/17 showed QTC <500. Continue to monitor daily EKG. Right foot pain Since reinjury at home while walking few days ago. Hx of right foot fracture. X-ray showed no fractures. PT/OT. DVT prophylaxis SCDs. Code Full code. Continued hospitalization is necessary due to bacteremia Disposition: rehab / SNF as per PT/OT recs Expected date of discharge: 11/24/20 Desirae Gatica MD Electronic Signature 11/23/2020 1:37 PM * Progress Notes - Viji Briscoe MD - 11/23/2020 10:42 AM CDT Images from the original note were not included. [address] [address] Infectious Disease Progress Note Patient Name: Mainor Blanca : 1950 Admission date: 11/15/2020 Visit Date: 11/23/2020 Chief Complaint: Gross hematuria MSSA bacteremia Interval History: Patient sitting up in the chair. Remains afebrile. Denies any urinary complain ts, back pain etc. Review of Systems: Respiratory: No cough or dyspnea Cardiac: No chest pain or palpitations GI: No vomiting or diarrhea Past Medical and social history: Please refer to ID consult note from 11/16/2020 which I reviewed Antibiotics: IV cefazolin 2 g every 8 hours started on 11/21/2020 Physical Examination: Visit Vitals BP (!) 145/80 (BP Location: Left arm, Patient Position: Supine) Pulse 90 Temp 98.5 F (36.9 C) Resp 16 Ht 1.778 m (5' 10") Wt 75.4 kg (166 lb 4.8 oz) SpO2 98% BMI 23.86 kg/m Temp (24hrs), Av.5 F (36.9 C), Min:98.3 F (36.8 C), Max:98.6 F (37 C) General: Interactive. Not in acute distress HEENT: No icterus. Clear orophharynx. Neck: Supple. Lungs: Clear breath sounds heard. Cardiac: Regular rate and rhythm. No murmurs. Abdomen: Soft. Normal bowel sounds. Non-tender. : Park catheter present Extremities: No LE edema. Skin: No new rash. Vascular: Peripheral IV 11/22/20 Left Foot (0) Labs: Recent Labs 11/23/20 0657 11/22/20 0700 11/21/20 0708 WBC 5.9 5.6 6.4 HGB 8.5* 8.3* 7.5* HCT 28.2* 27.1* 24.5* MCV 100.0* 98.5* 98.0* MCH 30.1 30.2 30.0 MCHC 30.1* 30.6* 30.6* PLT 242 241 244 Recent Labs 11/23/20 0657 11/22/20 0702 11/21/20 0708 NA 135* 137 139 K 3.9 3.4* 3.6 CO2 31 29 31 CL 100 101 105 BUN 13 17 16 CREATININE 1.08 1.12 1.01 ALT 9* <9* 12 AST 44* 30 36 BILITOT 0.5 0.5 0.5 Serum creatinine: 1.08 mg/dL 08/06/21 0657 Estimated creatinine clearance: 67.6 mL/min Microbiology: 11/10/2020, blood cultures (outside hospital): MSSA 11/15/2020, blood cultures MSSA in 1 set 11/22/2020, blood cultures: No growth to date Radiology: 11/21/2020, TAYLOR: No valvular vegetation noted 11/18/2020, CT abdomen and pelvis: Nonobstructing right renal calculus, right inte rnal ureteral stent Images reviewed Events: Assessment: This is a 70-year-old male with a history of BPH, nonobstructing right renal scot culus, history of ureteral stent placement transferred from outside facility for evaluation of MSSA bacteremia 1. MSSA bacteremia , possible urinary source 2. H/O kidney stone s/p ureteral stent placement 3. H/O methadone dependence Plan: -Clinically patient is doing well, has no complaints. -Blood cultures from yesterday remains negative at 24 hours. If the blood cultu res remain negative at 48 hours, would recommend midline placement for outpatien t IV antibiotics. -Recommend IV cefazolin 2 g every 8 hours. If unable to do IV cefazolin, then w ould recommend IV Rocephin 2 g every day through 12/07/2020. -Recommend weekly CBC, CMP, CRP while on IV antibiotics. -Follow-up in the ID clinic in about 2 weeks -Will see the patient on Thursday if still at the hospital. Call me with question s or concerns Viji Briscoe MD Electronic Signature 11/23/2020 10:42 AM * Progress Notes - Mari Rossi, PT - 11/23/2020 10:09 AM CDT [address] [address] Physical Therapy Patient Name: Mainor Blanca : 1950 Billing Number: [id number] Physician: Desirae Gatica MD Admission Dx: Gross hematuria [R31.0] Admit Date: 11/15/2020 Principal Problem: Gross hematuria Today's Date: 11/23/2020 Physical Therapy Treatment Note S: Nursing gives permission to treat. Patient gives permission to treat. O: Precautions: fall risk Medical Equipment: urinary catheter Mental Status: alert and oriented x 3 Pain Ratin/10 mild pain R foot at rest, 5/10 with gait. Antalgia and faci al grimacing indicates a higher level of pain than patient verbalizes. Ice pack applied to L heel following PT session. Endurance: limited: reports fatigue. Immediately following gait, oxygen satura tion 97% and heart 125 beats/minute Weight Bearing Status: no restrictions Bed Mobility/Transfers: Supine to sit: requiring stand by assist (SBA) and set-up for task Sit to stand: From bed requiring minimal assist of 1 staff and manual assistance and verbal instruction for safe walker management Stand to sit: To recliner requiring minimal assist of 1 staff and manual assista nce for safety Gait: Distance: 60 feet Device: front-wheeled walker Assist: minimal assist of 1 staff Gait deviations: antalgic gait, very slow margarita as limited by pain. Patient a ppears to be bearing about 50% weight through R LE. Patient questions if it wou ld be easier for him to use crutches than walker. Appropriate to trial both cru tches and walker during next PT session to determine device that patient is most comfortable with. Stairs: not tested not safe at this time Exercise/ROM: None completed this date Standardized Testing: AM-PAC Basic Mobility Inpatient Short Form How much difficulty does the patient have ... 1. Turning over in bed (including adjusting bedclothes, sheets, and blankets)? 3 A little 2. Sitting down on and standing up from a chair with arms (wheelchair, bedside c ommode, etc.)? 3 A little 3. Moving from lying on back to sitting on the side of the bed? 3 A little How much help from another person does the patient currently need .... 1. Moving to and from a bed to a chair (including wheelchair)? 3 A little 2. Need to walk in hospital room? 3 A little 3. Climbing 3-5 steps with a railing? 2 A lot Total Score: 17 / 24 (50.57% impaired) Patient left with call light placed within reach and chair alarm activated A: Patient is making slow but steady progress toward PT goals. Fairly good mathew yepez noted this date of skills taught during previous sessions. Placement stil l recommended at discharge as patient continues to require physical assist and s killed intervention with all mobility tasks. P: Continue plan of care. Goals: By the end of the patient's stay 1. Bed Transfer Goal: Patient will complete a bed transfer (from flat bed with out rails) with independenceto progress toward independent bed transfers. Addr essed 11/23 2. Sit to stand Goal: Patient will complete sit to stand transfer with indepen dence with front-wheeled walkerto progress toward independent transfers. Addre ssed 11/23 3. Gait Goal: Patient will complete gait withindependenceon level surfaces w ithfront-wheeled walkerfor 150feet to progress toward independent gait. Addr essed 11/23 4. Stair Goal: Patient will be able to negotiate1+1stairs [id number] withstep togait pattern, front wheeled walker, andwith modified independe nce. 5. Balance Goal: Patient will perform 3minutes of static and dynamic standin g balance activities with 0-1 upper extremity support with good balance to impro ve independence with transfers and gait 6. Test Goal: Patient will improve score onAMPACto at least18/24to demon strate minimal detectable change in functional mobility safety and independence. Addressed 11/23 Physical Therapy Discharge Recommendations: Plan: Discharge to Inpatient Rehabilitation or Senior Living Facil ity or Swingbed Reasons for Rehab: Fall risk/balance deficits, Physical assist is ne eded for safety and Lack of adequate support at home Activity Tolerance: Patient would likely tolerate 3 hours of therapy Transportation: Patient safe to transport by wheelchair. Projected Equipment for discharge: front wheeled walker Today's charge: Therapeutic activity 2 unit(s) Time spent with patient: [id number] Infection: No active infections Isolation: No active isolations PPE worn by staff: surgical mask, gloves and face shield PPE worn by patient: mask at all times Mari Rossi, PT 11/23/2020 10:09 AM * Progress Notes - Giulia Burton RN - 11/23/2020 9:54 AM CDT Today's Date: 11/23/2020 Time: 9:51 AM Notes: Discharge plan pending blood cultures. No discharge before Thursday - medical readiness, acceptance pending by [facility] & final autho process w/ TARA who is agreeable to approve [facility]. Communicated with: Chart review Discharge Goal: Disposition: Acute Rehab Facility ([facility] pending) Pharmacy changed to: No change Infection: No active infections Isolation: No active isolations PPE worn by staff: did not enter room PPE worn by patient: did not enter room Was in close contact with the patient (6 ft or less for 10 minutes or more)? No Giulia Burton RN Electronically Signed Today's Date: 11/22/2020 Time: 3:57 PM Notes: Email from [facility]/MANDY earlier today. She is pleased w/ care & anticipated rehab plan at [facility]. She has copy of DP- S/w Adrianne castro/ YUAN earlier today. VA auth received yet but not concerned yet. Pt not medically ready to leave today. Communicated with: See above Discharge Goal: Disposition: Acute Rehab Facility ([facility] pending) Pharmacy changed to: No change Infection: No active infections Isolation: No active isolations PPE worn by staff: did not enter room PPE worn by patient: did not enter room Was in close contact with the patient (6 ft or less for 10 minutes or more)? No Giulia Burton RN Electronically Signed Today's Date: 11/21/2020 Time: 1:03 PM Notes: 1415: Fiona w/ TARA called (her direct number is [phone]): [facility] requests referr lara to [facility] & she is working to complete final auth paperwork. Adrianne csatro/ YUAN notified of consult & is aware that blood cultures are still positive & TAYLOR ordered. Referrals Destination - Admitted Since 11/15/2020 Service Provider Request Status Selected Services Address Phone Fax Last Update d [facility] Pending - Request Sent N/A [address] [place] [address] [phone] Giulia Burton RN 11/21/2020 1413 1335: left for Fiona, [facility] nurse assigned to case to call w/ lorie addis. 1300: No updates from VA on request for VA provider for SNF care. Attending ginger te of yesterday stated waiting for ID completion - have provided plan once blood cultures are negative. Discharge plan is waiting on VA approval who is his onl y payor source. DPOA-HC also not received from family or VA. Communicated with: Chart review Discharge Goal: Disposition: Senior Living Facility (SNF) (pending VA process ) Pharmacy changed to: Pending accepting facility Infection: No active infections Isolation: No active isolations PPE worn by staff: did not enter room PPE worn by patient: did not enter room Was in close contact with the patient (6 ft or less for 10 minutes or more)? No Giulia Burton RN Electronically Signed Today's Date: 11/20/2020 Time: Notes: 1355: Alie castro/ TARA called: 1. Confirmed [facility] is working on facility. Fiona Mccarthy, has been a ssigned to this request (phone [phone], ext [phone]) 2. Is unable to locate copy of DPOA-HC in VA record - if recently done may not bee scanned into record & would need to contact PCP office - ext [phone]: Pt agreed CM could update sister, Tatyana: Updated Tatyana's contact i nfo & answered her questions. She supports IP rehab plan & understand location of care will be dependent on VA. She will ask PCP office to fax DPOA-HC & living will to virtual office. Document was completed yesterday. 1150: Alie castro/ Ally Mendoza office will contact PCP to request assistance for thi s dc plan. Hopes to call back by 1530 with update. 0850: S/w nurse at [facility]: All requests for community care go to medic al records first before uploading to [facility] for processing. States no u pdates can be provided until tomorrow; she can't confirm that fax was received. SV Rightfax shows fax was delivered to both VA providers. 0830: VM kala Silver nurse at PCP office ([phone], ext [phone]) 0825: Request for IP rehab for PT/OT & IVAB: [facility] form & discharge referral report fax ([phone]) at PCP office at [phone]. Same report fa xed to [facility] office at 0825). Communicated with: Text/phone call from care team; chart review Discharge Goal: Disposition: Senior Living Facility (SNF) (pending VA process ) Pharmacy changed to: To be updated later Infection: No active infections Isolation: No active isolations PPE worn by staff: did not enter room PPE worn by patient: did not enter room Was in close contact with the patient (6 ft or less for 10 minutes or more)? No Giulia Burton RN Electronically Signed Today's Date: 11/19/2020 Time: 1:54 PM Notes: 1350: S/w pt regarding dc needs: 1. IP rehab per recommendation: He is willing to go to any facility [place] will co bobo A. [place] for insurance, no secondary. Per [facility] leasing coordinator: [facility] are closed to community referrals. Recommends sending community referral to his PCP MARYELLEN Madison (PCP updated in [facility]) B. Community care form was faxed to Dr Barrera to sign to CM can submit request to [place] 2. Rocephin x 2 week course (ends 11-29-20) A. Best plan: To provide w/ IP rehab stay B. OP clinic: Transportation would be difficult for pt who lives in [place]. Services not available at [facility]. C. Home infusion: Not a good plan, as pt likely not a good candidate due to hi s hx of drug use & limited in-home support Communicated with: Text/phone call updates; chart review Discharge Goal: Disposition: SNF - waiting for VA process Pharmacy changed to: To be determined once facility found Infection: No active infections Isolation: No active isolations PPE worn by staff: did not enter room PPE worn by patient: did not enter room Was in close contact with the patient (6 ft or less for 10 minutes or more)? No Giulia Burton RN * Plan of Care - Julien Mittal LPN - 11/23/2020 4:26 AM CDT Nursing End of Shift Summary Note Changes During This Shift: Procedures/Interventions: Continue with Ancef. Continue with potassium. Pt is on RA. Repeat BC is pendin g at this time. UA is pending. Will discharge with park in. PICC removed yes terday 11/22/20 prior to my shift. Family/Social Issues: Pt is possibly going to [facility]. Additional Updates/Changes: Daily EKG. Reduced methodone due to QTC. Potassium is 3.4. Hgb is 8.3. Code Status: The patient's current code status is Full Code, and has not changed within the p revious 24 hours. Significant Event: No Risk Assessment Scores: Liat: 19 Melo: 60 Current Status: Most recent assessment documentation: Neuro (WDL): Within Defined Limits Level of Consciousness: Alert Orientation Level: Oriented X4 Cognition: Follows commands Respiratory (WDL): Exceptions to WDL Respiratory Pattern: Regular, Unlabored Chest Assessment: Chest expansion symmetrical Bilateral Breath Sounds: Diminished SpO2: 91 % $ RT Oxygen Device: None (Room air)* Cardiac Cardiac (WDL): Within Defined Limits Cardiac Regularity: Regular Heart Sounds: S1, S2 Cardiac Rhythm: Normal sinus rhythm Gastrointestinal Gastrointestinal (WDL): Within Defined Limits Last BM Date: 11/12/20 Abdomen Inspection: Soft, Nondistended Bowel Sounds (All Quadrants): Active Tenderness: No guarding, Nontender Passing Flatus: Yes GI Symptoms: Other (Comment) (denies at this time) Gastrointestinal Additional Assessments: No Genitourinary Genitourinary (WDL): Exceptions to WDL Genitourinary Symptoms: Other (Comment) (bloody) Urinary Device: Yes Urinary Device Type: Urethral Catheter Most recent mobility documentation: Activity: Resting in Bed Julien Mittal LPN Problem: INFECTION PREVENTION Goal: Absence or improvement of infection during hospitalization Outcome: Progressing Problem: PAIN Goal: Verbalizes/displays adequate comfort level or baseline comfort level durin g hospitalization Outcome: Progressing Problem: SAFETY - FALL Goal: Absence from falls during hospitalization Outcome: Progressing Problem: DISCHARGE PLANNING Goal: Discharge to next level of care with appropriate resources Outcome: Progressing Problem: GENITOURINARY Goal: Urinary catheter remains patent; urinary tract remains free from infection during hospitalization Outcome: Progressing Problem: METABOLIC/FLUID AND ELECTROLYTES Goal: Electrolytes remain within normal limits during hospitalization Outcome: Progressing Problem: HEMATOLOGIC Goal: Maintains hematologic stability during hospitalization Outcome: Progressing Problem: GASTROINTESTINAL Goal: Maintains or returns to baseline bowel function prior to discharge Outcome: Progressing Goal: Maintains adequate nutritional intake during hospitalization Outcome: Progressing Problem: ANXIETY Goal: Will report anxiety at manageable levels Outcome: Progressing Problem: MUSCULOSKELETAL Goal: Return mobility to safest level of function prior to discharge Outcome: Progressing Goal: Return ADL status to a safe level of function prior to discharge Description: Outcome: Progressing Problem: SKIN/TISSUE INTEGRITY Goal: Skin integrity remains intact during hospitalization Outcome: Progressing Goal: Incision(s), wounds(s) or drain site(s) healing without S/S of infection d uring hospitalization Description: I Outcome: Progressing Goal: Oral mucous membranes remain intact during hospitalization Outcome: Progressing * Progress Notes - Viji Briscoe MD - 11/22/2020 7:25 PM CDT Images from the original note were not included. [address] [place] [id number] Infectious Disease Progress Note Patient Name: Mainor Blanca : 1950 Admission date: 11/15/2020 Visit Date: 11/22/2020 Chief Complaint: Gross hematuria MSSA bacteremia Interval History: Patient reports feeling well. PICC line has been removed. Remains afebrile. Review of Systems: Respiratory: No cough or dyspnea Cardiac: No chest pain or palpitations GI: No vomiting or diarrhea Past Medical and social history: Please refer to ID consult note from 11/16/2020 which I reviewed Antibiotics: IV cefazolin 2 g every 8 hours started on 11/21/2020 Physical Examination: Visit Vitals BP 119/80 (BP Location: Left arm, Patient Position: Sitting) Pulse 81 Temp 98.5 F (36.9 C) Resp 16 Ht 1.778 m (5' 10") Wt 76.7 kg (169 lb 1.6 oz) SpO2 96% BMI 24.26 kg/m Temp (24hrs), Av.6 F (37 C), Min:98.1 F (36.7 C), Max:99 F (37.2 C) General: Interactive. Not in acute distress HEENT: No icterus. Clear orophharynx. Neck: Supple. Lungs: Clear breath sounds heard. Cardiac: Regular rate and rhythm. No murmurs. Abdomen: Soft. Normal bowel sounds. Non-tender. : Park catheter present Extremities: No LE edema. Skin: No new rash. Vascular: Peripheral IV 11/22/20 Left Foot (0) Labs: Recent Labs 11/22/20 0700 11/21/20 0708 11/20/20 0735 WBC 5.6 6.4 8.7 HGB 8.3* 7.5* 8.3* HCT 27.1* 24.5* 27.0* MCV 98.5* 98.0* 99.6* MCH 30.2 30.0 30.6 MCHC 30.6* 30.6* 30.7* PLT 241 244 285 Recent Labs 11/22/20 0702 11/21/20 0708 11/20/20 0735 NA 137 139 140 K 3.4* 3.6 3.6 CO2 29 31 30 CL 101 105 107 BUN 17 16 20 CREATININE 1.12 1.01 1.06 ALT <9* 12 <9* AST 30 36 36 BILITOT 0.5 0.5 0.5 Serum creatinine: 1.12 mg/dL 11/22/20 0702 Estimated creatinine clearance: 65.2 mL/min Microbiology: 11/10/2020, blood cultures (outside hospital): MSSA 11/15/2020, blood cultures MSSA in 1 set 11/22/2020, blood cultures: Radiology: 11/21/2020, TAYLOR: No valvular vegetation noted 11/18/2020, CT abdomen and pelvis: Nonobstructing right renal calculus, right inte rnal ureteral stent Images reviewed Events: Assessment: This is a 70-year-old male with a history of BPH, nonobstructing right renal scot culus, history of ureteral stent placement transferred from outside facility for evaluation of MSSA bacteremia 1. MSSA bacteremia , possible urinary source 2. H/O kidney stone s/p ureteral stent placement 3. H/O methadone dependence Plan: -TAYLOR from yesterday remains negative. Repeat blood cultures done today, pending results. -Continue with IV cefazolin for now. Viji Briscoe MD Electronic Signature 11/22/2020 7:25 PM * Plan of Care - Mallory Singh LPN - 11/22/2020 3:45 PM CDT Nursing End of Shift Summary Note Changes During This Shift: Procedures/Interventions: Blood cultures done. Potassium 40 mg administered twice. Family/Social Issues: None. Additional Updates/Changes: L. Foot IV placed. Ancef administered Q8. Code Status: The patient's current code status is Full Code, and has not changed within the p revious 24 hours. Significant Event: No Risk Assessment Scores: Liat: 19 Melo: 60 Current Status: Most recent assessment documentation: Neuro (WDL): Within Defined Limits Level of Consciousness: Alert Orientation Level: Oriented X4 Cognition: Follows commands Respiratory (WDL): Within Defined Limits Respiratory Pattern: Regular, Unlabored Chest Assessment: Chest expansion symmetrical Bilateral Breath Sounds: Clear, Diminished SpO2: 96 % $ RT Oxygen Device: None (Room air)* Cardiac Cardiac (WDL): Within Defined Limits Cardiac Regularity: Regular Heart Sounds: S1, S2 Cardiac Rhythm: Normal sinus rhythm Gastrointestinal Gastrointestinal (WDL): Within Defined Limits Last BM Date: 11/12/20 Abdomen Inspection: Soft, Nondistended Bowel Sounds (All Quadrants): Active Tenderness: No guarding, Nontender Passing Flatus: Yes Gastrointestinal Additional Assessments: No Genitourinary Genitourinary (WDL): Exceptions to WDL Urinary Device: Yes Urinary Device Type: Urethral Catheter Most recent mobility documentation: Activity: Resting in Bed Mallory Singh LPN Problem: INFECTION PREVENTION Goal: Absence or improvement of infection during hospitalization Outcome: Progressing Problem: PAIN Goal: Verbalizes/displays adequate comfort level or baseline comfort level durin g hospitalization Outcome: Progressing Problem: SAFETY - FALL Goal: Absence from falls during hospitalization Outcome: Progressing Problem: DISCHARGE PLANNING Goal: Discharge to next level of care with appropriate resources Outcome: Progressing Problem: GENITOURINARY Goal: Urinary catheter remains patent; urinary tract remains free from infection during hospitalization Outcome: Progressing Problem: GASTROINTESTINAL Goal: Maintains adequate nutritional intake during hospitalization Outcome: Progressing * Progress Notes - Desirae Gatica MD - 11/22/2020 2:25 PM CDT Images from the original note were not included. [address] [id number] Hospitalist Progress Note 11/22/2020 Patient Name: Mainor Blanca : 1950 Primary Care Physician: Juan Trejo PA-C Admission Date: 11/15/2020 Loc: 625/625-A LOS: 7 days SUBJECTIVE: Patient resting in chair, no gross hematuria but has pink-tinged urine in Park bag, lungs clear to auscultation, has chronic right foot pain, ATYLOR negative for endocarditis, repeat blood cultures drawn from this morning at 11/22/2020 OBJECTIVE: Scheduled Medications: ceFAZolin 2,000 mg Intravenous Q8H methadone 155 mg Oral Daily At 1700 tamsulosin 0.4 mg Oral Bedtime Infusions: PRN Medications: dextrose OR glucagon OR glucagon OR dextrose OR dextrose, LORaze angela, prochlorperazine, sodium chloride Vital signs in last 24 hours: Temp: [98.1 F (36.7 C)-99 F (37.2 C)] 98.1 F (36.7 C) Heart Rate: [66-80] 74 Resp: [8-22] 16 BP: (108-142)/(65-80) 108/75 SpO2: [94 %-100 %] 96 % MAP (calculated): [81 mm Hg-97 mm Hg] 86 mm Hg I&O: 11/21 0701 - 11/22 0700 In: 771 [P.O.:580; I.V.:191] Out: 1900 [Urine:1900] Exam: Visit Vitals BP 108/75 (BP Location: Left arm, Patient Position: Sitting) Pulse 74 Temp 98.1 F (36.7 C) Resp 16 Ht 1.778 m (5' 10") Wt 76.7 kg (169 lb 1.6 oz) SpO2 96% BMI 24.26 kg/m Temp (24hrs), Av.6 F (37 C), Min:98.1 F (36.7 C), Max:99 F (37.2 C) General: Adult male, alert, cooperative, no resp distress, appears stated age Head: Normocephalic, atraumatic Eyes: EOM's intact Neck: No JVD, no bruits Lungs: Clear to auscultation bilaterally, respirations unlabored Chest Wall: No tenderness or deformity Heart: Regular rate and rhythm, no murmurs, rubs, or gallop Abdomen: Soft, non-tender, non-distended, bowel sounds present Ext: Trace edema in b/l ankles Vascular: Distal pulses intact Skin: Warm and dry Neuro: Non-focal Psych: Normal affect Labs / Imaging: All recent data have been reviewed. PROBLEM LIST: Principal Problem: Gross hematuria Active Problems: KOFI (acute kidney injury) ([facility]) BPH (benign prostatic hyperplasia) Hypernatremia Hypokalemia Elevated LFTs MSSA bacteremia Methadone dependence ([facility]) NSVT (nonsustained ventricular tachycardia) ([facility]) ASSESSMENT / PLAN: Gross hematuria Admitted to OSH with gross hematuria on 11/10. History of BPH and recent right u reteral stent placement. Urology consulted Park catheter was placed and started on CBI, overall hematuria is improving. suspected hematuria is related to traumatic catheterization, recommended keeping Park catheter in place, given clinical improvement, CBI is stopped, he will be discharged with Park catheter and will need outpatient follow-up MSSA bacteremia Urine and blood cultures collected on 11/10 grew MSSA. Source: renal/UTI possibl y?. Hx of recent right ureteral stent placement (2.5 wks ago per patient' report ). PICC line was placed in right upper extremity, and patient was started on cefazo dalia. However blood cultures from 11/15/2020 again were growing staph aureus and hence PICC line was removed Denies any having artificial joints, valves or implantable cardiac devices. TAYLOR negative for endocarditis CT abdomen/pelvis on 11/18 showed no obvious source of bacteremia. Repeat blood cultures from 11/22/2020 sent and are pending, he has to clear his ba cteremia before making definitive plans regarding duration of antibiotics, furth er recs per ID Hypernatremia Resolved KOFI Creatinine on initial labs was 2.19 in setting of gross hematuria with possible obstruction. Resolved Elevated LFTs No abdominal pain or tenderness at this time. LFTs trended down. NSVT Few runs of asymptomatic nonsustained V. tach on telemetry on 11/19. TSH 2.640. QTc is WNL on EKG. we will replete electrolytes aggressively Hypokalemia Monitor and replace as needed. BPH Chronic. Continue home medications. Atypical chest pain Patient reports that this was an abdominal pain radiating from his suprapubic ar ea in setting of gross hematuria. No specific EKG changes were mentioned (no EKG to review). Troponin x3 was negat josefina. Noncardiac, improved after Park catheter was inserted. Methadone dependence Reportedly due to history of drug abuse when he was young. EKG on 11/16 showed prolonged QTC. Discussed with Dr. Michelle Burns at psychiatry who prescribes and manages mandi coulter's methadone regimen, recommended decreasing total daily dose 25 mg till QTC< 500. Home dose of 160 mg daily was decreased to 155 mg daily on 11/16. Repeat EKG on 11/17 showed QTC <500. Continue to monitor daily EKG. Right foot pain Since reinjury at home while walking few days ago. Hx of right foot fracture. X-ray showed no fractures. PT/OT. DVT prophylaxis SCDs. Code Full code. Continued hospitalization is necessary due to bacteremia Disposition: rehab / SNF as per PT/OT recs Expected date of discharge: once cleared to discharge by ID Desirae Gatica MD Electronic Signature 11/22/2020 2:25 PM * Progress Notes - Sophia Nguyen RN - 11/22/2020 6:03 AM CDT Lab attempted to draw blood cultures. PICC line still in place. IV therapy unabl e to place peripheral IV at this time 0640- IV therapy placed peripheral in foot; removed PICC at this time * Plan of Care - Sophia Nguyen RN - 11/22/2020 3:20 AM CDT Nursing End of Shift Summary Note Changes During This Shift: Procedures/Interventions: No new procedures or interventions Family/Social Issues: N/A Additional Updates/Changes: Order to remove PICC when peripheral line in place Park in place- will DC home with it Antibiotics as ordered Code Status: The patient's current code status is Full Code, and has not changed within the p revious 24 hours. Significant Event: No Risk Assessment Scores: Liat: 19 Melo: 60 Current Status: Most recent assessment documentation: Neuro (WDL): Within Defined Limits Level of Consciousness: Alert Orientation Level: Oriented X4 Cognition: Follows commands Respiratory (WDL): Within Defined Limits Respiratory Pattern: Regular, Unlabored Chest Assessment: Chest expansion symmetrical Bilateral Breath Sounds: Clear, Diminished SpO2: 94 % $ RT Oxygen Device: None (Room air)* Cardiac Cardiac (WDL): Within Defined Limits Cardiac Regularity: Regular Heart Sounds: S1, S2 Cardiac Rhythm: Normal sinus rhythm Gastrointestinal Gastrointestinal (WDL): Within Defined Limits Abdomen Inspection: Soft, Nondistended Bowel Sounds (All Quadrants): Active Tenderness: No guarding, Nontender Passing Flatus: Yes Genitourinary Genitourinary (WDL): Exceptions to WDL Genitourinary Symptoms: Unable to assess Urinary Device: Yes Urinary Device Type: Urethral Catheter Most recent mobility documentation: Activity: Resting in Bed Sophia Nguyen RN Problem: INFECTION PREVENTION Goal: Absence or improvement of infection during hospitalization Outcome: Progressing Problem: PAIN Goal: Verbalizes/displays adequate comfort level or baseline comfort level durin g hospitalization Outcome: Progressing Problem: SAFETY - FALL Goal: Absence from falls during hospitalization Outcome: Progressing Problem: DISCHARGE PLANNING Goal: Discharge to next level of care with appropriate resources Outcome: Progressing Problem: GENITOURINARY Goal: Urinary catheter remains patent; urinary tract remains free from infection during hospitalization Outcome: Progressing Problem: METABOLIC/FLUID AND ELECTROLYTES Goal: Electrolytes remain within normal limits during hospitalization Outcome: Progressing Problem: ANXIETY Goal: Will report anxiety at manageable levels Outcome: Progressing Problem: MUSCULOSKELETAL Goal: Return mobility to safest level of function prior to discharge Outcome: Progressing Goal: Return ADL status to a safe level of function prior to discharge Description: Outcome: Progressing Problem: SKIN/TISSUE INTEGRITY Goal: Skin integrity remains intact during hospitalization Outcome: Progressing Goal: Incision(s), wounds(s) or drain site(s) healing without S/S of infection d uring hospitalization Description: I Outcome: Progressing Goal: Oral mucous membranes remain intact during hospitalization Outcome: Progressing Problem: HEMATOLOGIC Goal: Maintains hematologic stability during hospitalization Outcome: Progressing Problem: GASTROINTESTINAL Goal: Maintains or returns to baseline bowel function prior to discharge Outcome: Progressing Goal: Maintains adequate nutritional intake during hospitalization Outcome: Progressing Problem: Decreased Ability to Complete ADLs Goal: Maximize independence in ADLs prior to discharge Outcome: Progressing Problem: Functional Mobility Goal: Maximize mobility to the highest level of function prior to discharge Outcome: Progressing * Plan of Care - Mallory Singh LPN - 11/21/2020 5:26 PM CDT Nursing End of Shift Summary Note Changes During This Shift: Procedures/Interventions: TAYLOR today. Order to remove PICC (not removed yet) Family/Social Issues: Family at bedside today. Additional Updates/Changes: Regular diet. Urinating normal. Started ancef Q8. Code Status: The patient's current code status is Full Code, and has not changed within the p revious 24 hours. Significant Event: No Risk Assessment Scores: Liat: 19 Melo: 60 Current Status: Most recent assessment documentation: Neuro (WDL): Within Defined Limits Level of Consciousness: Alert Orientation Level: Oriented X4 Cognition: Follows commands Respiratory (WDL): Within Defined Limits Respiratory Pattern: Regular, Unlabored Chest Assessment: Chest expansion symmetrical Bilateral Breath Sounds: Clear, Diminished SpO2: 98 % $ RT Oxygen Device: None (Room air)* Cardiac Cardiac (WDL): Within Defined Limits Cardiac Regularity: Regular Heart Sounds: S1, S2 Cardiac Rhythm: Normal sinus rhythm Gastrointestinal Gastrointestinal (WDL): Within Defined Limits Abdomen Inspection: Soft, Nondistended Bowel Sounds (All Quadrants): Active Tenderness: No guarding, Nontender Passing Flatus: Yes Gastrointestinal Additional Assessments: No Genitourinary Genitourinary (WDL): Exceptions to WDL Urinary Device: Yes Urinary Device Type: Urethral Catheter Most recent mobility documentation: Activity: Resting in Bed Level of Assistance: 1:1 Assistive Device: Front wheel walker, Gait Belt Mallory Singh LPN Problem: INFECTION PREVENTION Goal: Absence or improvement of infection during hospitalization Outcome: Progressing Problem: PAIN Goal: Verbalizes/displays adequate comfort level or baseline comfort level durin g hospitalization Outcome: Progressing Problem: SAFETY - FALL Goal: Absence from falls during hospitalization Outcome: Progressing Problem: DISCHARGE PLANNING Goal: Discharge to next level of care with appropriate resources Outcome: Progressing Problem: GENITOURINARY Goal: Urinary catheter remains patent; urinary tract remains free from infection during hospitalization Outcome: Progressing Problem: GASTROINTESTINAL Goal: Maintains adequate nutritional intake during hospitalization Outcome: Progressing * Progress Notes - Desirae Gatica MD - 11/21/2020 5:07 PM CDT Images from the original note were not included. [address] [address] Hospitalist Progress Note 11/21/2020 Patient Name: Mainor Blanca : 1950 Primary Care Physician: Juan Trejo PA-C Admission Date: 11/15/2020 Loc: 625/625-A LOS: 6 days SUBJECTIVE: Patient resting in chair, no gross hematuria but has pink-tinged urine in Park bag, lungs clear to auscultation, has chronic right foot pain, discussed with rubia liu that his blood cultures grew staph aureus, currently awaitingTEE OBJECTIVE: Repeat blood cultures during her hospitalization growing staph aureus Scheduled Medications: ceFAZolin 2,000 mg Intravenous Q8H methadone 155 mg Oral Daily At 1700 tamsulosin 0.4 mg Oral Bedtime Infusions: PRN Medications: dextrose OR glucagon OR glucagon OR dextrose OR dextrose, LORaze angela, prochlorperazine, sodium chloride Vital signs in last 24 hours: Temp: [98.4 F (36.9 C)-99.4 F (37.4 C)] 98.4 F (36.9 C) Heart Rate: [66-80] 78 Resp: [8-22] 16 BP: (109-142)/(67-81) 120/75 SpO2: [96 %-100 %] 98 % MAP (calculated): [81 mm Hg-99 mm Hg] 90 mm Hg I&O: 11/20 0701 - 11/21 0700 In: 950 [P.O.:900; I.V.:50] Out: 7225 [Urine:7225] Exam: Visit Vitals BP 120/75 (BP Location: Left arm, Patient Position: Supine) Pulse 78 Temp 98.4 F (36.9 C) Resp 16 Ht 1.778 m (5' 10") Wt 77.2 kg (170 lb 3.2 oz) SpO2 98% BMI 24.42 kg/m Temp (24hrs), Av F (37.2 C), Min:98.4 F (36.9 C), Max:99.4 F (37.4 C) General: Adult male, alert, cooperative, no resp distress, appears stated age Head: Normocephalic, atraumatic Eyes: EOM's intact Neck: No JVD, no bruits Lungs: Clear to auscultation bilaterally, respirations unlabored Chest Wall: No tenderness or deformity Heart: Regular rate and rhythm, no murmurs, rubs, or gallop Abdomen: Soft, non-tender, non-distended, bowel sounds present Ext: Trace edema in b/l ankles Vascular: Distal pulses intact Skin: Warm and dry Neuro: Non-focal Psych: Normal affect Labs / Imaging: All recent data have been reviewed. PROBLEM LIST: Principal Problem: Gross hematuria Active Problems: KOFI (acute kidney injury) ([facility]) BPH (benign prostatic hyperplasia) Hypernatremia Hypokalemia Elevated LFTs MSSA bacteremia Methadone dependence ([facility]) NSVT (nonsustained ventricular tachycardia) ([facility]) ASSESSMENT / PLAN: Gross hematuria Admitted to OSH with gross hematuria on 11/10. History of BPH and recent right u reteral stent placement. Park catheter was placed and started on CBI, overall hematuria is improving. Urology was consulted, suspected hematuria is related to traumatic catheterizati on, recommended keeping Park catheter in place, given clinical improvement, CBI is stopped, he will be discharged with Park catheter and will need outpatient follow-up MSSA bacteremia Urine and blood cultures collected on 11/10 grew MSSA. Source: renal/UTI possibl y. Hx of recent right ureteral stent placement (2.5 wks ago per patient' report) . PICC line was placed in right upper extremity, and patient was started on cefazo dalia. Denies any having artificial joints, valves or implantable cardiac devices. Repeat blood cultures on 11/15 were obtained, and they grew staph aureus again ID recommending to remove PICC line, ordered for TAYLOR today on 11/21/2020, CT abdomen/pelvis on 11/18 showed no obvious source of bacteremia. Will have repeat blood cultures from tomorrow Hypernatremia Resolved KOFI Creatinine on initial labs was 2.19 in setting of gross hematuria with possible obstruction. Resolved Elevated LFTs No abdominal pain or tenderness at this time. LFTs trended down. NSVT Few runs of asymptomatic nonsustained V. tach on telemetry on 11/19. TSH 2.640. QTc is WNL on EKG. we will replete electrolytes aggressively Hypokalemia Monitor and replace as needed. BPH Chronic. Continue home medications. Atypical chest pain Patient reports that this was an abdominal pain radiating from his suprapubic ar ea in setting of gross hematuria. No specific EKG changes were mentioned (no EKG to review). Troponin x3 was negat josefina. Noncardiac, improved after Park catheter was inserted. Methadone dependence Reportedly due to history of drug abuse when he was young. EKG on 11/16 showed prolonged QTC. Discussed with Dr. Michelle Burns at psychiatry who prescribes and manages mandi coulter's methadone regimen, recommended decreasing total daily dose 25 mg till QTC< 500. Home dose of 160 mg daily was decreased to 155 mg daily on 11/16. Repeat EKG on 11/17 showed QTC <500. Continue to monitor daily EKG. Right foot pain Since reinjury at home while walking few days ago. Hx of right foot fracture. X-ray showed no fractures. PT/OT. DVT prophylaxis SCDs. Code Full code. Continued hospitalization is necessary due to bacteremia Disposition: rehab / SNF as per PT/OT recs Expected date of discharge: once cleared to discharge by ID Desirae Gatica MD Electronic Signature 11/21/2020 5:07 PM * Procedures - Jeff Guzmán MD - 11/21/2020 4:50 PM CDT Images from the original note were not included. [address] [address] TRANSESOPHAGEAL ECHOCARDIOGRAM 11/21/2020 Patient Name: Mainor Blanca : 1950 Primary Care Provider: Juan Trejo PA-C Indication: Staph bacteremia Procedure Risk TAYLOR: Risks include but not limited to esophageal or stomach tear , bleeding, infection, loss of teeth, respiratory distress, or related to anesthesia. All questions answered to the patient's satisfaction. The patient v erbalizes understanding and wishes to proceed. TAYLOR Findings: No evidence of valvular vegetations on this exam. LV is normal in size and systolic function. Est. EF of 65%. Sedation: Versed: 0 mg Propofol: 170 mg Fentanyl: 0 mcg Complications: None Sedation time of 12 minutes. Estimated Blood Loss: None Jeff Guzmán MD Electronic Signature 11/21/2020 4:50 PM * Procedures - Jeff Guzmán MD - 11/21/2020 3:26 PM CDT [address] [address] Physician Pre-Sedation Record Moderate/Deep Sedation Record Patient Name: Mainor Blanca : 1950 Referring Physician: Juan Trejo PA-C Admission Date: 11/15/2020 Procedure: TAYLOR Plan for sedation: Moderate The patient was informed of the risks and alternatives of this type of procedure and sedation. The H&P in the patient record is reviewed for co-morbid conditions and appropriate lab. Reviewed Medication Reconciliation Form/MAR: Yes ASA Rating: III ASA Classification Medical Description of Patient Comments ASA I No known Disease May have moderate sedation ASA II Mild or well controlled systemic disease Without other consultation ASA III Multiple or moderate controlled systemic disease(s)* Consider anesthesia consultation ASA IV Poorly controlled systemic diseases Consider anesthesia involvement ASA V Moribund patient Consider anesthesia involvement E Connotes Emergency Consider anesthesia involvement *A patient with moderate to severe systemic disease that results in some functi onal limitation Severe systemic disease that is a constant threat to life and functionally in capacitating Patient airway assessment was performed (eg. airway patency, oral function limit ations, presence of caps, crowns, dentures, partials and the ability to flex nec k). Mallampati Airway Classification: Class II: Visualization of the soft palate, fauces and uvula. *Class III and IV are very difficult to intubate. Immediate pre-sedation physical assessment has been completed. Jeff Guzmán MD Electronic Signature 11/21/2020 3:27 PM * Progress Notes - Naseem العلي MD - 11/21/2020 12:59 PM CDT Images from the original note were not included. [address] [address] Infectious Diseases Progress Note 11/21/2020 Patient Name: Mainor Blanca : 1950 Admission Date: 11/15/2020 Date: 11/21/2020 Referring Physician: Desirae Gatica MD Chief Complaint: MSSA bacteremia Interval history: Pt doing fine presently. He does not have any complaints. Disc ussed with Pt that his repeat BCx were again positive and that he would need his PICC line removed and a TAYLOR. Pt with Tmax of 99.4 in the last 24 hours. No othe r complaints. Review of Systems: Respiratory: No cough or dyspnea Cardiac: No chest pain or palpitations GI: No vomiting or diarrhea Past Medical and Social history- Has been reviewed Please refer to my consult note from 11/16/20 Allergies: No Known Allergies Antibiotics: Ancef- 11/15/20- 11/18/20, restarted 11/21/20 Discontinued: Ceftriaxone- 11/19/20- 11/20/20 Current Medications: ceFAZolin 2,000 mg Intravenous Q8H methadone 155 mg Oral Daily At 1700 tamsulosin 0.4 mg Oral Bedtime Physical Examination: Temp: [98.3 F (36.8 C)-99.4 F (37.4 C)] 99.4 F (37.4 C) Heart Rate: [67-73] 67 Resp: [16-18] 18 BP: (123-135)/(67-81) 130/67 SpO2: [94 %-97 %] 97 % MAP (calculated): [88 mm Hg-99 mm Hg] 88 mm Hg Body mass index is 24.42 kg/m. Binford body weight: 73 kg (160 lb 15 oz) Adjusted ideal body weight: 74.7 kg (164 lb 10.3 oz) Weight: 77.2 kg (170 lb 3.2 oz) General: Comfortable. Not in acute distress. Siting in chair HEENT: PERRLA, MMM Neck: Supple. Lungs: CTAB. Cardiac: Regular rate and rhythm. No murmurs. Abdomen: Soft. Positive bowel sounds. Non-tender.Non-distended Genitourinary: + urinary catheter. Vascular:PP+, No LE edema. . Neurologic: CN intact. No focal neurologic deficit. Psychiatric: Oriented, Appropriate affect Vascular access: RUE PICC line Lab Results: Recent Labs 11/21/20 0708 11/20/20 0735 11/19/20 0349 WBC 6.4 8.7 10.8* HGB 7.5* 8.3* 8.5* HCT 24.5* 27.0* 27.5* MCV 98.0* 99.6* 99.3* MCH 30.0 30.6 30.7 MCHC 30.6* 30.7* 30.9* PLT 244 285 334 Recent Labs 11/21/20 0708 11/20/20 0735 11/19/20 1543 11/19/20 0349 11/19/20 0349 NA 139 140 -- -- 144 K 3.6 3.6 3.3* < > 3.2* CO2 31 30 -- -- 31 CL 105 107 -- -- 112* BUN 16 20 -- -- 24* ALT 12 <9* -- -- 11 AST 36 36 -- -- 46* < > = values in this interval not displayed. Serum creatinine: 1.01 mg/dL 11/21/20 0708 Estimated creatinine clearance: 72.3 mL/min OSH- Procalcitonin- 15 Ref. Range 11/15/2020 19:31 11/16/2020 10:12 Procalcitonin Latest Ref Range: <=0.09 ng/ml 3.27 (H) 2.54 (H) Ref. Range 11/17/2020 08:39 CRP Latest Ref Range: <=0.9 mg/dL 1.8 (H) Microbiology: OSH- 11/10/20- BCx- 2/2- MSSA 11/13/20- BCx- GPCs UCx- MSSA 11/15/20- BCx- 1/2- Staphylococcus aureus by PCR Radiology: OSH- CT Angio Chest- No infiltrates. Pulmonary nodule seen. No pulmonary emboli 11/15/20- CXR-IMPRESSION: Right arm PICC in expected location. 11/18/20- CT A/P- IMPRESSION: 1. Nonobstructing lower pole right renal calculus. 2. Right internal ureteral stent. 3. Otherwise negative CT abdomen and pelvis. Images reviewed ASSESSMENT: The patient is a 70 y.o. male with PMH of BPH, ureteral stent placement, nephrol ithiasis, methadone dependence/ transferred from [place] for MSSA bacteremia. Sepsis MSSA bacteremia- persistent Recent history of Rt ureteral stent placement Hematuria KOFI PLAN: -Unknown source of MSSA bacteremia. No obvious skin source identified -CT A/P without any obvious source. Previously thought to possibly be secondary to self catheterization. -However, now repeat Bcx are positive, 1 of 2 sets, positive on day 3 -Pt had previously declined to have PICC line removed, have spoken with Pt, he u nderstands the importance of having line removed. Will discontinue immediately. ( PICC line placed at OSH) -Also, have ordered a TAYLOR , to r/o endocarditis -Discontinued ceftriaxone, restarted Ancef -Repeat BCx x 2 after removing PICC line -ID will continue to follow Naseem العلي MD Electronic Signature 11/21/2020 12:59 PM Sharif Lin Infectious Diseases Pager: [phone] Clinic Phone: [phone]. Fax: [phone]. * Plan of Care - Monique Blake RN - 11/21/2020 12:17 PM CDT PICC free of s/s of infection including redness, drainage, pain * Progress Notes - Hien Spangler RD LD - 11/21/2020 11:16 AM CDT [address] [address] Patient Name: Mainor Blanca : 1950 Primary Care Physician: Juan Trejo PA-C Admission Date: 11/15/2020 RM/BED: 625/625-A Length of Stay: LOS: 6 days Nutrition Assessment Chief Complaint: No chief complaint on file. REASON FOR ASSESSMENT: Follow-up NUTRITION INTERVENTIONS Nutrition Prescription: Est Kcal needs: 6635-2963 Kcal (25-30 kcal/kg Actual BW) REE/EEE Calculator Est protein needs: 76-91 g (1-1.2 g/kg Actual BW) Est fluid needs: 2336 mL (1500 ml 1st 20 kg + 15 ml/kg remainder body weight ( > 50 yo) Actual BW) Intervention: Meals and Snacks Encourage good po intake as tolerated once diet resumes. May offer diet appropr iate snacks/supplements prn once diet resumes. Goals: Pt will consume > 65% of meals (to include protein source) on average once diet resumes. Intervention: Nutrition-related medication management Pt has not had a BM since admission (11/15) per I/O records. Pt may benefit from a bowel regimen. Goals: Constipation to resolve by follow up. NUTRITION DIAGNOSIS Nutrition Problem: Improvement shown/unresolved Nutrition Diagnosis (problem): Inadequate oral intake Related to (etiology): decreased appetite As Evidenced by (signs/symptoms): no new meal intake recorded, however liat nutrition score = 3, indicating adequtae po intake Nutrition Problem: No improvement/unresolved Nutrition Diagnosis (problem): Altered GI function Related to (etiology): constipation As Evidenced by (signs/symptoms): pt has not had a BM since admission (11/15) p er I/O records ASSESSMENT Mainor Blanca is a 70 y.o. male admitted with Gross hematuria. Pt has been NPO since midnight. Pt previously on a regular diet; no new meal intake recorded s cassius last RD note (11/19), however do note that pt is consuming a significant amou nt of popsicles per I/O records. Also liat nutrition score has been a 3, jamila cating adequate po intake; suspect meals are lacking documentation. Corrected C a++ 2' depleted albumin = 8.54mg/dL (WNL). Wt has ranged from 160-174 lb via be d scale since admission. Nutrition History: Pt with decreased po intake for> 5 days and unintentional wt loss per nursing nutrition screen. Pt with abdominal pain area captain. Note pt tried taking PO meds last night and began to cough and became tearful and did not take remaining meds per nursing note. No wt hx available to assess. Pt appears a bit dry per review of labs; dx KOFI noted. Anthropometrics: Height: 1.778 m (5' 10") Most recent weight: Weight: 77.2 kg (170 lb 3.2 oz) (11/21/20418) Weight Method: Bed scale (11/21/20418) Utilized 11/18 bed scale wt of 166 lb (75.7 kg) in calculations. IBW: 75.5 kg 100% IBW Adj BW: --- Body mass index is 23.95 kg/m. Active Medical Diagnoses this Hospitalization: Principal Problem: Gross hematuria Active Problems: KOFI (acute kidney injury) ([facility]) BPH (benign prostatic hyperplasia) Hypernatremia Hypokalemia Elevated LFTs MSSA bacteremia Methadone dependence ([facility]) NSVT (nonsustained ventricular tachycardia) ([facility]) He has no past medical history on file. He has no past surgical history on file. No Known Allergies Current diet order: NPO Oral intake: Last documented- % of meal eaten: 60 % Current EN: - GRV: - Current PN: - Nutrition screen: Home Tube feeding/PN : No Poor appetite > 5 days : Yes Unintentional weight loss : Yes Nutrition screen score : 10 Liat Scale Score: 19 Nutrition: Adequate Skin: redness to lower back and coccyx; blister R foot; bruising L arm; 1+ RLE e matt noted per RN shift assessment Labs: Recent Labs Lab 11/21/20 0708 11/20/20 0735 11/19/20 1543 11/19/20 0349 11/18/20 0831 11/18/20 0831 NA 139 140 -- 144 -- 148* K 3.6 3.6 3.3* 3.2* < > 3.6 CL 105 107 -- 112* -- 112* BUN 16 20 -- 24* -- 27* CREATININE 1.01 1.06 -- 1.20 -- 1.16 GLU 77 100 -- 157* -- 108* CALCIUM 7.5* 7.9* -- 8.1* -- 8.2* CO2 31 30 -- 31 -- 33 HGB 7.5* 8.3* -- 8.5* -- 7.6* HCT 24.5* 27.0* -- 27.5* -- 25.4* WBC 6.4 8.7 -- 10.8* -- 10.8* NEUTOPHILPCT 78.3* 83.2* -- 86.9* -- 87.6* ALB 2.7* 2.7* -- 3.0* -- 2.9* < > = values in this interval not displayed. Recent Labs Lab 11/19/20 0349 11/17/20 1926 11/16/20 2202 11/16/20 1012 PHOS 2.4* 1.9* -- -- MG 1.7 1.6 1.9 1.6 No results for input(s): TRIG, LIPASE, AMYLASE in the last 168 hours. No results found for: AMMONIA, HGBA1C Current Medications: Scheduled Meds: ceFAZolin 2,000 mg Intravenous Q8H methadone 155 mg Oral Daily At 1700 tamsulosin 0.4 mg Oral Bedtime Continuous Infusions: none [employer] Medications: Prior to Admission medications Medication Sig Start Date End Date Taking? Authorizing Provider hyoscyamine (LEVSIN/SL) 0.[address] 0.125 mg under the tongue every 4 (four) hours as needed for Cramping. Yes Outreach, Physician meloxicam (MOBIC) 7.5 MG tablet Take 15 mg by mouth daily. Yes Outreach, Physi nigel methadone (DOLOPHINE) 10 MG tablet Take 160 mg by mouth Daily At 5 pm. May cause QT prolongation and Torsades de pointes Yes Outreach, Physician naloxone (NARCAN) 4 MG/0.1ML nasal spray Place 1 spray nasally as needed for Opi oid Reversal. Yes Outreach, Physician ondansetron (ZOFRAN-ODT) 4 MG disintegrating tablet Take 4 mg by mouth every 6 ( six) hours as needed for Nausea. Yes Outreach, Physician tamsulosin (FLOMAX) 0.4 MG CAPS Take 0.4 mg by mouth at bedtime. Yes Outreach, Physician Vitals: SpO2: 97 % Oxygen Device: None (Room air)* Temp (24hrs), Av.9 F (37.2 C), Min:98.3 F (36.8 C), Max:99.4 F (37 .4 C) Intake/Output Summary (Last 24 hours) at 11/21/2020 1116 Last data filed at 11/21/2020 1059 Gross per 24 hour Intake 780 ml Output 6400 ml Net -5620 ml Fluid balance since admit: - 12,433.9 mL Last BM: None since admission per I/O records MONITORING AND EVALUATION food and beverage intake weight constipation Reassess according to Level of Care: within 4-6 days (Moderate). RD sadia avai lable prn. SHEN Kohli Electronic Signature 11/21/2020 11:16 AM * Progress Notes - Kindra Longoria COTA - 11/21/2020 9:13 AM CDT [address] [address] Occupational Therapy Patient Name: Mainor Blanca : 1950 Billing Number: [id number] Physician: Desirae Gatica MD Admission Dx: Gross hematuria [R31.0] Admit Date: 11/15/2020 Principal Problem: Gross hematuria Today's Date: 11/21/2020 Occupational Therapy Progress Note Precautions: fall risk Medical Equipment: urinary catheter Subjective: Nursing gives permission to treat. Patient gives permission to treat . Pain rating: Pt reported pain on anterior R foot from blisters, did not formall y rate Patient stated goal: to get better and to go home Pt reported that his sister wants him to go live with her. Objective: Patient receiving skilled Occupational Therapy treatment for Self-Ca re Management Training, functional transfer training, coordination activities, e ndurance activities and safety training. Mainor is alert. He was supine in bed when therapist arrived. Functional Transfer Instruction: Supine to sit: modified independently and no cues required for task and HOB elev ated Scooting: to EOB modified independently and no cues required for task Sit to stand: From EOB requiring minimal assist of 1 staff and verbal cues and m anual assistance for task and safety Stand to sit: To EOB requiring minimal assist of 1 staff and verbal cues for tas k and safety See CPTA note for further details Self-Care Management Training: Lower body dressing: While sitting at edge of the bed patient donned pants over feet and R sock requiring stand by assist (SBA) with use of no DME requiring no cues required for task and extra time, however then required minimal assistance with standing balance at EOB. Pt had LOB at EOB and required manual assistance t o recover and required verbal cues for safety. Endurance: limited: reports fatigue and needs frequent rest breaks Therapeutic Exercises: Active range of motion: seated in recliner for bilateral upper extremities shoul karina flexion, shoulder extension, shoulder horizontal abduction, shoulder horizon nathan adduction, scapular protraction, scapular retraction, elbow flexion and elbo w extension x 10 repetitions. Neuromuscular Re-Education: Not in plan of care at this time Testing Completed: Not in plan of care at this time Education Provided: Fall prevention strategies Role of Occupational Therapy and OT Plan of Care Additional Comments: returned patient to chair call light placed in reach pad alarm activated Assessment / Recommendations: Patient presents with decreased strength, decreased safety, decreased ability to perform self-cares, decreased ability to perform functional transfers, decrease d endurance, decreased mobility, balance impairment, limitations due to pain and increased risk for falls. ST, 3 and 6 addressed Short-term Goals: (Time frame= Length of stay) 1.Pt will stand at sink for all grooming tasks modified independent and good saf ety 2.Pt will complete UE/LE dressing modified independent with use of adaptive equi pment as needed addressed LE 11/21 3.Pt will complete toilet transfer modified independent with good safety address ed with bed mobility 11/21 4.Pt will complete toileting modified independent 5.Pt will be SBA for shower transfer with good safety 6.Pt will tolerate BUE graded exercise to increase strength and endurance for AD Ls addressed 11/21 7.Pt will increase AM-PAC Daily Living score to at least 23 out of 24 or no more than 0% impairment to increase patient's self care skills Occupational Therapy Discharge Recommendations: Plan: Discharge to Inpatient Rehabilitation or Senior Living Facility or Swing bed Reasons for Rehab: Fall risk/balance deficits, Physical assist is needed for saf ety and Lack of adequate support at home Activity Tolerance: Patient would likely tolerate 3 hours of therapy Projected Equipment for discharge: Will continue to assess. Patient will have support person available post discharge? Unknown however pt r eported today (11/21) that his sister wants him to live with her. Plan: Continue plan of care. Time in/out: Charge: 1 self-care management training 1 non-billable: co-tx with CPTHumberto Infection: No active infections Isolation: No active isolations PPE worn by staff: surgical mask, gloves and face shield PPE worn by patient: no PPE worn MELISSA Anderson Date: 11/21/2020 * Progress Notes - Frandy Valadez CPTA - 11/21/2020 9:12 AM CDT [place] [id number] Physical Therapy Patient Name: Mainor Blanca : 1950 Billing Number: [id number] Physician: Desirae Gatica MD Admission Dx: Gross hematuria [R31.0] Admit Date: 11/15/2020 Principal Problem: Gross hematuria Today's Date: 11/21/2020 Physical Therapy Treatment Note S: Nursing gives permission to treat. Patient gives permission to treat. Mr. Hellen strickland reported that his right foot is stiff and sore and rated his pain at 3/10. Patient stated that he would like to get stronger and then his sister said he co uld come live with her in [facility]. O: Precautions: fall risk, currently NPO in prep for a possible procedure Medical Equipment: urinary catheter Mental Status: alert and slightly anxious Pain Ratin/10 mild pain for right foot pain Endurance: limited: needs frequent rest breaks Weight Bearing Status: no restrictions Bed Mobility/Transfers: Supine to sit: requiring stand by assist (SBA) and verbal cues and extra time f or task and safety Sit to stand: From bed requiring minimal assist of 1 staff and verbal cues for t ask, safety and sequencing Stand to sit: To recliner requiring stand by assist (SBA) and verbal cues and ex tra time for task, safety, sequencing and correct hand placement Gait: Distance: 50' Device: front-wheeled walker Assist: minimal assist of 1 staff Gait deviations: decreased heel to toe, forward trunk lean, narrow base of suppo rt, decreased margarita and decreased step length Stairs: not tested decreased activity tolerance Exercise/ROM: bilateral ankle pumps, heel slides and long arc quads. Patient re ceived stretching of the bilateral hamstrings in sitting and gastroc/soleus on t he right. Standardized Testing: AM-PAC Basic Mobility Inpatient Short Form How much difficulty does the patient have ... 1. Turning over in bed (including adjusting bedclothes, sheets, and blankets)? 3 A little 2. Sitting down on and standing up from a chair with arms (wheelchair, bedside c ommode, etc.)? 3 A little 3. Moving from lying on back to sitting on the side of the bed? 3 A little How much help from another person does the patient currently need .... 1. Moving to and from a bed to a chair (including wheelchair)? 3 A little 2. Need to walk in hospital room? 3 A little 3. Climbing 3-5 steps with a railing? 1 Total Total Score: 16 / 24 (54.16% impaired) Improved from 14/24 on evaluation Patient left with call light placed within reach, pad alarm activated and patie nt up in the recliner post treatment A: Mr. Blanca presented resting in bed with lights out, blinds closed and watch ing TV upon entering room. Patient was very pleasant and cooperative and put for th great effort. Patient was hesitant to place weight through the right foot due to anticipation of pain. Patient was unsteady with gait due to pain and is a fa ll risk. Patient needed verbal cues to move the walker away from body to keep pa tient from losing his balance backwards. P: Continue plan of care. Goals: By the end of the patient's stay 1. Bed Transfer Goal: Patient will complete a bed transfer (from flat bed with out rails) with independenceto progress toward independent bed transfers. Addr essed 11/21 2. Sit to stand Goal: Patient will complete sit to stand transfer with independ ence with front-wheeled walker to progress toward independent transfers. Address ed 11/21 3. Gait Goal: Patient will complete gait withindependenceon level surfaces w ith front-wheeled walkerfor 150feet to progress toward independent gait. Addre ssed 11/21 4. Stair Goal: Patient will be able to negotiate1+1stairs with 0handrails with step togait pattern, front wheeled walker, and with modified independence . 5. Balance Goal: Patient will perform 3 minutes of static and dynamic standing balance activities with 0-1 upper extremity support with good balance to improve independence with transfers and gait Test Goal: Patient will improve score onAMPACto at least 18/24to demonstra te minimal detectable change in functional mobility safety and independence. Add ressed 11/21 Physical Therapy Discharge Recommendations: Plan: Discharge to Inpatient Rehabilitation or Senior Living Facility or [facility] Reasons for Rehab: Fall risk/balance deficits, Physical assist is needed for sa fety and Lack of adequate support at home Activity Tolerance: Patient would likely tolerate 3 hours of therapy Transportation: Patient safe to transport by wheelchair. Projected Equipment for discharge: front wheeled walker Today's charge: Gait training 1 unit(s) Non-billable co-tx with TORRES 1 units(s) Time spent with patient: [id number] Infection: No active infections Isolation: No active isolations PPE worn by staff: surgical mask, gloves and face shield PPE worn by patient: no PPE worn AMBERLY Early 11/21/2020 9:12 AM * Progress Notes - Jasmyne Samson RN - 11/21/2020 7:09 AM CDT Leadership round completed at this time. * Plan of Care - Lissett Rose RN - 11/21/2020 5:07 AM CDT Nursing End of Shift Summary Note Changes During This Shift: Procedures/Interventions: Medications per schedule NPO 00 Family/Social Issues: See notes Additional Updates/Changes: ID to consult again due to repeat BC growing staph. May be problem with PICC> pt. Refused removal 11/20 due to difficult IV access Code Status: The patient's current code status is Full Code, and has not changed within the p revious 24 hours. Significant Event: No Risk Assessment Scores: Liat: 19 Melo: 60 Current Status: Most recent assessment documentation: Neuro (WDL): Within Defined Limits Level of Consciousness: Alert Orientation Level: Oriented X4 Cognition: Follows commands Respiratory (WDL): Within Defined Limits Respiratory Pattern: Regular, Unlabored Chest Assessment: Chest expansion symmetrical Bilateral Breath Sounds: Clear, Diminished SpO2: 96 % $ RT Oxygen Device: None (Room air)* Cardiac Cardiac (WDL): Within Defined Limits Cardiac Regularity: Regular Heart Sounds: S1, S2 Cardiac Rhythm: Normal sinus rhythm Gastrointestinal Gastrointestinal (WDL): Within Defined Limits Abdomen Inspection: Soft, Nondistended Bowel Sounds (All Quadrants): Active Tenderness: Soft Passing Flatus: Yes Genitourinary Genitourinary (WDL): Exceptions to WDL Urinary Device: Yes Urinary Device Type: Urethral Catheter Most recent mobility documentation: Activity: Resting in Bed Lissett Rose RN * Progress Notes - Ashley Haile MD - 11/20/2020 7:10 PM CDT Images from the original note were not included. [address] [id number] Hospitalist Progress Note 11/20/2020 Patient Name: Mainor Blanca : 1950 Primary Care Physician: Juan Trejo PA-C Admission Date: 11/15/2020 Loc: 625/625-A LOS: 5 days Sign Out for Oncoming Hospitalist 1. Reason for admission: bacteremia, hematuria. 2. Hospital course and complications: admitted from another facility for hematur ia and staph bacteremia. ID and urology were consulted. For hematuria, park was placed and was on CBI. Hematuria improved and stopping CBI today. MSSA bacterem ia source is unclear but could be urinary. PICC line was placed at [facility] while bact eremic, patient refused removal of PICC due to difficult peripheral IV access. R epeat blood cultures were negative but today one set grew GPC again with staph o n PCR but no final identification. ID was planning on discharging on Rocephin. H owever, since 1 out of 2 bottles are growing GPC with PCR positive for staph, mi ght need to remove PICC line. ID needs to see the patient and determine wether f urther work up is needed (Echo or TAYLOR). I will make patient NPO. 3. Reason(s) patient is still hospitalized: bacteremia, might need further bacte remia work up. 4. Pertinent follow up labs, studies, other: Repeat blood cultures, ID recs, 5. Discharge Plans (when and where): rehab but needs to be cleared by ID first. 6. Discharge barriers (no insurance, drug costs, social issues, etc): none at th is time. 7. Communication: Patient is alert, oriented, and has not had a significant ch greg in clinical course to warrant recent communication with family. They have u pdated family themselves. Patient aware we are available to answer family's ques tions at any time. SUBJECTIVE: No acute events overnight. Denies any chest pain or palpitation. No abdominal pain, nausea or vomiting. No reported new focal neurological deficits. Remains on CBI, urine is clearing, currently light pink in color. OBJECTIVE: Scheduled Medications: cefTRIAXone 2,000 mg Intravenous Q24H methadone 155 mg Oral Daily At 1700 tamsulosin 0.4 mg Oral Bedtime Infusions: PRN Medications: dextrose OR glucagon OR glucagon OR dextrose OR dextrose, LORaze angela, prochlorperazine, sodium chloride Vital signs in last 24 hours: Temp: [98.3 F (36.8 C)-98.9 F (37.2 C)] 98.3 F (36.8 C) Heart Rate: [69-87] 69 Resp: [16-18] 16 BP: (122-135)/(78-85) 135/78 SpO2: [93 %-99 %] 94 % MAP (calculated): [97 mm Hg-98 mm Hg] 97 mm Hg I&O: 11/19 0701 - 11/20 0700 In: 1540 [P.O.:1440; I.V.:100] Out: 4090 [Urine:4090] Exam: Visit Vitals BP 135/78 (BP Location: Left arm, Patient Position: Supine) Pulse 69 Temp 98.3 F (36.8 C) Resp 16 Ht 1.778 m (5' 10") Wt 78.9 kg (174 lb) SpO2 94% BMI 24.97 kg/m Temp (24hrs), Av.6 F (37 C), Min:98.3 F (36.8 C), Max:98.9 F (37.2 C) General: Adult male, alert, cooperative, no resp distress, appears stated age Head: Normocephalic, atraumatic Eyes: EOM's intact Neck: No JVD, no bruits Lungs: Clear to auscultation bilaterally, respirations unlabored Chest Wall: No tenderness or deformity Heart: Regular rate and rhythm, no murmurs, rubs, or gallop Abdomen: Soft, non-tender, non-distended, bowel sounds present Ext: Trace edema in b/l ankles Vascular: Distal pulses intact Skin: Warm and dry Neuro: Non-focal Psych: Normal affect Labs / Imaging: All recent data have been reviewed. PROBLEM LIST: Principal Problem: Gross hematuria Active Problems: KOFI (acute kidney injury) ([facility]) BPH (benign prostatic hyperplasia) Hypernatremia Hypokalemia Elevated LFTs MSSA bacteremia Methadone dependence ([facility]) NSVT (nonsustained ventricular tachycardia) ([facility]) ASSESSMENT / PLAN: Gross hematuria Admitted to OSH with gross hematuria on 11/10. History of BPH and recent right u reteral stent placement. Park catheter was placed and started on CBI, overall hematuria is improving. Hemoglobin is low but overall has been stable. Urology was consulted, suspected hematuria is related to traumatic catheterizati on, recommended keeping Keep Park in place, on CBI at this time. Per urology, will stop CBI and plan t o discharge with park. Further management per urology. PT/OT recommended rehab. Case management is helping with arranging for this with [facility]. Awaiting on placement. MSSA bacteremia Urine and blood cultures collected on 11/10 grew MSSA. ? Source: renal/UTI possi miranda. Hx of recent right ureteral stent placement (2.5 wks ago per patient' repor t). PICC line was placed in right upper extremity, and patient was started on cefazo dalia. Repeat blood culture on 11/13 grew GPC in clusters. Denies any having artificial joints, valves or implantable cardiac devices. Repeat blood cultures on 11/15 were obtained, NGTD. Procalcitonin was 15.55 on 11/12, repeat procalcitonin was 2.54. Cefazolin 2 grams every 8 hours was resumed upon admission here. ID is consulted, recommended removing PICC Line but patient is hesitant as he hx difficult of IVs with history of IV drug abuse. Patient did not want PICC line removed. I explained to him why ID recommended removing PICC line in setting o f bacteremia. Blood cultures on 11/15: 1 out of 2 grew today GPC with PCR positive for staph, p ending final identification. Will need PICC Line removal and might need TAYLOR. I will make patient NPO at MO in case ID wants TAYLOR in AM. ID changed antibiotics to Rocephin 2 g every 24 hours on 11/19. Plan per ID is to continue through 11/29/20 to complete a [address] abdomen/pelvis on 11/18 showed no obvious source of bacteremia. Monitor vital signs and labs. Hypernatremia Patient reports being on continuous IV fluids at the [facility] [employer].. NA trended up to 155. Suspect this was iatrogenic due to NS. Was given a dose of IV Lasix 20 mg IV daily for 2 days, sodium trended down. Hy pernatremia resolved. He looks euvolemic on exam at this time. Continue to monitor sodium level. KOFI Creatinine on initial labs was 2.19 in setting of gross hematuria with possible obstruction. Park catheter was placed. Was on IV fluids. Creatinine improved and KOFI resolved. Avoid nephrotoxins. Monitor renal functions, electrolytes and urine output. Elevated LFTs No abdominal pain or tenderness at this time. LFTs trended down. Continue to monitor. NSVT Few runs of asymptomatic nonsustained V. tach on telemetry on 11/19. TSH 2.640. QTc is WNL on EKG. Potassium was 3.2, magnesium 1.7. Potassium was replaced. Will replace magnesium. Repeat potassium this afternoon. Hypokalemia Monitor and replace as needed. BPH Chronic. Continue home medications. Chest pain Patient reports that this was an abdominal pain radiating from his suprapubic ar ea in setting of gross hematuria. No specific EKG changes were mentioned (no EKG to review). Troponin x3 was negat josefina. Pain improved after Park catheter was inserted. No tachypnea, hypoxia or tachycardia. Chest pain resolved without recurrence. Monitor on telemetry. Repeat EKG for any recurrent chest pain. Methadone dependence Reportedly due to history of drug abuse when he was young. EKG on 11/16 showed prolonged QTC. Discussed with Dr. Michelle Burns at psychiatry who prescribes and manages mandi coulter's methadone regimen, recommended decreasing total daily dose 25 mg till QTC< 500. Home dose of 160 mg daily was decreased to 155 mg daily on 11/16. Repeat EKG on 11/17 showed QTC <500. Continue to monitor daily EKG. Right foot pain Since reinjury at home while walking few days ago. Hx of right foot fracture. X-ray showed no fractures. PT/OT. DVT prophylaxis SCDs. Code Full code. Continued hospitalization is necessary due to bacteremia Disposition: rehab / SNF as per PT/OT recs Expected date of discharge: once cleared to discharge by NORA Barrera MD Electronic Signature 11/20/2020 7:10 PM * Plan of Care - Elisha Mcgraw RN - 11/20/2020 6:25 PM CDT Nursing End of Shift Summary Note Changes During This Shift: Procedures/Interventions: CBI on slow rate. Urology to see patient to determine when it can be stopped. Family/Social Issues: No family present at beside this shift. Patient agrees with plan of care. Additional Updates/Changes: Patient up to chair this shift. Patient was calm and cooperative this shift. Patient was up with staff this shift using a gait belt and walker. Nothing was given for pain. Spoke with Dr. Escobar: CBI stopped. Park to stay in place until follow up with [facility] Urologist. Ensure that follow-up with [facility] Urologist is set up. Code Status: The patient's current code status is Full Code, and has not changed within the p revious 24 hours. Significant Event: No Risk Assessment Scores: Liat: 19 Melo: 60 Current Status: Most recent assessment documentation: Neuro (WDL): Within Defined Limits Level of Consciousness: Alert Orientation Level: Oriented X4 Cognition: Follows commands Respiratory (WDL): Within Defined Limits Respiratory Pattern: Regular, Unlabored Chest Assessment: Chest expansion symmetrical Bilateral Breath Sounds: Clear, Diminished SpO2: 93 % $ RT Oxygen Device: None (Room air)* Cardiac Cardiac (WDL): Within Defined Limits Cardiac Regularity: Regular Heart Sounds: S1, S2 Gastrointestinal Gastrointestinal (WDL): Within Defined Limits Abdomen Inspection: Soft, Nondistended Gastrointestinal Additional Assessments: No Genitourinary Genitourinary (WDL): Exceptions to WDL Genitourinary Symptoms: (CBI) Urinary Device: Yes Urinary Device Type: Urethral Catheter Most recent mobility documentation: Activity: Chair Level of Assistance: 2:1 Assistive Device: Front wheel walker, Gait Belt Elisha Mcgraw RN Problem: INFECTION PREVENTION Goal: Absence or improvement of infection during hospitalization Outcome: Progressing Problem: PAIN Goal: Verbalizes/displays adequate comfort level or baseline comfort level durin g hospitalization Outcome: Progressing Problem: SAFETY - FALL Goal: Absence from falls during hospitalization Outcome: Progressing Problem: DISCHARGE PLANNING Goal: Discharge to next level of care with appropriate resources Outcome: Progressing Problem: GENITOURINARY Goal: Urinary catheter remains patent; urinary tract remains free from infection during hospitalization Outcome: Progressing Problem: METABOLIC/FLUID AND ELECTROLYTES Goal: Electrolytes remain within normal limits during hospitalization Outcome: Progressing Problem: ANXIETY Goal: Will report anxiety at manageable levels Outcome: Progressing Problem: MUSCULOSKELETAL Goal: Return mobility to safest level of function prior to discharge Outcome: Progressing Goal: Return ADL status to a safe level of function prior to discharge Description: Outcome: Progressing Problem: SKIN/TISSUE INTEGRITY Goal: Skin integrity remains intact during hospitalization Outcome: Progressing Goal: Incision(s), wounds(s) or drain site(s) healing without S/S of infection d uring hospitalization Description: I Outcome: Progressing Goal: Oral mucous membranes remain intact during hospitalization Outcome: Progressing Problem: HEMATOLOGIC Goal: Maintains hematologic stability during hospitalization Outcome: Progressing Problem: GASTROINTESTINAL Goal: Maintains or returns to baseline bowel function prior to discharge Outcome: Progressing Goal: Maintains adequate nutritional intake during hospitalization Outcome: Progressing Problem: Decreased Ability to Complete ADLs Goal: Maximize independence in ADLs prior to discharge Outcome: Progressing Problem: Functional Mobility Goal: Maximize mobility to the highest level of function prior to discharge Outcome: Progressing * Progress Notes - Og Davis - 11/20/2020 11:52 AM CDT 1152 Tue 20 Nov 2020 - Follow up with pt today who was up in chair on 6S. He sa id he was feeling better but still probably had a ways to go before he could thi nk about being discharged. Pt talked about the experiences of life changing and losses along the way. He said he worries some about how destructive behavior d iminishes life for everyone but feels that God is present and does rebuild and r enew. Pt said Spiritual Care chaplains are welcome at any time. Will continue to follow. Mask x Face Shield x PPE N/A Maintain 6 ft Yes Others present: 0 Og Davis Electronically Signed 11/20/2020 12:13 PM Spiritual Care Note Patient Name: Mainor Blanca : 1950 Referring Physician: Allie Ramos, MODEL USER Admission Date: 11/15/2020 Room/Bed: 625/[facility] Admitting Diagnosis/Principal Problem Gross hematuria Demographic Information Patient's Race: Patient's Ethnic Group: Patient's Marital Status: [4] Patient's Temple: Address: [address] [place] [address] [[id number]], [id number] Patient Contacts Primary Emergency Contact: Karol Moralez Mobile Relation: Step Child Secondary Emergency Contact: Melissa Arteaga Mobile Relation: Step Child Spiritual Encounter Referral source: Admission Screening Person visited: Patient Encounter type: Routine Location of encounter: Unit (comment) (6S) Tenriism care provided: Prayer Contact spiritual leader/methodist: did not say Spiritual care provided: Spiritual/Emotional Support and Online Merchandising Manager Follow-up: Needed (11/16-not feel like talking; asked for prayer) Affiliation Assessment Tenriism/Spiritual affiliation: Pentecostalism Chen group support: did not say Family Spiritual Beliefs/Perceptions/Coping Family support during treatment: did not say Pt was sitting up in bed, appeared sleepy. He said that he was feeling unwell a nd would like to pray "the prayer the Lord Shant taught his disciples." He than ked older adult social work specialist for the visit. Will check back in two or three days, more complete assessment. Mask x Face Shield x PPE N/A Maintain 6 ft Yes Others present: 0 Og Davis Spiritual Care Provider * Plan of Care - Karol Francisco RN - 11/20/2020 9:33 AM CDT PICC free of s/s of infection including redness, drainage, pain * Plan of Care - Kiley Saini LPN - 11/20/2020 7:41 AM CDT Nursing End of Shift Summary Note Changes During This Shift: Procedures/Interventions: CBI running slow. Light [place] colored. Continues rocephin q24 Family/Social Issues: IP rehab is recommended. No referrals sent out yet. Additional Updates/Changes: None Code Status: The patient's current code status is Full Code, and has not changed within the p revious 24 hours. Significant Event: No Risk Assessment Scores: Liat: 19 Melo: 60 Current Status: Most recent assessment documentation: Neuro (WDL): Within Defined Limits Level of Consciousness: Alert Orientation Level: Oriented X4 Cognition: Follows commands Respiratory (WDL): Within Defined Limits Respiratory Pattern: Regular, Unlabored Chest Assessment: Chest expansion symmetrical Bilateral Breath Sounds: Clear, Diminished SpO2: 99 % $ RT Oxygen Device: None (Room air)* Cardiac Cardiac (WDL): Within Defined Limits Cardiac Regularity: Regular Heart Sounds: S1, S2 Cardiac Rhythm: Normal sinus rhythm (per tele) Gastrointestinal Gastrointestinal (WDL): Within Defined Limits Abdomen Inspection: Soft, Nondistended Bowel Sounds (All Quadrants): Active Tenderness: Soft Passing Flatus: Yes Gastrointestinal Additional Assessments: No Genitourinary Genitourinary (WDL): Exceptions to WDL Urinary Device: Yes Urinary Device Type: Urethral Catheter Most recent mobility documentation: Activity: Resting in Bed Level of Assistance: 1:1 Kiley Saini LPN Problem: INFECTION PREVENTION Goal: Absence or improvement of infection during hospitalization Outcome: Progressing Problem: PAIN Goal: Verbalizes/displays adequate comfort level or baseline comfort level helenin g hospitalization Outcome: Progressing Problem: SAFETY - FALL Goal: Absence from falls during hospitalization Outcome: Progressing Problem: DISCHARGE PLANNING Goal: Discharge to next level of care with appropriate resources Outcome: Progressing Problem: GENITOURINARY Goal: Urinary catheter remains patent; urinary tract remains free from infection during hospitalization Outcome: Progressing Problem: METABOLIC/FLUID AND ELECTROLYTES Goal: Electrolytes remain within normal limits during hospitalization Outcome: Progressing Problem: ANXIETY Goal: Will report anxiety at manageable levels Outcome: Progressing Problem: MUSCULOSKELETAL Goal: Return mobility to safest level of function prior to discharge Outcome: Progressing Goal: Return ADL status to a safe level of function prior to discharge Description: Outcome: Progressing Problem: SKIN/TISSUE INTEGRITY Goal: Skin integrity remains intact during hospitalization Outcome: Progressing Goal: Incision(s), wounds(s) or drain site(s) healing without S/S of infection d uring hospitalization Description: I Outcome: Progressing Goal: Oral mucous membranes remain intact during hospitalization Outcome: Progressing Problem: HEMATOLOGIC Goal: Maintains hematologic stability during hospitalization Outcome: Progressing Problem: GASTROINTESTINAL Goal: Maintains or returns to baseline bowel function prior to discharge Outcome: Progressing Goal: Maintains adequate nutritional intake during hospitalization Outcome: Progressing * Plan of Care - Lizette Burton RN - 11/19/2020 6:30 PM CDT Nursing End of Shift Summary Note Changes During This Shift: Procedures/Interventions: Pt CBI is still connected with red flaky urine. Pt was up to the chair most of t he day. Pt is 1:1 w/ walker for short distances. Family/Social Issues: Pt family was on the phone today and updated. Additional Updates/Changes: none Code Status: The patient's current code status is Full Code, and has not changed within the p revious 24 hours. Significant Event: No Risk Assessment Scores: Liat: 19 Melo: 60 Current Status: Most recent assessment documentation: Neuro (WDL): Within Defined Limits Level of Consciousness: Alert Orientation Level: Oriented X4 Cognition: Follows commands Respiratory (WDL): Within Defined Limits Respiratory Pattern: Regular, Easy, Unlabored Chest Assessment: Chest expansion symmetrical Bilateral Breath Sounds: Clear SpO2: 96 % $ RT Oxygen Device: None (Room air)* Cardiac Cardiac (WDL): Within Defined Limits Cardiac Regularity: Regular Heart Sounds: S1, S2 Cardiac Rhythm: Normal sinus rhythm Gastrointestinal Gastrointestinal (WDL): Within Defined Limits Abdomen Inspection: Soft, Nondistended, Rounded Bowel Sounds (All Quadrants): Active Tenderness: Soft, No guarding, Nontender, No rebound Passing Flatus: Yes Gastrointestinal Additional Assessments: No Genitourinary Genitourinary (WDL): Within Defined Limits Urinary Device: Yes Urinary Device Type: Urethral Catheter Most recent mobility documentation: Activity: Resting in Bed Level of Assistance: 2:1 Assistive Device: Front wheel walker, Gait Belt Lizette Burton RN Problem: INFECTION PREVENTION Goal: Absence or improvement of infection during hospitalization Outcome: Progressing Note: Pt is afebrile and shows no signs of infection. IV site show no signs of p helbistsis or infection. Will continue monitor labs and vital signs. Problem: PAIN Goal: Verbalizes/displays adequate comfort level or baseline comfort level sejal g hospitalization Outcome: Progressing Note: Pt able to voice pain on a scale of 0-10. Uses PRN medication when needed. Implementation of non-pharmacological techniques implemented and evaluated. Inf orm pt the importance to use pain medication properly and timely manner and how it relates to the healing process. Will continue to monitor pain throughout the shift. Pt has chronic pain and takes methadone 155mg Problem: SAFETY - FALL Goal: Absence from falls during hospitalization Outcome: Progressing Note: Pt neurovascular checks normal. Pt alert and oriented x4 and able to use c all light when needing help. Pt informed the importance of remain fall free and ask for assistance before getting out of bed. Pt will continue to increase mobil ity during their hospital stay. 1:1 w/ walker Problem: DISCHARGE PLANNING Goal: Discharge to next level of care with appropriate resources Outcome: Progressing Note: Pt is still on the CBI with red/ pink urine in catheter. Problem: GENITOURINARY Goal: Urinary catheter remains patent; urinary tract remains free from infection during hospitalization Outcome: Progressing Note: Park still in place d/t being hooked up to CBI Problem: METABOLIC/FLUID AND ELECTROLYTES Goal: Electrolytes remain within normal limits during hospitalization Outcome: Progressing Note: Pt electrolytes had to be replaced. K+ 3.3 Problem: ANXIETY Goal: Will report anxiety at manageable levels Outcome: Progressing Note: Pt continues to controlled anxiety with alternative coping mechanisms. PRN medication available if need be. Will monitor throughout the shift. Problem: MUSCULOSKELETAL Goal: Return mobility to safest level of function prior to discharge Outcome: Progressing Note: Pt was able to walk to and from the bathroom with 1:1 and walker. Pt able to perform most ADL's with minimal assistance. Goal: Return ADL status to a safe level of function prior to discharge Description: Outcome: Progressing Problem: SKIN/TISSUE INTEGRITY Goal: Skin integrity remains intact during hospitalization Outcome: Progressing Note: Pt is Q 2hr turn and also was up to chair most of the day. Goal: Incision(s), wounds(s) or drain site(s) healing without S/S of infection d uring hospitalization Description: I Outcome: Progressing Goal: Oral mucous membranes remain intact during hospitalization Outcome: Progressing Problem: HEMATOLOGIC Goal: Maintains hematologic stability during hospitalization Outcome: Progressing Note: Hgb 8.5 Problem: GASTROINTESTINAL Goal: Maintains or returns to baseline bowel function prior to discharge Outcome: Progressing Note: Pt Intake and output was monitor through out the shift and showed no amaya es. Skin turgor stayed firm and mocous membranes stayed moist through out shift Goal: Maintains adequate nutritional intake during hospitalization Outcome: Progressing * Consults - Coleen Cabrera PCT - 11/19/2020 2:50 PM CDT ET staff to patients room for alphonso josue. Patient was seen 11/16/20, and nothing new today. Coleen Cabrera- ET PCT * Progress Notes - Hien Spangler RD LD - 11/19/2020 2:34 PM CDT [address] [id number] Patient Name: Mainor Blanca : 1950 Primary Care Physician: Juan Trejo PA-C Admission Date: 11/15/2020 RM/BED: 625/625-A Length of Stay: LOS: 4 days Nutrition Assessment Chief Complaint: No chief complaint on file. REASON FOR ASSESSMENT: Follow-up NUTRITION INTERVENTIONS Nutrition Prescription: Est Kcal needs: [id number] Kcal (25-30 kcal/kg Actual BW) REE/EEE Calculator Est protein needs: 73-87 g (1-1.2 g/kg Actual BW) Est fluid needs: 2294 mL (1500 ml 1st 20 kg + 15 ml/kg remainder body weight ( > 50 yo) Actual BW) Intervention: Meals and Snacks Encourage good po intake as tolerated. May offer diet appropriate snacks/supple ments prn. Goals: Pt will consume > 65% of meals (to include protein source) on average by follow up. Intervention: Nutrition-related medication management Pt has not had a BM since admission (11/15) per I/O records. Pt may benefit from a bowel regimen. Goals: Constipation to resolve by follow up. NUTRITION DIAGNOSIS Nutrition Problem: Resolved Nutrition Diagnosis (problem): Altered nutrition-related laboratory values (so dium) Related to (etiology): estimated free water deficit @ ~ 3.7 L As Evidenced by (signs/symptoms): hypernatremia Nutrition Problem: Improvement shown/unresolved Nutrition Diagnosis (problem): Inadequate oral intake Related to (etiology): decreased appetite As Evidenced by (signs/symptoms): 75%, 60% meal intake recorded Nutrition Problem: New Nutrition Diagnosis (problem): Altered GI function Related to (etiology): constipation As Evidenced by (signs/symptoms): pt has not had a BM since admission (11/15) p er I/O records ASSESSMENT Mainor Blanca is a 70 y.o. male admitted with Gross hematuria. Current diet is regular with 75%, 60% meal intake recorded. Hypokalemia, hypophosphatemia, and hyperchloremia noted. Corrected Ca++ 2' depleted albumin = 8.9 mg/dL (WNL). W t has ranged from 155-160 lb via bed scale and unknown weighing method since adm ission. Nutrition History: Pt with decreased po intake for> 5 days and unintentional wt loss per nursing nutrition screen. Pt with abdominal pain area captain. Note pt tried taking PO meds last night and began to cough and became tearful and did not take remaining meds per nursing note. No wt hx available to assess. Pt appears a bit dry per review of labs; dx KOFI noted. Anthropometrics: Height: 1.778 m (5' 10") Most recent weight: Weight: 72.6 kg (160 lb) (11/19/20254) Weight Method: Bed scale (11/19/20254) Utilized 11/16 bed scale wt of 160 lb (72.9 kg) in calculations. IBW: 75.5 kg 97% IBW Adj BW: --- Body mass index is 23.06 kg/m. Active Medical Diagnoses this Hospitalization: Principal Problem: Gross hematuria Active Problems: KOFI (acute kidney injury) (HCC) BPH (benign prostatic hyperplasia) Hypernatremia Hypokalemia Elevated LFTs MSSA bacteremia Methadone dependence (HCC) NSVT (nonsustained ventricular tachycardia) (HCC) He has no past medical history on file. He has no past surgical history on file. No Known Allergies Current diet order: Carbohydrate controlled Oral intake: Last documented- % of meal eaten: 60 % Current EN: - GRV: - Current PN: - Nutrition screen: Home Tube feeding/PN : No Poor appetite > 5 days : Yes Unintentional weight loss : Yes Nutrition screen score : 10 Liat Scale Score: 19 Nutrition: Adequate Skin: redness to lower back and coccyx; blister R foot; bruising L arm per RN sh ift assessment Labs: Recent Labs Lab 11/19/20 0349 11/18/20 0831 11/17/20 1926 11/17/20 0839 11/16/20 2202 11/16/20 2202 11/16/20 1012 11/16/20 1012 NA 144 148* -- 153* -- 152* < > 155* K 3.2* 3.6 2.8* 4.0 < > 2.7* < > 3.4* CL 112* 112* -- 117* -- 116* < > 121* BUN 24* 27* -- 30* -- 27* < > 28* CREATININE 1.20 1.16 -- 1.25* -- 1.27* < > 1.22* GLU 157* 108* -- 155* -- 167* < > 141* CALCIUM 8.1* 8.2* -- 8.2* -- 8.0* < > 7.9* CO2 31 33 -- 30 -- 31 < > 28 HGB 8.5* 7.6* -- 8.0* -- -- -- 7.8* HCT 27.5* 25.4* -- 25.7* -- -- -- 24.8* WBC 10.8* 10.8* -- 12.7* -- -- -- 12.7* NEUTOPHILPCT 86.9* 87.6* -- 91.1* -- -- -- 91.1* ALB 3.0* 2.9* -- 3.0* -- -- -- 2.9* < > = values in this interval not displayed. Recent Labs Lab 11/19/20 0349 11/17/20 1926 11/16/20 2202 11/16/20 1012 PHOS 2.4* 1.9* -- -- MG 1.7 1.6 1.9 1.6 No results for input(s): TRIG, LIPASE, AMYLASE in the last 168 hours. No results found for: AMMONIA, HGBA1C Current Medications: Scheduled Meds: cefTRIAXone 2,000 mg Intravenous Q24H methadone 155 mg Oral Daily At 1700 tamsulosin 0.4 mg Oral Bedtime Continuous Infusions: none [employer]AME [employer]ER Medications: Prior to Admission medications Medication Sig Start Date End Date Taking? Authorizing Provider hyoscyamine (LEVSIN/SL) 0.[address] 0.125 mg under the tongue every 4 (four) hours as needed for Cramping. Yes Outreach, Physician meloxicam (MOBIC) 7.5 MG tablet Take 15 mg by mouth daily. Yes Outreach, Physi nigel methadone (DOLOPHINE) 10 MG tablet Take 160 mg by mouth Daily At 5 pm. May cause QT prolongation and Torsades de pointes Yes Outreach, Physician naloxone (NARCAN) 4 MG/0.1ML nasal spray Place 1 spray nasally as needed for Opi oid Reversal. Yes Outreach, Physician ondansetron (ZOFRAN-ODT) 4 MG disintegrating tablet Take 4 mg by mouth every 6 ( six) hours as needed for Nausea. Yes Outreach, Physician tamsulosin (FLOMAX) 0.4 MG CAPS Take 0.4 mg by mouth at bedtime. Yes Outreach, Physician Vitals: SpO2: 97 % Oxygen Device: None (Room air)* Temp (24hrs), Av.5 F (36.9 C), Min:98.2 F (36.8 C), Max:98.7 F (37 .1 C) Intake/Output Summary (Last 24 hours) at 11/19/2020 1434 Last data filed at 11/19/2020 1321 Gross per 24 hour Intake 2330 ml Output 3940 ml Net -1610 ml Fluid balance since admit: - 5038.9 mL Last BM: None since admission per I/O records MONITORING AND EVALUATION food and beverage intake weight constipation Reassess according to Level of Care: within 4-6 days (Moderate). RD sadia cooley prn. SHEN Kohli Electronic Signature 11/19/2020 2:34 PM * Progress Notes - Ashley Haile MD - 11/19/2020 10:50 AM CDT Images from the original note were not included. [address] [id number] Hospitalist Progress Note 11/19/2020 Patient Name: Mainro Blanca : 1950 Primary Care Physician: Allie Ramos, MODEL USER Admission Date: 11/15/2020 Loc: 625/625-A LOS: 4 days SUBJECTIVE: No acute events overnight. Denies any chest pain or palpitation. No abdominal pain, nausea or vomiting. No reported new focal neurological deficits. Around 430 this morning while patient was asleep, he had few runs of asymptomati c nonsustained V. tach. Patient denies any associated lightheadedness, chest pa in or palpitation. Remains on CBI with pink-colored urine in collecting bag. OBJECTIVE: Scheduled Medications: cefTRIAXone 2,000 mg Intravenous Q24H methadone 155 mg Oral Daily At 1700 tamsulosin 0.4 mg Oral Bedtime Infusions: PRN Medications: dextrose OR glucagon OR glucagon OR dextrose OR dextrose, LORaze angela, prochlorperazine, sodium chloride Vital signs in last 24 hours: Temp: [98.2 F (36.8 C)-98.7 F (37.1 C)] 98.4 F (36.9 C) Heart Rate: [77-108] 77 Resp: [16] 16 BP: (121-144)/(76-90) 144/89 SpO2: [94 %-99 %] 97 % MAP (calculated): [94 mm Hg-107 mm Hg] 107 mm Hg I&O: 11/18 0701 - 11/19 0700 In: 1170 [P.O.:1080; I.V.:90] Out: 1315 [Urine:1315] Exam: Visit Vitals BP (!) 144/89 (BP Location: Left arm, Patient Position: Supine) Pulse 77 Temp 98.4 F (36.9 C) Resp 16 Ht 1.778 m (5' 10") Wt 72.6 kg (160 lb) SpO2 97% BMI 22.96 kg/m Temp (24hrs), Av.5 F (36.9 C), Min:98.2 F (36.8 C), Max:98.7 F (37 .1 C) General: Adult male, alert, cooperative, no resp distress, appears stated age Head: Normocephalic, atraumatic Eyes: EOM's intact Neck: No JVD, no bruits Lungs: Clear to auscultation bilaterally, respirations unlabored Chest Wall: No tenderness or deformity Heart: Regular rate and rhythm, no murmurs, rubs, or gallop Abdomen: Soft, non-tender, non-distended, bowel sounds present Ext: Trace edema in b/l ankles Vascular: Distal pulses intact Skin: Warm and dry Neuro: Non-focal Psych: Normal affect Labs / Imaging: All recent data have been reviewed. PROBLEM LIST: Principal Problem: Gross hematuria Active Problems: KOFI (acute kidney injury) (HCC) BPH (benign prostatic hyperplasia) Hypernatremia Hypokalemia Elevated LFTs MSSA bacteremia Methadone dependence (HCC) ASSESSMENT / PLAN: Gross hematuria Admitted to OSH with gross hematuria on 11/10. History of BPH and recent right u reteral stent placement. Park catheter was placed and started on CBI, overall hematuria is improving. Hemoglobin is low but overall has been stable. Urology was consulted, suspected hematuria is related to traumatic catheterizati on, recommended keeping Keep Park in place, on CBI at this time. Further management per urology. MSSA bacteremia Urine and blood cultures collected on 11/10 grew MSSA. ? Source: renal/UTI possi miranda. Hx of recent right ureteral stent placement (2.5 wks ago per patient' repor t). PICC line was placed in right upper extremity, and patient was started on cefazo dalia. Repeat blood culture on 11/13 grew GPC in clusters. Denies any having artificial joints, valves or implantable cardiac devices. Repeat blood cultures on 11/15 were obtained, NGTD. Procalcitonin was 15.55 on 11/12, repeat procalcitonin was 2.54. Cefazolin 2 grams every 8 hours was resumed upon admission here. ID is consulted, recommended removing PICC Line but patient is hesitant as he hx difficult of IVs with history of IV drug abuse. Patient did not want PICC line removed. I explained to him why ID recommended removing PICC line in setting o f bacteremia. Will discuss with ID. Blood cultures on 11/15 remain negative. ID changed antibiotics to Rocephin 2 g every 24 hours on 11/19. CT abdomen/pelvis on 11/18 showed no obvious source of bacteremia. Monitor vital signs and labs. Hypernatremia Patient reports being on continuous IV fluids at the [facility].. NA trended up to 155. Suspect this was iatrogenic due to NS. Was given a dose of IV Lasix 20 mg IV daily for 2 days, sodium trended down. Hy pernatremia resolved. He looks euvolemic on exam at this time. Continue to monitor sodium level. KOFI Creatinine on initial labs was 2.19 in setting of gross hematuria with possible obstruction. Park catheter was placed. Was on IV fluids. Creatinine improved and KOFI resolved. Avoid nephrotoxins. Monitor renal functions, electrolytes and urine output. Elevated LFTs No abdominal pain or tenderness at this time. LFTs trended down. Continue to monitor. NSVT Few runs of asymptomatic nonsustained V. tach on telemetry on 11/19. TSH 2.640. QTc is WNL on EKG. Potassium was 3.2, magnesium 1.7. Potassium was replaced. Will replace magnesium. Repeat potassium this afternoon. Hypokalemia Monitor and replace as needed. BPH Chronic. Continue home medications. Chest pain Patient reports that this was an abdominal pain radiating from his suprapubic ar ea in setting of gross hematuria. No specific EKG changes were mentioned (no EKG to review). Troponin x3 was negat josefina. Pain improved after Park catheter was inserted. No tachypnea, hypoxia or tachycardia. Chest pain resolved without recurrence. Monitor on telemetry. Repeat EKG for any recurrent chest pain. Methadone dependence Reportedly due to history of drug abuse when he was young. EKG on 11/16 showed prolonged QTC. Discussed with Dr. Michelle Burns at psychiatry who prescribes and manages mandi coulter's methadone regimen, recommended decreasing total daily dose 25 mg till QTC< 500. Home dose of 160 mg daily was increased to 155 mg daily on 11/16. Repeat EKG on 11/17 showed QTC <500. Continue to monitor daily EKG. Right foot pain Since reinjury at home while walking few days ago. Hx of right foot fracture. X-ray showed no fractures. PT/OT. DVT prophylaxis SCDs. Code Full code. Continued hospitalization is necessary due to bacteremia Disposition: rehab / SNF as per PT/OT recs Expected date of discharge: 2-3 days Ashley Barrera MD Electronic Signature 11/19/2020 10:50 AM * Progress Notes - Naseem العلي MD - 11/19/2020 10:00 AM CDT Images from the original note were not included. [address] [id number] Infectious Diseases Progress Note 11/19/2020 Patient Name: Mainor Blanca : 1950 Admission Date: 11/15/2020 Date: 11/19/2020 Referring Physician: Ashley Haile MD Chief Complaint: MSSA bacteremia Interval history: Pt doing better presently. He has remained afebrile. Pt had a CT A/P- no source identified. Repeat Bcx have been negative. No ne complaints. Review of Systems: Respiratory: No cough or dyspnea Cardiac: No chest pain or palpitations GI: No vomiting or diarrhea Past Medical and Social history- Has been reviewed Please refer to my consult note from 11/16/20 Allergies: No Known Allergies Antibiotics: Ceftriaxone- start date- 11/19/20 Discontinued: Ancef- 11/15/20- 11/18/20 Current Medications: cefTRIAXone 2,000 mg Intravenous Q24H methadone 155 mg Oral Daily At 1700 tamsulosin 0.4 mg Oral Bedtime Physical Examination: Temp: [98.2 F (36.8 C)-98.7 F (37.1 C)] 98.4 F (36.9 C) Heart Rate: [77-108] 77 Resp: [16] 16 BP: (121-144)/(76-90) 144/89 SpO2: [94 %-99 %] 97 % MAP (calculated): [94 mm Hg-107 mm Hg] 107 mm Hg Body mass index is 22.96 kg/m. [place] body weight: 73 kg (160 lb 15 oz) Weight: 72.6 kg (160 lb) General: Comfortable. Not in acute distress. Siting in chair HEENT: PERRLA, MMM, Clear oropharynx. - no teeth Neck: Supple. Lungs: CTAB. Cardiac: Regular rate and rhythm. No murmurs. Abdomen: Soft. Positive bowel sounds. Non-tender.Non-distended Genitourinary: + urinary catheter. Vascular:PP+, No LE edema. . Skin: Rt foot dorsum- scattered erythematous spots, no wounds Neurologic: CN intact. No focal neurologic deficit. Psychiatric: Oriented, Appropriate affect Vascular access: RUE PICC line Lab Results: Recent Labs 11/19/20 0349 11/18/20 0831 11/17/20 0839 WBC 10.8* 10.8* 12.7* HGB 8.5* 7.6* 8.0* HCT 27.5* 25.4* 25.7* MCV 99.3* 100.0* 98.1* MCH 30.7 29.9 30.5 MCHC 30.9* 29.9* 31.1 PLT 334 370 415 Recent Labs 11/19/20 0349 11/18/20 0831 11/17/20 1926 11/17/20 0839 11/17/20 0839 NA 144 148* -- -- 153* K 3.2* 3.6 2.8* < > 4.0 CO2 31 33 -- -- 30 CL 112* 112* -- -- 117* BUN 24* 27* -- -- 30* ALT 11 10 -- -- 17 AST 46* 42* -- -- 62* < > = values in this interval not displayed. Serum creatinine: 1.2 mg/dL 11/19/20348 Estimated creatinine clearance: 60.5 mL/min OSH- Procalcitonin- 15 Ref. Range 11/15/2020 19:31 11/16/2020 10:12 Procalcitonin Latest Ref Range: <=0.09 ng/ml 3.27 (H) 2.54 (H) Microbiology: OSH- 11/10/20- BCx- 2/2- MSSA 11/13/20- BCx- GPCs UCx- MSSA 11/15/20- BCx- NGTD Radiology: OSH- CT Angio Chest- No infiltrates. Pulmonary nodule seen. No pulmonary emboli 11/15/20- CXR-IMPRESSION: Right arm PICC in expected location. 11/18/20- CT A/P- IMPRESSION: 1. Nonobstructing lower pole right renal calculus. 2. Right internal ureteral stent. 3. Otherwise negative CT abdomen and pelvis. Images reviewed ASSESSMENT: The patient is a 70 y.o. male with PMH of BPH, ureteral stent placement, nephrol ithiasis, methadone dependence/ transferred from [place] for MSSA bacteremia. Sepsis MSSA bacteremia Recent history of Rt ureteral stent placement Hematuria KOFI PLAN: -Unknown source of MSSA bacteremia. No obvious skin source identified -Pt with history of self catheterization prior to presentation- possibly source of MSSA? -CT A/P without any obvious source -Repeat BCx have remained negative, cleared fast -Have discontinued ancef, started ceftriaxone 2 gm daily -Continue through 11/29/20 to complete a 2 week course -Weekly CBC, CMP, CRP levels once discharged -Recommend repeat BCx x 2 2 weeks after completing IV Abx therapy -Follow up in ID office in 2-3 weeks Naseem العلي MD Electronic Signature 11/19/2020 1:31 PM Sharif ByersMalouJose Armando Infectious Diseases Pager: [phone] Clinic Phone: [phone]. Fax: [phone]. * Plan of Care - Mari Rossi, PT - 11/19/2020 9:25 AM CDT Problem: Functional Mobility Goal: Maximize mobility to the highest level of function prior to discharge Outcome: Progressing Other: At this time, placement is the most appropriate discharge recommendatio n. Patient is at high risk for falls and he requires physical assist for all mo bility tasks. Tolerance for bearing weight through R LE is poor. Patient will require a front wheeled walker (rather than his 4 wheeled walker) as well as fur ther training on how to use it safely. Objective Test Performed: AM-PAC Basic Mobility Inpatient Short Form How much difficulty does the patient have ... 1. Turning over in bed (including adjusting bedclothes, sheets, and blankets)? 3 A little 2. Sitting down on and standing up from a chair with arms (wheelchair, bedside c ommode, etc.)? 2 A lot 3. Moving from lying on back to sitting on the side of the bed? 3 A little How much help from another person does the patient currently need .... 1. Moving to and from a bed to a chair (including wheelchair)? 2 A lot 2. Need to walk in hospital room? 2 A lot 3. Climbing 3-5 steps with a railing? 2 A lot Total Score: 14 / 24 (61.29% impaired) Additional Comments: patient remained in chair alarm set call light placed in reach nurse (RN/BOND CLERK) notified Assessment/Recommendations: Patient presents with decreased strength, decreased ROM, difficulty walking, gai t abnormality, generalized weakness, impaired mobility, impaired balance, impair ed endurance and pain. Physical Therapy Discharge Recommendations: Plan: Discharge to Inpatient Rehabilitation or Senior Living Facility or Swing bed Reasons for Rehab: Fall risk/balance deficits, Physical assist is needed for saf ety, Home setup concerns including stairs to enter and stairs within and Lack of adequate support at home Activity Tolerance: Patient would likely tolerate 3 hours of therapy Transportation: Patient safe to transport by wheelchair. Projected Equipment for discharge: front wheeled walker and wheelchair Plan: Patient to be seen 1 - 2 times daily as staffing and scheduling allows for bed m obility, transfers, gait, ROM, strengthening, balance, neuromuscular re-educatio n, wheelchair mobility and patient/family education. Patient Goal: Be able to take care of himself. Goal: By the end of the patient's stay Bed Transfer Goal: Patient will complete a bed transfer (from flat bed without rails) with independence to progress toward independent bed transfers. Sit to stand Goal: Patient will complete sit to stand transfer with independenc e with front-wheeled walker to progress toward independent transfers. Gait Goal: Patient will complete gait with independence on level surfaces with f ront-wheeled walkerfor 150 feet to progress toward independent gait. Stair Goal: Patient will be able to negotiate 1+1 stairs with 0 handrails with s tep to gait pattern, front wheeled walker, and with modified independence. Balance Goal: Patient will perform 3 minutes of static and dynamic standing bal ance activities with 0-1 upper extremity support with good balance to improve in dependence with transfers and gait Test Goal: Patient will improve score on AMPAC to at least 18/24 to demonstrate minimal detectable change in functional mobility safety and independence. Patient agreeable to physical therapy goals: yes * Plan of Care - Adrianne Lin - 11/19/2020 9:24 AM CDT Problem: Decreased Ability to Complete ADLs Goal: Maximize independence in ADLs prior to discharge Outcome: Progressing Assessment / Recommendations Patient presents with decreased safety, decreased ability to perform self-cares, decreased ability to perform functional transfers, general debilitation, decrea sed endurance, decreased mobility, balance impairment, limitations due to pain a nd increased risk for falls and is appropriate for skilled Occupational Therapy to provide Self-Care Management Training, functional transfer training, enduranc e activities, safety training, patient/family education, self care/home manageme nt training, therapeutic exercises, strengthening and balance retraining. Occupational Therapy Discharge Recommendations: Plan: Discharge to Inpatient Rehabilitation or Senior Living Facility or Swing bed Frequency: Expected treatment frequency of 5 times per week as staffing/scheduli ng allows until discharged or until goals below are met Reasons for Rehab: Fall risk/balance deficits, Physical assist is needed for saf ety, Home setup concerns including stairs and Lack of adequate support at home Activity Tolerance: Patient would likely tolerate 3 hours of therapy Projected Equipment for discharge: Will continue to assess. Patient is aware of and agrees with stated treatment plan and goals? Yes Patient will have support person available post discharge? unknown, pt reports he has family and friends who can assist Short-term Goals: (Time frame= Length of stay) 1.Pt will stand at sink for all grooming tasks modified independent and good saf ety 2.Pt will complete UE/LE dressing modified independent with use of adaptive equi pment as needed 3.Pt will complete toilet transfer modified independent with good safety 4.Pt will complete toileting modified independent 5.Pt will be SBA for shower transfer with good safety 6.Pt will tolerate BUE graded exercise to increase strength and endurance for AD Ls 7.Pt will increase AM-PAC Daily Living score to at least 23 out of 24 or no more than 0% impairment to increase patient's self care skills * Progress Notes - Adrianne Lin - 11/19/2020 9:11 AM CDT [address] [address] Occupational Therapy Patient Name: Mainor Blanca : 1950 Billing Number: [id number] Physician: Ashley Haile MD Admission Dx: Gross hematuria [R31.0] Admit Date: 11/15/2020 Principal Problem: Gross hematuria Today's Date: 11/19/2020 Occupational Therapy Evaluation Physician's Order: consult to OT to evaluate and treat safety deficits Treatment diagnosis: decreased functional ability and generalized weakness Date of onset: 11/15/2020 Precautions: fall risk Medical Equipment: urinary catheter and IV equipment Pain ratin/10 mild pain R foot Patient stated goal: to get better and to go home Subjective / Past Medical History Mainor Blanca is a 70 y.o. male admitted for Gross hematuria. He has no past m edical history on file. Patient gives permission to treat and Nursing gives perm ission to treat. Surgeries/Procedures: Not applicable Imaging/Test Results: CT abdomen IMPRESSION: 1. Nonobstructing lower pole right renal calculus. 2. Right internal ureteral stent. 3. Otherwise negative CT abdomen and pelvis. Prior functioning level: Per patient, he has been living alone in a one-level and with basement house. He was independent with in basic self-care and instrumental ADLs. He is unemployed . He reports to be driving still. He has stairs to enter without a railing (2) and stairs within to negotiate with a railing (>10 ). He has access to laundry equipment in the basement. He recently has been using a four-wheeled walker for mobility. The bathroom is equipped with a walk-in shower, grab bars and shower chair. For toileting, he has a standard toilet. Patient currently uses/owns grab bars in bathroom and shower chair. Objective Cognitive / Perceptual / Safety: alert and oriented to person, place, time/date and situation Vision / Hearing: vision: wears glasses all of the time and hearing: intact/functional Speech: clear Endurance: limited: reports fatigue and needs frequent rest breaks Upper extremity ROM: functional bilateral upper extremities Upper extremity strength: functional bilateral upper extremities Coordination / Tone: functional Sensation: no indication of deficit Transfers: Supine to sit: requiring stand by assist (SBA) and extra time and HOB elevated f or task Sit to stand: From EOB requiring minimal assist of 2 staff and verbal cues and m anual assistance for task Stand to sit: To recliner requiring minimal assist of 2 staff and verbal cues an d manual assistance for task Ambulated with front-wheeled walker requiring minimal assist of 1 staff and requ iring moderate assist of 1 staff to recliner; Distance: 20. Pt avoids WB on RLE. Balance: Sitting: good Standing: poor ADLs: Lower body dressing: While sitting at edge of the bed patient donned socks requi ring stand by assist (SBA) with use of no DME requiring extra time for task Grooming: combing hair seated in recliner requiring stand by assist (SBA) Testing Completed: AM-PAC Daily Activity Inpatient Short Form This assessment uses predictive values to measure possible level of assistance n eeded to complete daily activities. Scores below reflect both direct observatio n, and clinical judgement based on patient's performance. How much help from another person does the patient currently need ... 1. Putting on and taking off regular lower body clothing? 3 A little 2. Bathing (including washing, rinsing, drying)? 3 A little 3.Toileting, which includes using toilet, bedpan or urinal? 3 A little 4. Putting on and taking off regular upper body clothing? 3 A little 5. Taking care of personal grooming such as brushing teeth? 3 A little 6. Eating meals? 4 None Total Score: 19 / 24 (42.80%) -[facility] Functional Stages: Score 14-19: Score suggests some difficulty in the a bility to perform daily tasks. The pt. may be struggling with things such as ba thing and dressing. Housekeeping task may be too difficult to perform. They ma y experience some difficulties with fine motor skills such as buttoning clothes, using utensils and combing hair. Treatment provided: evaluation Education provided: Fall prevention strategies Role of Occupational Therapy and OT Plan of Care Other Comments: patient remained in chair call light placed in reach pad alarm placed in chair pad alarm activated nurse (RN/BOND CLERK) notified pt's IV complete Patient's support person has demonstrated understanding of safe transfer techniq ues? Family/support person not present during session Patient/Family Discharge Plans: home alone Assessment / Recommendations Patient presents with decreased safety, decreased ability to perform self-cares, decreased ability to perform functional transfers, general debilitation, decrea sed endurance, decreased mobility, balance impairment, limitations due to pain a nd increased risk for falls and is appropriate for skilled Occupational Therapy to provide Self-Care Management Training, functional transfer training, enduranc e activities, safety training, patient/family education, self care/home manageme nt training, therapeutic exercises, strengthening and balance retraining. Occupational Therapy Discharge Recommendations: Plan: Discharge to Inpatient Rehabilitation or Senior Living Facility or Swing bed Frequency: Expected treatment frequency of 5 times per week as staffing/scheduli ng allows until discharged or until goals below are met Reasons for Rehab: Fall risk/balance deficits, Physical assist is needed for saf ety, Home setup concerns including stairs and Lack of adequate support at home Activity Tolerance: Patient would likely tolerate 3 hours of therapy Projected Equipment for discharge: Will continue to assess. Patient is aware of and agrees with stated treatment plan and goals? Yes Patient will have support person available post discharge? unknown, pt reports he has family and friends who can assist Short-term Goals: (Time frame= Length of stay) 1.Pt will stand at sink for all grooming tasks modified independent and good saf ety 2.Pt will complete UE/LE dressing modified independent with use of adaptive equi pment as needed 3.Pt will complete toilet transfer modified independent with good safety 4.Pt will complete toileting modified independent 5.Pt will be SBA for shower transfer with good safety 6.Pt will tolerate BUE graded exercise to increase strength and endurance for AD Ls 7.Pt will increase AM-PAC Daily Living score to at least 23 out of 24 or no more than 0% impairment to increase patient's self care skills Charges/Time: OT eval moderate complex Evaluation was completed in conjunction with Physical Therapist Time in/out: 836 Infection: No active infections Isolation: No active isolations PPE worn by staff: surgical mask, gloves and face shield PPE worn by patient: mask at all times Adrianne HAYES/Jonathan 11/19/2020 9:11 AM * Progress Notes - Mari Rossi, PT - 11/19/2020 9:04 AM CDT [address] [address] Physical Therapy Patient Name: Mainor Blanca : 1950 Billing Number: [id number] Physician: Ashley Haile MD Admit Date: 11/15/2020 Today's Date: 11/19/2020 Physical Therapy Evaluation Note Date of onset: 11/15/2020 Precautions: fall risk Medical Equipment: urinary catheter with bladder irrigation, IV equipment and mu ltiple lines Weight Bearing Status: No restrictions Subjective: Nursing gives permission to treat. Patient gives permission to reyes lara Mainor Blanca is a 70 y.o. male admitted with Gross hematuria. Surgeries/Proce dures/Imaging/Test Results: CT abdomen: IMPRESSION: 1. Nonobstructing lower pole right renal calculus. 2. Right internal ureteral stent. 3. Otherwise negative CT abdomen and pelvis. X-ray R foot: IMPRESSION: Diffuse osteopenia without acute osseous abnormality. Physical therapy referral due to generalized weakness. He has no past medical h istory on file.. Baseline Activity Level: Patient lives alone in a one-level and with basement h ouse with stairs to enter without a railing (1+1) and stairs within to negotiate with a railing (>10 and basement laundry). Patient previously independent with driving and all functional mobility and ADLs. Required assistance with no functional activities. He has a big dog he takes care of, does his own yard work, walks through the grocery store, etc. Uses no assistive device for gait. He owns a 4 wheeled walker that he's been using like a knee scooter lately due to R foot pain. Mental Status: alert and oriented x 3 with extra time Vision: intact and regular glasses Hearing: intact/functional Speech: clear and intact Endurance: fair, limited primarily by R foot pain with gait Range of Motion: lower extremities within functional limits except R ankle not tested due to joint pain and large blister on dorsum of foot. Strength: generalized weakness. Bilateral legs grossly 3/5 Neuro: slight tremors in upper body. See OT noted for details Pain Ratin/10 mild pain R foot. Patient's hesitance to bear weight through R LE during gait would indicate a higher pain level. Bed Mobility/Transfers: Supine to sit: SBA Sit to stand: minimum assist of 2 persons Stand to sit: minimum assist of 2 persons Gait: Distance: 20 feet Device: front-wheeled walker Assist: moderate assist of 1 staff with 2nd person managing equipment. Gait deviations: antalgic gait, decreased step length and deficits during turnin g, barely able to put any weight through R LE. Patient requests to use his 4 wheeled walker so he can rest his R knee on the se at and use it like a knee scooter. PT advised against this for safety reasons. Instead, patient was cued on how to use front wheeled walker with step to gait pattern leading with R LE and putting weight through arms during R LE stance pha se. Patient demonstrated some carryover of skills taught but he will require fu rther practice and education. Stairs: not tested not safe at this time Posture: forward, rounded shoulders and kyphotic Sitting Balance: Static: normal: Patient able to maintain steady balance without handhold support Dynamic: good: Patient accepts moderate challenge Standing Balance: Static: fair: Patient able to maintain balance with handhold support; may requ willow occassional minimal assistance Dynamic: poor: Patient unable to accept challenge or move without loss of juliano ce Other: At this time, placement is the most appropriate discharge recommendation . Patient is at high risk for falls and he requires physical assist for all mob ility tasks. Tolerance for bearing weight through R LE is poor. Patient will r equire a front wheeled walker (rather than his 4 wheeled walker) as well as furt her training on how to use it safely. Objective Test Performed: AM-PAC Basic Mobility Inpatient Short Form How much difficulty does the patient have ... 1. Turning over in bed (including adjusting bedclothes, sheets, and blankets)? 3 A little 2. Sitting down on and standing up from a chair with arms (wheelchair, bedside c ommode, etc.)? 2 A lot 3. Moving from lying on back to sitting on the side of the bed? 3 A little How much help from another person does the patient currently need .... 1. Moving to and from a bed to a chair (including wheelchair)? 2 A lot 2. Need to walk in hospital room? 2 A lot 3. Climbing 3-5 steps with a railing? 2 A lot Total Score: 14 / 24 (61.29% impaired) Additional Comments: patient remained in chair alarm set call light placed in reach nurse (RN/BOND CLERK) notified Assessment/Recommendations: Patient presents with decreased strength, decreased ROM, difficulty walking, gai t abnormality, generalized weakness, impaired mobility, impaired balance, impair ed endurance and pain. Physical Therapy Discharge Recommendations: Plan: Discharge to Inpatient Rehabilitation or Senior Living Facility or Swing bed Reasons for Rehab: Fall risk/balance deficits, Physical assist is needed for saf ety, Home setup concerns including stairs to enter and stairs within and Lack of adequate support at home Activity Tolerance: Patient would likely tolerate 3 hours of therapy Transportation: Patient safe to transport by wheelchair. Projected Equipment for discharge: front wheeled walker and wheelchair Plan: Patient to be seen 1 - 2 times daily as staffing and scheduling allows for bed m obility, transfers, gait, ROM, strengthening, balance, neuromuscular re-educatio n, wheelchair mobility and patient/family education. Patient Goal: Be able to take care of himself. Goal: By the end of the patient's stay Bed Transfer Goal: Patient will complete a bed transfer (from flat bed without rails) with independence to progress toward independent bed transfers. Sit to stand Goal: Patient will complete sit to stand transfer with independenc e with front-wheeled walker to progress toward independent transfers. Gait Goal: Patient will complete gait with independence on level surfaces with f ront-wheeled walkerfor 150 feet to progress toward independent gait. Stair Goal: Patient will be able to negotiate 1+1 stairs with 0 handrails with s tep to gait pattern, front wheeled walker, and with modified independence. Balance Goal: Patient will perform 3 minutes of static and dynamic standing bal ance activities with 0-1 upper extremity support with good balance to improve in dependence with transfers and gait Test Goal: Patient will improve score on AMPAC to at least 18/24 to demonstrate minimal detectable change in functional mobility safety and independence. Patient agreeable to physical therapy goals: yes Today's Charge: PT eval moderate complex Gait training 1 unit (8-22 minutes) Evaluation was completed in conjunction with Occupational Therapist Time in/out: 836 - 04 Time spent with patient: 31 minutes Infection: No active infections Isolation: No active isolations PPE worn by staff: surgical mask, gloves and face shield PPE worn by patient: mask at all times Mari Rossi, MEGHANA 11/19/2020 9:04 AM * Progress Notes - Diane Braun RN - 11/19/2020 4:37 AM CDT Patient with more sustained V-tach per tele. HR up to 160. One episode of 15 b eats V-tach. WILDLIFE ECOLOGIST paged. We will replace electrolytes at this time per WILDLIFE ECOLOGIST and continue to monitor. * Plan of Care - Diane Braun RN - 11/19/2020 2:58 AM CDT Nursing End of Shift Summary Note Changes During This Shift: Procedures/Interventions: K+ and K+ Phosphate infusion for non sustained V-tach. CBI continues at slow rate; urine pink and clear. No complaints of abd pain fro m patient. Abd CT showed non-obstructing calculus; R stent that was placed. K+ now 3.6; NA+ 148. PICC site used for IV antibiotics; pink lumen without blood return; IV therapy n otified. Will see this shift. Urology following. ET consulted again for large fluid filled blister on Anterior R foot. Appears t o be ready to burst. Patient refusing any cover on foot. No pain reported. Family/Social Issues: Family supportive; sending up popsicles for patient tonight. Balloons in room; patient listening to [employer] music; he states he loves it. Additional Updates/Changes: See Tele strips/Sig Event Note Code Status: The patient's current code status is Full Code, and has not changed within the p revious 24 hours. Significant Event: 5 non-sustained runs of V-tach followed by NSR 3 beats V-tach, NSR 4 sec, 3 beats V-tach, NSR 3 sec, 4 beats V-tach, NSR 3-4 sec 5 beats V-tach, NSR 15 sec 5 beats V-tach, NSR continued. Patient non-symptomatic. STAT Mag and Phosporus: Mag WNL 1.6, Phosphorus: 1.9 Risk Assessment Scores: Liat: (!) 18 Melo: 45 Current Status: Most recent assessment documentation: Neuro (WDL): Exceptions to WDL (bilateral weak lower extremities) Level of Consciousness: Alert Orientation Level: Oriented X4 Cognition: Follows commands Respiratory (WDL): Exceptions to WDL Respiratory Pattern: Regular, Unlabored Chest Assessment: Chest expansion symmetrical Bilateral Breath Sounds: Clear SpO2: 96 % $ RT Oxygen Device: None (Room air)* Cardiac Cardiac (WDL): Within Defined Limits Cardiac Regularity: Regular Heart Sounds: S1, S2 Cardiac Rhythm: Normal sinus rhythm Gastrointestinal Gastrointestinal (WDL): Within Defined Limits Abdomen Inspection: Soft, Nondistended Bowel Sounds (All Quadrants): Active, Present Tenderness: No guarding, Nontender Passing Flatus: Yes Gastrointestinal Additional Assessments: No Genitourinary Genitourinary (WDL): Exceptions to WDL (CBI runnin g) Urinary Device: Yes Urinary Device Type: Urethral Catheter Most recent mobility documentation: Activity: Turn Level of Assistance: 1:1 Assistive Device: None Diane Braun, RN Problem: INFECTION PREVENTION Goal: Absence or improvement of infection during hospitalization Outcome: Progressing Problem: PAIN Goal: Verbalizes/displays adequate comfort level or baseline comfort level durin g hospitalization Outcome: Progressing Problem: SAFETY - FALL Goal: Absence from falls during hospitalization Outcome: Progressing Problem: DISCHARGE PLANNING Goal: Discharge to next level of care with appropriate resources Outcome: Progressing Problem: GENITOURINARY Goal: Urinary catheter remains patent; urinary tract remains free from infection during hospitalization Outcome: Progressing Problem: METABOLIC/FLUID AND ELECTROLYTES Goal: Electrolytes remain within normal limits during hospitalization Outcome: Not Progressing Note: K+ better at 3.6; however NA+ elevated at 148 Problem: HEMATOLOGIC Goal: Maintains hematologic stability during hospitalization Outcome: Progressing Problem: GASTROINTESTINAL Goal: Maintains or returns to baseline bowel function prior to discharge Outcome: Progressing Problem: ANXIETY Goal: Will report anxiety at manageable levels Outcome: Progressing Problem: MUSCULOSKELETAL Goal: Return mobility to safest level of function prior to discharge Outcome: Progressing Goal: Return ADL status to a safe level of function prior to discharge Description: Outcome: Progressing Problem: SKIN/TISSUE INTEGRITY Goal: Skin integrity remains intact during hospitalization Outcome: Progressing Goal: Incision(s), wounds(s) or drain site(s) healing without S/S of infection d uring hospitalization Description: I Outcome: Progressing Goal: Oral mucous membranes remain intact during hospitalization Outcome: Progressing * Plan of Care - Amy Ramos RN - 11/18/2020 3:08 PM CDT Nursing End of Shift Summary Note Changes During This Shift: Procedures/Interventions: Pt asking for popsicles this shift Ancef continued CBI continued at slow rate, still dark pink at times Pending PT/OT eval CT A/P ordered by ID d/t unknown etiology of bacteremia PICC continued - poor venous access per report Family/Social Issues: None Additional Updates/Changes: None Code Status: The patient's current code status is Full Code, and has not changed within the p revious 24 hours. Significant Event: No Risk Assessment Scores: Liat: (!) 18 Melo: 45 Current Status: Most recent assessment documentation: Neuro (WDL): Exceptions to WDL Level of Consciousness: Alert Orientation Level: Oriented X4 Cognition: Follows commands Respiratory (WDL): Exceptions to WDL Respiratory Pattern: Regular, Unlabored, Easy Chest Assessment: Chest expansion symmetrical Bilateral Breath Sounds: Clear SpO2: 94 % $ RT Oxygen Device: None (Room air)* Cardiac Cardiac (WDL): Within Defined Limits Cardiac Regularity: Regular Heart Sounds: S1, S2 Cardiac Rhythm: Normal sinus rhythm Gastrointestinal Gastrointestinal (WDL): Within Defined Limits Abdomen Inspection: Soft, Nondistended Bowel Sounds (All Quadrants): Active, Present Tenderness: No guarding, Nontender Passing Flatus: Yes Gastrointestinal Additional Assessments: No Genitourinary Genitourinary (WDL): Exceptions to WDL Urinary Device: Yes Urinary Device Type: Urethral Catheter Most recent mobility documentation: Activity: Resting in Bed Level of Assistance: Independent Amy Ramos RN Problem: INFECTION PREVENTION Goal: Absence or improvement of infection during hospitalization Outcome: Progressing Problem: PAIN Goal: Verbalizes/displays adequate comfort level or baseline comfort level sejal bradford hospitalization Outcome: Progressing Problem: SAFETY - FALL Goal: Absence from falls during hospitalization Outcome: Progressing Problem: DISCHARGE PLANNING Goal: Discharge to next level of care with appropriate resources Outcome: Progressing Problem: GENITOURINARY Goal: Urinary catheter remains patent; urinary tract remains free from infection during hospitalization Outcome: Progressing Problem: METABOLIC/FLUID AND ELECTROLYTES Goal: Electrolytes remain within normal limits during hospitalization Outcome: Progressing Problem: ANXIETY Goal: Will report anxiety at manageable levels Outcome: Progressing Problem: MUSCULOSKELETAL Goal: Return mobility to safest level of function prior to discharge Outcome: Progressing Goal: Return ADL status to a safe level of function prior to discharge Description: Outcome: Progressing Problem: SKIN/TISSUE INTEGRITY Goal: Skin integrity remains intact during hospitalization Outcome: Progressing Goal: Incision(s), wounds(s) or drain site(s) healing without S/S of infection d uring hospitalization Description: I Outcome: Progressing Goal: Oral mucous membranes remain intact during hospitalization Outcome: Progressing Problem: HEMATOLOGIC Goal: Maintains hematologic stability during hospitalization Outcome: Progressing Problem: GASTROINTESTINAL Goal: Maintains or returns to baseline bowel function prior to discharge Outcome: Progressing Goal: Maintains adequate nutritional intake during hospitalization Outcome: Progressing * Progress Notes - Ashley Haile MD - 11/18/2020 2:01 PM CDT Images from the original note were not included. [address] [id number] Hospitalist Progress Note 11/18/2020 Patient Name: Mainor Blanca : 1950 Primary Care Physician: Juan Trejo PA-C Admission Date: 11/15/2020 Loc: 625/625-A LOS: 3 days SUBJECTIVE: No acute events overnight. Denies any headache, chest pain, nausea, vomiting, a bdominal pain or new focal neurological deficits. Good oral intake. Pressure over last 24 hours 98.9. Plan was to remove PICC line yesterday but patient refused. He has history of I V drug abuse, thus, he did not have a good peripheral IV to place a peripheral I V access. Patient requested not to remove PICC line. On CBI this morning. Urine in Park collecting bag is pink. OBJECTIVE: Scheduled Medications: ceFAZolin 2,000 mg Intravenous Q8H methadone 155 mg Oral Daily At 1700 tamsulosin 0.4 mg Oral Bedtime Infusions: PRN Medications: dextrose OR glucagon OR glucagon OR dextrose OR dextrose, LORaze angela, prochlorperazine, sodium chloride Vital signs in last 24 hours: Temp: [96.8 F (36 C)-98.9 F (37.2 C)] 98.8 F (37.1 C) Heart Rate: [75-93] 80 Resp: [14-16] 14 BP: (131-154)/(72-118) 149/72 SpO2: [95 %-100 %] 100 % MAP (calculated): [97 mm Hg-122 mm Hg] 98 mm Hg MAP (mmHg): [94-124] 94 I&O: 11/17 0701 - 11/18 0700 In: 530 [P.O.:480; I.V.:50] Out: 2175 [Urine:2175] Exam: Visit Vitals BP (!) 149/72 (BP Location: Left arm, Patient Position: Supine) Pulse 80 Temp 98.8 F (37.1 C) Resp 14 Ht 1.778 m (5' 10") Wt 75.7 kg (166 lb 12.8 oz) SpO2 100% BMI 23.93 kg/m Temp (24hrs), Av.3 F (36.8 C), Min:96.8 F (36 C), Max:98.9 F (37.2 C) General: Adult male, alert, cooperative, no resp distress, appears stated age Head: Normocephalic, atraumatic Eyes: EOM's intact Neck: No JVD, no bruits Lungs: Clear to auscultation bilaterally, respirations unlabored Chest Wall: No tenderness or deformity Heart: Regular rate and rhythm, no murmurs, rubs, or gallop Abdomen: Soft, non-tender, non-distended, bowel sounds present Ext: Trace edema in b/l ankles Vascular: Distal pulses intact Skin: Warm and dry Neuro: Non-focal Psych: Normal affect Labs / Imaging: All recent data have been reviewed. PROBLEM LIST: Principal Problem: Gross hematuria Active Problems: KOFI (acute kidney injury) (HCC) BPH (benign prostatic hyperplasia) Hypernatremia Hypokalemia Elevated LFTs MSSA bacteremia Methadone dependence ([facility]) ASSESSMENT / PLAN: Gross hematuria Admitted to OSH with gross hematuria on 11/10. History of BPH and recent right u reteral stent placement. Park catheter was placed and started on CBI, overall hematuria is improving. Hemoglobin is low but overall has been stable. Urology was consulted, suspected hematuria is related to traumatic catheterizati on, recommended keeping Keep Park in place, on CBI at this time. Further management per urology. MSSA bacteremia Urine and blood cultures collected on 11/10 grew MSSA. ? Source: renal/UTI possi miranda. Hx of recent right ureteral stent placement (2.5 wks ago per patient' repor t). PICC line was placed in right upper extremity, and patient was started on cefazo dalia. Repeat blood culture on 11/13 grew GPC in clusters. Denies any having artificial joints, valves or implantable cardiac devices. Repeat blood cultures on 11/15 were obtained, NGTD. Procalcitonin was 15.55 on 11/12, repeat procalcitonin was 2.54. Continue cefazolin 2 grams every 8 hours. ID is consulted, recommended removing PICC Line but patient is hesitant as he hx difficult of IVs with history of IV drug abuse. Patient did not want PICC line removed. I explained to him why ID recommended removing PICC line in setting o f bacteremia. Will discuss with ID. Blood cultures on 11/[address] abdomen/pelvis is ordered by ID to look for source of bacteremia, pending. Monitor vital signs and labs. Hypernatremia Patient reports being on continuous IV fluids at the SC since admission. NA trended up to 155. Suspect this is iatrogenic due to NS. Was given a dose of IV Lasix 20 mg IV daily for 2 days, sodium is trending down. He looks euvolemic on exam at this time. Continue to monitor sodium level. KOFI Creatinine on initial labs was 2.19 in setting of gross hematuria with possible obstruction. Park catheter was placed. Was on IV fluids. Creatinine improved and KOFI resolved. Avoid nephrotoxins. Monitor renal functions, electrolytes and urine output. Elevated LFTs No abdominal pain or tenderness at this time. LFTs trended down. Continue to monitor. Hypokalemia Monitor and replace as needed. BPH Chronic. Continue home medications. Chest pain Patient reports that this was an abdominal pain radiating from his suprapubic ar ea in setting of gross hematuria. No specific EKG changes were mentioned (no EKG to review). Troponin x3 was negat josefina. Pain improved after Park catheter was inserted. No tachypnea, hypoxia or tachycardia. Chest pain resolved without recurrence. Monitor on telemetry. Repeat EKG for any recurrent chest pain. Methadone dependence Reportedly due to history of drug abuse when he was young. EKG on 11/16 showed prolonged QTC. Discussed with Dr. Michelle Burns at psychiatry who prescribes and manages patie nt's methadone regimen, recommended decreasing total daily dose 25 mg till QTC< 500. Home dose of 160 mg daily was increased to 155 mg daily on 11/16. Repeat EKG on 11/17 showed QTC <500. Continue to monitor daily EKG. Right foot pain Since reinjury at home while walking few days ago. Hx of right foot fracture. X-ray showed no fractures. PT/OT. DVT prophylaxis SCDs. Code Full code. Continued hospitalization is necessary due to bacteremia Disposition: Likely Home but might need rehab pending PT/OT. Expected date of discharge: 2-3 days Ashley Barrera MD Electronic Signature 11/18/2020 2:01 PM * Plan of Care - Jonatan Berger RN - 11/18/2020 7:40 AM CDT No evidence of erythema, edema or drainage from tissue surrounding PICC line ins ertion site. * Plan of Care - Marek Martinez RN - 11/17/2020 11:55 PM CDT Nursing End of Shift Summary Note Changes During This Shift: Procedures/Interventions: K+ 2.8--gave 40mEq of K+ oral. Ordered q4. CBI running slow rate urine [place]. Family/Social Issues: No calls or visits throughout shift. Additional Updates/Changes: No additional updates or changes. Code Status: The patient's current code status is Full Code, and has not changed within the p revious 24 hours. Significant Event: No Risk Assessment Scores: Liat: (!) 17 Melo: 45 Current Status: Most recent assessment documentation: Neuro (WDL): Exceptions to WDL Level of Consciousness: Alert Orientation Level: Oriented X4 Cognition: Appropriate judgement Respiratory (WDL): Exceptions to WDL Respiratory Pattern: Regular, Easy, Unlabored Chest Assessment: Chest expansion symmetrical Bilateral Breath Sounds: Diminished SpO2: 95 % $ RT Oxygen Device: None (Room air)* Cardiac Cardiac (WDL): Exceptions to WDL Cardiac Regularity: Regular Heart Sounds: S1, S2 Cardiac Rhythm: Normal sinus rhythm Gastrointestinal Gastrointestinal (WDL): Exceptions to WDL Last BM Date: 11/12/20 Abdomen Inspection: Soft, Rounded Bowel Sounds (All Quadrants): Hypoactive Tenderness: No guarding, Nontender Passing Flatus: Yes GI Symptoms: Constipation Gastrointestinal Additional Assessments: No Genitourinary Genitourinary (WDL): Exceptions to WDL Genitourinary Symptoms: Unable to assess (CBI) Urinary Device: Yes Urinary Device Type: Urethral Catheter Most recent mobility documentation: Activity: Resting in Bed Level of Assistance: Independent Assistive Device: None Marek Martinez RN Problem: PAIN Goal: Verbalizes/displays adequate comfort level or baseline comfort level helenin suzette hospitalization Outcome: Progressing Problem: SAFETY - FALL Goal: Absence from falls during hospitalization Outcome: Progressing Problem: GENITOURINARY Goal: Urinary catheter remains patent; urinary tract remains free from infection during hospitalization Outcome: Progressing Problem: ANXIETY Goal: Will report anxiety at manageable levels Outcome: Progressing Problem: SKIN/TISSUE INTEGRITY Goal: Skin integrity remains intact during hospitalization Outcome: Progressing Goal: Incision(s), wounds(s) or drain site(s) healing without S/S of infection d uring hospitalization Description: I Outcome: Progressing Goal: Oral mucous membranes remain intact during hospitalization Outcome: Progressing Problem: HEMATOLOGIC Goal: Maintains hematologic stability during hospitalization Outcome: Progressing Problem: GASTROINTESTINAL Goal: Maintains adequate nutritional intake during hospitalization Outcome: Progressing Problem: INFECTION PREVENTION Goal: Absence or improvement of infection during hospitalization Outcome: Not Progressing Note: Microbiology Results (last 14 days) Procedure Component Value Units Date/Time Blood Culture x2 [[id number]] Collected: 11/15/201930 Order Status: Completed Specimen: Blood from Peripheral Updated: 11/17/201945 Blood Culture, Routine No Growth after 48 hours incubation Blood Culture x2 [[id number]] Collected: 11/15/201924 Order Status: Completed Specimen: Blood from Peripheral Updated: 11/17/201945 Blood Culture, Routine No Growth after 48 hours incubation No results found for: HGBA1C Lab Results Component Value Date CREATININE 1.25 (H) 11/17/2020 Magnesium Date Value Ref Range Status 11/17/2020 1.6 1.6 - 2.3 mg/dL Final Lab Results Component Value Date CALCIUM 8.2 (L) 11/17/2020 PHOS 1.9 (L) 11/17/2020 Lab Results Component Value Date NA 153 (H) 11/17/2020 K 2.8 (LL) 11/17/2020 CL 117 (H) 11/17/2020 CO2 30 11/17/2020 BUN 30 (H) 11/17/2020 CREATININE 1.25 (H) 11/17/2020 GLU 155 (H) 11/17/2020 CALCIUM 8.2 (L) 11/17/2020 BILITOT 0.4 11/17/2020 ALKPHOS 147 (H) 11/17/2020 AST 62 (H) 11/17/2020 ALT 17 11/17/2020 PROT 5.9 11/17/2020 ALB 3.0 (L) 11/17/2020 EGFR 57 (L) 11/17/2020 ANIONGAP 6 11/17/2020 Lab Results Component Value Date WBC 12.7 (H) 11/17/2020 HGB 8.0 (L) 11/17/2020 HCT 25.7 (L) 11/17/2020 MCV 98.1 (H) 11/17/2020 PLT 415 11/17/2020 No results found for: DDIMER No results found for: CKTOTAL, CKMB, CKMBINDEX, TROPONINI Vitals (last day) Date/Time Temp Pulse Resp BP SpO2 Weight 11/17/202039 no documentation no documentation no documentation (Abnormal) 138/97 no documentation no documentation 11/17/202002 98.9 F (37.2 C) 93 16 (Abnormal) 131/118 96 % no docume ntation 11/17/20 1422 98.2 F (36.8 C) 78 16 (Abnormal) 154/83 97 % no documen tation 11/17/20 0732 98.9 F (37.2 C) 95 16 (Abnormal) 143/76 95 % no documen tation 11/17/20 0304 98 F (36.7 C) 74 15 (Abnormal) 144/93 100 % no document ation 11/17/20 0013 97.9 F (36.6 C) 89 16 (Abnormal) 145/85 94 % no documen tation 11/16/202030 98.7 F (37.1 C) 86 16 127/81 95 % no documentation 11/16/20 1412 98.1 F (36.7 C) 72 14 131/71 95 % no documentation 11/16/20 0803 98.6 F (37 C) 76 16 134/76 95 % no documentation 11/16/20 0421 98.4 F (36.9 C) 66 18 136/77 96 % 72.9 kg (160 lb 12.8 oz) Problem: DISCHARGE PLANNING Goal: Discharge to next level of care with appropriate resources Outcome: Not Progressing Note: Discharge planning not yet complete. Problem: METABOLIC/FLUID AND ELECTROLYTES Goal: Electrolytes remain within normal limits during hospitalization Outcome: Not Progressing Note: Lab Results Component Value Date NA 153 (H) 11/17/2020 K 2.8 (LL) 11/17/2020 CL 117 (H) 11/17/2020 CO2 30 11/17/2020 Lab Results Component Value Date CALCIUM 8.2 (L) 11/17/2020 PHOS 1.9 (L) 11/17/2020 Magnesium Date Value Ref Range Status 11/17/2020 1.6 1.6 - 2.3 mg/dL Final Phosphorus Date Value Ref Range Status 11/17/2020 1.9 (L) 2.7 - 4.5 mg/dL Final Problem: MUSCULOSKELETAL Goal: Return mobility to safest level of function prior to discharge Outcome: Not Progressing Note: Patient continues to require 1:1 assistance for mobility Goal: Return ADL status to a safe level of function prior to discharge Description: Outcome: Not Progressing Note: Continues to require staff assistance for ADLs Problem: GASTROINTESTINAL Goal: Maintains or returns to baseline bowel function prior to discharge Outcome: Not Progressing Note: No bm since admit * Plan of Care - Rob Millan, RN - 11/17/2020 4:01 PM CDT Nursing End of Shift Summary Note Changes During This Shift: Procedures/Interventions: -Continue CBI. Urine is pink, clear, and free of clots. -Remove PICC line orders. IV therapy unable to do so. This nurse communicated th is with hospitalist. Keep PICC for now. Family/Social Issues: -None noted at this time. Additional Updates/Changes: -None noted at this time. Code Status: The patient's current code status is Full Code, and has not changed within the p revious 24 hours. Significant Event: No Risk Assessment Scores: Liat: (!) 17 Melo: 45 Current Status: Most recent assessment documentation: Neuro (WDL): Within Defined Limits Level of Consciousness: Alert Orientation Level: Oriented X4 Cognition: Appropriate judgement Respiratory Pattern: Regular, Unlabored Chest Assessment: Chest expansion symmetrical Bilateral Breath Sounds: Diminished SpO2: 97 % $ RT Oxygen Device: None (Room air)* Cardiac Cardiac (WDL): Within Defined Limits Cardiac Regularity: Regular Heart Sounds: S1, S2 Gastrointestinal Gastrointestinal (WDL): Exceptions to WDL Abdomen Inspection: Soft, Rounded Bowel Sounds (All Quadrants): Active Tenderness: No guarding, Nontender Passing Flatus: Yes Gastrointestinal Additional Assessments: No Genitourinary Urinary Device: Yes Urinary Device Type: Urethral Catheter Most recent mobility documentation: Activity: Bathing Level of Assistance: 1:1 Assistive Device: None Rob Millan RN Problem: INFECTION PREVENTION Goal: Absence or improvement of infection during hospitalization Outcome: Progressing Problem: PAIN Goal: Verbalizes/displays adequate comfort level or baseline comfort level durin g hospitalization Outcome: Progressing Problem: SAFETY - FALL Goal: Absence from falls during hospitalization Outcome: Progressing Problem: DISCHARGE PLANNING Goal: Discharge to next level of care with appropriate resources Outcome: Progressing Problem: GENITOURINARY Goal: Urinary catheter remains patent; urinary tract remains free from infection during hospitalization Outcome: Progressing Problem: METABOLIC/FLUID AND ELECTROLYTES Goal: Electrolytes remain within normal limits during hospitalization Outcome: Progressing Problem: ANXIETY Goal: Will report anxiety at manageable levels Outcome: Progressing Problem: MUSCULOSKELETAL Goal: Return mobility to safest level of function prior to discharge Outcome: Progressing Goal: Return ADL status to a safe level of function prior to discharge Description: Outcome: Progressing Problem: SKIN/TISSUE INTEGRITY Goal: Skin integrity remains intact during hospitalization Outcome: Progressing Goal: Incision(s), wounds(s) or drain site(s) healing without S/S of infection d uring hospitalization Description: I Outcome: Progressing Goal: Oral mucous membranes remain intact during hospitalization Outcome: Progressing Problem: HEMATOLOGIC Goal: Maintains hematologic stability during hospitalization Outcome: Progressing Problem: GASTROINTESTINAL Goal: Maintains or returns to baseline bowel function prior to discharge Outcome: Progressing Goal: Maintains adequate nutritional intake during hospitalization Outcome: Progressing * Progress Notes - Gladys Geller RN - 11/17/2020 2:[address] Barrera asked for assessment for PIV again and remove PICC if placement. Asse ssed RUE and attempted x2 unable to access. Nurse notified * Progress Notes - Jasmyne Samson RN - 11/17/2020 2:25 PM CDT Leadership round completed at this time. Patient watching TV, denies needs or c oncerns. * Progress Notes - Ashley Haile MD - 11/17/2020 1:08 PM CDT Images from the original note were not included. [address] [place] [id number] Hospitalist Progress Note 11/17/2020 Patient Name: Mainor Blanca : 1950 Primary Care Physician: Juan Trejo PA-C Admission Date: 11/15/2020 Loc: 625/625-A LOS: 2 days SUBJECTIVE: No acute events overnight. Denies any chest pain or palpitation. No abdominal pain, nausea or vomiting. No reported new focal neurological deficits. OBJECTIVE: Scheduled Medications: ceFAZolin 2,000 mg Intravenous Q8H methadone 155 mg Oral Daily At 1700 tamsulosin 0.4 mg Oral Bedtime Infusions: PRN Medications: dextrose OR glucagon OR glucagon OR dextrose OR dextrose, LORaze angela, prochlorperazine, sodium chloride Vital signs in last 24 hours: Temp: [97.9 F (36.6 C)-98.9 F (37.2 C)] 98.9 F (37.2 C) Heart Rate: [72-95] 95 Resp: [14-16] 16 BP: (127-145)/(71-93) 143/76 SpO2: [94 %-100 %] 95 % MAP (calculated): [91 mm Hg-110 mm Hg] 98 mm Hg I&O: 11/16 0701 - 11/17 0700 In: 441.1 [P.O.:298; I.V.:143.1] Out: 2650 [Urine:2650] Exam: Visit Vitals BP (!) 143/76 (BP Location: Left arm, Patient Position: Supine) Pulse 95 Temp 98.9 F (37.2 C) Resp 16 Ht 1.778 m (5' 10") Wt 72.9 kg (160 lb 12.8 oz) SpO2 95% BMI 23.07 kg/m Temp (24hrs), Av.3 F (36.8 C), Min:97.9 F (36.6 C), Max:98.9 F (37 .2 C) General: Adult male, alert, cooperative, no resp distress, appears stated age Head: Normocephalic, atraumatic Eyes: EOM's intact Neck: No JVD, no bruits Lungs: Clear to auscultation bilaterally, respirations unlabored Chest Wall: No tenderness or deformity Heart: Regular rate and rhythm, no murmurs, rubs, or gallop Abdomen: Soft, non-tender, non-distended, bowel sounds present Ext: Trace edema in b/l ankles Vascular: Distal pulses intact Skin: Warm and dry Neuro: Non-focal Psych: Normal affect Labs / Imaging: All recent data have been reviewed. PROBLEM LIST: Principal Problem: Gross hematuria Active Problems: KOFI (acute kidney injury) (HCC) BPH (benign prostatic hyperplasia) Hypernatremia Hypokalemia Elevated LFTs MSSA bacteremia Methadone dependence (HCC) ASSESSMENT / PLAN: Gross hematuria Admitted to OSH with gross hematuria on 11/10. History of BPH and recent right u reteral stent placement. Park catheter was placed and started on CBI, overall hematuria is improving. Hemoglobin is low but overall has been stable and 7.9-8.5 range. Urology was consulted, suspected hematuria is related to traumatic catheterizati on, recommended keeping Keep Park in place, currently off CBI. MSSA bacteremia Urine and blood cultures collected on 11/10 grew MSSA. ? Source: renal/UTI possi miranda. Hx of recent right ureteral stent placement (2.5 wks ago per patient' repor t). PICC line was placed in right upper extremity, and patient was started on cefazo dalia. Repeat blood culture on 11/13 grew GPC in clusters. Denies any having artificial joints, valves or implantable cardiac devices. Repeat blood cultures on 11/15 were obtained, NGTD. Procalcitonin was 15.55 on 11/12, repeat procalcitonin was 2.54. Continue cefazolin 2 grams every 8 hours. ID is consulted, recommended removing PICC Line but patient is hesitant as he hx difficult of IVs with history of IV drug abuse. I discussed with the patient w dipak eventually agrees on removing PICC line if a peripheral IV is secured. Monitor vital signs and labs. Hypernatremia Patient reports being on continuous IV fluids at the SC since admission. NA trended up to 155. Suspect this is iatrogenic due to NS. Was given a dose of IV Lasix 20 mg on 11/16 with improvement in hypernatremia. G josefina another dose of Lasix IV 20 mg today. Continue to monitor sodium level. KOFI Creatinine on initial labs was 2.19 in setting of gross hematuria with possible obstruction. Park catheter was placed. Was on IV fluids. Creatinine improved. Avoid nephrotoxins. Monitor renal functions, electrolytes and urine output. Elevated LFTs No abdominal pain or tenderness at this time. LFTs trended down. Continue to monitor. Hypokalemia Monitor and replace as needed. BPH Chronic. Continue home medications. Chest pain Patient reports that this was an abdominal pain radiating from his suprapubic ar ea in setting of gross hematuria. No specific EKG changes were mentioned (no EKG to review). Troponin x3 was negat josefina. Pain improved after Park catheter was inserted. No tachypnea, hypoxia or tachycardia. Chest pain resolved without recurrence. Monitor on telemetry. Repeat EKG for any recurrent chest pain. Methadone dependence Reportedly due to history of drug abuse when he was young. EKG on 11/16 showed prolonged QTC. Discussed with Dr. Michelle Burns at psychiatry who prescribes and manages patie nt's methadone regimen, recommended decreasing total daily dose 25 mg till QTC< 500. Home dose of 160 mg daily was increased to 155 mg daily on 11/16. Repeat EKG on 11/17 showed QTC <500. Will obtain daily EKGs. Right foot pain Since reinjury at home while walking few days ago. Hx of right foot fracture. X-ray showed no fractures. PT/OT. DVT prophylaxis SCDs. Code Full code. Continued hospitalization is necessary due to bacteremia Disposition: Likely Home but might need rehab pending PT/OT. Expected date of discharge: 2-3 days Ashley Barrera MD Electronic Signature 11/17/2020 1:08 PM * Progress Notes - Gladys Geller RN - 11/17/2020 8:09 AM CDT Pt has an order to remove PICC. PT assessed for PIV. Unable to palpate any usa ble vein. Britney Sloan RN assessed with the site john. Unable to use lt arm due to large amount of bruising. Pt states that it was due to "a blood infusio n." Pt states that he has the PICC because his veins "are not good." He states that he has a history of drug abuse and "ruined my veins." Order to leave PICC in until another line is placed. Unable to find suitable ac cess. * Plan of Care - Marek Martinez RN - 11/16/2020 10:54 PM CDT Nursing End of Shift Summary Note Changes During This Shift: Procedures/Interventions: K+ 2.7. Replaced with oral K+ 40mEq and IV 60 mEq. CBI titrated down to slower rate. Compazine given x1 for nausea. EKG obtained. Family/Social Issues: No calls or updates this shift. Additional Updates/Changes: PICC to stay in place until another site is placed. See nursing communication Or karina. Code Status: The patient's current code status is Full Code, and has not changed within the p revious 24 hours. Significant Event: No Risk Assessment Scores: Liat: (!) 17 Melo: 45 Current Status: Most recent assessment documentation: Neuro (WDL): Within Defined Limits Level of Consciousness: Alert Orientation Level: Oriented X4 Cognition: Appropriate judgement, Appropriate safety awareness, Appropriate atte ntion/concentration, Appropriate for developmental age, Follows commands Respiratory (WDL): Exceptions to WDL Respiratory Pattern: Regular, Unlabored Chest Assessment: Chest expansion symmetrical Bilateral Breath Sounds: Diminished SpO2: 100 % $ RT Oxygen Device: None (Room air)* Cardiac Cardiac (WDL): Within Defined Limits Cardiac Regularity: Regular Heart Sounds: S1, S2 Cardiac Rhythm: Normal sinus rhythm Gastrointestinal Gastrointestinal (WDL): Exceptions to WDL Abdomen Inspection: Soft, Rounded Bowel Sounds (All Quadrants): Active Tenderness: No guarding, Nontender Passing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 Intravenous Q8H potassium chloride SA 40 mEq Oral Once tamsulosin 0.4 mg Oral Bedtime Infusions: PRN Medications: dextrose OR glucagon OR glucagon OR dextrose OR dextrose, sodium chloride Vital signs in last 24 hours: Temp: [98.4 F (36.9 C)-99 F (37.2 C)] 98.6 F (37 C) Heart Rate: [66-93] 76 Resp: [16-18] 16 BP: (134-162)/(76-83) 134/76 SpO2: [95 %-99 %] 95 % MAP (calculated): [95 mm Hg-109 mm Hg] 95 mm Hg MAP (mmHg): [94-105] 94 I&O: 11/15 0701 - 11/16 0700 In: 6000 Out: 5150 [Urine:5150] Exam: Visit Vitals BP 134/76 (BP Location: Left arm, Patient Position: Supine) Pulse 76 Temp 98.6 F (37 C) Resp 16 Ht 1.778 m (5' 10") Wt 72.9 kg (160 lb 12.8 oz) SpO2 95% BMI 23.07 kg/m Temp (24hrs), Av.6 F (37 C), Min:98.4 F (36.9 C), Max:99 F (37.2 C) General: Adult male, alert, cooperative, no resp distress, appears stated age Head: Normocephalic, atraumatic Eyes: EOM's intact Neck: No JVD, no bruits Lungs: Clear to auscultation bilaterally, respirations unlabored Chest Wall: No tenderness or deformity Heart: Regular rate and rhythm, no murmurs, rubs, or gallop Abdomen: Soft, non-tender, non-distended, bowel sounds present Ext: Trace edema in b/l ankles Vascular: Distal pulses intact Skin: Warm and dry Neuro: Non-focal Psych: Normal affect Labs / Imaging: All recent data have been reviewed. PROBLEM LIST: Principal Problem: Gross hematuria Active Problems: KOFI (acute kidney injury) (HCC) BPH (benign prostatic hyperplasia) Hypernatremia Hypokalemia Elevated LFTs MSSA bacteremia Methadone dependence (HCC) ASSESSMENT / PLAN: Gross hematuria Admitted to OSH with gross hematuria on 11/10. History of BPH and recent right u reteral stent placement. Park catheter was placed and started on CBI, overall hematuria is improving. Hemoglobin is low but overall has been stable and 7.9-8.5 range. Keep Park in place and continue CBI. Urology was consulted, suspected hematuria is related to traumatic catheterizati on, recommended keeping Park catheter in place with CBI. MSSA bacteremia Urine and blood cultures collected on 11/10 grew MSSA. Source is likely renal. H x of recent right ureteral stent placement (2.5 wks ago per patient' report). PICC line was placed in right upper extremity, and patient was started on cefazo dalia. Repeat blood culture on 11/13 grew GPC in clusters. Denies any having artificial joints, valves or implantable cardiac devices. Repeat blood cultures on 11/15 were obtained. Procalcitonin was 15.55 on 11/12, repeat procalcitonin was ordered but still pend ing. Continue cefazolin 2 grams every 8 hours. Obtain CXR to confirm PICC line plac ement. ID consult. Monitor vital signs and labs. Hypernatremia Patient reports being on continuous IV fluids at the [facility] since admission. NA 155 today from 153 yesterday, associated with hyperchloremia. Suspect this is iatrogenic due to NS. Cannot obtain urine osm as patient on CBI. Will give a dose of IV lasix and repeat in afternoon. If no improvement, will consult with nephrology. Repeat NA in the afternoon. KOFI Creatinine on initial labs was 2.19 in setting of gross hematuria with possible obstruction. Park catheter was placed. Was on IV fluids. Creatinine improved. Avoid nephrotoxins. Monitor renal functions, electrolytes and urine output. Elevated LFTs No abdominal pain or tenderness at this time. LFTs trended down. Continue to monitor. Hypokalemia Monitor and replace as needed. BPH Chronic. Continue home medications. Chest pain Patient reports that this was an abdominal pain radiating from his suprapubic ar ea in setting of gross hematuria. No specific EKG changes were mentioned (no EKG to review). Troponin x3 was negat josefina. Pain improved after Park catheter was inserted. No tachypnea, hypoxia or tachycardia. Monitor on telemetry. Repeat EKG for any recurrent chest pain. Methadone dependence Reportedly due to history of drug abuse when he was young. Obtain EKG to check QTC. Continue home methadone with caution if QTC allows. Right foot pain Since reinjury at home while walking few days ago. Hx of right foot fracture. X-ray showed no fractures. DVT prophylaxis SCDs. Code Full code. Continued hospitalization is necessary due to bacteremia Disposition: Home Expected date of discharge: 2-3 days Amer Shavon Barrera MD Electronic Signature 11/16/2020 11:13 AM Addendum EKG showed prolonged QTC. Patient states his methadone from psychiatry department. I talked to Dr. Erin burns who is managing patient's methadone regimen and confirmed that patient is on methadone 160 mg daily. I discussed with her QTc. Dr. Burns recommended de creasing methadone daily dose by 5 mg till QTc is <500. I discussed benefits and risks and current plan with patient who is agreeable. * Consults - Coleen Cabrera PCT - 11/16/2020 10:35 AM CDT Images from the original note were not included. Patient seen for a low Liat score by Enterostomal Therapy PCT. Concerns found with skin integrity. Patient has red areas on his back, and bruising on his lef t arm. Patient also has blister to right foot. The following skin integrity issu es were identified and photographed. Primary nurse and Enterostomal Therapy nurs e notified. Patient identified to be on a Ana Maria frame with a isoflex mattress at time of i nspection. Continue to follow Pressure Injury Prevention Interventions recommend ed and implemented by nursing staff. Infection: No active infections Isolation: No active isolations PPE worn by staff: Mask, Shield, Gloves PPE worn by patient: None Was in close contact with the patient (6 ft or less for 10 minutes or more)? No Coleen Cabrera- ET PCT * Progress Notes - Hien Spangler, SHEN LD - 11/16/2020 8:15 AM CDT [address] [id number] Patient Name: Mainor Blanca : 1950 Primary Care Physician: No primary care provider on file. Admission Date: 11/15/2020 RM/BED: [address] [place] [address]A Length of Stay: LOS: 1 day Nutrition Assessment Chief Complaint: No chief complaint on file. REASON FOR ASSESSMENT: Admit nutrition screen triggers NUTRITION INTERVENTIONS Nutrition Prescription: Est Kcal needs: 9004-2328 Kcal (25-30 kcal/kg Actual BW) REE/EEE Calculator Est protein needs: 73-87 g (1-1.2 g/kg Actual BW) Est fluid needs: 2294 mL (1500 ml 1st 20 kg + 15 ml/kg remainder body weight ( > 50 yo) Actual BW) Intervention: Meals and Snacks Will monitor for diet advancement as medically appropriate. May offer diet appr opriate snacks/supplements prn upon diet advancement. Goals: Pt will consume > 50% of meals (to include protein source) on average once diet advances. NUTRITION DIAGNOSIS Nutrition Problem: New Nutrition Diagnosis (problem): Altered nutrition-related laboratory values (so dium) Related to (etiology): estimated free water deficit @ ~ 3.7 L As Evidenced by (signs/symptoms): hypernatremia Nutrition Problem: New Nutrition Diagnosis (problem): Inadequate oral intake Related to (etiology): decreased appetite As Evidenced by (signs/symptoms): pt with decreased po intake area captain per [place] nutrition screen; pt currently NPO ASSESSMENT Mainor Blanca is a 70 y.o. male admitted with Gross hematuria. Pt is currently NPO. Hypernatremia, hyperchloremia, and hypokalemia noted. Pt received 40 KCl x 1 (11/15). Corrected Ca++ 2' depleted albumin = 8.78 mg/dL (WNL). Nutrition History: Pt with decreased po intake for> 5 days and unintentional wt loss per nursing nutrition screen. Pt with abdominal pain area captain. Note pt tried taking PO meds last night and began to cough and became tearful and did not take remaining meds per nursing note. No wt hx available to assess. Pt appears a bit dry per review of labs; dx KOFI noted. Anthropometrics: Height: 1.778 m (5' 10") Most recent weight: Weight: 72.9 kg (160 lb 12.8 oz) (11/16/20420) Weight Method: Bed scale (11/16/20420) Utilized 11/16 bed scale wt of 160 lb (72.9 kg) in calculations. IBW: 75.5 kg 97% IBW Adj BW: --- Body mass index is 23.07 kg/m. Active Medical Diagnoses this Hospitalization: Principal Problem: Gross hematuria Active Problems: KOFI (acute kidney injury) (HCC) BPH (benign prostatic hyperplasia) Hypernatremia Hypokalemia Elevated LFTs MSSA bacteremia Methadone dependence (HCC) He has no past medical history on file. He has no past surgical history on file. No Known Allergies Current diet order: NPO Oral intake: Last documented- Current EN: - GRV: - Current PN: - Nutrition screen: Home Tube feeding/PN : No Poor appetite > 5 days : Yes Unintentional weight loss : Yes Nutrition screen score : 10 Liat Scale Score: (!) 17 Nutrition: Probably inadequate Skin: red dots to lower back; redness to coccyx/bottom; blister to R foot; bruis ing to L arm per RN shift assessment Labs: Recent Labs Lab 11/15/20 1931 NA 153* K 3.3* CL 123* BUN 27* CREATININE 1.21* GLU 122* CALCIUM 7.9* CO2 24 HGB 7.1* HCT 23.1* WBC 14.8* NEUTOPHILPCT 90.1* ALB 2.9* No results for input(s): PHOS, MG in the last 168 hours. No results for input(s): TRIG, LIPASE, AMYLASE in the last 168 hours. No results found for: AMMONIA, HGBA1C Current Medications: Scheduled Meds: ceFAZolin 2,000 mg Intravenous Q8H potassium chloride SA 40 mEq Oral Once tamsulosin 0.4 mg Oral Bedtime Continuous Infusions: TOP [employer]ER Medications: Prior to Admission medications Medication Sig Start Date End Date Taking? Authorizing Provider hyoscyamine (LEVSIN/SL) 0.[address] 0.125 mg under the tongue every 4 (four) hours as needed for Cramping. Yes Outreach, Physician meloxicam (MOBIC) 7.5 MG tablet Take 15 mg by mouth daily. Yes Outreach, Physi nigel methadone (DOLOPHINE) 10 MG tablet Take 160 mg by mouth Daily At 5 pm. May cause QT prolongation and Torsades de pointes Yes Outreach, Physician naloxone (NARCAN) 4 MG/0.1ML nasal spray Place 1 spray nasally as needed for Opi oid Reversal. Yes Outreach, Physician ondansetron (ZOFRAN-ODT) 4 MG disintegrating tablet Take 4 mg by mouth every 6 ( six) hours as needed for Nausea. Yes Outreach, Physician tamsulosin (FLOMAX) 0.4 MG CAPS Take 0.4 mg by mouth at bedtime. Yes Outreach, Physician Vitals: SpO2: 95 % Oxygen Device: None (Room air)* Temp (24hrs), Av.6 F (37 C), Min:98.4 F (36.9 C), Max:99 F (37.2 C) Intake/Output Summary (Last 24 hours) at 11/16/2020 0815 Last data filed at 11/16/2020 0617 Gross per 24 hour Intake 6000 ml Output 5150 ml Net 850 ml Fluid balance since admit: + 850 mL Last BM: None since admission, passing flatus per RN shift assessment MONITORING AND EVALUATION diet order (diet advancement as medically appropriate) weight Reassess according to Level of Care: within 2-4 days (High). SHEN ramirez prn. SHEN Kohli Electronic Signature 11/16/2020 8:15 AM * Consults - Yarely Durant RN - 11/16/2020 7:37 AM CDT Consulted for low Liat. Patient's current Liat score is 17. This patient has NOT yet been assessed by ET. ET will assess patient as time al lows. Please follow standard protocols in the meantime with nursing judgement. Recommendations are as follows: Apply large Mepilex sacrum border to sacral/coccyx area to be changed weekly and PRN saturation. Peel back for shift assessment of skin and then replace. The use of dri-william chux and briefs should be limited to patients with incont inence and/or drainage concerns. Verbally prompt patient to or assist patient with repositioning Pressure relief to heels bilaterally when in bed through the use of pillows to offload pressure or nursing staff to order misty boots if pillows ineffective in offloading pressure to heels. Use oxy-ears foam padding if patient is ordered O2 per nasal cannula. Diligent layo area cleansing Apply skin barriers/protectant as needed. Instruct pt/family about patient need to: Move and turn in bed Move legs frequently and "push pedal" feet Call nurse immediately if incontinent Shift weight off of hips/coccyx when commercials come on TV Drink fluids if diet orders allow Teach pt/family how protein is important for healing Educate patient and/or family on pressure injury prevention Maintain proper skin hydration through the use of lotions/moisturizers Continue to follow Pressure Injury Prevention policy Please ensure patient is on the appropriate mattress to aid in offloading pr essure points Yarely Durant RN Electronic Signature Enterostomal Therapy * Plan of Care - Marek Martinez RN - 11/16/2020 2:50 AM CDT Nursing End of Shift Summary Note Changes During This Shift: Procedures/Interventions: Titrated CBI. Patient tried taking oral pills, began to cough and was tearful. Did not take th e rest of the oral medications. EKG obtained this shift-no paper available so a copy was not printed at time of EKG. Family/Social Issues: Patient called family members in the evening. Additional Updates/Changes: No calls or visits this shift. Code Status: The patient's current code status is Full Code, and has not changed within the p revious 24 hours. Significant Event: No Risk Assessment Scores: Liat: (!) 17 Melo: 45 Current Status: Most recent assessment documentation: Neuro (WDL): Within Defined Limits Level of Consciousness: Alert Orientation Level: Oriented X4 Cognition: Appropriate judgement, Appropriate safety awareness, Appropriate atte ntion/concentration, Appropriate for developmental age, Follows commands Respiratory (WDL): Exceptions to WDL Respiratory Pattern: Regular, Unlabored Chest Assessment: Chest expansion symmetrical Bilateral Breath Sounds: Clear, Diminished SpO2: 96 % $ RT Oxygen Device: None (Room air)* Cardiac Cardiac (WDL): Exceptions to WDL Cardiac Regularity: Regular Heart Sounds: S1, S2 Cardiac Rhythm: Normal sinus rhythm Gastrointestinal Gastrointestinal (WDL): Exceptions to WDL Abdomen Inspection: Soft, Rounded Bowel Sounds (All Quadrants): Active Tenderness: No guarding, Nontender Passing Flatus: Yes GI Symptoms: Constipation Gastrointestinal Additional Assessments: No Genitourinary Genitourinary (WDL): Exceptions to WDL Genitourinary Symptoms: Other (Comment) (CBI) Urinary Device: Yes Urinary Device Type: Ureteral Drain/Stent (CBI) Most recent mobility documentation: Activity: Resting in Bed Level of Assistance: Independent Assistive Device: None Marek Martinez RN Problem: INFECTION PREVENTION Goal: Absence or improvement of infection during hospitalization Outcome: Progressing Problem: PAIN Goal: Verbalizes/displays adequate comfort level or baseline comfort level helenin g hospitalization Outcome: Progressing Problem: SAFETY - FALL Goal: Absence from falls during hospitalization Outcome: Progressing Problem: GENITOURINARY Goal: Urinary catheter remains patent; urinary tract remains free from infection during hospitalization Outcome: Progressing Problem: ANXIETY Goal: Will report anxiety at manageable levels Outcome: Progressing Problem: DISCHARGE PLANNING Goal: Discharge to next level of care with appropriate resources Outcome: Not Progressing Patient not medically stable for DC. CBI still in place. Problem: METABOLIC/FLUID AND ELECTROLYTES Goal: Electrolytes remain within normal limits during hospitalization Outcome: Not Progressing Patient K+ 3.3. replaced with 40 mEq of oral K+. Patient took one pill before th e patient began to cough and sneeze. Patient became tearful and said he did not want to take the other oral pills. * Progress Notes - Giulia Sampson RN - 11/15/2020 8:20 PM CDT Medical necessity review using the Urinary Tract Infection (UTI) Guideline M-300 [GLOS 2 (DS)]: - Admission is indicated for 1 or more of the following: - Parenteral antibiotics needed beyond observation care (eg, patient cannot take oral medication, known or suspected pathogen resistance to oral agents) - Suspected infection of an indwelling prosthetic device, stent, implant, or graft - Bladder emptying significantly impaired (eg, bladder outlet obstruction) GROSS HEMATURIA, HISTORY OF BPH AND RECENT RIGHT URETERAL STENT PLACEMENT. CULT URES ON 11/10/2020 POSITIVE FOR MSSA BACTEREMIA. This document includes content which is the copyrighted, proprietary information of [employer]. 25th Edition. All Rights Reserved. * Consults - Jason Escobar MD - 11/15/2020 7:35 PM CDT Associated Order(s): IP CONSULT TO UROLOGY [address] [id number] Urology Consultation 11/15/2020 Patient Name: Mainor Blanca : 1950 Referring Physician: No primary care provider on file. Admission Date: 11/15/2020 No chief complaint on file. Reason for Urology Consult: Hematuria HPI: He is sp treatment of kidney stone at [facility] in and a stent placed and deve loped problems with retention and was doing cic. He had some hematuria and had a [address] placed at nd in [place]. He was transferred here with sepsis. No past medical history on file. No past surgical history on file. No family history on file. No family status information on file. Social History Socioeconomic History Marital status: Not on file Spouse name: Not on file Number of children: Not on file Years of education: Not on file Highest education level: Not on file Occupational History Not on file Tobacco Use Smoking status: Not on file Substance and Sexual Activity Alcohol use: Not on file Drug use: Not on file Sexual activity: Not on file Other Topics Concern Not on file Social History Narrative Not on file Social Determinants of Health Financial Resource Strain: Difficulty of Paying Living Expenses: Food Insecurity: Worried About Running Out of Food in the Last Year: Ran Out of Food in the Last Year: Transportation Needs: Lack of Transportation (Medical): Lack of Transportation (Non-Medical): Physical Activity: Days of Exercise per Week: Minutes of Exercise per Session: Stress: Feeling of Stress : Social Connections: Frequency of Communication with Friends and Family: Frequency of Social Gatherings with Friends and Family: Attends Tenriism Services: Active Member of Clubs or Organizations: Attends Club or Organization Meetings: Marital Status: Intimate Partner Violence: Fear of Current or Ex-Partner: Emotionally Abused: Physically Abused: Sexually Abused: Scheduled Medications: ceFAZolin 2,000 mg Intravenous Q8H tamsulosin 0.4 mg Oral Bedtime Infusion Medications: PRN Medications: dextrose OR glucagon OR glucagon OR dextrose OR* * dextrose, sodium chloride Medications Prior to Admission Medication Sig Dispense Refill Last Dose hyoscyamine (LEVSIN/SL) 0.[address] 0.125 mg under the tongue e very 4 (four) hours as needed for Cramping. meloxicam (MOBIC) 7.5 MG tablet Take 15 mg by mouth daily. methadone (DOLOPHINE) 10 MG tablet Take 160 mg by mouth Daily At 5 pm. August c ause QT prolongation and Torsades de pointes naloxone (NARCAN) 4 MG/0.1ML nasal spray Place 1 spray nasally as needed for Opioid Reversal. ondansetron (ZOFRAN-ODT) 4 MG disintegrating tablet Take 4 mg by mouth every 6 (six) hours as needed for Nausea. tamsulosin (FLOMAX) 0.4 MG CAPS Take 0.4 mg by mouth at bedtime. No Known Allergies Review of Systems: All review of systems negative except pertinent positives li sted below. History obtained from chart review Admission No data found. Patient Vitals for the past 12 hrs: BP Temp Pulse Resp SpO2 11/15/20 1656 (!) 162/77 99 F (37.2 C) 93 18 99 % Physical Exam: Visit Vitals BP (!) 162/77 (BP Location: Left arm, Patient Position: Supine) Pulse 93 Temp 99 F (37.2 C) Resp 18 SpO2 99% Lab: No results for input(s): WBC, HGB, HCT, PLT, NEUTOPHILPCT, MONOPCT in the last 1 68 hours. Invalid input(s): EOSPCT No results for input(s): NA, K, CL, CO2, BUN, CREATININE, CALCIUM, LABALBU, PROT , BILITOT, ALKPHOS, ALT, AST in the last 168 hours. No results for input(s): LABPROT, APTT, INR in the last 168 hours. No results found for: PSA No results found for: TSTOS No results for input(s): UAPP, BACTERIA, BILIRUBINUR, COLORU, CULST, GLUCOSEU, H GBUR, KETONESU, LEUKOCYTESUR, MUCUS, NITUR, PHUR, PROTU, RBCUA, SPECGRAV, UROBIL INOGEN, WBCUA in the last 72 hours. No results for input(s): LABURIN in the last 72 hours. No results for input(s): URS in the last 72 hours. Imaging: Assessment / Plan: A:P Hematuria 3 way park on slow cbi urine clear. Ok to st art tapering down cbi to off at some point. Sounds like traumatic cath. Jason Escobar MD Electronic Signature 11/15/2020 7:35 PM * H&P - Ashley Haile MD - 11/15/2020 5:45 PM CDT Images from the original note were not included. [address] [id number] Hospitalist History and Physical 11/15/2020 Patient Name: Mainor Blanca : 1950 Primary Care Physician: No primary care provider on file. Admission Date: 11/15/2020 Chief Complaint: No chief complaint on file. HPI Mainor Blanca is a 70 y.o. male who is directly admitted from [facility] for gross niles turia and bacteremia. Patient has history of BPH, he does intermittent straight cath at home 3 times a day chronically. Patient reports that he was admitted to the [facility] on 11/10 for hematuria, lower abdo eloise pain. Patient reports that several hours prior to admission, he started n oticing difficulties straight cathing himself at home, associated with gross hem aturia. He also reports associated lower abdominal pain, radiating to his epiga strium. At the [facility] ED, was found and KOFI with gross hematuria. Patient was admit sammy to inpatient, Park catheter was placed with CBI started. Urine and blood c ultures collected on 11/10 both grew MSSA. Patient was started on cefazolin. Maryellen cintron reports that hematuria improved with CBI and his abdominal pain completely resolved. Documents from [facility] indicates that patient was admitted on 11/10 for KOFI and chest pain. Upon further questioning, patient reports that his chest pain on 11/10 was actual ly abdominal pain radiating from suprapubic area, completely resolved after Fole y cath was placed. Patient is active at baseline, and he denies any anginal exe rtional symptoms. Denies any history of cardiac disease. Repeat blood culture on 11/13 came back today positive for gram-positive cocci. Thus, a transfer was requested. Patient reports history of nephrolithiasis status post ureteral stent placement about 2.5 weeks ago. He denies taking antiplatelets or any blood thinners at [facility]. Patient reports history of old right foot injury. While walking at home few day s ago, he reinjured his right foot while stepping on it but denies any associate d falls. Since that time of reinjury, he reports sharp pain in right foot upon weightbearing. Currently patient is alert and oriented x4. Of note, patient tested negative for COVID-9 at [facility]. Past Medical History: The patient has history of BPH, ureteral stent placement, nephrolithiasis, metha done dependence. Past Surgical History: The patient right ureteral stent placement as per report. Family History: No pertinent family history. Social History: The patient Denies any current drug abuse or significant alcohol intake. Home Medications: Prior to Admission medications Medication Sig Start Date End Date Taking? Authorizing Provider hyoscyamine (LEVSIN/SL) 0.[address] 0.125 mg under the tongue every 4 (four) hours as needed for Cramping. Yes Outreach, Physician meloxicam (MOBIC) 7.5 MG tablet Take 15 mg by mouth daily. Yes Outreach, Physi nigel methadone (DOLOPHINE) 10 MG tablet Take 160 mg by mouth Daily At 5 pm. May cause QT prolongation and Torsades de pointes Yes Outreach, Physician naloxone (NARCAN) 4 MG/0.1ML nasal spray Place 1 spray nasally as needed for Opi oid Reversal. Yes Outreach, Physician ondansetron (ZOFRAN-ODT) 4 MG disintegrating tablet Take 4 mg by mouth every 6 ( six) hours as needed for Nausea. Yes Outreach, Physician tamsulosin (FLOMAX) 0.4 MG CAPS Take 0.4 mg by mouth at bedtime. Yes Outreach, Physician Allergies: No Known Allergies REVIEW OF SYSTEMS All other systems were reviewed and were negative except per history of present illness. OBJECTIVE Vitals: Visit Vitals BP (!) 162/77 (BP Location: Left arm, Patient Position: Supine) Pulse 93 Temp 99 F (37.2 C) Resp 18 SpO2 99% Temp (24hrs), Av F (37.2 C), Min:99 F (37.2 C), Max:99 F (37.2 C ) PHYSICAL EXAM General: Adult male, cooperative, no respiratory distress, appears stated age Head: Normocephalic, atraumatic Eyes: EOM's intact Neck: No JVD, no bruits Lungs: Clear to auscultation bilaterally, respirations unlabored Chest Wall: No tenderness or deformity Heart: Regular rate and rhythm, no murmurs, rubs, or gallop Abdomen: Soft, non-tender, non-distended, bowel sounds present Ext: No edema. Right foot dorsum with clear blister and small bruise around f irst MTP joint Vascular: Distal pulses intact Skin: Warm and Dry Neuro: Non-focal Psych: Normal affect Labs: Outside labs Labs from 11/15/2020 Sodium 141, potassium 3.0, chloride 120, CO2 24, BUN 25, creatinine 1.27, glucos e 177, calcium 8.1. Total protein 6.3, albumin 2.5, bilirubin 0.4, alk phos 177 , ALT 50 AST 90. (Yesterday LFTs: Total bilirubin 0.4, alk phos 208, ALT 109, T 217) WBC 13.21, hemoglobin 7.9 (from 8.3 yesterday), hematocrit 23.6, platelets 347. Procalcitonin on 11/12: 15.55. Imaging: CT urogram on 11/14 showed interval right ureteral stent placement, bilateral non obstructing renal calculi. Small calculus in the urinary bladder on the right s anam posteriorly. Bilateral minimal pleural effusion with atelectatic changes in the lung bases. EKG: ordered Discussed with: patient's nurse PROBLEM LIST: Principal Problem: Gross hematuria Active Problems: KOFI (acute kidney injury) (HCC) BPH (benign prostatic hyperplasia) Hypernatremia Hypokalemia Elevated LFTs MSSA bacteremia Methadone dependence (HCC) ASSESSMENT / PLAN: Accept to Hospitalist service Status: Inpatient: I certify that this patient requires 2 or more midnights of m edically necessary hospital services Gross hematuria Admitted to OSH with gross hematuria on 11/10. History of BPH and recent right u reteral stent placement. Park catheter was placed and started on CBI, overall hematuria is improving. C urrently urine is pink in color. Hemoglobin is low but overall stable and 7.9-8.5 range over the last couple of d ays. Keep Park in place and continue CBI. Urology consult. N.p.o. at midnight in case he needs cystoscopy in AM. MSSA bacteremia Urine and blood cultures collected on 11/10 grew MSSA. Source is likely renal. H x of recent right ureteral stent placement (2.5 wks ago per patient' report). PICC line was placed in right upper extremity, and patient was started on cefazo dalia. Repeat blood culture on 11/13 grew today GPC in clusters. Denies any having joselito ficial joints, valves or implantable cardiac devices. Repeat blood cultures now. Check CBC. Procalcitonin was 15.55 on 11/12, repeat procalcitonin. Continue cefazolin 2 grams every 8 hours. Obtain CXR to confirm PICC line plac ement. ID consult. Monitor vital signs and labs. Hypernatremia Patient reports being on continuous IV fluids at the [facility] since admission. NA 151 today from 149 yesterday, associated with hyperchloremia. Suspect this i s iatrogenic due to NS. Repeat BMP now. Will manage diuresis/fluids according to sodium level. KOFI Creatinine on initial labs was 2.19 in setting of gross hematuria with possible obstruction. Park catheter was placed. Was on IV fluids. Creatinine improved, today creatinine was 1.27. Repeat BMP now. Avoid nephrotoxins. Monitor renal functions, electrolytes and urine output. Elevated LFTs No abdominal pain or tenderness at this time. Alk phos, AST and ALT are trending down. Continue to monitor. Hypokalemia Monitor and replace as needed. BPH Chronic. Continue home medications. Chest pain Patient reports that this was an abdominal pain radiating from his suprapubic ar ea in setting of gross hematuria. No specific EKG changes were mentioned (no EKG to review). Troponin x3 was negat josefina. Pain improved after Park catheter was inserted. No tachypnea, hypoxia or tachycardia. Monitor on telemetry. Obtain EKG now. Repeat EKG for any recurrent chest pain. Methadone dependence Reportedly due to history of drug abuse when he was young. Obtain EKG to check QTC. Continue home methadone with caution if QTC allows. Right foot pain Since reinjury at home while walking few days ago. Hx of right foot fracture. Check right foot x-ray. DVT prophylaxis SCDs. Code Full code. Ashley Barrera MD Electronic Signature 11/15/2020 6:16 PM * Progress Notes - Jasmyne Samson RN - 11/15/2020 5:26 PM CDT Leadership round completed at this time. Call don't fall reviewed with patient. Visitor policy reviewed with patient, patient denies needs or concerns. Bed a larm on and call light within reach. documented in this encounter Plan of Treatment Inpatient Care Plan* Resolved Problem: ANXIETY Goal Variances Goal Priority Disciplines Outcome Will report anxiety at manageable levels Interdisciplina Completed (Resolved) ry Goal-related InterventionsAdminister medication as ordered (Discontinued)Provide emotional support with 1:1 interaction with staff (Discontinued) * Resolved Problem: DISCHARGE PLANNING Goal Variances Goal Priority Disciplines Outcome Discharge to next level of care with Interdisciplina Completed appropriate resources (Resolved) ry Goal-related InterventionsConduct assessment to determine patient/family/authorized decision maker, and health care team treatment goals, and need for post-acute services based on payer coverage, community resources, and patient preferences, and barriers to discharge (Discontinued)Provide information to patient/family/authorized decision make r about options based on assessment (Discontinued)Identify discharge learning needs (meds, wound care, etc) and arrange appropriate education (Discontinued)Communicate with and update the patient/family/authorized decision maker, physician, and health care team regarding progress on the discharge plan (Discontinued) * Resolved Problem: Decreased Ability to Complete ADLs Goal Variances Goal Priority Disciplines Outcome Maximize independence in ADLs prior to Interdisciplina Completed discharge (Resolved) ry * Resolved Problem: Functional Mobility Goal Variances Goal Priority Disciplines Outcome Maximize mobility to the highest level Interdisciplina Completed of function prior to discharge ry (Resolved) Goal-related Interventions Determine pre-hospitalization mobility (Discontinued)Increase functional standing/sitting tolerance (Discontinued)Increase strength/ROM to improve independence for mobility tasks (Discontinued)Address balance impairments to increase safety (Discontinued)Assess for contra-indications to mobility and precautions for movement (Discontinued) * Resolved Problem: GASTROINTESTINAL Goal Variances Goal Priority Disciplines Outcome Maintains or returns to baseline bowel Interdisciplina Completed function prior to discharge (Resolved) ry Goal-related InterventionsAssess bowel function (Discontinued)Encourage oral fluids to ensure adequate hydration (Discontinued) Maintains adequate nutritional intake Interdisciplina Completed during hospitalization (Resolved) ry Goal-related InterventionsMonitor I&O, weight and labs (Discontinued)Monitor and document amount of each meal consumed (Discontinued)Assess for factors contributing to decreased intak e (Discontinued)Assist with meals as needed (Discontinued) * Resolved Problem: GENITOURINARY Goal Variances Goal Priority Disciplines Outcome Urinary catheter remains patent; urinary Interdisciplina Completed tract remains free from infection during ry hospitalization (Resolved) Goal-related InterventionsAssess patenc y of urinary catheter (Discontinued)Asses s for urinary retention (Discontinued)Discuss catherization daily and assess appropriateness (Discontinued)Perform catheter care every shift (Discontinued) * Resolved Problem: HEMATOLOGIC Goal Variances Goal Priority Disciplines Outcome Maintains hematologic stability during Interdisciplina Completed hospitalization (Resolved) ry Goal-related InterventionsMonitor lab results (Discontinued)Assess for signs and symptoms of bleeding or hemorrhage (Discontinued) * Resolved Problem: INFECTION PREVENTION Goal Variances Goal Priority Disciplines Outcome Absence or improvement of infection Nurse C ompleted during hospitalization (Resolved) Interdisciplina Goal-related InterventionsAssess/monitor ry for signs and symptoms of infection (Discontinued)Monitor lab/diagnostic results (Discontinued)Monitor all insertion sites i.e., indewelling lines , tubes, and drains (Discontinued)Identif y and instruct patient/family in appropriate isolation precautions for identified infection/conditions (Discontinued)Administer antibiotics as ordered (Discontinued) * Resolved Problem: METABOLIC/FLUID AND ELECTROLYTES Goal Variances Goal Priority Disciplines Outcome Electrolytes remain within normal limits Interdisciplina Completed during hospitalization (Resolved) ry Goal-related InterventionsMonitor lab results (Discontinued)Assess patient fo r signs and symptoms of electrolyte imbalances (Discontinued)Monitor response to electrolyte replacement or fluid restriction, including repeat lab results as appropriate (Discontinued)Monitor I&O, weight and labs (Discontinued)Review medications with pharmacy and physician (Discontinued) * Resolved Problem: MUSCULOSKELETAL Goal Variances Goal Priority Disciplines Outcome Return mobility to safest level of Nurse, Co mpleted function prior to discharge (Resolved) Interdiscipl nicolas Goal-related InterventionsAssess patient ry stability and activity tolerance for standing, transferring and ambulating w / or w/o assistive devices (Discontinued)Assist with transfers and ambulation using safe patient handling equipment as needed (Discontinued)Ensur e adequate protection for wounds/incision s during mobilization (Discontinued)Obtai n PT/OT evaluation as needed (Discontinued)Instruct patient/family about ordered activity level including restrictions (Discontinued)Review physician orders for weight-bearing status (Discontinued)Staff assist with gait belt when using Podium walker with all ambulation (Discontinued) Return ADL status to a safe level of Interdisciplina Completed function prior to discharge (Resolved) ry D escription: Goal-related InterventionsAssess patient's ADL deficits and provide assistive devices as needed (Discontinued)Obtain PT/OT evaluation a s needed (Discontinued)Assist and instruc t patient to increase activity and self care (Discontinued) * Resolved Problem: PAIN Goal Variances Goal Priority Disciplines Outcome Verbalizes/displays adequate comfort Nurse, Completed level or baseline comfort level during Interdiscipl nicolas hospitalization (Resolved) ry Goal-related InterventionsDevelop realistic expectations and measurable goals that are understood by the patien t for the degree, duration, and reduction of pain (Discontinued)Encourage patient/family to report pain and request assistance (Discontinued)Administer analgesics based on type and severity of pain and evaluate response (Discontinued)Notify provider if interventions unsuccessful or patient reports new pain (Discontinued) * Resolved Problem: SAFETY - FALL Goal Variances Goal Priority Disciplines Outcome Absence from falls during Nurse, Completed hospitalization (Resolved) Interdisciplina Goal-related InterventionsAssess patient ry frequently for physical needs using Safety Rounding (Discontinued)Instruct patient to call for assistance with all activity (Discontinued)Modify environment to reduce risk of fall (Discontinued)Keep call light within reach and bed in locked position (Discontinued)Appropriate bed pad/bed alarm in place and on (Discontinued) * Resolved Problem: SKIN/TISSUE INTEGRITY Goal Variances Goal Priority Disciplines Outcome Skin integrity remains intact during Nurse, Completed hospitalization (Resolved) Interdisciplina Goal-related InterventionsAdmission & ry, OT Every 12 hours: assess and document ris k factors and interventions for pressure ulcer development (Discontinued)Every 1 2 hours: assess and document skin integrity for areas of redness or skin break down (Discontinued)Initiate pressure ulcer prevention policy (Discontinued)Consult enterostomal/woun d therapy as indicated (Discontinued)Educate on the importance every 2 hour repositioning in the bed and every 1 hour while in the chair (Discontinued)Educate on moisture prevention strategies (Discontinued)Assess nutritional status and consult faucets assembler if needed (Discontinued)Evaluate for specialty be d needs and review with physician (Discontinued) Incision(s), wounds(s) or drain site(s) Interdisciplina Completed healing without S/S of infection during ry hospitalization (Resolved) D escription: IGoal-related InterventionsAdmission & Every 12 hours : assess and document risk factors for infection (Discontinued)Every 12 hours: assess and document skin integrity including dressing/incision, wound bed, drain sites and surrounding tissue (Discontinued)Implement wound care per orders/wound management policy (Discontinued)Initiate isolation precautions as appropriate (Discontinued)Consult enterostomal/woun d therapy as indicated (Discontinued)Initiate Pressure Ulcer order set if indicated (High Liat Ris k or Pressure Ulcer) (Discontinued) Oral mucous membranes remain intact Interdisciplina C ompleted during hospitalization (Resolved) ry Goal-related InterventionsAssess oral mucosa and hygiene practices (Discontinued)Implement preventative oral hygiene regimen (Discontinued)Implement oral medicated treatments as ordered (Discontinued) Date/Time Name Type Priority Associated Diag noses 11/29/2020 12:00 AM CDT EKG 12-LEAD ECG Order Schedule Name Type Priority Associated Diag noses Ordered: 11/24/2020 Follow up with PCP 1 week Outpatient Routine after discharge from Referral Rehab Ordered: 11/29/2020 Hospital Follow-Up Outpatient Routine Referral documented as of this encounter Procedures Comments Procedure Name Priority Date/Time Associated Diag nosis COVID-19 ANTIGEN Routine 11/29/2020 1:15 PM CDT COVID-19 PCR/AG Routine 11/29/2020 1:15 PM CDT CBC WITH AUTO Timed 11/29/2020 DIFFERENTIAL 6:13 AM CDT CBC AND DIFFERENTIAL Timed 11/29/2020 6:13 AM CDT COMPREHENSIVE METABOLIC Timed 11/29/2020 PANEL 6:13 AM CDT EKG 12-LEAD 11/29/2020 12:00 AM CDT TELEMETRY WAVEFORMS 11/28/2020 11:01 PM CDT TELEMETRY WAVEFORMS 11/28/2020 11:00 AM CDT TELEMETRY WAVEFORMS 11/28/2020 10:42 AM CDT CBC WITH AUTO Timed 11/28/2020 DIFFERENTIAL 6:59 AM CDT CBC AND DIFFERENTIAL Timed 11/28/2020 6:59 AM CDT COMPREHENSIVE METABOLIC Timed 11/28/2020 PANEL 6:59 AM CDT TELEMETRY WAVEFORMS 11/27/2020 11:09 PM CDT MRI FOOT RIGHT WO Routine 11/27/2020 CONTRAST 8:40 PM CDT TELEMETRY WAVEFORMS 11/27/2020 9:42 AM CDT CBC WITH AUTO Timed 11/27/2020 DIFFERENTIAL 6:06 AM CDT CBC AND DIFFERENTIAL Timed 11/27/2020 6:06 AM CDT COMPREHENSIVE METABOLIC Timed 11/27/2020 PANEL 6:06 AM CDT EKG 12-LEAD Routine 11/27/2020 [...] AUTO Timed 11/25/2020 DIFFERENTIAL 7:21 AM CDT CBC AND DIFFERENTIAL Timed 11/25/2020 7:21 AM CDT COMPREHENSIVE METABOLIC Timed 11/25/2020 PANEL 7:21 AM CDT EKG 12-LEAD Routine 11/25/2020 6:06 AM CDT TELEMETRY WAVEFORMS 11/24/2020 11:01 PM CDT EKG 12-LEAD Routine 11/24/2020 7:52 AM CDT TELEMETRY WAVEFORMS 11/24/2020 7:00 AM CDT CBC WITH AUTO Timed 11/24/2020 DIFFERENTIAL 6:00 AM CDT CBC AND DIFFERENTIAL Timed 11/24/2020 6:00 AM CDT COMPREHENSIVE METABOLIC Timed 11/24/2020 PANEL 6:00 AM CDT TELEMETRY WAVEFORMS 11/24/2020 3:00 AM CDT TELEMETRY WAVEFORMS 11/23/2020 9:04 PM CDT TELEMETRY WAVEFORMS 11/23/2020 9:12 AM CDT CBC WITH AUTO Timed 11/23/2020 DIFFERENTIAL 6:57 AM CDT CBC AND DIFFERENTIAL Timed 11/23/2020 6:57 AM CDT COMPREHENSIVE METABOLIC Timed 11/23/2020 PANEL 6:57 AM CDT EKG 12-LEAD Routine 11/23/2020 [...] AUTO Timed 11/22/2020 DIFFERENTIAL 7:00 AM CDT BLOOD CULTURE Timed 11/22/2020 7:00 AM CDT CBC AND DIFFERENTIAL Timed 11/22/2020 7:00 AM CDT TELEMETRY WAVEFORMS 11/21/2020 11:00 PM CDT TELEMETRY WAVEFORMS 11/21/2020 8:03 PM CDT TELEMETRY WAVEFORMS 11/21/2020 7:46 PM CDT NI ECHO-TAYLOR Routine 11/21/2020 4:20 PM CDT TELEMETRY WAVEFORMS 11/21/2020 10:37 AM CDT TELEMETRY WAVEFORMS 11/21/2020 7:59 AM CDT TELEMETRY WAVEFORMS 11/21/2020 7:58 AM CDT CBC WITH AUTO Timed 11/21/2020 DIFFERENTIAL 7:08 AM CDT CBC AND DIFFERENTIAL Timed 11/21/2020 7:08 AM CDT COMPREHENSIVE METABOLIC Timed 11/21/2020 PANEL 7:08 AM CDT TELEMETRY WAVEFORMS 11/20/2020 11:02 PM CDT TELEMETRY WAVEFORMS 11/20/2020 10:48 AM CDT CBC WITH AUTO Timed 11/20/2020 DIFFERENTIAL 7:35 AM CDT CBC AND DIFFERENTIAL Timed 11/20/2020 7:35 AM CDT COMPREHENSIVE METABOLIC Timed 11/20/2020 PANEL 7:35 AM CDT TELEMETRY WAVEFORMS 11/19/2020 11:05 [...] AUTO Timed 11/19/2020 DIFFERENTIAL 3:49 AM CDT CBC AND DIFFERENTIAL Timed 11/19/2020 3:49 AM CDT TSH Routine 11/19/2020 3:49 AM CDT PHOSPHORUS STAT 11/19/2020 3:49 AM CDT MAGNESIUM STAT 11/19/2020 3:49 AM CDT COMPREHENSIVE METABOLIC Timed 11/19/2020 PANEL 3:49 AM CDT EKG 12-LEAD Routine 11/19/2020 [...] AUTO Timed 11/18/2020 DIFFERENTIAL 8:31 AM CDT CBC AND DIFFERENTIAL Timed 11/18/2020 8:31 AM CDT COMPREHENSIVE METABOLIC Timed 11/18/2020 PANEL 8:31 AM CDT EKG 12-LEAD Routine 11/18/2020 6:38 AM CDT TELEMETRY WAVEFORMS 11/18/2020 12:00 AM CDT TELEMETRY WAVEFORMS 11/17/2020 10:44 PM CDT POTASSIUM STAT 11/17/2020 7:26 PM CDT PHOSPHORUS Routine 11/17/2020 7:26 PM CDT MAGNESIUM STAT 11/17/2020 7:26 PM CDT TELEMETRY WAVEFORMS 11/17/2020 10:08 AM CDT CBC WITH AUTO Timed 11/17/2020 DIFFERENTIAL 8:39 AM CDT CBC AND DIFFERENTIAL Timed 11/17/2020 8:39 AM CDT C-REACTIVE PROTEIN Routine 11/17/2020 8:39 AM CDT COMPREHENSIVE METABOLIC Timed 11/17/2020 PANEL 8:39 AM CDT EKG 12-LEAD Routine 11/17/2020 [...] AUTO Timed 11/16/2020 DIFFERENTIAL 10:12 AM CDT HC PROCALCITONIN Timed 11/16/2020 10:12 AM CDT CBC AND DIFFERENTIAL Timed 11/16/2020 10:12 AM CDT MAGNESIUM Routine 11/16/2020 10:12 AM CDT COMPREHENSIVE METABOLIC Timed 11/16/2020 PANEL 10:12 AM CDT EKG 12-LEAD Routine 11/15/2020 11:09 PM CDT XR FOOT RIGHT AP AND Routine 11/15/2020 LATERAL 7:56 PM CDT XR CHEST PA OR AP Routine 11/15/2020 7:55 PM CDT BLOOD CULTURE PCR Routine 11/15/2020 IDENTIFICATION PANEL 7:31 PM CDT CBC WITH AUTO Timed 11/15/2020 DIFFERENTIAL 7:31 PM CDT HC PROCALCITONIN Routine 11/15/2020 7:31 PM CDT BLOOD CULTURE Timed 11/15/2020 7:31 PM CDT CBC AND DIFFERENTIAL Timed 11/15/2020 7:31 PM CDT COMPREHENSIVE METABOLIC Timed 11/15/2020 PANEL 7:31 PM CDT BLOOD CULTURE Timed 11/15/2020 7:25 PM CDT documented in this encounter Results * COVID-19 ANTIGEN (11/29/2020 1:15 PM CDT) Pathologist [facility] COVID-19 Negative Negative [facility] Antigen LABORATORY Specimen Nose - Swab of internal nose (specimen) Performing Organization Address City/State/ZIP Code P floridalma Number [facility] [address] [place] [address] * CBC auto differential (11/29/2020 6:13 AM CDT) [facility] WBC 5.0 3.5 - 10.5 10E9/L [facility] RBC 2.66 (L) 4.32 - 5.72 10E12/L [facility] LABORAT[facility] Hemoglobin 8.0 (L) 13.5 - 17.5 g/dL [facility] Hematocrit 25.9 (L) 38.8 - 50.0 % [facility] MCV 97.4 (H) 81.2 - 95.1 fL [facility] MCH 30.1 26.0 - 34.0 pg [facility] MCHC 30.9 (L) 31.0 - 37.0 g/dL [facility] RDW 15.3 11.8 - 15.6 % [facility] Platelets 184 150 - 450 10E9/L [facility] nRBC 0.00 <=0.00 10E9/L [facility] Neutrophils % 70.3 40.0 - 75.0 % [facility] Lymphocytes % 17.6 (L) 22.0 - 49.0 % [facility] Monocytes % 9.5 2.0 - 10.0 % [facility] Eosinophils % 2.2 <=5.0 % [facility] Basophils % 0.4 0.0 - 2.5 % [facility] Neutrophils 3.48 1.70 - 7.00 10E9/L [facility] Absolute LABORATORY Lymphocytes 0.87 (L) 0.90 - 2.90 10E9/L [facility] Monocytes 0.47 0.30 - 0.90 10E9/L [facility] Eosinophils 0.11 0.05 - 0.50 10E9/L [facility] Basophils 0.02 0.00 - 0.30 10E9/L [facility] LABORAT[facility] % nRBC 0 % [facility] Specimen Blood Performing Organization Address City/State/ZIP Code P floridalma Number [facility] [address] [place] [address] * Comprehensive metabolic panel (11/29/2020 6:13 AM CDT) [facility] Signature Sodium 133 (L) 136 - 145 mmol/L [facility] Potassium 3.6 3.6 - 4.9 mmol/L [facility] Chloride 95 (L) 99 - 111 mmol/L [facility] CO2 33 20 - 36 mmol/L [facility] Anion Gap 5 [facility] Glucose 88 74 - 106 mg/dL [facility] Total Protein 6.3 5.7 - 8.2 g/dL [facility] Albumin 3.0 (L) 3.4 - 4.8 g/dL [facility] Calcium 8.5 8.3 - 10.6 mg/dL [facility] BUN, Bld 8 6 - 20 mg/dL [facility] Creatinine 1.04 0.60 - 1.20 mg/dL [facility] eGFR >59 >59 mL/min [facility] Total Bilirubin 0.3 0.0 - 1.2 mg/dL [facility] Alkaline 117 29 - 122 U/L [facility] Phosphatase LABORATORY ALT <9 (L) 10 - 46 U/L [facility] AST 25 16 - 37 U/L [facility] Specimen Blood Performing Organization Address [facility] P floridalma Number [facility] [address] [place] [address] * TELEMETRY WAVEFORMS (11/28/2020 11:01 PM CDT) TELE [place] 0.16 [facility] [employer]ORING TELE QRS 0.08 [facility] TORING TELE QT 0.36 [facility] TORING TELE COMMENTS SDB HR-60 [facility] TORING TELE rsr [facility] INTERPRETATION TORING HARMONICA MAKER/BOND CLERK Yes [facility] APPROVED TORING Specimen Performing Organization Address [facility] P [place] Number PHILIPSTELEMONITORING * TELEMETRY WAVEFORMS (11/28/2020 11:00 AM CDT) TELE [place] 0.18 PHILIPSTELEMONI TORING TELE QRS 0.08 PHILIPSTELEMONI TORING TELE QT 0.34 PHILIPSTELEMONI TORING TELE COMMENTS AFR PHILIPSTELEMONI TORING TELE rsr PHILIPSTELEMONI INTERPRETATION TORING HARMONICA MAKER/BOND CLERK Yes PHILIPSTELEMONI APPROVED TORING Specimen Performing Organization Address [facility] P [place] Number PHILIPSTELEMONITORING * TELEMETRY WAVEFORMS (11/28/2020 10:42 AM CDT) TELE [place] 0.12 PHILIPSTELEMONI TORING TELE QRS 0.08 PHILIPSTELEMONI TORING TELE QT 0.28 PHILIPSTELEMONI TORING TELE COMMENTS AFR PHILIPSTELEMONI TORING TELE sinus tach PHILIPSTELEMONI INTERPRETATION TORING HARMONICA MAKER/BOND CLERK Yes PHILIPSTELEMONI APPROVED TORING Specimen Performing Organization Address City/State/ZIP Code P [place] Number PHILIPSTELEMONITORING * CBC auto differential (11/28/2020 6:59 AM CDT) WBC 4.6 3.5 - 10.5 10E9/L [facility] RBC 2.66 (L) 4.32 - 5.72 10E12/L [facility] Hemoglobin 8.1 (L) 13.5 - 17.5 g/dL [facility] Hematocrit 26.1 (L) 38.8 - 50.0 % [facility] MCV 98.1 (H) 81.2 - 95.1 fL [facility] MCH 30.5 26.0 - 34.0 pg [facility] MCHC 31.0 31.0 - 37.0 g/dL [facility] RDW 15.3 11.8 - 15.6 % [facility] Platelets 186 150 - 450 10E9/L [facility] nRBC 0.00 <=0.00 10E9/L [facility] Neutrophils % 66.8 40.0 - 75.0 % [facility] Lymphocytes % 18.6 (L) 22.0 - 49.0 % [facility] Monocytes % 11.0 (H) 2.0 - 10.0 % [facility] Eosinophils % 3.2 <=5.0 % [facility] Basophils % 0.4 0.0 - 2.5 % [facility] Neutrophils 3.09 1.70 - 7.00 10E9/L [facility] [place] [facility] Lymphocytes 0.86 (L) 0.90 - 2.90 10E9/L [facility] [place] [facility] Monocytes 0.51 0.30 - 0.90 10E9/L [facility] Eosinophils 0.15 0.05 - 0.50 10E9/L [facility] Basophils 0.02 0.00 - 0.30 10E9/L [facility] % nRBC 0 % [facility] Specimen Blood Performing Organization Address [facility]/ZIP [facility] P [place] Number [facility] [address] [place] [address] * Comprehensive metabolic panel (11/28/2020 6:59 AM CDT) Pathologist [facility] Sodium 135 (L) 136 - 145 mmol/L [facility] Potassium 3.6 3.6 - 4.9 mmol/L [facility] Chloride 97 (L) 99 - 111 mmol/L [facility] CO2 33 20 - 36 mmol/L [facility] Anion Gap 5 [facility] Glucose 85 74 - 106 mg/dL [facility] Total Protein 6.3 5.7 - 8.2 g/dL [facility] Albumin 3.0 (L) 3.4 - 4.8 g/dL [facility] Calcium 8.8 8.3 - 10.6 mg/dL [facility] BUN, Bld 8 6 - 20 mg/dL [facility] Creatinine 1.03 0.60 - 1.20 mg/dL [facility] eGFR >59 >59 mL/min [facility] Total Bilirubin 0.4 0.0 - 1.2 mg/dL [facility] Alkaline 115 29 - 122 U/L [facility] Phosphatase LABORATORY ALT <9 (L) 10 - 46 U/L [facility] AST 28 16 - 37 U/L [facility] Specimen Blood Performing Organization Address City/[facility]/ZIP [facility] P [place] Number [facility] [address] [place] [address] * TELEMETRY WAVEFORMS (11/27/2020 11:09 PM CDT) TELE [place] 0.18 PHILIPSTELEMONI TORING TELE QRS 0.08 PHILIPSTELEMONI TORING TELE QT 0.38 PHILIPSTELEMONI TORING TELE COMMENTS EW HR 69 PHILIPSTELEMONI TORING TELE rsr PHILIPSTELEMONI INTERPRETATION TORING HARMONICA MAKER/BOND CLERK Yes PHILIPSTELEMONI APPROVED TORING Specimen Performing Organization Address City/State/ZIP Code P [place] Number PHILIPSTELEMONITORING * MRI Foot Right (without contrast) (11/27/2020 8:40 PM CDT) Modality Anatomical Region Laterality Magnetic Resonance Ankle, Foot [facility]imen [facility] 9[facility]22 AM CDT IMPRESSION: 1. [...] si. Correlate for sinus tarsi syndrome. Narrative [facility]28[facility] 9:22 AM CDT EXAM: MRI [...] near the subtalar joint. Procedure Note Darrion Fleming MD - 11/28/2020 EXAM: MRI Right Foot [...] Organization Address City/State/ZIP Code P [place] Number [facility] [place] * TELEMETRY WAVEFORMS (11/27/2020 9:42 AM CDT) TELE [place] 0.20 PHILIPSTELEMONI TORING TELE QRS 0.06 PHILIPSTELEMONI TORING TELE QT 0.32 PHILIPSTELEMONI TORING TELE COMMENTS CL HR 69 PHILIPSTELEMONI TORING TELE rsr PHILIPSTELEMONI INTERPRETATION TORING HARMONICA MAKER/BOND CLERK Yes PHILIPSTELEMONI APPROVED TORING Specimen Performing Organization Address City/[facility] Code P [place] Number PHILIPSTELEMONITORING * CBC auto differential (11/27/2020 6:06 AM CDT) WBC 4.2 3.5 - 10.5 10E9/L [facility] RBC 2.61 (L) 4.32 - 5.72 10E12/L [facility] Hemoglobin 7.8 (L) 13.5 - 17.5 g/dL [facility] Hematocrit 25.8 (L) 38.8 - 50.0 % [facility] MCV 98.9 (H) 81.2 - 95.1 fL [facility] MCH 29.9 26.0 - 34.0 pg [facility] MCHC 30.2 (L) 31.0 - 37.0 g/dL [facility] RDW 15.4 11.8 - 15.6 % [facility] Platelets 181 150 - 450 10E9/L [facility] nRBC 0.00 <=0.00 10E9/L [facility] Neutrophils % 66.9 40.0 - 75.0 % [facility] Lymphocytes % 18.8 (L) 22.0 - 49.0 % [facility] Monocytes % 10.7 (H) 2.0 - 10.0 % [facility] Eosinophils % 3.1 <=5.0 % [facility] Basophils % 0.5 0.0 - 2.5 % [facility] Neutrophils 2.82 1.70 - 7.00 10E9/L [facility] [place] [facility] Lymphocytes 0.79 (L) 0.90 - 2.90 10E9/L [facility] [place] [facility] Monocytes 0.45 0.30 - 0.90 10E9/L [facility] [place] [facility] Eosinophils 0.13 0.05 - 0.50 10E9/L [facility] [place] [facility] Basophils 0.02 0.00 - 0.30 10E9/L [facility] [place] [facility] % nRBC 0 % [facility] Specimen Blood Performing Organization Address City/State/ZIP Code P [place] Number [facility] [address] [place] [address] * Comprehensive metabolic panel (11/27/2020 6:06 AM CDT) Sodium 134 (L) 136 - 145 mmol/L [facility] Potassium 3.6 3.6 - 4.9 mmol/L [facility] Chloride 98 (L) 99 - 111 mmol/L [facility] CO2 31 20 - 36 mmol/L [facility] Anion Gap 5 [facility] Glucose 89 74 - 106 mg/dL [facility] Total Protein 6.1 5.7 - 8.2 g/dL [facility] Albumin 2.9 (L) 3.4 - 4.8 g/dL [facility] Calcium 8.3 8.3 - 10.6 mg/dL [facility] BUN, Bld 10 6 - 20 mg/dL [facility] Creatinine 1.09 0.60 - 1.20 mg/dL [facility] eGFR >59 >59 mL/min [facility] Total Bilirubin 0.3 0.0 - 1.2 mg/dL [facility] Alkaline 112 29 - 122 U/L [facility] Phosphatase LABORATORY ALT <9 (L) 10 - 46 U/L [facility] AST 31 16 - 37 U/L [facility] Specimen Blood Performing Organization Address City/State/ZIP Code P [place] Number [facility] [address] [place] [address] * EKG 12 lead (11/27/2020 5:48 AM CDT) Height PHILIPSECG Heart Rate 66 bpm PHILIPSECG Interval 909 ms PHILIPSECG Atrial Rate 65 ms PHILIPSECG SV P-R Interval 174 ms PHILIPSECG P Duration 114 ms PHILIPSECG P Horizontal -7 deg PHILIPSECG Clawson P Front Clawson 85 deg PHILIPSECG Q Onset 499 ms PHILIPSECG QRSD Interval 80 ms PHILIPSECG QT Interval 403 ms PHILIPSECG QTcB 423 ms PHILIPSECG QTcF 416 ms PHILIPSECG QRS Horizontal 13 deg PHILIPSECG [place] QRS AXIS 55 deg PHILIPSECG I40 Horizontal 58 deg PHILIPSECG Clawson I40 Front Clawson 84 deg PHILIPSECG T-40 Horizontal -7 deg PHILIPSECG Clawson T-40 Front Clawson 47 deg PHILIPSECG T Horizontal 28 deg PHILIPSECG Clawson T Wave Clawson 63 deg PHILIPSECG S-T HORIZONTAL 29 deg PHILIPSECG AXIS S-T FRONT AXIS 87 deg PHILIPSECG ECG Impression - NORMAL ECG - PHILIPSECG ECG Impression SR PHILIPSECG ECG Impression Sinus rhythm PHILIPSECG ECG Impression normal P axis, V-rate 60-99 PHILIPSEC G Specimen Performing Organization Address [facility] Code P [place] Number PHILIPSECG * TELEMETRY WAVEFORMS (11/27/2020 1:59 AM CDT) TELE KS 0.18 PHILIPSTELEMONI TORING TELE QRS 0.08 PHILIPSTELEMONI TORING TELE QT 0.42 PHILIPSTELEMONI TORING TELE COMMENTS eled to SINUS - DANE SEND PHILIPSTE LEMONI PRACHI HR 56 TORING TELE sinus - dane send prachi hr PHILIPST ELEMONI INTERPRETATION 56 pr 0.18 qrs 0.08 qt 0.42 TORING HARMONICA MAKER/BOND CLERK Yes PHILIPSTELEMONI APPROVED TORING Specimen Performing Organization Address [facility] P [place] Number PHILIPSTELEMONITORING * TELEMETRY WAVEFORMS (11/26/2020 11:00 PM CDT) TELE KS 0.18 PHILIPSTELEMONI TORING TELE QRS 0.08 PHILIPSTELEMONI TORING TELE QT 0.42 PHILIPSTELEMONI TORING TELE COMMENTS PRACHI HR 60 PHILIPSTELEMONI TORING TELE rsr PHILIPSTELEMONI INTERPRETATION TORING HARMONICA MAKER/BOND CLERK Yes PHILIPSTELEMONI APPROVED TORING Specimen Performing Organization Address [facility] P [place] Number PHILIPSTELEMONITORING * TELEMETRY WAVEFORMS (11/26/2020 11:00 AM CDT) TELE KS 0.18 PHILIPSTELEMONI TORING TELE QRS 0.08 PHILIPSTELEMONI TORING TELE QT 0.34 PHILIPSTELEMONI TORING TELE COMMENTS 75 ZB PHILIPSTELEMONI TORING TELE rsr PHILIPSTELEMONI INTERPRETATION TORING HARMONICA MAKER/BOND CLERK Yes PHILIPSTELEMONI APPROVED TORING Specimen Performing Organization Address [facility] P [place] Number PHILIPSTELEMONITORING * EKG 12 lead (11/26/2020 9:36 AM CDT) Height PHILIPSECG Heart Rate 82 bpm PHILIPSECG Interval 732 ms PHILIPSECG Atrial Rate 82 ms PHILIPSECG SV P-R Interval 164 ms PHILIPSECG P Duration 106 ms PHILIPSECG P Horizontal 232 deg PHILIPSECG Clawson P Front Clawson 87 deg PHILIPSECG Q Onset 499 ms PHILIPSECG QRSD Interval 88 ms PHILIPSECG QT Interval 362 ms PHILIPSECG QTcB 423 ms PHILIPSECG QTcF 402 ms PHILIPSECG QRS Horizontal 17 deg PHILIPSECG Clawson QRS AXIS 57 deg PHILIPSECG I40 Horizontal 79 deg PHILIPSECG Clawson I40 Front Clawson 81 deg PHILIPSECG T-40 Horizontal -13 deg PHILIPSECG Clawson T-40 Front Clawson 48 deg PHILIPSECG T Horizontal 47 deg PHILIPSECG Clawson T Wave Clawson 64 deg PHILIPSECG S-T HORIZONTAL 32 deg PHILIPSECG AXIS S-T FRONT AXIS 84 deg PHILIPSECG ECG Impression - OTHERWISE NORMAL ECG - PHILIPSECG ECG Impression SR PHILIPSECG ECG Impression Sinus rhythm PHILIPSECG ECG Impression normal P axis, V-rate 60-99 PHILIPSEC G ECG Impression ET PHILIPSECG ECG Impression Abnormal R-wave progression, PHILIPSE CG early transition ECG Impression QRS area>0 in V2 PHILIPSECG Specimen Performing Organization Address City/State/ZIP Code P [place] Number PHILIPSECG * CBC auto differential (11/26/2020 6:30 AM CDT) WBC 3.8 3.5 - 10.5 10E9/L [facility] RBC 2.47 (L) 4.32 - 5.72 10E12/L [facility] Hemoglobin 7.5 (L) 13.5 - 17.5 g/dL [facility] Hematocrit 24.2 (L) 38.8 - 50.0 % [facility] MCV 98.0 (H) 81.2 - 95.1 fL [facility] MCH 30.4 26.0 - 34.0 pg [facility] MCHC 31.0 31.0 - 37.0 g/dL [facility] RDW 15.2 11.8 - 15.6 % [facility] Platelets 179 150 - 450 10E9/L [facility] nRBC 0.00 <=0.00 10E9/L [facility] Neutrophils % 68.4 40.0 - 75.0 % [facility] Lymphocytes % 16.6 (L) 22.0 - 49.0 % [facility] Monocytes % 12.1 (H) 2.0 - 10.0 % [facility] Eosinophils % 2.4 <=5.0 % [facility] Basophils % 0.5 0.0 - 2.5 % [facility] Neutrophils 2.59 1.70 - 7.00 10E9/L [facility] Absolute [facility] Lymphocytes 0.63 (L) 0.90 - 2.90 10E9/L [facility] Monocytes 0.46 0.30 - 0.90 10E9/L [facility] Eosinophils 0.09 0.05 - 0.50 10E9/L [facility] Basophils 0.02 0.00 - 0.30 10E9/L [facility] % nRBC 0 % [facility] Specimen Blood Performing Organization Address City/State/ZIP Code P [place] Number [facility] [address] [place] [address] * Comprehensive metabolic panel (11/26/2020 6:29 AM CDT) Sodium 136 136 - 145 mmol/L [facility] Potassium 3.3 (L) 3.6 - 4.9 mmol/L [facility] Chloride 100 99 - 111 mmol/L [facility] CO2 32 20 - 36 mmol/L [facility] Anion Gap 4 [facility] Glucose 89 74 - 106 mg/dL [facility] Total Protein 5.8 5.7 - 8.2 g/dL [facility] Albumin 2.8 (L) 3.4 - 4.8 g/dL [facility] Calcium 8.2 (L) 8.3 - 10.6 mg/dL [facility] BUN, Bld 10 6 - 20 mg/dL [facility] Creatinine 1.04 0.60 - 1.20 mg/dL [facility] eGFR >59 >59 mL/min [facility] Total Bilirubin 0.4 0.0 - 1.2 mg/dL [facility] Alkaline 106 29 - 122 U/L [facility] Phosphatase LABORATORY ALT <9 (L) 10 - 46 U/L [facility] AST 29 16 - 37 U/L [facility] Specimen Blood Performing Organization Address City/[facility]/ZIP Code P [place] Number [facility] [address] [place] [address] * TELEMETRY WAVEFORMS (11/25/2020 11:00 PM CDT) TELE [place] 0.20 PHILIPSTELEMONI TORING TELE QRS 0.10 PHILIPSTELEMONI TORING TELE QT 0.42 PHILIPSTELEMONI TORING TELE COMMENTS FB HR 60 PHILIPSTELEMONI TORING TELE rsr PHILIPSTELEMONI INTERPRETATION TORING HARMONICA MAKER/BOND CLERK Yes PHILIPSTELEMONI APPROVED TORING Specimen Performing Organization Address [facility] Code P [place] Number PHILIPSTELEMONITORING * TELEMETRY WAVEFORMS (11/25/2020 7:16 PM CDT) TELE COMMENTS LSM 80 PHILIPSTELEMONI TORING TELE rsr PHILIPSTELEMONI INTERPRETATION TORING HARMONICA MAKER/BOND CLERK Yes PHILIPSTELEMONI APPROVED TORING Specimen Performing Organization Address City/[facility]/ZIP Code P [place] Number PHILIP[facility]ELEMONITORING * TELEMETRY WAVEFORMS (11/25/2020 12:33 PM CDT) TELE COMMENTS eled to SINUS - DANE SEND RP JENNIFER STELEMONI TORING TELE sinus - dane send rp PHILIPSTELEMON I INTERPRETATION TORING HARMONICA MAKER/BOND CLERK Yes PHILIPSTELEMONI APPROVED TORING Specimen Performing Organization Address City/[facility]/ZIP Code P [place] Number PH[facility]IP[facility]ELEMONITORING * TELEMETRY WAVEFORMS (11/25/2020 10:17 AM CDT) TELE [place] 0.18 PHILIPSTELEMONI TORING TELE QRS 0.10 PHILIPSTELEMONI TORING TELE QT 0.38 PHILIPSTELEMONI TORING TELE COMMENTS RP PHILIPSTELEMONI TORING TELE rsr PHILIPSTELEMONI INTERPRETATION TORING HARMONICA MAKER/BOND CLERK Yes PHILIPSTELEMONI APPROVED TORING Specimen Performing Organization Address City/[facility]/ZIP Code P [place] Number PHILIPSTELEMONITORING * CBC auto differential (11/25/2020 7:21 AM CDT) WBC 5.0 3.5 - 10.5 10E9/L [facility] RBC 2.56 (L) 4.32 - 5.72 10E12/L [facility] Hemoglobin 7.7 (L) 13.5 - 17.5 g/dL [facility] Hematocrit 25.7 (L) 38.8 - 50.0 % [facility] MCV 100.4 (H) 81.2 - 95.1 fL [facility] MCH 30.1 26.0 - 34.0 pg [facility] MCHC 30.0 (L) 31.0 - 37.0 g/dL [facility] RDW 15.5 11.8 - 15.6 % [facility] Platelets 168 150 - 450 10E9/L [facility] nRBC 0.00 <=0.00 10E9/L [facility] Neutrophils % 74.2 40.0 - 75.0 % [facility] Lymphocytes % 13.1 (L) 22.0 - 49.0 % [facility] Monocytes % 10.7 (H) 2.0 - 10.0 % [facility] Eosinophils % 1.6 <=5.0 % [facility] Basophils % 0.4 0.0 - 2.5 % [facility] Neutrophils 3.67 1.70 - 7.00 10E9/L [facility] [place] [facility] Lymphocytes 0.65 (L) 0.90 - 2.90 10E9/L [facility] Monocytes 0.53 0.30 - 0.90 10E9/L [facility] Eosinophils 0.08 0.05 - 0.50 10E9/L [facility] Basophils 0.02 0.00 - 0.30 10E9/L [facility] % nRBC 0 % [facility] Specimen Blood Performing Organization Address City/State/ZIP Code P [place] Number [facility] [address] [place] [address] * Comprehensive metabolic panel (11/25/2020 7:21 AM CDT) [facility] Signature Sodium 136 136 - 145 mmol/L [facility] Potassium 3.6 3.6 - 4.9 mmol/L [facility] Chloride 100 99 - 111 mmol/L [facility] CO2 31 20 - 36 mmol/L [facility] Anion Gap 5 [facility] Glucose 109 (H) 74 - 106 mg/dL [facility] Total Protein 5.9 5.7 - 8.2 g/dL [facility] Albumin 3.0 (L) 3.4 - 4.8 g/dL [facility] Calcium 8.0 (L) 8.3 - 10.6 mg/dL [facility] BUN, Bld 11 6 - 20 mg/dL [facility] Creatinine 1.11 0.60 - 1.20 mg/dL [facility] eGFR >59 >59 mL/min [facility] Total Bilirubin 0.3 0.0 - 1.2 mg/dL [facility] Alkaline 111 29 - 122 U/L [facility] Phosphatase LABORATORY ALT <9 (L) 10 - 46 U/L [facility] AST 35 16 - 37 U/L [facility] Specimen Blood Performing Organization Address City/State/ZIP Code P [place] Number [facility] [address] [place] [address] * EKG 12 lead (11/25/2020 6:06 AM CDT) Height PHILIPSECG Heart Rate 78 bpm PHILIPSECG Interval 769 ms PHILIPSECG Atrial Rate 79 ms PHILIPSECG SV P-R Interval 174 ms PHILIPSECG P Duration 117 ms PHILIPSECG P Horizontal -32 deg PHILIPSECG Clawson P Front Clawson 75 deg PHILIPSECG Q Onset 499 ms PHILIPSECG QRSD Interval 77 ms PHILIPSECG QT Interval 388 ms PHILIPSECG QTcB 442 ms PHILIPSECG QTcF 423 ms PHILIPSECG QRS Horizontal 13 deg PHILIPSECG [place] QRS AXIS 63 deg PHILIPSECG I40 Horizontal 49 deg PHILIPSECG Clawson I40 Front Clawson 54 deg PHILIPSECG T-40 Horizontal -9 deg PHILIPSECG Clawson T-40 Front Clawson 49 deg PHILIPSECG T Horizontal 18 deg PHILIPSECG Clawson T Wave Clawson 62 deg PHILIPSECG S-T HORIZONTAL 15 deg PHILIPSECG AXIS S-T FRONT AXIS 78 deg PHILIPSECG ECG Impression - NORMAL ECG - PHILIPSECG ECG Impression SR PHILIPSECG ECG Impression Sinus rhythm PHILIPSECG ECG Impression normal P axis, V-rate 60-99 PHILIPSEC G Specimen Performing Organization Address [facility]/ZIP Code [place] Number PHILIPSECG * TELEMETRY WAVEFORMS (11/24/2020 11:01 PM CDT) TELE [place] 0.18 PHILIPSTELEMONI TORING TELE QRS 0.08 PHILIPSTELEMONI TORING TELE QT 0.38 PHILIPSTELEMONI TORING TELE COMMENTS SDB HR=66 PHILIPSTELEMONI TORING TELE rsr PHILIPSTELEMONI INTERPRETATION TORING HARMONICA MAKER/BOND CLERK Yes PHILIPSTELEMONI APPROVED TORING Specimen Performing Organization Address [facility] Code [place] Number PHILIPSTELEMONITORING * EKG 12 lead (11/24/2020 7:52 AM CDT) Height PHILIPSECG Heart Rate 70 bpm PHILIPSECG Interval 857 ms PHILIPSECG Atrial Rate 70 ms PHILIPSECG SV P-R Interval 158 ms PHILIPSECG P Duration 103 ms PHILIPSECG P Horizontal 30 deg PHILIPSECG [place] P Front [place] 29 deg PHILIPSECG Q Onset 499 ms PHILIPSECG QRSD Interval 81 ms PHILIPSECG QT Interval 371 ms PHILIPSECG QTcB 401 ms PHILIPSECG QTcF 391 ms PHILIPSECG QRS Horizontal 35 deg PHILIPSECG [place] QRS AXIS 39 deg PHILIPSECG I40 Horizontal 95 deg PHILIPSECG [place] I40 Front [place] 67 deg PHILIPSECG T-40 Horizontal 9 deg PHILIPSECG [place] T-40 Front [place] 27 deg PHILIPSECG T Horizontal 63 deg PHILIPSECG [place] T Wave [place] 56 deg PHILIPSECG S-T HORIZONTAL 66 deg PHILIPSECG AXIS S-T FRONT AXIS 69 deg PHILIPSECG ECG Impression - OTHERWISE NORMAL ECG - PHILIPSECG ECG Impression SR PHILIPSECG ECG Impression Sinus rhythm PHILIPSECG ECG Impression normal P axis, V-rate 60-99 PHILIPSEC G ECG Impression ET PHILIPSECG ECG Impression Abnormal R-wave progression, PHILIPSE CG early transition ECG Impression QRS area>0 in V2 PHILIPSECG Specimen Performing Organization Address [facility] [place] Number PHILIPSECG * TELEMETRY WAVEFORMS (11/24/2020 7:00 AM CDT) TELE [place] 0.15 PHILIPSTELEMONI TORING TELE QRS 0.07 PHILIPSTELEMONI TORING TELE QT 0.37 PHILIPSTELEMONI TORING TELE COMMENTS CG RSR PHILIPSTELEMONI TORING TELE saved strip PHILIPSTELEMONI INTERPRETATION TORING HARMONICA MAKER/BOND CLERK Yes PHILIPSTELEMONI APPROVED TORING Specimen Performing Organization Address City/State/ZIP Code [place] Number PHILIPSTELEMONITORING * CBC auto differential (11/24/2020 6:00 AM CDT) WBC 6.2 3.5 - 10.5 10E9/L [facility] RBC 2.62 (L) 4.32 - 5.72 10E12/L [facility] Hemoglobin 7.9 (L) 13.5 - 17.5 g/dL [facility] Hematocrit 26.0 (L) 38.8 - 50.0 % [facility] MCV 99.2 (H) 81.2 - 95.1 fL [facility] MCH 30.2 26.0 - 34.0 pg [facility] MCHC 30.4 (L) 31.0 - 37.0 g/dL [facility] RDW 15.7 (H) 11.8 - 15.6 % [facility] Platelets 211 150 - 450 10E9/L [facility] nRBC 0.00 <=0.00 10E9/L [facility] Neutrophils % 76.8 (H) 40.0 - 75.0 % [facility] Lymphocytes % 11.1 (L) 22.0 - 49.0 % [facility] Monocytes % 10.9 (H) 2.0 - 10.0 % [facility] Eosinophils % 1.0 <=5.0 % [facility] Basophils % 0.2 0.0 - 2.5 % [facility] Neutrophils 4.78 1.70 - 7.00 10E9/L [facility] Lymphocytes 0.69 (L) 0.90 - 2.90 10E9/L [facility] Monocytes 0.68 0.30 - 0.90 10E9/L [facility] [place] [facility] Eosinophils 0.06 0.05 - 0.50 10E9/L [facility] [place] [facility] Basophils 0.01 0.00 - 0.30 10E9/L [facility] % nRBC 0 % [facility] Specimen Blood Performing Organization Address [facility] P [place] Number [facility] [address] [place] [phone] * Comprehensive metabolic panel (11/24/2020 6:00 AM CDT) Pathologist [facility] Sodium 135 (L) 136 - 145 mmol/L [facility] Potassium 3.7 3.6 - 4.9 mmol/L [facility] Chloride 99 99 - 111 mmol/L [facility] CO2 30 20 - 36 mmol/L [facility] Anion Gap 6 [facility] Glucose 90 74 - 106 mg/dL [facility] Total Protein 5.9 5.7 - 8.2 g/dL [facility] Albumin 2.9 (L) 3.4 - 4.8 g/dL [facility] Calcium 8.5 8.3 - 10.6 mg/dL [facility] BUN, Bld 14 6 - 20 mg/dL [facility] Creatinine 1.17 0.60 - 1.20 mg/dL [facility] eGFR >59 >59 mL/min [facility] Total Bilirubin 0.4 0.0 - 1.2 mg/dL [facility] Alkaline 122 29 - 122 U/L [facility] Phosphatase LABORATORY ALT <9 (L) 10 - 46 U/L [facility] AST 38 (H) 16 - 37 U/L [facility] Specimen Blood Performing Organization Address [facility] P [place] Number [facility] [address] [place] [id number] * TELEMETRY WAVEFORMS (11/24/2020 3:00 AM CDT) TELE KS 0.20 [facility]ORING TELE QRS 0.06 [facility]ORING TELE QT 0.36 [facility]ORING TELE COMMENTS CW RSR [facility]ELE[facility] TORING TELE saved strip PHILIPSTELEMONI INTERPRETATION TORING HARMONICA MAKER/BOND CLERK Yes PHILIPSTELEMONI APPROVED TORING Specimen Performing Organization Address [facility]/ZIP Code P [place] Number [facility] * TELEMETRY WAVEFORMS (11/23/2020 9:04 PM CDT) TELE KS 0.16 PHILIPSTELEMONI TORING TELE QRS 0.08 PHILIP[facility]ELEMONI TORING TELE QT 0.40 PHILIP[facility]ELEMONI TORING TELE COMMENTS HC HR 60 [facility]ELE[facility] TORING TELE rsr PHILIPSTELEMONI INTERPRETATION TORING HARMONICA MAKER/BOND CLERK Yes PHILIPSTELEMONI APPROVED TORING Specimen Performing Organization Address City/[facility]/ZIP Code P [place] Number [facility] * TELEMETRY WAVEFORMS (11/23/2020 9:12 AM CDT) TELE KS 0.16 PHILIPSTELEMONI TORING TELE QRS 0.04 PHILIPSTELEMONI TORING TELE QT 0.32 PHILIPSTELEMONI TORING TELE COMMENTS CL HR 90 [facility]IL[facility]STELEMONI TORING TELE rsr PHILIPSTELEMONI INTERPRETATION TORING HARMONICA MAKER/BOND CLERK Yes PHILIPSTELEMONI APPROVED TORING Specimen Performing Organization Address [facility] P [place] Number [facility] * CBC auto differential (11/23/2020 6:57 AM CDT) WBC 5.9 3.5 - 10.5 10E9/L [facility] RBC 2.82 (L) 4.32 - 5.72 10E12/L [facility] Hemoglobin 8.5 (L) 13.5 - 17.5 g/dL [facility] Hematocrit 28.2 (L) 38.8 - 50.0 % [facility] MCV 100.0 (H) 81.2 - 95.1 fL [facility] MCH 30.1 26.0 - 34.0 pg [facility] MCHC 30.1 (L) 31.0 - 37.0 g/dL [facility] RDW 15.8 (H) 11.8 - 15.6 % [facility] Platelets 242 150 - 450 10E9/L [facility] nRBC 0.00 <=0.00 10E9/L [facility] Neutrophils % 72.3 40.0 - 75.0 % [facility] Lymphocytes % 14.5 (L) 22.0 - 49.0 % [facility] Monocytes % 11.3 (H) 2.0 - 10.0 % [facility] Eosinophils % 1.7 <=5.0 % [facility] Basophils % 0.2 0.0 - 2.5 % [facility] Neutrophils 4.23 1.70 - 7.00 10E9/L [facility] Lymphocytes 0.85 (L) 0.90 - 2.90 10E9/L [facility] Monocytes 0.66 0.30 - 0.90 10E9/L [facility] Eosinophils 0.10 0.05 - 0.50 10E9/L [facility] Basophils 0.01 0.00 - 0.30 10E9/L [facility] % nRBC 0 % [facility] Specimen Blood Performing Organization Address City/State/ZIP Code P [place] Number [facility] [address] [place] [address] * Comprehensive metabolic panel (11/23/2020 6:57 AM CDT) Sodium 135 (L) 136 - 145 mmol/L [facility] Potassium 3.9 3.6 - 4.9 mmol/L [facility] Chloride 100 99 - 111 mmol/L [facility] CO2 31 20 - 36 mmol/L [facility] Anion Gap 4 [facility] Glucose 96 74 - 106 mg/dL [facility] Total Protein 6.0 5.7 - 8.2 g/dL [facility] Albumin 3.0 (L) 3.4 - 4.8 g/dL [facility] Calcium 8.2 (L) 8.3 - 10.6 mg/dL [facility] BUN, Bld 13 6 - 20 mg/dL [facility] Creatinine 1.08 0.60 - 1.20 mg/dL [facility] eGFR >59 >59 mL/min [facility] Total Bilirubin 0.5 0.0 - 1.2 mg/dL [facility] Alkaline 130 (H) 29 - 122 U/L [facility] Phosphatase LABORATORY ALT 9 (L) 10 - 46 U/L [facility] AST 44 (H) 16 - 37 U/L [facility] Specimen Blood Performing Organization Address [facility] P [place] Number [facility] [address] [place] [address] * EKG 12 lead (11/23/2020 6:10 AM CDT) Height PHILIPSECG Heart Rate 70 bpm PHILIPSECG Interval 857 ms PHILIPSECG Atrial Rate 70 ms PHILIPSECG SV P-R Interval 149 ms PHILIPSECG P Duration 96 ms PHILIPSECG P Horizontal -8 deg PHILIPSECG Clawson P Front Clawson 51 deg PHILIPSECG Q Onset 499 ms PHILIPSECG QRSD Interval 74 ms PHILIPSECG QT Interval 430 ms PHILIPSECG QTcB 464 ms PHILIPSECG QTcF 453 ms PHILIPSECG QRS Horizontal 14 deg PHILIPSECG Clawson QRS AXIS 57 deg PHILIPSECG I40 Horizontal 76 deg PHILIPSECG Clawson I40 Front Clawson 63 deg PHILIPSECG T-40 Horizontal -2 deg PHILIPSECG Clawson T-40 Front Clawson 53 deg PHILIPSECG T Horizontal 22 deg PHILIPSECG Clawson T Wave Clawson 69 deg PHILIPSECG S-T HORIZONTAL 22 deg PHILIPSECG AXIS S-T FRONT AXIS 79 deg PHILIPSECG ECG Impression - OTHERWISE NORMAL ECG - PHILIPSECG ECG Impression SR PHILIPSECG ECG Impression Sinus rhythm PHILIPSECG ECG Impression normal P axis, V-rate 60-99 PHILIPSEC G ECG Impression ET PHILIPSECG ECG Impression Abnormal R-wave progression, PHILIPSE CG early transition ECG Impression QRS area>0 in V2 PHILIPSECG Specimen Performing Organization Address [facility] P [place] Number PHILIPSECG * TELEMETRY WAVEFORMS (11/22/2020 11:00 PM CDT) TELE KS 0.16 PHILIPSTELEMONI TORING TELE QRS 0.08 PHILIP[facility]ELEMONI TORING TELE QT 0.34 [facility]IL[facility]ELEMONI TORING TELE COMMENTS PRACHI HR 75 [facility]ELE[facility]ORING TELE rsr PHILIPSTELEMONI INTERPRETATION TORING HARMONICA MAKER/BOND CLERK Yes PHILIPSTELEMONI APPROVED TORING Specimen Performing Organization Address [facility] Code P [place] Number [facility] * Urine Culture (11/22/2020 9:29 PM CDT) Urine Culture No Growth [facility] Specimen Urine - Urine specimen (specimen) Performing Organization Address [facility] P [place] Number [facility] [address] [place] [phone] * Urinalysis, Reflex Culture If Needed (11/22/2020 9:29 PM CDT) Color, UA Red [facility] Appearance Cloudy [facility] Specific 1.013 1.003 - 1.030 [facility] [place] pH, UA 7.0 5.0 - 8.0 [facility] Leukoesterase, 3+ (A) Negative [facility] Nitrites, UA Negative Negative [facility] Protein, UA 2+ (A) Negative [facility] Glucose, UA Negative Negative [facility] Ketones, UA Negative Negative [facility] Urobilinogen, 0.2 0.2 EU [facility] Bilirubin, UA Negative Negative [facility] Hemoglobin, UA 3+ (A) Negative [facility] Squam Epithel, Rare [facility] WBC, UA 21-50 (A) 0 - 3 [facility] RBC, UA >100 (A) 0 - 3 [facility] Hyaline Casts, 3 [facility] Specimen Urine - Urine specimen (specimen) Narrative [facility] - 11/22/2020 9:44 PM CDT Urine was cultured. Urinalysis results indicated culture criteria was met. Performing Organization Address [facility] P [place] Number [facility] [address] [place] [phone] * TELEMETRY WAVEFORMS (11/22/2020 8:28 PM CDT) TELE KS 0.14 PHILIPSTELEMONI TORING TELE QRS 0.08 PHILIPSTELEMONI TORING TELE QT 0.40 PHILIPSTELEMONI TORING TELE COMMENTS HC HR 70 PHIL[facility]STELEMONI TORING TELE rsr PHILIPSTELEMONI INTERPRETATION TORING HARMONICA MAKER/BOND CLERK Yes PHILIPSTELEMONI APPROVED TORING Specimen Performing Organization Address [facility] Code P [place] Number [facility] * TELEMETRY WAVEFORMS (11/22/2020 11:13 AM CDT) TELE KS 0.16 PHILIPSTELEMONI TORING TELE QRS 0.10 PHILIPSTELEMONI TORING TELE QT 0.40 PHILIPSTELEMONI TORING TELE COMMENTS MF HR 66 PHIL[facility]STELEMONI TORING TELE rsr PHILIPSTELEMONI INTERPRETATION TORING HARMONICA MAKER/BOND CLERK Yes PHILIPSTELEMONI APPROVED TORING Specimen Performing Organization Address City/State/ZIP Code P [place] Number [facility] * Blood Culture x2 (11/22/2020 7:16 AM CDT) Pathologist [facility] Blood Culture, No Growth after 5 days [facility] Routine incubation LABORATORY Specimen Blood - Peripheral Performing Organization Address City/State/ZIP Code P [place] Number [facility] [address] [place] [address] * Comprehensive metabolic panel (11/22/2020 7:02 AM CDT) Pathologist [facility] Sodium 137 136 - 145 mmol/L [facility] Potassium 3.4 (L) 3.6 - 4.9 mmol/L [facility] Chloride 101 99 - 111 mmol/L [facility] CO2 29 20 - 36 mmol/L [facility] Anion Gap 7 [facility] Glucose 158 (H) 74 - 106 mg/dL [facility] Total Protein 5.4 (L) 5.7 - 8.2 g/dL [facility] Albumin 2.7 (L) 3.4 - 4.8 g/dL [facility] Calcium 7.8 (L) 8.3 - 10.6 mg/dL [facility] BUN, Bld 17 6 - 20 mg/dL [facility] Creatinine 1.12 0.60 - 1.20 mg/dL [facility] eGFR >59 >59 mL/min [facility] Total Bilirubin 0.5 0.0 - 1.2 mg/dL [facility] Alkaline 119 29 - 122 U/L [facility] Phosphatase LABORATORY ALT <9 (L) 10 - 46 U/L [facility] AST 30 16 - 37 U/L [facility] Specimen Blood Performing Organization Address City/State/ZIP Code P [place] Number [facility] [address] [place] [address] * CBC auto differential (11/22/2020 7:00 AM CDT) WBC 5.6 3.5 - 10.5 10E9/L [facility] RBC 2.75 (L) 4.32 - 5.72 10E12/L [facility] Hemoglobin 8.3 (L) 13.5 - 17.5 g/dL [facility] Hematocrit 27.1 (L) 38.8 - 50.0 % [facility] MCV 98.5 (H) 81.2 - 95.1 fL [facility] MCH 30.2 26.0 - 34.0 pg [facility] MCHC 30.6 (L) 31.0 - 37.0 g/dL [facility] RDW 15.9 (H) 11.8 - 15.6 % [facility] Platelets 241 150 - 450 10E9/L [facility] nRBC 0.00 <=0.00 10E9/L [facility] Neutrophils % 77.3 (H) 40.0 - 75.0 % [facility] Lymphocytes % 10.8 (L) 22.0 - 49.0 % [facility] Monocytes % 10.5 (H) 2.0 - 10.0 % [facility] Eosinophils % 1.2 <=5.0 % [facility] Basophils % 0.2 0.0 - 2.5 % [facility] Neutrophils 4.35 1.70 - 7.00 10E9/L [facility] Lymphocytes 0.61 (L) 0.90 - 2.90 10E9/L [facility] Monocytes 0.59 0.30 - 0.90 10E9/L [facility] Eosinophils 0.07 0.05 - 0.50 10E9/L [facility] Basophils 0.01 0.00 - 0.30 10E9/L [facility] [place] [facility] % nRBC 0 % [facility] Specimen Blood Performing Organization Address [facility] P [place] Number [facility] [address] [place] [address] * Blood Culture x2 (11/22/2020 7:00 AM CDT) Pathologist [facility] Blood Culture, No Growth after 5 days [facility] Routine incubation LABORATORY Specimen Blood - Peripheral Performing Organization Address [facility] P [place] Number [facility] [address] [place] [address] * TELEMETRY WAVEFORMS (11/21/2020 11:00 PM CDT) TELE KS 0.14 PHILIPSTELEMONI TORING TELE QRS 0.10 [facility]ELE[facility] TORING TELE QT 0.36 PHILIPSTELEMONI TORING TELE COMMENTS FB HR 72 PHIL[facility]ELE[facility]I TORING TELE rsr PHILIPSTELEMONI INTERPRETATION TORING HARMONICA MAKER/BOND CLERK Yes PHILIPSTELEMONI APPROVED TORING Specimen Performing Organization Address [facility] P [place] Number [facility] * TELEMETRY WAVEFORMS (11/21/2020 8:03 PM CDT) TELE COMMENTS LSM 70 PHILIP[facility]ELEMONI TORING TELE rsr pac PHILIPSTELEMONI INTERPRETATION TORING HARMONICA MAKER/BOND CLERK Yes PHILIPSTELEMONI APPROVED TORING Specimen Performing Organization Address [facility] P [place] Number [facility] * TELEMETRY WAVEFORMS (11/21/2020 7:46 PM CDT) TELE KS 0.14 PHILIPSTELEMONI TORING TELE QRS 0.06 PHILIPSTELEMONI TORING TELE QT 0.37 PHILIPSTELEMONI TORING TELE COMMENTS LSM 70 PHILIPSTELEMONI TORING TELE rsr PHILIPSTELEMONI INTERPRETATION TORING HARMONICA MAKER/BOND CLERK Yes PHILIPSTELEMONI APPROVED TORING Specimen Performing Organization Address [facility] P [place] Number [facility] * CVUS Echo-TAYLOR (use contrast as indicated) (11/21/2020 4:20 PM CDT) Modality Anatomical Region Laterality Ultrasound Chest Specimen Narrative [facility] - 11/21/2020 6:16 PM CDT Transesophageal Echocardiogram Report Patient Name: MAINOR BLANCA Med Rec #: [id number] Reading MD: Jeff Guzmán MD Study Date: 11/21/2020 Referring MD: NASEEM العلي MD Technologist: Teri LANGLEY SV Location: [facility] : 1950 Room: [facility] Gender: Male Height: 70.08in BP: 137/80 mmHg Weight: 169.76lb HR: Diagnosis Codes: I38 Endocarditis, valve unspecified Procedures: 33788 Echo TAYLOR 87635 Color Doppler Echo 03046 Spectral Doppler Echo Conclusions: The left ventricular [...] Transesophageal Echocardiogram Report Patient Name: MAINOR BLANCA, [facility] Rec #: [id number] Reading MD: Jeff Guzmán MD Study Date: 11/21/2020 Referring MD: NASEEM العلي MD Technologist: Teri LANGLEY Location: [facility] : 1950 Room: [facility] Gender: Male Height: 70.08in BP: 137/80 mmHg Weight: 169.76lb HR: Diagnosis Codes: I38 Endocarditis, valve unspecified Procedures: 34662 Echo TAYLOR 67386 Color Doppler Echo 70044 Spectral Doppler Echo Conclusions: The left ventricular [...] a status of Final Performing Organization Address City/State/ZIP Code P [place] Number [id number] * TELEMETRY WAVEFORMS (11/21/2020 10:37 AM CDT) TELE COMMENTS RP /7 BTS [place] PHILIPSTELEMONI TORING TELE vtach PHILIPSTELEMONI INTERPRETATION TORING HARMONICA MAKER/BOND CLERK Yes PHILIPSTELEMONI APPROVED TORING Specimen Performing Organization Address City/State/ZIP Code P [place] Number [facility] * TELEMETRY WAVEFORMS (11/21/2020 7:59 AM CDT) TELE COMMENTS eled to SINUS - DANE SEND RP JENNIFER STELEMONI TORING TELE sinus - dane send rp PHILIPSTELEMON I INTERPRETATION TORING HARMONICA MAKER/BOND CLERK Yes PHILIPSTELEMONI APPROVED TORING Specimen Performing Organization Address City/State/ZIP Code P [place] Number [facility] * TELEMETRY WAVEFORMS (11/21/2020 7:58 AM CDT) TELE KS 0.16 PHILIPSTELEMONI TORING TELE QRS 0.08 PHILIPSTELEMONI TORING TELE QT 0.44 PHILIPSTELEMONI TORING TELE COMMENTS RP PHILIPSTELEMONI TORING TELE rsr PHILIPSTELEMONI INTERPRETATION TORING HARMONICA MAKER/BOND CLERK Yes PHILIPSTELEMONI APPROVED TORING Specimen Performing Organization Address City/State/ZIP Code P [place] Number [facility] * CBC auto differential (11/21/2020 7:08 AM CDT) WBC 6.4 3.5 - 10.5 10E9/L [facility] RBC 2.50 (L) 4.32 - 5.72 10E12/L [facility] Hemoglobin 7.5 (L) 13.5 - 17.5 g/dL [facility] Hematocrit 24.5 (L) 38.8 - 50.0 % [facility] MCV 98.0 (H) 81.2 - 95.1 fL [facility] MCH 30.0 26.0 - 34.0 pg [facility] MCHC 30.6 (L) 31.0 - 37.0 g/dL [facility] RDW 16.1 (H) 11.8 - 15.6 % [facility] Platelets 244 150 - 450 10E9/L [facility] nRBC 0.00 <=0.00 10E9/L [facility] Neutrophils % 78.3 (H) 40.0 - 75.0 % [facility] Lymphocytes % 11.3 (L) 22.0 - 49.0 % [facility] Monocytes % 8.8 2.0 - 10.0 % [facility] Eosinophils % 1.6 <=5.0 % [facility] Basophils % 0.0 0.0 - 2.5 % [facility] Neutrophils 5.02 1.70 - 7.00 10E9/L [facility] [place] [facility] Lymphocytes 0.72 (L) 0.90 - 2.90 10E9/L [facility] [place] [facility] Monocytes 0.56 0.30 - 0.90 10E9/L [facility] [place] [facility] Eosinophils 0.10 0.05 - 0.50 10E9/L [facility] [place] [facility] Basophils 0.00 0.00 - 0.30 10E9/L [facility] LABORATORY % nRBC 0 % [facility] Specimen Blood Performing Organization Address [facility] P [place] Number [facility] [address] [place] [address] * Comprehensive metabolic panel (11/21/2020 7:08 AM CDT) [facility] Sodium 139 136 - 145 mmol/L [facility] Potassium 3.6 3.6 - 4.9 mmol/L [facility] Chloride 105 99 - 111 mmol/L [facility] CO2 31 20 - 36 mmol/L [facility] Anion Gap 3 [facility] Glucose 77 74 - 106 mg/dL [facility] Total Protein 5.2 (L) 5.7 - 8.2 g/dL [facility] Albumin 2.7 (L) 3.4 - 4.8 g/dL [facility] Calcium 7.5 (L) 8.3 - 10.6 mg/dL [facility] BUN, Bld 16 6 - 20 mg/dL [facility] Creatinine 1.01 0.60 - 1.20 mg/dL [facility] eGFR >59 >59 mL/min [facility] Total Bilirubin 0.5 0.0 - 1.2 mg/dL [facility] Alkaline 121 29 - 122 U/L [facility] Phosphatase LABORATORY ALT 12 10 - 46 U/L [facility] AST 36 16 - 37 U/L [facility] Specimen Blood Performing Organization Address City/[facility] P [place] Number [facility] [address] [place] [address] * TELEMETRY WAVEFORMS (11/20/2020 11:02 PM CDT) [facility] TELE [place] 0.14 [place] [facility] TELE QRS 0.08 [facility] TELE QT 0.36 [facility]LE COMMENTS SDB HR-70 [facility] [place] TELE rsr pac [place] INTERPRETATION TORING HARMONICA MAKER/BOND CLERK Yes [place] APPROVED TORING Specimen Performing Organization Address City/State/ZIP Code P [place] * TELEMETRY WAVEFORMS (11/20/2020 10:48 AM CDT) TELE [place] 0.16 [place] TELE QRS 0.08 [place] TELE QT 0.36 [place] TELE COMMENTS MF HR 90 [place] TELE rsr [place] INTERPRETATION [employer]ORING HARMONICA MAKER/BOND CLERK Yes [place] APPROVED [employer]ORING Specimen Performing Organization Address City/State/ZIP Code P [place] Number [place] * CBC auto differential (11/20/2020 7:35 AM CDT) WBC 8.7 3.5 - 10.5 10E9/L [place] [facility] RBC 2.71 (L) 4.32 - 5.72 10E12/L [facility] Hemoglobin 8.3 (L) 13.5 - 17.5 g/dL [facility] Hematocrit 27.0 (L) 38.8 - 50.0 % [facility] MCV 99.6 (H) 81.2 - 95.1 fL [facility] MCH 30.6 26.0 - 34.0 pg [facility] MCHC 30.7 (L) 31.0 - 37.0 g/dL [facility] RDW 16.8 (H) 11.8 - 15.6 % [facility] Platelets 285 150 - 450 10E9/L [facility] nRBC 0.00 <=0.00 10E9/L [facility] Neutrophils % 83.2 (H) 40.0 - 75.0 % [facility] Lymphocytes % 8.7 (L) 22.0 - 49.0 % [facility] Monocytes % 7.2 2.0 - 10.0 % [facility] Eosinophils % 0.8 <=5.0 % [facility] Basophils % 0.1 0.0 - 2.5 % [facility] Neutrophils 7.27 (H) 1.70 - 7.00 10E9/L [facility] Lymphocytes 0.76 (L) 0.90 - 2.90 10E9/L [facility] Monocytes 0.63 0.30 - 0.90 10E9/L [facility] Eosinophils 0.07 0.05 - 0.50 10E9/L [facility] Basophils 0.01 0.00 - 0.30 10E9/L [facility] % nRBC 0 % [facility] Specimen Blood Performing Organization Address City/[facility]/ZIP Code P [place] Number [facility] [address] [place] [address] * Comprehensive metabolic panel (11/20/2020 7:35 AM CDT) [facility] Sodium 140 136 - 145 mmol/L [facility] Potassium 3.6 3.6 - 4.9 mmol/L [facility] Chloride 107 99 - 111 mmol/L [facility] CO2 30 20 - 36 mmol/L [facility] Anion Gap 3 [facility] Glucose 100 74 - 106 mg/dL [facility] Total Protein 5.4 (L) 5.7 - 8.2 g/dL [facility] Albumin 2.7 (L) 3.4 - 4.8 g/dL [facility] Calcium 7.9 (L) 8.3 - 10.6 mg/dL [facility] BUN, Bld 20 6 - 20 mg/dL [facility] Creatinine 1.06 0.60 - 1.20 mg/dL [facility] eGFR >59 >59 mL/min [facility] Total Bilirubin 0.5 0.0 - 1.2 mg/dL [facility] Alkaline 124 (H) 29 - 122 U/L [facility] Phosphatase LABORATORY ALT <9 (L) 10 - 46 U/L [facility] AST 36 16 - 37 U/L [facility] Specimen Blood Performing Organization Address City/[facility]/ZIP [facility] P [place] Number [facility] [address] [place] [address] * TELEMETRY WAVEFORMS (11/19/2020 11:05 PM CDT) TELE [place] 0.14 PHILIPSTELEMONI TORING TELE QRS 0.10 PHILIPSTELEMONI TORING TELE QT 0.38 PHILIPSTELEMONI TORING TELE COMMENTS EW HR 66 PHILIPSTELEMONI TORING TELE rsr PHILIPSTELEMONI INTERPRETATION TORING HARMONICA MAKER/BOND CLERK Yes PHILIPSTELEMONI APPROVED TORING Specimen Performing Organization Address City/[facility]/ZIP Code P [place] Number PHILIPSTELEMONITORING * Potassium (11/19/2020 3:43 PM CDT) Pathologist [facility] Potassium 3.3 (L) 3.6 - 4.9 mmol/L [facility] Specimen Blood Performing Organization Address [facility] P [place] Number [facility] [address] [place] [address] * EKG 12 lead (11/19/2020 11:37 AM CDT) Height PHILIPSECG Heart Rate 87 bpm PHILIPSECG Interval 690 ms PHILIPSECG Atrial Rate 88 ms PHILIPSECG SV P-R Interval 124 ms PHILIPSECG P Duration 89 ms PHILIPSECG P Horizontal 2 deg PHILIPSECG Clawson P Front Clawson 30 deg PHILIPSECG Q Onset 499 ms PHILIPSECG QRSD Interval 110 ms PHILIPSECG QT Interval 391 ms PHILIPSECG QTcB 471 ms PHILIPSECG QTcF 442 ms PHILIPSECG QRS Horizontal 23 deg PHILIPSECG [place] QRS AXIS 5 deg PHILIPSECG I40 Horizontal 67 deg PHILIPSECG Clawson I40 Front Clawson -29 deg PHILIPSECG T-40 Horizontal 6 deg PHILIPSECG Clawson T-40 Front Clawson 10 deg PHILIPSECG T Horizontal 19 deg PHILIPSECG Clawson T Wave Clawson -3 deg PHILIPSECG S-T HORIZONTAL 11 deg PHILIPSECG AXIS S-T FRONT AXIS 4 deg PHILIPSECG ECG Impression - BORDERLINE ECG - PHILIPSECG ECG Impression SR PHILIPSECG ECG Impression Sinus rhythm PHILIPSECG ECG Impression normal P axis, V-rate 60-99 PHILIPSEC G ECG Impression T0IN PHILIPSECG ECG Impression Borderline T abnormalities, PHILIPSEC G inferior leads ECG Impression T flat/neg, II III aVF PHILIPSECG Specimen Performing Organization Address [facility]/ZIP Code P [place] Number PHILIPSECG * TELEMETRY WAVEFORMS (11/19/2020 10:26 AM CDT) TELE [place] 0.14 PHILIPSTELEMONI TORING TELE QRS 0.08 PHILIPSTELEMONI TORING TELE QT 0.28 PHILIPSTELEMONI TORING TELE COMMENTS SJA HR 100 PHILIPSTELEMONI TORING TELE rsr PHILIPSTELEMONI INTERPRETATION TORING HARMONICA MAKER/BOND CLERK Yes PHILIPSTELEMONI APPROVED TORING Specimen Performing Organization Address [facility]/ZIP Code P [place] Number PHILIP[facility]ELEMONITORING * EKG 12 lead (11/19/2020 6:10 AM CDT) Height PHILIPSECG Heart Rate 81 bpm PHILIPSECG Interval 741 ms PHILIPSECG Atrial Rate 82 ms PHILIPSECG SV P-R Interval 128 ms PHILIPSECG P Duration 95 ms PHILIPSECG P Horizontal 18 deg PHILIPSECG Clawson P Front Clawson 46 deg PHILIPSECG Q Onset 499 ms PHILIPSECG QRSD Interval 117 ms PHILIPSECG QT Interval 414 ms PHILIPSECG QTcB 481 ms PHILIPSECG QTcF 457 ms PHILIPSECG QRS Horizontal 26 deg PHILIPSECG [place] QRS AXIS 42 deg PHILIPSECG I40 Horizontal 59 deg PHILIPSECG Clawson I40 Front Clawson 58 deg PHILIPSECG T-40 Horizontal 22 deg PHILIPSECG Clawson T-40 Front Clawson 61 deg PHILIPSECG T Horizontal 17 deg PHILIPSECG Clawson T Wave Clawson 42 deg PHILIPSECG S-T HORIZONTAL 24 deg PHILIPSECG AXIS S-T FRONT AXIS 82 deg PHILIPSECG ECG Impression - ABNORMAL ECG - PHILIPSECG ECG Impression SR PHILIPSECG ECG Impression Sinus rhythm PHILIPSECG ECG Impression normal P axis, V-rate 60-99 PHILIPSEC G ECG Impression NIVCD PHILIPSECG ECG Impression Nonspecific intraventricular PHILIPSE CG conduction delay ECG Impression QRSd >115mS, not LBBB/RBBB PHILIPSECG Specimen Performing Organization Address City/[facility]/ZIP Code P [place] Number PH[facility]IP[facility] * TELEMETRY WAVEFORMS (11/19/2020 4:27 AM CDT) TELE saved strip PHILIPSTELEMONI INTERPRETATION TORING HARMONICA MAKER/BOND CLERK Yes PHILIPSTELEMONI APPROVED TORING Specimen Performing Organization Address [facility]/ZIP Code P [place] Number [facility]OR[facility] * TELEMETRY WAVEFORMS (11/19/2020 4:27 AM CDT) TELE saved strip PHILIPSTELEMONI INTERPRETATION TORING HARMONICA MAKER/BOND CLERK Yes PHILIPSTELEMONI APPROVED TORING Specimen Performing Organization Address [facility]/ZIP Code P [place] Number [facility]OR[facility] * TELEMETRY WAVEFORMS (11/19/2020 4:27 AM CDT) TELE COMMENTS 9 BTS PHILIPSTELEMONI TORING TELE saved strip PHILIPSTELEMONI INTERPRETATION TORING HARMONICA MAKER/BOND CLERK Yes PHILIPSTELEMONI APPROVED TORING Specimen Performing Organization Address [facility]/ZIP Code P [place] Number [facility]ITOR[facility] * TELEMETRY WAVEFORMS (11/19/2020 4:27 AM CDT) TELE COMMENTS 7 BTS PHILIPSTELEMONI TORING TELE saved strip PHILIPSTELEMONI INTERPRETATION TORING HARMONICA MAKER/BOND CLERK Yes PHILIPSTELEMONI APPROVED TORING Specimen Performing Organization Address [facility] Code P [place] Number [facility]ELE[facility]ITOR[facility] * TELEMETRY WAVEFORMS (11/19/2020 4:24 AM CDT) TELE COMMENTS 7 BTS [place] KB PHILIPSTELEMONI TORING TELE saved strip PHILIPSTELEMONI INTERPRETATION TORING HARMONICA MAKER/BOND CLERK Yes PHILIPSTELEMONI APPROVED TORING Specimen Performing Organization Address [facility]/ZIP Code P [place] Number [facility]ITOR[facility] * TELEMETRY WAVEFORMS (11/19/2020 4:24 AM CDT) TELE COMMENTS 5 BTS [place] PHILIPSTELEMONI TORING TELE saved strip PHILIPSTELEMONI INTERPRETATION TORING HARMONICA MAKER/BOND CLERK Yes PHILIPSTELEMONI APPROVED TORING Specimen Performing Organization Address [facility] Code P [place] Number [facility]IL[facility]ELE[facility]ITORING * TELEMETRY WAVEFORMS (11/19/2020 4:22 AM CDT) TELE COMMENTS 4 BTS [place] KB PHILIPSTELEMONI TORING TELE saved strip PHILIPSTELEMONI INTERPRETATION TORING HARMONICA MAKER/BOND CLERK Yes PHILIPSTELEMONI APPROVED TORING Specimen Performing Organization Address [facility]/ZIP Code P [place] Number PHILIP[facility]ELEMONITORING * TSH (11/19/2020 3:49 AM CDT) TSH 2.640 0.400 - 4.000 uIU/mL [facility] Specimen Blood Performing Organization Address City/State/ZIP Code P [place] Number [facility] [address] [place] [address] * CBC auto differential (11/19/2020 3:49 AM CDT) WBC 10.8 (H) 3.5 - 10.5 10E9/L [facility] RBC 2.77 (L) 4.32 - 5.72 10E12/L [facility] Hemoglobin 8.5 (L) 13.5 - 17.5 g/dL [facility] Hematocrit 27.5 (L) 38.8 - 50.0 % [facility] MCV 99.3 (H) 81.2 - 95.1 fL [facility] MCH 30.7 26.0 - 34.0 pg [facility] MCHC 30.9 (L) 31.0 - 37.0 g/dL [facility] RDW 16.7 (H) 11.8 - 15.6 % [facility] Platelets 334 150 - 450 10E9/L [facility] nRBC 0.00 <=0.00 10E9/L [facility] Neutrophils % 86.9 (H) 40.0 - 75.0 % [facility] Lymphocytes % 6.6 (L) 22.0 - 49.0 % [facility] Monocytes % 6.0 2.0 - 10.0 % [facility] Eosinophils % 0.4 <=5.0 % [facility] Basophils % 0.1 0.0 - 2.5 % [facility] Neutrophils 9.36 (H) 1.70 - 7.00 10E9/L [facility] Lymphocytes 0.71 (L) 0.90 - 2.90 10E9/L [facility] Monocytes 0.65 0.30 - 0.90 10E9/L [facility] Eosinophils 0.04 (L) 0.05 - 0.50 10E9/L [facility] Basophils 0.01 0.00 - 0.30 10E9/L [facility] % nRBC 0 % [facility] Specimen Blood Performing Organization Address City/State/ZIP Code P [place] Number [facility] [address] [place] [address] * Phosphorus (11/19/2020 3:49 AM CDT) [facility] Phosphorus 2.4 (L) 2.7 - 4.5 mg/dL [facility] Specimen Blood Performing Organization Address City/[facility] P [place] Number [facility] [address] [place] [phone] * Magnesium (11/19/2020 3:49 AM CDT) [facility] Magnesium 1.7 1.6 - 2.3 mg/dL [facility] Specimen Blood Performing Organization Address City/[facility] P [place] Number [facility] [address] [place] [id number] * Comprehensive metabolic panel (11/19/2020 3:49 AM CDT) [facility] Sodium 144 136 - 145 mmol/L [facility] Potassium 3.2 (L) 3.6 - 4.9 mmol/L [facility] Chloride 112 (H) 99 - 111 mmol/L [facility] CO2 31 20 - 36 mmol/L [facility] Anion Gap 1 [facility] Glucose 157 (H) 74 - 106 mg/dL [facility] Total Protein 5.8 5.7 - 8.2 g/dL [facility] Albumin 3.0 (L) 3.4 - 4.8 g/dL [facility] Calcium 8.1 (L) 8.3 - 10.6 mg/dL [facility] BUN, Bld 24 (H) 6 - 20 mg/dL [facility] Creatinine 1.20 0.60 - 1.20 mg/dL [facility] eGFR >59 >59 mL/min [facility] Total Bilirubin 0.3 0.0 - 1.2 mg/dL [facility] Alkaline 140 (H) 29 - 122 U/L [facility] Phosphatase LABORATORY ALT 11 10 - 46 U/L [facility] AST 46 (H) 16 - 37 U/L [facility] Specimen Blood Performing Organization Address City/[facility]/ZIP Code P [place] Number [facility] [address] [place] [address] * EKG 12 lead (11/19/2020 3:26 AM CDT) Height PHILIPSECG Heart Rate 84 bpm PHILIPSECG Interval 714 ms PHILIPSECG Atrial Rate 84 ms PHILIPSECG SV P-R Interval 137 ms PHILIPSECG P Duration 102 ms PHILIPSECG P Horizontal 1 deg PHILIPSECG Clawson P Front Clawson 65 deg PHILIPSECG Q Onset 499 ms PHILIPSECG QRSD Interval 164 ms PHILIPSECG QT Interval 353 ms PHILIPSECG QTcB 418 ms PHILIPSECG QTcF 395 ms PHILIPSECG QRS Horizontal 29 deg PHILIPSECG [place] QRS AXIS 42 deg PHILIPSECG I40 Horizontal 95 deg PHILIPSECG Clawson I40 Front Clawson 86 deg PHILIPSECG T-40 Horizontal 8 deg PHILIPSECG Clawson T-40 Front Clawson 32 deg PHILIPSECG T Horizontal 27 deg PHILIPSECG Clawson T Wave Clawson -2 deg PHILIPSECG S-T HORIZONTAL 21 deg PHILIPSECG AXIS S-T FRONT AXIS 58 deg PHILIPSECG ECG Impression - ABNORMAL ECG - PHILIPSECG ECG Impression SR PHILIPSECG ECG Impression Sinus rhythm PHILIPSECG ECG Impression normal P axis, V-rate 60-99 PHILIPSEC G ECG Impression NIVCD PHILIPSECG ECG Impression Nonspecific intraventricular PHILIPSE CG conduction delay ECG Impression QRSd >115mS, not LBBB/RBBB PHILIPSECG Specimen Performing Organization Address [facility]/ZIP Code P [place] Number PHILIPSECG * TELEMETRY WAVEFORMS (11/19/2020 3:11 AM CDT) TELE COMMENTS 5 BTS PHILIPSTELEMONI TORING TELE v-tach PHILIPSTELEMONI INTERPRETATION TORING HARMONICA MAKER/BOND CLERK Yes PHILIPSTELEMONI APPROVED TORING Specimen Performing Organization Address [facility]/ZIP Code P [place] Number [facility]OR[facility] * TELEMETRY WAVEFORMS (11/19/2020 3:10 AM CDT) TELE COMMENTS 5 BTS PHILIPSTELEMONI TORING TELE v-tach PHILIPSTELEMONI INTERPRETATION TORING HARMONICA MAKER/BOND CLERK Yes PHILIPSTELEMONI APPROVED TORING Specimen Performing Organization Address [facility]/ZIP Code P [place] Number [facility] * TELEMETRY WAVEFORMS (11/19/2020 3:10 AM CDT) TELE saved strip PHILIPSTELEMONI INTERPRETATION TORING HARMONICA MAKER/BOND CLERK YesComment: EKG being PHILIPSTELEMONI APPROVED performed; call to WILDLIFE ECOLOGIST will TORING be made Specimen Performing Organization Address [facility]/ZIP Code P [place] Number [facility]OR[facility] * TELEMETRY WAVEFORMS (11/19/2020 3:10 AM CDT) TELE COMMENTS 4 BTS PHILIPSTELEMONI TORING TELE v-tach PHILIPSTELEMONI INTERPRETATION TORING HARMONICA MAKER/BOND CLERK Yes PHILIPSTELEMONI APPROVED TORING Specimen Performing Organization Address [facility] Code P [place] Number [facility]ITOR[facility] * TELEMETRY WAVEFORMS (11/19/2020 3:10 AM CDT) TELE saved strip PHILIPSTELEMONI INTERPRETATION TORING HARMONICA MAKER/BOND CLERK YesComment: WILDLIFE ECOLOGIST will be PHILIPSTELEM PANTERA APPROVED contacted; pt asymptomatic; TORING EKG being performed Specimen Performing Organization Address [facility] Code P [place] Number [facility]ITOR[facility] * TELEMETRY WAVEFORMS (11/19/2020 3:10 AM CDT) TELE COMMENTS 3 BTS KB PHILIPSTELEMONI TORING TELE v-tach PHILIPSTELEMONI INTERPRETATION TORING HARMONICA MAKER/BOND CLERK YesComment: WILDLIFE ECOLOGIST will be PHILIPSTELEM PANTERA APPROVED contacted; pt asymptomatic; TORING EKG being performed Specimen Performing Organization Address [facility] Code P [place] Number [facility]OR[facility] * TELEMETRY WAVEFORMS (11/18/2020 11:02 PM CDT) TELE [place] 0.17 PHILIPSTELEMONI TORING TELE QRS 0.09 PHILIPSTELEMONI TORING TELE QT 0.35 PHILIPSTELEMONI TORING TELE COMMENTS KB PHILIPSTELEMONI TORING TELE rsr PHILIPSTELEMONI INTERPRETATION TORING HARMONICA MAKER/BOND CLERK Yes PHILIPSTELEMONI APPROVED TORING Specimen Performing Organization Address [facility]/ZIP Code P [place] Number PHILIPSTELEMONITORING * CT ABDOMEN PELVIS W CONTRAST (11/18/2020 [...] City/State/ZIP Code P [place] Number [place] * TELEMETRY WAVEFORMS (11/18/2020 11:34 AM CDT) TELE [place] 0.14 PHILIPSTELEMONI TORING TELE QRS 0.08 PHILIPSTELEMONI TORING TELE QT 0.32 PHILIPSTELEMONI TORING TELE COMMENTS AFR PHILIPSTELEMONI TORING TELE rsr pvc PHILIPSTELEMONI INTERPRETATION TORING HARMONICA MAKER/BOND CLERK Yes PHILIPSTELEMONI APPROVED TORING Specimen Performing Organization Address City/State/ZIP Code P [place] Number [facility]ELE[facility]ITOR[facility] * CBC auto differential (11/18/2020 8:31 AM CDT) WBC 10.8 (H) 3.5 - 10.5 10E9/L [facility] RBC 2.54 (L) 4.32 - 5.72 10E12/L [facility] Hemoglobin 7.6 (L) 13.5 - 17.5 g/dL [facility] Hematocrit 25.4 (L) 38.8 - 50.0 % [facility] MCV 100.0 (H) 81.2 - 95.1 fL [facility] MCH 29.9 26.0 - 34.0 pg [facility] MCHC 29.9 (L) 31.0 - 37.0 g/dL [facility] RDW 16.6 (H) 11.8 - 15.6 % [facility] Platelets 370 150 - 450 10E9/L [facility] nRBC 0.00 <=0.00 10E9/L [facility] Neutrophils % 87.6 (H) 40.0 - 75.0 % [facility] Lymphocytes % 6.3 (L) 22.0 - 49.0 % [facility] Monocytes % 5.7 2.0 - 10.0 % [facility] Eosinophils % 0.3 <=5.0 % [facility] Basophils % 0.1 0.0 - 2.5 % [facility] Neutrophils 9.45 (H) 1.70 - 7.00 10E9/L [facility] Lymphocytes 0.68 (L) 0.90 - 2.90 10E9/L [facility] Monocytes 0.61 0.30 - 0.90 10E9/L [facility] Eosinophils 0.03 (L) 0.05 - 0.50 10E9/L [facility] Basophils 0.01 0.00 - 0.30 10E9/L [facility] % nRBC 0 % [facility] Specimen Blood Performing Organization Address City/State/ZIP Code P [place] Number [facility] [address] [place] [address] * Comprehensive metabolic panel (11/18/2020 8:31 AM CDT) Sodium 148 (H) 136 - 145 mmol/L [facility] Potassium 3.6 3.6 - 4.9 mmol/L [facility] Chloride 112 (H) 99 - 111 mmol/L [facility] CO2 33 20 - 36 mmol/L [facility] Anion Gap 3 [facility] Glucose 108 (H) 74 - 106 mg/dL [facility] Total Protein 5.6 (L) 5.7 - 8.2 g/dL [facility] Albumin 2.9 (L) 3.4 - 4.8 g/dL [facility] Calcium 8.2 (L) 8.3 - 10.6 mg/dL [facility] BUN, Bld 27 (H) 6 - 20 mg/dL [facility] Creatinine 1.16 0.60 - 1.20 mg/dL [facility] eGFR >59 >59 mL/min [facility] Total Bilirubin 0.4 0.0 - 1.2 mg/dL [facility] Alkaline 137 (H) 29 - 122 U/L [facility] Phosphatase LABORATORY ALT 10 10 - 46 U/L [facility] AST 42 (H) 16 - 37 U/L [facility] Specimen Blood Performing Organization Address City/State/ZIP Code P [place] Number [facility] [address] [place] [address] * EKG 12 lead (11/18/2020 6:38 AM CDT) Height PHILIPSECG Heart Rate 75 bpm PHILIPSECG Interval 800 ms PHILIPSECG Atrial Rate 76 ms PHILIPSECG SV P-R Interval 141 ms PHILIPSECG P Duration 100 ms PHILIPSECG P Horizontal -21 deg PHILIPSECG Clawson P Front Clawson 29 deg PHILIPSECG Q Onset 505 ms PHILIPSECG QRSD Interval 222 ms PHILIPSECG QT Interval 351 ms PHILIPSECG QTcB 392 ms PHILIPSECG QTcF 378 ms PHILIPSECG QRS Horizontal 12 deg PHILIPSECG [place] QRS AXIS 50 deg PHILIPSECG I40 Horizontal 88 deg PHILIPSECG Clawson I40 Front Clawson 71 deg PHILIPSECG T-40 Horizontal -42 deg PHILIPSECG Clawson T-40 Front Clawson 172 deg PHILIPSECG T Horizontal -9 deg PHILIPSECG Clawson T Wave Cl[place]son 54 deg PHILIPSECG S-T HORIZONTAL -9 deg PHILIPSECG AXIS S-T FRONT AXIS 63 deg PHILIPSECG ECG Impression - ABNORMAL ECG - PHILIPSECG ECG Impression SR PHILIPSECG ECG Impression Sinus rhythm PHILIPSECG ECG Impression normal P axis, V-rate 60-99 PHILIPSEC G ECG Impression ARBBB PHILIPSECG ECG Impression IVCD, consider atypical RBBB PHILIPSE CG ECG Impression QRSd>120mS, terminal PHILIPSECG axis(90,270) Specimen Performing Organization Address City/[facility] Code P [place] Number PHILIPSECG * TELEMETRY WAVEFORMS (11/18/2020 12:00 AM CDT) TELE KS 0.20 PHILIPSTELEMONI TORING TELE QRS 0.10 PHILIPSTELEMONI TORING TELE QT 0.38 PHILIPSTELEMONI TORING TELE COMMENTS CW RSR PHILIPSTELEMONI TORING TELE saved strip PHILIPSTELEMONI INTERPRETATION TORING HARMONICA MAKER/BOND CLERK Yes PHILIPSTELEMONI APPROVED TORING Specimen Performing Organization Address [facility] Code P [place] Number PHILIPSTELEMONITORING * TELEMETRY WAVEFORMS (11/17/2020 10:44 PM CDT) TELE KS 0.16 PHILIPSTELEMONI TORING TELE QRS 0.08 PHILIPSTELEMONI TORING TELE QT 0.46 PHILIPSTELEMONI TORING TELE COMMENTS MF HR 66 PHILIPSTELEMONI TORING TELE rsr PHILIPSTELEMONI INTERPRETATION TORING HARMONICA MAKER/BOND CLERK Yes PHILIPSTELEMONI APPROVED TORING Specimen Performing Organization Address [facility] P [place] Number PHILIPSTELEMONITORING * Phosphorus (11/17/2020 7:26 PM CDT) Phosphorus 1.9 (L) 2.7 - 4.5 mg/dL [facility] Specimen Blood Performing Organization Address [facility] P [place] Number [facility] [address] [place] [address] * Magnesium (11/17/2020 7:26 PM CDT) Magnesium 1.6 1.6 - 2.3 mg/dL [facility] Specimen Blood Performing Organization Address [facility] [facility] P flor[place]ma Number [facility] [address] [place] [address] * Potassium (11/17/2020 7:26 PM CDT) Potassium 2.8 (LL) 3.6 - 4.9 mmol/L [facility] Specimen Blood Performing Organization Address City/[facility]/ZIP Code P floridalma Number [facility] [address] [place] [address] * TELEMETRY WAVEFORMS (11/17/2020 10:08 AM CDT) [facility] [place]LE [place] 0.16 PHILIPSTELEMONI TORING TELE QRS 0.08 PHILIPSTELEMONI TORING TELE QT 0.40 PHILIPSTELEMONI TORING TELE COMMENTS MF HR 69 PHILIPSTELEMONI TORING TELE rsr PHILIPSTELEMONI INTERPRETATION TORING HARMONICA MAKER/BOND CLERK Yes PHILIPSTELEMONI APPROVED TORING Specimen Performing Organization Address City/[facility] Code P floridalma Number [facility] * C-reactive protein (11/17/2020 8:39 AM CDT) [facility] CRP 1.8 (H) <=0.9 mg/dL [facility] Specimen Blood Performing Organization Address City/[facility] P [place] Number [facility] [address] [place] [address] * CBC auto differential (11/17/2020 8:39 AM CDT) [facility] WBC 12.7 (H) 3.5 - 10.5 10E9/L [facility] RBC 2.62 (L) 4.32 - 5.72 10E12/L [facility] Hemoglobin 8.0 (L) 13.5 - 17.5 g/dL [facility] Hematocrit 25.7 (L) 38.8 - 50.0 % [facility] MCV 98.1 (H) 81.2 - 95.1 fL [facility] MCH 30.5 26.0 - 34.0 pg [facility] MCHC 31.1 31.0 - 37.0 g/dL [facility] RDW 16.4 (H) 11.8 - 15.6 % [facility] Platelets 415 150 - 450 10E9/L [facility] nRBC 0.02 (H) <=0.00 10E9/L [facility] Neutrophils % 91.1 (H) 40.0 - 75.0 % [facility] Lymphocytes % 4.3 (L) 22.0 - 49.0 % [facility] Monocytes % 4.5 2.0 - 10.0 % [facility] Eosinophils % 0.1 <=5.0 % [facility] Basophils % 0.0 0.0 - 2.5 % [facility] Neutrophils 11.55 (H) 1.70 - 7.00 10E9/L [facility] Lymphocytes 0.55 (L) 0.90 - 2.90 10E9/L [facility] Monocytes 0.57 0.30 - 0.90 10E9/L [facility] Eosinophils 0.01 (L) 0.05 - 0.50 10E9/L [facility] Basophils 0.00 0.00 - 0.30 10E9/L [facility] % nRBC 0 % [facility] Specimen Blood Performing Organization Address City/State/ZIP Code P flor[place]ma Number [facility] [address] [place] [address] * Comprehensive metabolic panel (11/17/2020 8:39 AM CDT) Sodium 153 (H) 136 - 145 mmol/L [facility] Potassium 4.0 3.6 - 4.9 mmol/L [facility] Chloride 117 (H) 99 - 111 mmol/L [facility] CO2 30 20 - 36 mmol/L [facility] Anion Gap 6 [facility] Glucose 155 (H) 74 - 106 mg/dL [facility] Total Protein 5.9 5.7 - 8.2 g/dL [facility] Albumin 3.0 (L) 3.4 - 4.8 g/dL [facility] Calcium 8.2 (L) 8.3 - 10.6 mg/dL [facility] BUN, Bld 30 (H) 6 - 20 mg/dL [facility] Creatinine 1.25 (H) 0.60 - 1.20 mg/dL [facility] eGFR 57 (L) >59 mL/min [facility] Total Bilirubin 0.4 0.0 - 1.2 mg/dL [facility] Alkaline 147 (H) 29 - 122 U/L [facility] Phosphatase LABORATORY ALT 17 10 - 46 U/L [facility] AST 62 (H) 16 - 37 U/L [facility] Specimen Blood Performing Organization Address City/[facility]/ZIP [facility] P [place]ma Number [facility] [address] [place] [address] * EKG 12 lead (11/17/2020 6:28 AM CDT) Height PHILIPSECG Heart Rate 75 bpm PHILIPSECG Interval 800 ms PHILIPSECG Atrial Rate 74 ms PHILIPSECG SV P-R Interval 137 ms PHILIPSECG P Duration 104 ms PHILIPSECG P Horizontal 2 deg PHILIPSECG Clawson P Front Clawson 58 deg PHILIPSECG Q Onset 499 ms PHILIPSECG QRSD Interval 146 ms PHILIPSECG QT Interval 366 ms PHILIPSECG QTcB 409 ms PHILIPSECG QTcF 394 ms PHILIPSECG QRS Horizontal 34 deg PHILIPSECG Clawson QRS AXIS 53 deg PHILIPSECG I40 Horizontal 80 deg PHILIPSECG Clawson I40 Front Clawson 77 deg PHILIPSECG T-40 Horizontal 17 deg PHILIPSECG Clawson T-40 Front Clawson 42 deg PHILIPSECG T Horizontal 2 deg PHILIPSECG Clawson T Wave Clawson 68 deg PHILIPSECG S-T HORIZONTAL 28 deg PHILIPSECG AXIS S-T FRONT AXIS 83 deg PHILIPSECG ECG Impression - ABNORMAL ECG - PHILIPSECG ECG Impression SR PHILIPSECG ECG Impression Sinus rhythm PHILIPSECG ECG Impression normal P axis, V-rate 60-99 PHILIPSEC G ECG Impression NIVCD PHILIPSECG ECG Impression Nonspecific intraventricular PHILIPSE CG conduction delay ECG Impression QRSd >115mS, not LBBB/RBBB PHILIPSECG Specimen Performing Organization Address City/[facility]/ZIP Code P flor[place]ma Number PHILIPSECG * TELEMETRY WAVEFORMS (11/17/2020 1:31 AM CDT) TELE [place] 0.14 PHILIPSTELEMONI TORING TELE QRS 0.08 PHILIPSTELEMONI TORING TELE QT 0.36 PHILIPSTELEMONI TORING TELE COMMENTS PRACHI HR 95 (BRIEF) PHILIPSTELEMONI TORING TELE rsr PHILIPSTELEMONI INTERPRETATION TORING HARMONICA MAKER/BOND CLERK Yes PHILIPSTELEMONI APPROVED TORING Specimen Performing Organization Address [facility] P flor[place]ma Number [facility] * TELEMETRY WAVEFORMS (11/16/2020 11:56 PM CDT) TELE [place] 0.14 PHILIPSTELEMONI TORING TELE QRS 0.08 PHILIPSTELEMONI TORING TELE QT 0.46 PHILIPSTELEMONI TORING TELE COMMENTS PRACHI HR 70 PHILIPSTELEMONI TORING TELE rsr pac PHILIPSTELEMONI INTERPRETATION TORING HARMONICA MAKER/BOND CLERK Yes PHILIPSTELEMONI APPROVED TORING Specimen Performing Organization Address [facility] Code P flor[place]ma Number [facility] * TELEMETRY WAVEFORMS (11/16/2020 11:55 PM CDT) TELE [place] 0.14 PHILIPSTELEMONI TORING TELE QRS 0.08 PHILIPSTELEMONI TORING TELE QT 0.42 PHILIPSTELEMONI TORING TELE COMMENTS PRACHI HR 80 PHILIPSTELEMONI TORING TELE rsr pvc PHILIPSTELEMONI INTERPRETATION TORING HARMONICA MAKER/BOND CLERK Yes PHILIPSTELEMONI APPROVED TORING Specimen Performing Organization Address [facility] P flor[place]ma Number [facility] * TELEMETRY WAVEFORMS (11/16/2020 11:00 PM CDT) TELE [place] 0.14 PHILIPSTELEMONI TORING TELE QRS 0.08 PHILIPSTELEMONI TORING TELE QT 0.54 PHILIPSTELEMONI TORING TELE COMMENTS eled to SINUS - DANE SEND PHILIPSTE LEMONI PRACHI HR 52 TORING TELE sinus - dane send prachi hr PHILIPST ELEMONI INTERPRETATION 52 pr 0.14 qrs 0.08 qt 0.54 TORING HARMONICA MAKER/BOND CLERK Yes PHILIPSTELEMONI APPROVED TORING Specimen Performing Organization Address [facility] Code P flor[place]ma Number [facility] * Magnesium (11/16/2020 10:02 PM CDT) Pathologist [facility] Magnesium 1.9 1.6 - 2.3 mg/dL [facility] Specimen Blood Performing Organization Address City/[facility]/ZIP Code P flor[place]ma Number [facility] [address] [place] [address] * Basic metabolic panel (11/16/2020 10:02 PM CDT) Sodium 152 (H) 136 - 145 mmol/L [facility] Potassium 2.7 (LL) 3.6 - 4.9 mmol/L [facility] Chloride 116 (H) 99 - 111 mmol/L [facility] CO2 31 20 - 36 mmol/L [facility] Anion Gap 5 [facility] Glucose 167 (H) 74 - 106 mg/dL [facility] Calcium 8.0 (L) 8.3 - 10.6 mg/dL [facility] BUN, Bld 27 (H) 6 - 20 mg/dL [facility] Creatinine 1.27 (H) 0.60 - 1.20 mg/dL [facility] eGFR 56 (L) >59 mL/min [facility] Specimen Blood Performing Organization Address City/State/ZIP Code P flor[place]ma Number [facility] [address] [place] [address] * TELEMETRY WAVEFORMS (11/16/2020 8:44 PM CDT) TELE [place] 0.16 PHILIPSTELEMONI TORING TELE QRS 0.10 PHILIPSTELEMONI TORING TELE QT 0.38 PHILIPSTELEMONI TORING TELE COMMENTS HC HR 60 PHILIPSTELEMONI TORING TELE rsr PHILIPSTELEMONI INTERPRETATION TORING HARMONICA MAKER/BOND CLERK Yes PHILIPSTELEMONI APPROVED TORING Specimen Performing Organization Address City/[facility]/ZIP [facility] P [place]ma Number [facility] * TELEMETRY WAVEFORMS (11/16/2020 3:30 PM CDT) [place]LE [place] 0.16 PHILIPSTELEMONI TORING TELE QRS 0.08 PHILIPSTELEMONI TORING TELE QT 0.38 PHILIPSTELEMONI TORING TELE COMMENTS HC HR 60 ADMIT PHILIPSTELEMONI TORING TELE rsr pac PHILIPSTELEMONI INTERPRETATION TORING HARMONICA MAKER/BOND CLERK Yes PHILIPSTELEMONI APPROVED TORING Specimen Performing Organization Address City/State/ZIP Code P [place] Number [facility] * TELEMETRY WAVEFORMS (11/16/2020 3:21 PM CDT) TELE COMMENTS eled to SINUS - DANE SEND JENNIFER STELEMONI HR 40 TORING TELE sinus - dane send hc hr 40 PHILIPST ELEMONI INTERPRETATION TORING HARMONICA MAKER/BOND CLERK Yes PHILIPSTELEMONI APPROVED TORING Specimen Performing Organization Address [facility] P flor[place]ma Number [facility] * EKG 12 lead (11/16/2020 2:22 PM CDT) Height PHILIPSECG Heart Rate 73 bpm PHILIPSECG Interval 822 ms PHILIPSECG Atrial Rate 72 ms PHILIPSECG SV P-R Interval 205 ms PHILIPSECG P Duration 178 ms PHILIPSECG P Horizontal 9 deg PHILIPSECG Clawson P Front Clawson 98 deg PHILIPSECG Q Onset 502 ms PHILIPSECG QRSD Interval 85 ms PHILIPSECG QT Interval 385 ms PHILIPSECG QTcB 425 ms PHILIPSECG QTcF 411 ms PHILIPSECG QRS Horizontal 34 deg PHILIPSECG Clawson QRS AXIS 66 deg PHILIPSECG I40 Horizontal 99 deg PHILIPSECG Clawson I40 Front Clawson 98 deg PHILIPSECG T-40 Horizontal 13 deg PHILIPSECG Clawson T-40 Front Clawson 58 deg PHILIPSECG T Horizontal PHILIPSECG Clawson T Wave Clawson 94 deg PHILIPSECG S-T HORIZONTAL 145 deg PHILIPSECG AXIS S-T FRONT AXIS 82 deg PHILIPSECG ECG Impression - ABNORMAL ECG - PHILIPSECG ECG Impression SR PHILIPSECG ECG Impression Sinus rhythm PHILIPSECG ECG Impression normal P axis, V-rate 60-99 PHILIPSEC G ECG Impression T1AL PHILIPSECG ECG Impression Nonspecific T abnrm, PHILIPSECG anterolateral leads ECG Impression T <-0.10mV, I aVL V2-V6 PHILIPSECG Specimen Performing Organization Address [facility]/ZIP Code P flor[place]ma Number PHILIPSECG * Magnesium (11/16/2020 10:12 AM CDT) Pathologist [facility] Magnesium 1.6 1.6 - 2.3 mg/dL [facility] Specimen Blood Performing Organization Address City/[facility]/ZIP Code P [place] Number [facility] [address] [place] [address] * CBC auto differential (11/16/2020 10:12 AM CDT) WBC 12.7 (H) 3.5 - 10.5 10E9/L [facility] RBC 2.57 (L) 4.32 - 5.72 10E12/L [facility] Hemoglobin 7.8 (L) 13.5 - 17.5 g/dL [facility] Hematocrit 24.8 (L) 38.8 - 50.0 % [facility] MCV 96.5 (H) 81.2 - 95.1 fL [facility] MCH 30.4 26.0 - 34.0 pg [facility] MCHC 31.5 31.0 - 37.0 g/dL [facility] RDW 16.0 (H) 11.8 - 15.6 % [facility] Platelets 384 150 - 450 10E9/L [facility] nRBC 0.00 <=0.00 10E9/L [facility] Neutrophils % 91.1 (H) 40.0 - 75.0 % [facility] Lymphocytes % 4.2 (L) 22.0 - 49.0 % [facility] Monocytes % 4.6 2.0 - 10.0 % [facility] Eosinophils % 0.0 <=5.0 % [facility] Basophils % 0.1 0.0 - 2.5 % [facility] Neutrophils 11.57 (H) 1.70 - 7.00 10E9/L [facility]ATORY Lymphocytes 0.54 (L) 0.90 - 2.90 10E9/L [facility] Monocytes 0.59 0.30 - 0.90 10E9/L [facility] Eosinophils 0.00 (L) 0.05 - 0.50 10E9/L [facility] Basophils 0.01 0.00 - 0.30 10E9/L [facility] % nRBC 0 % [facility] Specimen Blood Performing Organization Address City/State/ZIP Code P flor[place]ma Number [facility] [address] [place] [address] * Procalcitonin (11/16/2020 10:12 AM CDT) Procalcitonin 2.54 (H) <=0.09 ng/ml [facility] Specimen Blood Narrative [facility] - 11/16/2020 11:34 AM CDT PCT <0.5 [...] or severe cardiogenic shock). Performing Organization Address City/[facility]/ZIP Code P floridalma Number [facility] [address] [place] [id number] * Comprehensive metabolic panel (11/16/2020 10:12 AM CDT) [facility] Sodium 155 (H) 136 - 145 mmol/L [facility] Potassium 3.4 (L) 3.6 - 4.9 mmol/L [facility] Chloride 121 (H) 99 - 111 mmol/L [facility] CO2 28 20 - 36 mmol/L [facility] Anion Gap 6 [facility] Glucose 141 (H) 74 - 106 mg/dL [facility] Total Protein 5.7 5.7 - 8.2 g/dL [facility] Albumin 2.9 (L) 3.4 - 4.8 g/dL [facility] Calcium 7.9 (L) 8.3 - 10.6 mg/dL [facility] BUN, Bld 28 (H) 6 - 20 mg/dL [facility] Creatinine 1.22 (H) 0.60 - 1.20 mg/dL [facility] eGFR 59 (L) >59 mL/min [facility] Total Bilirubin 0.4 0.0 - 1.2 mg/dL [facility] Alkaline 153 (H) 29 - 122 U/L [facility] Phosphatase LABORATORY ALT 27 10 - 46 U/L [facility] AST 68 (H) 16 - 37 U/L [facility] Specimen Blood Performing Organization Address City/State/ZIP Code P flor[place]ma Number [facility] [address] [place] [address] * EKG 12 lead (11/15/2020 11:09 PM CDT) Height PHILIPSECG Heart Rate 65 bpm PHILIPSECG Interval 923 ms PHILIPSECG Atrial Rate 68 ms PHILIPSECG SV P-R Interval 143 ms PHILIPSECG P Duration 109 ms PHILIPSECG P Horizontal 11 deg PHILIPSECG Clawson P Front Clawson 79 deg PHILIPSECG Q Onset 504 ms PHILIPSECG QRSD Interval 92 ms PHILIPSECG QT Interval 530 ms PHILIPSECG QTcB 552 ms PHILIPSECG QTcF 544 ms PHILIPSECG QRS Horizontal 38 deg PHILIPSECG Clawson QRS AXIS 63 deg PHILIPSECG I40 Horizontal 77 deg PHILIPSECG Clawson I40 Front Clawson 79 deg PHILIPSECG T-40 Horizontal 5 deg PHILIPSECG Clawson T-40 Front Clawson 65 deg PHILIPSECG T Horizontal 203 deg PHILIPSECG Clawson T Wave Clawson 207 deg PHILIPSECG S-T HORIZONTAL 132 deg PHILIPSECG AXIS S-T FRONT AXIS 108 deg PHILIPSECG ECG Impression - ABNORMAL ECG - PHILIPSECG ECG Impression SR PHILIPSECG ECG Impression Sinus rhythm PHILIPSECG ECG Impression normal P axis, V-rate 60-99 PHILIPSEC G ECG Impression APC PHILIPSECG ECG Impression Atrial premature complex PHILIPSECG ECG Impression SV complex w/ short R-R PHILIPSECG interval ECG Impression T3AL PHILIPSECG ECG Impression Abnrm T, consider ischemia, PHILIPSEC G anterolateral lds ECG Impression T <-0.20mV, I aVL V2-V6 PHILIPSECG ECG Impression LQT PHILIPSECG ECG Impression Prolonged QT interval PHILIPSECG ECG Impression QTc >500mS PHILIPSECG Specimen Performing Organization Address [facility] P flor[place]ma Number PHILIPSE[facility] * XR Foot Right (2 views) (11/15/2020 7:56 PM CDT) Modality Anatomical Region Laterality Computed Radiography Foot, Ankle Specimen Impressions [facility] - 11/15/2020 9:01 PM CDT IMPRESSION: Diffuse osteopenia without acute osseous abnormality. Narrative SHANIQUE - 11/15/2020 9:01 PM CDT EXAM: Right foot series INDICATION: Pain TECHNIQUE: Frontal and lateral view(s) of the right foot COMPARISON: None FINDINGS: Bone mineralization is diffusely decreased. No lytic or destructive process. No acute or healing fracture. Normal osseous alignment. Mild relative degenerative disease at the 1st MTP joint. The soft tissues are unremarkable. Procedure Note Darrion Fleming MD - 11/15/2020 EXAM: Right foot series [...] without acute osseous abnormality. Performing Organization Address City/State/ZIP Code P [place] Number [facility] [place] * XR CHEST PA OR AP (11/15/2020 7:55 PM CDT) Modality Anatomical Region Laterality Computed Radiography Chest Specimen Impressions [facility] - 11/15/2020 8:59 PM CDT IMPRESSION: Right arm PICC in expected location. Narrative [facility] - 11/15/2020 8:59 PM CDT EXAM: Chest [...] abnormalities. Upper abdomen: Unremarkable. Procedure Note Darrion Fleming MD - 11/15/2020 EXAM: Chest series INDICATION: [...] PICC in expected location. Performing Organization Address [facility] P floridalma Number [place], [place] * Blood Culture PCR Identification Panel (11/15/2020 7:31 PM CDT) Staphylococcus Positive (AA) Negative [facility] aureus PCR LABORATORY Specimen Blood - Peripheral Narrative [facility] - 11/20/2020 1:46 AM CDT [...] Vannesa parapsilosis, Vannesa tropicalis. Performing Organization Address [facility] P floridalma Number [facility] [address] [place] [address] * Procalcitonin (11/15/2020 7:31 PM CDT) Procalcitonin 3.27 (H) <=0.09 ng/ml [facility] Specimen Blood Narrative [facility] - 11/16/2020 12:20 PM CDT PCT <0.5 ng/ml represents low risk [...] Organization Address City/State/ZIP Code P [place] Number [facility] [address] [place] [address] * CBC auto differential (11/15/2020 7:31 PM CDT) WBC 14.8 (H) 3.5 - 10.5 10E9/L [facility] RBC 2.37 (L) 4.32 - 5.72 10E12/L [facility] Hemoglobin 7.1 (L) 13.5 - 17.5 g/dL [facility] Hematocrit 23.1 (L) 38.8 - 50.0 % [facility] MCV 97.5 (H) 81.2 - 95.1 fL [facility] MCH 30.0 26.0 - 34.0 pg [facility] MCHC 30.7 (L) 31.0 - 37.0 g/dL [facility] RDW 16.2 (H) 11.8 - 15.6 % [facility] Platelets 360 150 - 450 10E9/L [facility] nRBC 0.00 <=0.00 10E9/L [facility] Neutrophils % 90.1 (H) 40.0 - 75.0 % [facility] Lymphocytes % 4.1 (L) 22.0 - 49.0 % [facility] Monocytes % 5.7 2.0 - 10.0 % [facility] Eosinophils % 0.0 <=5.0 % [facility] Basophils % 0.1 0.0 - 2.5 % [facility] Neutrophils 13.33 (H) 1.70 - 7.00 10E9/L [facility] Lymphocytes 0.60 (L) 0.90 - 2.90 10E9/L [facility] Monocytes 0.84 0.30 - 0.90 10E9/L [facility] Eosinophils 0.00 (L) 0.05 - 0.50 10E9/L [facility] LABORATORY Basophils 0.01 0.00 - 0.30 10E9/L [facility] LAB[facility]AT[facility] % nRBC 0 % [facility] Specimen Blood Performing Organization Address City/[facility]/ZIP [facility] P floridalma Number [facility] [address] [place] [address] * Comprehensive metabolic panel (11/15/2020 7:31 PM CDT) [facility] Sodium 153 (H) 136 - 145 mmol/L [facility] Potassium 3.3 (L) 3.6 - 4.9 mmol/L [facility] Chloride 123 (H) 99 - 111 mmol/L [facility] CO2 24 20 - 36 mmol/L [facility] Anion Gap 6 [facility] Glucose 122 (H) 74 - 106 mg/dL [facility] Total Protein 5.8 5.7 - 8.2 g/dL [facility] Albumin 2.9 (L) 3.4 - 4.8 g/dL [facility] Calcium 7.9 (L) 8.3 - 10.6 mg/dL [facility] BUN, Bld 27 (H) 6 - 20 mg/dL [facility] Creatinine 1.21 (H) 0.60 - 1.20 mg/dL [facility] eGFR >59 >59 mL/min [facility] Total Bilirubin 0.3 0.0 - 1.2 mg/dL [facility] Alkaline 165 (H) 29 - 122 U/L [facility] Phosphatase LABORATORY ALT 46 10 - 46 U/L [facility] AST 90 (H) 16 - 37 U/L [facility] Specimen Blood Performing Organization Address City/[facility]/ZIP Code P [place] Number [facility] [address] [place] [address] * Blood Culture x2 (11/15/2020 7:31 PM CDT) [facility] Blood Culture, Staphylococcus aureus [facility] Routine LABORATORY Gram Stain Gram-positive cocci in [facility] singles,pairs, clusters LABORATORY Specimen Blood - Peripheral Antibiotic Method Susceptibility Organism Ciprofloxacin >=8 ug/mL: Resistant Staphylococcus aureus Clindamycin 0.25 ug/mL: Resistant Staphylococcus aureus Daptomycin 0.25 ug/mL: Sensitive Staphylococcus aureus Doxycycline <=0.5 ug/mL: Sensitive Staphylococcus aureus Erythromycin 1 ug/mL: Resistant Staphylococcus aureus Gentamicin <=0.5 ug/mL: Sensitive Staphylococcus aureus Levofloxacin >=8 ug/mL: Resistant Staphylococcus aureus Linezolid 2 ug/mL: Sensitive Staphylococcus aureus Moxifloxacin 4 ug/mL: Intermediate Staphylococcus aureus Oxacillin 0.5 ug/mL: Sensitive Staphylococcus aureus Rifampin <=0.5 ug/mL: Sensitive Staphylococcus aureus Tetracycline <=1 ug/mL: Sensitive Staphylococcus aureus Tigecycline <=0.12 ug/mL: Sensitive Staphylococcus aureus Trimethoprim + Sulfamethoxazole <=10 ug/mL: Sensitive Staphylococcus aureus Vancomycin 1 ug/mL: Sensitive Staphylococcus aureus Performing Organization Address City/State/ZIP Code P [place] Number [facility] [address] [place] [id number] * Blood Culture x2 (11/15/2020 7:25 PM CDT) Blood Culture, No Growth after 5 days [facility]ex[facility] Routine incubation LABORATORY Specimen Blood - Peripheral Performing Organization Address City/State/ZIP Code P [place] [facility] [address] [place] [id number] documented in this encounter Visit Diagnoses Diagnosis Gross hematuria - Primary MSSA bacteremia KOFI (acute kidney injury) ([facility]) Acute kidney failure, unspecified BPH (benign prostatic hyperplasia) Unspecified hyperplasia of prostate wit hout urinary obstruction and other lower urinary tract symptoms (LUTS) Hypernatremia Hyperosmolality and/or hypernatremia Hypokalemia Hypopotassemia Elevated LFTs Other abnormal blood chemistry Methadone dependence ([facility]) Opioid type dependence, unspecified NSVT (nonsustained ventricular tachycar drew) ([facility]) Paroxysmal ventricular tachycardia Complicated UTI (urinary tract infectio n) Urinary tract infection, site not speci fied documented in this encounter Admitting Diagnoses Diagnosis Gross hematuria documented in this encounter Administered Medications Action Date Dose Rate Site Medication Order MAR Action 11/23/2020 10:15 PM CDT 1,000 mg calcium carbonate (TUMS) chewable tablet Given 1,000 mg 1,000 mg 2 TIMES DAILY PRN, Oral, Heartburn, Starting on Thu11/23/20 at 2205 11/19/2020 2:38 AM CDT 2,000 mg 240 mL/hr ceFAZolin (ANCEF) 2000 mg in sterile Given water (PF) 20 mL IV syringe 2,000 mg EVERY 8 HOURS, Intravenous, Administer over 5 Minutes, First dose o n [place] 11/15/20 at 1815 2,000 mg 240 mL/hr Given 11/18/2020 6:13 PM CDT 2,000 mg 240 mL/hr Given 11/18/2020 9:53 AM CDT 11/29/2020 10:00 AM CDT 2,000 mg 240 mL/hr ceFAZolin (ANCEF) 2000 mg in sterile Given water (PF) 20 mL IV syringe 2,000 mg EVERY 8 HOURS, Intravenous, Administer over 5 Minutes, First dose o n [facility] 11/21/20 at 1030 2,000 mg 240 mL/hr Given 11/29/2020 3:00 AM CDT 2,000 mg 240 mL/hr Given 11/28/2020 6:26 PM CDT 11/20/2020 11:38 AM CDT 2,000 mg cefTRIAXone (ROCEPHIN) 2000 mg in Given sterile water (PF) 20 mL IV syringe 2,000 mg EVERY 24 HOURS, Intravenous, Administer over 5 Minutes, First dose o n [facility] 11/19/20 at 1045 2,000 mg Given 11/19/2020 11:37 AM CDT 11/29/2020 1:14 PM CDT 2,000 mg cefTRIAXone (ROCEPHIN) 2000 mg in Given sterile water (PF) 20 mL IV syringe 2,000 mg EVERY 24 HOURS, Intravenous, Administer over 5 Minutes, First dose o n [place] 11/29/20 at 1300 dextrose (GLUTOSE) 40 % oral gel 15-30 g 15-30 g PRN, Oral, hypoglycemia, blood glucose less than 70 mg/dL, Starting on Thu11/15/20 at 1852, Give if 4 ounces o f juice or 15 grams of carbohydrates are ineffective. Give if patient is conscious, agitated and/or confused, bu t able to swallow. Recheck blood glucose in 15 minutes. If still less than 70 mg/dL, proceed to glucagon. dextrose 50 % solution 25 g 25 g PRN, Intravenous, hypoglycemia, blood glucose less than 70 mg/dL, Starting on [place] 11/15/20 at 1852, Call physician or AMBULATORY CARE if dose given. dextrose 50 % solution 50 g 50 g PRN, Intravenous, hypoglycemia, blood glucose less than 70 mg/dL, Starting on [place] 11/15/20 at 1852, If patient is unconscious and/or unable to swallow. If less than 70 mg/dL two checks in a row, call physician or AMBULATORY CARE . 11/16/2020 11:59 AM CDT 20 mg furosemide (LASIX) injection 20 mg Given 20 mg ONCE, Intravenous, On Thu11/16/20 at 1200, For 1 dose 11/17/2020 2:30 PM CDT 20 mg furosemide (LASIX) injection 20 mg Given 20 mg ONCE, Intravenous, On Thu11/17/20 at 1330, For 1 dose glucagon (GLUCAGEN) injection 1 mg 1 mg PRN, Intravenous, hypoglycemia, blood glucose less than 70 mg/dL, Starting on [place] 11/15/20 at 1852, Rechec k blood glucose in 20 minutes, if less than 70 mg/dL may repeat dose. Recheck again in 20 minutes, and if still less than 70 mg/dL proceed to 50% Dextrose IV. Nursing: Dilute glucagon vial with Sterile Water for Injection prior to administration. glucagon (GLUCAGEN) injection 1 mg 1 mg PRN, Intramuscular, hypoglycemia, blood glucose less than 70 mg/dL, Starting on [place] 11/15/20 at 1852, If patient does not have IV site. Recheck blood glucose in 20 minutes, if less than 70 mg/dL may repeat dose. Recheck again in 20 minutes, and if still less than 70 mg/dL proceed to 50% Dextrose IV. Nursing: Dilute glucagon vial with Sterile Water for Injection prior to administration. 11/18/2020 5:26 PM CDT 77 mLs iohexol (OMNIPAQUE 350) 350 MG/ML Given injection 77 mL 77 mL ONCE, Intravenous, On Thu11/18/20 at 1745, For 1 dose 11/16/2020 12:59 PM CDT 0.5 mg LORazepam (ATIVAN) tablet 0.5 mg Given 0.5 mg EVERY 4 HOURS PRN, Oral, Anxiety , Starting on Thu11/16/20 at 1237 11/16/2020 1:19 PM CDT 100 mL/hr magnesium sulfate in D5W premix infusion Rate/Dose 1 g Verify 1 g BOLUS, Intravenous, Administer over 1 Hours, On Thu11/16/20 at 1300, For 1 dose, High-alert Medication 1 g 100 mL/hr New Bag 11/16/2020 1:17 PM CDT 11/19/2020 11:34 AM CDT 2 g 50 mL/hr magnesium sulfate in water for inj New Bag premix infusion 2 g 2 g BOLUS, Intravenous, Administer over 1 Hours, On Thu11/19/20 at 1115, For 1 dose, High-alert Medication 11/29/2020 4:02 PM CDT 155 mg methadone (DOLOPHINE) tablet 155 mg Given 155 mg DAILY AT 1700, Oral, First dose on Thu11/16/20 at 1700 155 mg Given 11/28/2020 5:21 PM CDT 155 mg Given 11/27/2020 5:14 PM CDT 11/18/2020 1:17 AM CDT 40 mEq potassium chloride 20 MEQ/15ML (10%) Given oral solution 40 mEq 40 mEq EVERY 4 HOURS, Oral, First dose on Thu11/17/20 at 2030, For 2 doses, Dilute prior to administration with at least 4 ounces water. 40 mEq Given 11/17/2020 8:41 PM CDT 11/16/2020 11:36 PM CDT 60 mEq 50 mL/hr potassium chloride 60 mEq in sodium New Bag chloride 0.9 % 150 mL IVPB 60 mEq ONCE, Intravenous, Administer over 3 Hours, On Thu11/16/20 at 2330, For 1 dose, Central Line Only!! High-Alert Medication 11/19/2020 5:02 AM CDT 20 mEq 50 mL/hr potassium chloride IVPB 20 mEq 50 mL New Bag 20 mEq ONCE, Intravenous, Administer over 60 Minutes, On Thu11/19/20 at 0500, For 1 dose, Central Line Only!! High-Alert Medication 11/21/2020 12:51 AM CDT 20 mEq potassium chloride SA (K-TAB) CR tablet Given 20 mEq 20 mEq ONCE, Oral, On Thu11/20/20 at 2215, For 1 dose, Should not crush! Fo r patients unable to swallow whole tablets: A suspension may be prepared by mixing with water and dissolving ove r 2 minutes. 11/17/2020 1:46 AM CDT 40 mEq potassium chloride SA (K-TAB) CR tablet Given 40 mEq 40 mEq ONCE, Oral, On 11/17/20 at 0015, For 1 dose, Should not crush! Fo r patients unable to swallow whole tablets: A suspension may be prepared by mixing with water and dissolving ove r 2 minutes. 11/19/2020 6:12 PM CDT 40 mEq potassium chloride SA (K-TAB) CR tablet Given 40 mEq 40 mEq ONCE, Oral, On 11/19/20 at 1730, For 1 dose, Should not crush! Fo r patients unable to swallow whole tablets: A suspension may be prepared by mixing with water and dissolving ove r 2 minutes. 11/22/2020 2:03 PM CDT 40 mEq potassium chloride SA (K-TAB) CR tablet Given 40 mEq 40 mEq EVERY 4 HOURS, Oral, First dose on [place] 11/22/20 at 0930, For 2 doses, Should not crush! For patients unable to swallow whole tablets: A suspension may be prepared by mixing with water an d dissolving over 2 minutes. 40 mEq Given 11/22/2020 10:29 AM CDT 11/26/2020 11:22 AM CDT 40 mEq potassium chloride SA (K-TAB) CR tablet Given 40 mEq 40 mEq ONCE, Oral, On 11/26/20 at 1015, For 1 dose, Should not crush! Fo r patients unable to swallow whole tablets: A suspension may be prepared by mixing with water and dissolving ove r 2 minutes. 11/19/2020 5:16 AM CDT 15 mmol 37.5 mL/hr potassium phosphate 15 mmol in sodium New Bag chloride 0.9 % 150 mL infusion 15 mmol ONCE, Intravenous, Administer over 4 Hours, On Thu11/19/20 at 0500, Fo r 1 dose, High-alert Medication 11/20/2020 5:05 PM CDT 10 mg prochlorperazine (COMPAZINE) injection Given 10 mg 10 mg EVERY 6 HOURS PRN, Intravenous, Nausea, Starting on Thu11/16/20 at 1153 10 mg Given 11/19/2020 4:50 PM CDT 10 mg Given 11/18/2020 6:16 PM CDT 11/21/2020 4:02 PM CDT 10 mg propofol (DIPRIVAN) 200 MG/20ML IV bolus Given CODE/TRAUMA MEDICATION, Intravenous, Starting on Thu11/21/20 at 1551 10 mg Given 11/21/2020 4:01 PM CDT 10 mg Given 11/21/2020 3:59 PM CDT 11/19/2020 11:34 AM CDT 25 mLs 100 mL/hr sodium chloride 0.9% flush bag New Bag 25 mL, Intravenous, PRN FLUSH, Line Care, Starting on [place] 11/15/20 at 1852, Administer 25 mL flush following secondary medication infusion. Flush rate will be the same as secondary medication infusion rate. 25 mLs 37.5 mL/hr New Bag 11/19/2020 5:12 AM CDT 25 mLs 50 mL/hr New Bag 11/19/2020 5:01 AM CDT 11/28/2020 8:27 PM CDT 0.4 mg tamsulosin (FLOMAX) capsule 0.4 mg Given 0.4 mg BEDTIME, Oral, First dose on [place] 11/15/20 at 2100, Swallow whole, do not crush, chew or give per tube. 0.4 mg Given 11/27/2020 8:57 PM CDT 0.4 mg Given 11/26/2020 7:59 PM CDT documented in this encounter Active and Recently Administered Medications Times are shown in CDT. 11/28/2020 11/29/2020 Medication Order 11/27/2020 0244 (Given - Provider: Stephanie Summers RN)0956 (Given - Provider: Imtiaz Cornelius Jr., LPN)1826 (Given - Provider: Imtiaz Cornelius Jr., LPN) 0300 (Given - Provider: Stephanie Summers RN)1000 (Given - Provider: Imtiaz Cornelius Jr., LPN) ceFAZolin (ANCEF) 2000 mg in sterile 0327 (Given - water (PF) 20 mL IV syringe (CANCELED) Provider: Chase Mckeon 2,000 mg EVERY 8 HOURS, Intravenous, NATALIO Summers)1035 Administer over 5 Minutes, First dose on (Given - Pr ovider: Thu11/21/20 at 1030 Hector Cortés RN)1800 (Given - Provider: Hector Cortés RN) 1314 (Given - Provider: Imtiaz Cornelius Jr., LPN) cefTRIAXone (ROCEPHIN) 2000 mg in sterile water (PF) 20 mL IV syringe 2,000 mg EVERY 24 HOURS, Intravenous, Administer over 5 Minutes, First dose o n [place] 11/29/20 at 1300 1721 (Given - Provider: Imtiaz Cornelius Jr., LPN) 1602 (Given - Provider: Julien Miller RN) methadone (DOLOPHINE) tablet 155 mg 1713 (Given - 155 mg DAILY AT 1700, Oral, First dose Provider: Kiet Paul on Thu11/16/20 at 1700 NATALIO Cortés) 2026 (Given - Provider: Stephanie Summers, NATALIO) tamsulosin (FLOMAX) capsule 0.4 mg 2056 (Given - 0.4 mg BEDTIME, Oral, First dose on [place] Provider: Ra alessandra Mckeon 11/15/20 at 2100, Swallow whole, do not Kristopher, RN) crush, chew or give per tube. 11/28/2020 11/29/2020 Medication Order 11/27/2020 calcium carbonate (TUMS) chewable table t 1,000 mg 1,000 mg 2 TIMES DAILY PRN, Oral, Heartburn, Starting on Thu11/23/20 at 2205 dextrose (GLUTOSE) 40 % oral gel 15-30 g(Linked Group 1) 15-30 g PRN, Oral, hypoglycemia, blood glucose less than 70 mg/dL, Starting on Thu11/15/20 at 1852, Give if 4 ounces o f juice or 15 grams of carbohydrates are ineffective. Give if patient is conscious, agitated and/or confused, bu t able to swallow. Recheck blood glucose in 15 minutes. If still less than 70 mg/dL, proceed to glucagon. dextrose 50 % solution 25 g(Linked Grou p 1) 25 g PRN, Intravenous, hypoglycemia, blood glucose less than 70 mg/dL, Starting on [place] 11/15/20 at 1852, Call physician or AMBULATORY CARE if dose given. dextrose 50 % solution 50 g(Linked Grou p 1) 50 g PRN, Intravenous, hypoglycemia, blood glucose less than 70 mg/dL, Starting on [place] 11/15/20 at 1852, If patient is unconscious and/or unable to swallow. If less than 70 mg/dL two checks in a row, call physician or AMBULATORY CARE . glucagon (GLUCAGEN) injection 1 mg(Linked Group 1) 1 mg PRN, Intravenous, hypoglycemia, blood glucose less than 70 mg/dL, Starting on [place] 11/15/20 at 1852, Rechec k blood glucose in 20 minutes, if less than 70 mg/dL may repeat dose. Recheck again in 20 minutes, and if still less than 70 mg/dL proceed to 50% Dextrose IV. Nursing: Dilute glucagon vial with Sterile Water for Injection prior to administration. glucagon (GLUCAGEN) injection 1 mg(Linked Group 1) 1 mg PRN, Intramuscular, hypoglycemia, blood glucose less than 70 mg/dL, Starting on [place] 11/15/20 at 1852, If patient does not have IV site. Recheck blood glucose in 20 minutes, if less than 70 mg/dL may repeat dose. Recheck again in 20 minutes, and if still less than 70 mg/dL proceed to 50% Dextrose IV. Nursing: Dilute glucagon vial with Sterile Water for Injection prior to administration. LORazepam (ATIVAN) tablet 0.5 mg 0.5 mg EVERY 4 HOURS PRN, Oral, Anxiety , Starting on Thu11/16/20 at 1237 prochlorperazine (COMPAZINE) injection 10 mg 10 mg EVERY 6 HOURS PRN, Intravenous, Nausea, Starting on Thu11/16/20 at 1153 sodium chloride 0.9% flush bag 25 mL, Intravenous, PRN FLUSH, Line Care, Starting on Thu11/15/20 at 1852, Administer 25 mL flush following secondary medication infusion. Flush rate will be the same as secondary medication infusion rate. Order Group 1: dextrose (GLUTOSE) 40 % oral gel 15-30 gJump to med 15-30 g PRN, Oral, hypoglycemia, blood glucose less than 70 mg/dL, Starting on [place] 11/15/20 at 1852
Give if 4 ounces of juice or 15 grams of carbohydrates are ineffective. Give if patient is conscious, agitated and/or confused, but able to swallow. Recheck blood glucose in 15 minutes. If still less than 70 mg/dL, p roceed to glucagon.
Or glucagon (GLUCAGEN) injection 1 mgJump to med 1 mg PRN, Intravenous, hypoglycemia, bl ood glucose less than 70 mg/dL, Starting on [place] 11/15/20 at 1852
Recheck blood glucose in 20 min utes, if less than 70 mg/dL may repeat dose. Recheck again in 20 minutes, and if still less than 70 m g/dL proceed to 50% Dextrose IV. Nursing: Dilute glucagon vial with Sterile Water for In jection prior to administration.
Or glucagon (GLUCAGEN) injection 1 mgJump to med 1 mg PRN, Intramuscular, hypoglycemia, blood glucose less than 70 mg/dL, Starting on [place] 11/15/20 at 1852
If patient does not have IV sit e. Recheck blood glucose in 20 minutes, if less than 70 mg/dL may repeat dose. Recheck again in 20 minutes, and if still less than 70 mg/dL proceed to 50% Dextrose IV. Nursing: Dilute gluc agon vial with Sterile Water for Injection prior to administration.
Or dextrose 50 % solution 25 gJump to med 25 g PRN, Intravenous, hypoglycemia, bl ood glucose less than 70 mg/dL, Starting on [place] 11/15/20 at 1852
Call physician or AMBULATORY CARE if dose given.
Or dextrose 50 % solution 50 gJump to med 50 g PRN, Intravenous, hypoglycemia, bl ood glucose less than 70 mg/dL, Starting on [place] 11/15/20 at 1852
If patient is unconscious and/o r unable to swallow. If less than 70 mg/dL two checks in a row, call physician or AMBULATORY CARE.
documented in this encounter Additional Health Concerns Onset Date Resolved Time Infection Last Indicated 11/24/2020 11/29/2020 2:19 PM CDT COVID-19 Rule Out 11/29/2020 documented as of this encounter Care Teams Start Date End Date Solutions Consultant Relationship Specialty 11/16/20 11/18/20 Juan Trejo PA-C PCP - General [address] [place] [id number] 11/13/20 11/15/20 Provider, RENAY Kelley - General [employer] [place] 11/19/20 Juan Trejo PA-C PCP - General [address] [facility] [place] [id number] documented as of this encounter
[2021-01-20] MEDS ORDERED: cefTRIAXone 1,000 MG in WATER (STERILE) FOR INJECTION 10 ML IV ONE (13:30)
[2021-01-20] MEDS ORDERED: NS IV 1000 ML 1,000 ML IV SCH (13:30)
[2021-01-20] MEDS ORDERED: NS IV 500 ML 500 ML IV ONE (13:30)
--- NOTE | 2021-01-20 13:33 | ED General ---
General Chief Complaint: Fever-Adult/Adol Stated Complaint: FEVER/R SIDE RIB PAIN Nursing Triage Note: FEVER STARTED YESTERDAY 101. HAD 2 MONTH OLD CATETER REMOVED ON THURSDAY D/T A KIDNEY STONE PROCEDURE. Source of Information: Patient Exam Limitations: No Limitations History of Present Illness Date Seen by Provider: Jan 20, 2021 Time Seen by Provider: 13:15 Initial Comments Patient to the ER by private conveyance from home with chief complaint that he is having a new onset of right upper quadrant abdominal pain in his right flank starting today. He recently had a kidney stone which required stents and a Park catheter for 2 weeks. He got the catheter out on and has been urinating normally since then. No blood in the urine. He did have a fever of 101 today. He took 500 mg of Tylenol at 8:00 this morning which took care of his pain from a 4 down to a 0. Is not having any nausea or vomiting. No GERD or reflux. He has not had any abdominal surgeries except for stents. [facility]rologist is at the [facility] [place] and his primary care doctor is at the [facility] in [place]. After he got out of the hospital he was weak and had problems because of the sepsis so he has been staying with his sister here in [place]. No cough or shortness of air. He had 2 doses of Covid vaccination and June 2020. Allergies and Home Medications Allergies Coded Allergies: No Known Drug Allergies (Unverified , 01/20/21) Patient Home Medication List Home Medication List Reviewed: Yes Review of Systems Review of Systems Constitutional: No chills; fever, malaise EENTM: No ear discharge, No ear pain Respiratory: No cough, No phlegm Cardiovascular: No chest pain, No Hx of Intervention, No palpitations Gastrointestinal: abdominal pain; No constipation, No diarrhea Genitourinary: No discharge, No dysuria Musculoskeletal: No back pain, No gout All Other Systems Reviewed Negative Unless Noted: Yes Past Aygmikc-Pnwphp-Nsqoom Hx Patient Social History Tobacco Use?: No Use of E-Cig and/or Vaping dev: No Substance use?: No Alcohol Use?: No Physical Exam-Suspected Sepsis Physical Exam Vital Signs Vital Signs - First Documented 01/20/21 13:01 Temp 37.9 Pulse 97 Resp 18 B/P (MAP) 99/73 (82) Pulse Ox 94 O2 Delivery Room Air Capillary Refill : Less Than 3 Seconds Blood Pressure Mean: 82 Height, Weight, BMI Height: '" Weight: lbs. oz. kg; 22.00 BMI Method: General Appearance: WD/WN, Mild Distress Eyes: Bilateral Eye Normal Inspection, Bilateral Eye PERRL, Bilateral Eye EOMI HEENT: PERRL/EOMI, Pharynx Normal; No Moist Mucous Membranes (Mildly dry oral mucosa) Neck: Full Range of Motion, Normal Inspection Respiratory: Lungs Clear, Normal Breath Sounds, No Accessory Muscle Use, No Respiratory Distress Cardiovascular: Regular Rate, Rhythm, No Edema, Normal Peripheral Pulses Gastrointestinal: Normal Bowel Sounds, Non Tender, Soft Extremity: Normal Capillary Refill, Normal Inspection, No Pedal Edema Neurologic/Psychiatric: Alert, Oriented x3 Skin: normal color, warm/dry Focused Exam Lactate Level 01/20/21 13:15: Lactic Acid Level 2.40*H Lactic Acid Level Laboratory Tests Test 01/20/21 13:15 Lactic Acid Level 2.40 MMOL/L (0.50-2.00) *H Progress/Results/Core Measures Suspected Sepsis SIRS Temperature: Pulse: 97 Respiratory Rate: 18 Laboratory Tests 01/20/21 13:15: White Blood Count 8.7 Blood Pressure 99 /73 Mean: 82 01/20/21 13:15: Lactic Acid Level 2.40*H Laboratory Tests 01/20/21 13:15: Creatinine 1.06, INR Comment 1.2, Platelet Count 252, Total Bilirubin 0.4 Results/Orders Lab Results Laboratory Tests Test 01/20/21 13:15 01/20/21 13:30 Range/Units White Blood Count 8.7 4.3-11.0 10^3/uL Red Blood Count 3.03 L 4.30-5.52 10^6/uL Hemoglobin 8.5 L 13.3-17.7 g/dL Hematocrit 28 L 40-54 % Mean Corpuscular Volume 92 80-99 fL Mean Corpuscular Hemoglobin 28 25-34 pg Mean Corpuscular Hemoglobin Concent 31 L 32-36 g/dL Red Cell Distribution Width 14.9 H 10.0-14.5 % Platelet Count 252 130-400 10^3/uL Mean Platelet Volume 8.9 L 9.0-12.2 fL Immature Granulocyte % (Auto) 0 % Neutrophils (%) (Auto) 83 H 42-75 % Lymphocytes (%) (Auto) 7 L 12-44 % Monocytes (%) (Auto) 10 0-12 % Eosinophils (%) (Auto) 0 0-10 % Basophils (%) (Auto) 0 0-10 % Neutrophils # (Auto) 7.2 1.8-7.8 10^3/uL Lymphocytes # (Auto) 0.6 L 1.0-4.0 10^3/uL Monocytes # (Auto) 0.9 0.0-1.0 10^3/uL Eosinophils # (Auto) 0.0 0.0-0.3 10^3/uL Basophils # (Auto) 0.0 0.0-0.1 10^3/uL Immature Granulocyte # (Auto) 0.0 0.0-0.1 10^3/uL Neutrophils % (Manual) 87 % Lymphocytes % (Manual) 6 % Monocytes % (Manual) 7 % Blood Morphology Comment NORMAL Prothrombin Time 15.6 H 12.2-14.7 SEC INR Comment 1.2 0.8-1.4 Activated Partial Thromboplast Time 42 H 24-35 SEC Sodium Level 138 135-145 MMOL/L Potassium Level 4.0 3.6-5.0 MMOL/L Chloride Level 100 98-107 MMOL/L Carbon Dioxide Level 25 21-32 MMOL/L Anion Gap 13 5-14 MMOL/L Blood Urea Nitrogen 15 7-18 MG/DL Creatinine 1.06 0.60-1.30 MG/DL Estimat Glomerular Filtration Rate 69 BUN/Creatinine Ratio 14 Glucose Level 172 H 70-105 MG/DL Lactic Acid Level 2.40 *H 0.50-2.00 MMOL/L Calcium Level 9.7 8.5-10.1 MG/DL Corrected Calcium 10.3 H 8.5-10.1 MG/DL Total Bilirubin 0.4 0.1-1.0 MG/DL Aspartate Amino Transf (AST/SGOT) 16 5-34 U/L Alanine Aminotransferase (ALT/SGPT) 17 0-55 U/L Alkaline Phosphatase 104 40-136 U/L C-Reactive Protein High Sensitivity 19.51 H 0.00-0.50 MG/DL Total Protein 7.6 6.4-8.2 GM/DL Albumin 3.3 3.2-4.5 GM/DL Lipase 10 8-78 U/L Urine Color YELLOW Urine Clarity CLOUDY Urine pH 8.0 5-9 Urine Specific [place] 1.015 L 1.016-1.022 Urine Protein 1+ H NEGATIVE Urine Glucose (UA) NEGATIVE NEGATIVE Urine Ketones NEGATIVE NEGATIVE Urine Nitrite NEGATIVE NEGATIVE Urine Bilirubin NEGATIVE NEGATIVE Urine Urobilinogen 0.2 < = 1.0 MG/DL Urine Leukocyte Esterase 2+ H NEGATIVE Urine RBC (Auto) 3+ H NEGATIVE Urine RBC 10-25 H /HPF Urine WBC 25-50 H /HPF Urine Crystals PRESENT H /LPF Urine Amorphous Sediment LARGE HIRA PHOSPHATE H /LPF Urine Bacteria MODERATE H /HPF Urine Casts NONE /LPF Urine Mucus NEGATIVE /LPF Urine Culture Indicated CULTURE PENDING My Orders Orders - XIN ORDONEZ Ua Culture If Indicated (01/20/21 13:22) Cbc With Automated Diff (01/20/21 13:22) Comprehensive Metabolic Panel (01/20/21 13:22) Hs C Reactive Protein (01/20/21 13:22) Blood Culture (01/20/21 13:22) Urine Culture (01/20/21:22) Protime With Inr (01/20/21 13:22) Partial Thromboplastin Time (01/20/21 13:22) Chest 1 View, Ap/Pa Only (01/20/21 13:22) Ed Iv/Invasive Line Start (01/20/21 13:22) Ed Iv/Invasive Line Start (01/20/21 13:22) Vital Signs Adult Sepsis Patie Q15M (01/20/21 13:22) O2 (01/20/21 13:22) Remove Rings In Anticipation O (01/20/21 13:22) Lactic Acid Analyzer (01/20/21 13:22) Ceftriaxone (Rocephin) (01/20/21 13:30) Ed Iv/Invasive Line Start (01/20/21 13:27) Ns Iv 500 Ml (Sodium Chloride 0.9%) (01/20/21 13:30) Ns Iv 1000 Ml (Sodium Chloride 0.9%) (01/20/21 13:30) Lipase (01/20/21 13:33) Manual Differential (01/20/21 13:15) Acetaminophen Tablet/Caplet (Tylenol T (01/20/21 14:15) Ct Abd/Pelvis Wo(Kidney Stone) (01/20/21 14:07) Medications Given in ED Current Medications Medications Dose Ordered Sig/Chun Route Start Time Stop Time Status Last Admin Dose Admin Acetaminophen 650 mg ONCE ONCE PO 01/20/21 14:15 01/20/21 14:16 DC 01/20/21 14:17 650 MG Ceftriaxone Sodium 1000 mg/ Sterile Water 10 ml @ 200 mls/hr ONCE ONCE IV 01/20/21 13:30 01/20/21 13:32 DC 01/20/21 13:48 200 MLS/HR Sodium Chloride 500 ml @ 0 mls/hr Q0M ONCE IV 01/20/21 13:30 01/20/21 13:31 DC 01/20/21 13:47 500 MLS/HR Vital Signs/I&O 01/20/21 01/20/21 01/20/21 13:01 13:15 14:17 Temp 37.9 37.9 38.0 Pulse 97 97 Resp 18 18 B/P (MAP) 99/73 (82) 99/73 Pulse Ox 94 94 O2 Delivery Room Air Room Air Capillary Refill : Less Than 3 Seconds Blood Pressure Mean: 82 Progress Note #1: Time: 13:32 Progress Note Patient has tachycardia and a soft blood pressure 95/76. He appears to be dry. He has a stated history of fever and 100.3 per nursing so we are doing a septic work-up suspecting UTI. Rocephin IV ordered. 1500 cc will be greater than 20 mL/kg. Because of his pain and his recent kidney stones would be linares to get a noncontrasted CT of the abdomen pelvis unless he has other symptoms that might point towards gallbladder or pancreas in which case we would do a contrasted CT. Progress Note #2: Time: 14:34 Progress Note Patient's IV fluids were nearly complete. He is feeling okay at this time. No significant pain. We did give him 650 mg of Tylenol for his fever. Ordered a CT without IV contrast kidney stone protocol. Blood and pyuria noted on urinalysis. Patient has severe sepsis and is in agreement with staying in the hospital for some IV antibiotics. Diagnostic Imaging Diagonstic Imaging: Xray Plain Films/CT/US/NM/MRI: chest Comments NAME: MAINOR GARVEY REC#: [id number] PT STATUS: REG ER : 1950 PHYSICIAN: XIN ORDONEZ MD ADMIT DATE: 01/20/21/ER Draft Date of Exam:01/20/21 CHEST 1 VIEW, AP/PA ONLY Indication: Dyspnea and fever. Comparison: None. Discussion: Single portable upright view of the chest was obtained. Normal heart size. No consolidation, pleural fluid, or pneumothorax. No osseous abnormality. Impression: 1. Negative chest. Dictated on workstation # [id number] Dict: 01/20/21 1429 Trans: 01/20/21 1431 CV [id number] Interpreted by: ABA HEART MD Electronically signed by: Reviewed: Reviewed by Me Departure Communication (Admissions) Time/Spoke to Admitting Phy: 15:00 Discussed the case with Dr. Garcia and he agrees to admit the patient to the floor for sepsis and pneumonia. Impression Primary Impression: UTI (urinary tract infection) Qualified Codes: N30.00 - Acute cystitis without hematuria Additional Impression: Severe sepsis Disposition: ADMITTED INPATIENT Condition: Stable Admissions Decision to Admit Reason: Admit from ER (General) Decision to Admit/Date: Jan 20, 2021 Time/Decision to Admit Time: 14:30 Departure-Patient Inst. Referrals: NO,LOCAL PHYSICIAN (PCP/Family) Primary Care Physician XIN ORDONEZ Jan 20, 2021 13:33
[2021-01-20 13:39] LABS: ALBUMIN 3.3 GM/DL (3.2-4.5)
[2021-01-20 13:41] LABS: BILIRUBIN,URINE NEGATIVE (NEGATIVE); CLARITY,URINE CLOUDY; COLOR,URINE YELLOW; GLUCOSE, URINE (UA) NEGATIVE (NEGATIVE); KETONES,URINE NEGATIVE (NEGATIVE); LEUKOCYTE ESTERASE ,URINE 2+ (NEGATIVE); NITRITE,URINE NEGATIVE (NEGATIVE); PROTEIN,URINE 1+ (NEGATIVE)
[2021-01-20 13:41] LABS: CALCIUM 9.7 MG/DL (8.5-10.1)
[2021-01-20 13:42] LABS: INR 1.2 (0.8-1.4); PROTHROMBIN TIME PATIENT 15.6 SEC (12.2-14.7); TOTAL PROTEIN 7.6 GM/DL (6.4-8.2)
[2021-01-20 13:44] LABS: BILIRUBIN,TOTAL 0.4 MG/DL (0.1-1.0)
[2021-01-20 13:45] LABS: BASOPHILS % (AUTO) 0 % (0-10); CREATININE SERUM 1.06 MG/DL (0.60-1.30); EOSINOPHILS % (AUTO) 0 % (0-10); HEMATOCRIT 28 % (40-54); HEMOGLOBIN 8.5 g/dL (13.3-17.7); LYMPHOCYTES # (AUTO) 0.6 10^3/uL (1.0-4.0); LYMPHOCYTES % (AUTO) 7 % (12-44); MEAN CORPUSCULAR HEMOGLOBIN 28 pg (25-34); MEAN CORPUSCULAR HGB CONC 31 g/dL (32-36); MEAN CORPUSCULAR VOLUME 92 fL (80-99); MEAN PLATELET VOLUME 8.9 fL (9.0-12.2); MONOCYTES # (AUTO) 0.9 10^3/uL (0.0-1.0); MONOCYTES % (AUTO) 10 % (0-12); NEUTROPHILS # (AUTO) 7.2 10^3/uL (1.8-7.8); NEUTROPHILS % (AUTO) 83 % (42-75); PLATELET COUNT 252 10^3/uL (130-400); WHITE BLOOD COUNT 8.7 10^3/uL (4.3-11.0)
[2021-01-20 13:56] LABS: AMORPHOUS SEDIMENT,UR LARGE AMOR PHOSPHATE /LPF; BACTERIA,URINE MODERATE /HPF; WBC,URINE 25-50 /HPF
[2021-01-20 14:09] LABS: LYMPHOCYTES % (MANUAL) 6 %; MONOCYTES % (MANUAL) 7 %; NEUTROPHILS % (MANUAL) 87 %; RBC MORPH NORMAL
[2021-01-20] MEDS ORDERED: ACETAMINOPHEN 325 MG TABLET PO ONE (14:15)
--- NOTE | 2021-01-20 14:32 | Diagnostic Imaging Report ---
Indication: Dyspnea and fever. Comparison: None. Discussion: Single portable upright view of the chest was obtained. Normal heart size. No consolidation, pleural fluid, or pneumothorax. No osseous abnormality. Impression: 1. Negative chest. Dictated by: Dictated on workstation # [id number]
--- NOTE | 2021-01-20 14:50 | Diagnostic Imaging Report ---
PROCEDURE: CT urinary tract, rule out kidney stone. TECHNIQUE: Multiple contiguous axial images were obtained through the abdomen and pelvis without the use of intravenous contrast. Auto Exposure Controls were utilized during the CT exam to meet ALARA standards for radiation dose reduction. Indication: Right upper quadrant pain. Comparison: None. Discussion: Infiltrates within the right lung base likely represent pneumonia. Normal heart size. No pleural or pericardial fluid. The liver, gallbladder, pancreas, stomach, spleen, and adrenal glands are unremarkable. Nonobstructing bilateral renal calculi are noted measuring up to 7 mm. No hydronephrosis. No ureteral stone. Bladder is unremarkable. Prostate is normal in size. No obstruction, pneumatosis, pneumoperitoneum. Mild constipation. No evidence for appendicitis. Punctate gas noted within the bladder which is of uncertain etiology or clinical significance. Recommend clinical correlation for recent catheterization or for infection. 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 Impression: 1. Right lower lobe pneumonia. 2. Nonobstructing bilateral renal calculi. 3. Constipation. Dictated by: Dictated on workstation # [id number]
[2021-01-20] MEDS ORDERED: ONDANSETRON 4 MG/2 ML (SDV) Z0FRAN IV PRN (16:45)
[2021-01-20] MEDS ORDERED: IBUPROFEN 600 MG (MOTRIN) TAB PO PRN (16:45)
[2021-01-20] MEDS: LACTATED RINGERS 1,000 ML IV SCH (17:06)
[2021-01-20] MEDS: AZITHROMYCIN 500 MG/NS 250 ML IVPB IV SCH ×2 (17:21)
[2021-01-20 19:29] VITALS: BP 112/67
[2021-01-20] MEDS: ACETAMINOPHEN 325 MG TABLET PO PRN (22:36)
[2021-01-20 23:31] VITALS: BP 111/67
[2021-01-21] MEDS: LACTATED RINGERS 1,000 ML IV SCH ×5 (00:49→23:11)
[2021-01-21 04:31] VITALS: BP 107/66
[2021-01-21 05:48] LABS: BASOPHILS % (AUTO) 1 % (0-10); EOSINOPHILS # (AUTO) 0.1 10^3/uL (0.0-0.3); EOSINOPHILS % (AUTO) 1 % (0-10); HEMATOCRIT 25 % (40-54); HEMOGLOBIN 7.6 g/dL (13.3-17.7); LYMPHOCYTES # (AUTO) 0.7 10^3/uL (1.0-4.0); LYMPHOCYTES % (AUTO) 12 % (12-44); MEAN CORPUSCULAR HEMOGLOBIN 28 pg (25-34); MEAN CORPUSCULAR HGB CONC 31 g/dL (32-36); MEAN CORPUSCULAR VOLUME 92 fL (80-99); MEAN PLATELET VOLUME 9.1 fL (9.0-12.2); MONOCYTES # (AUTO) 0.7 10^3/uL (0.0-1.0); MONOCYTES % (AUTO) 12 % (0-12); NEUTROPHILS # (AUTO) 4.2 10^3/uL (1.8-7.8); NEUTROPHILS % (AUTO) 75 % (42-75); PLATELET COUNT 191 10^3/uL (130-400); WHITE BLOOD COUNT 5.6 10^3/uL (4.3-11.0)
[2021-01-21 05:57] LABS: POTASSIUM 3.8 MMOL/L (3.6-5.0)
[2021-01-21 06:02] LABS: CREATININE SERUM 0.86 MG/DL (0.60-1.30)
[2021-01-21 08:00] VITALS: BP 108/68
[2021-01-21] MEDS: ACETAMINOPHEN 325 MG TABLET PO PRN ×3 (08:00→21:41)
[2021-01-21] MEDS ORDERED: TRAM50TA3 PO (09:07)
[2021-01-21] MEDS ORDERED: ACET-2267 PO (09:07)
[2021-01-21] MEDS ORDERED: HYOS-19 SL (09:07)
[2021-01-21] MEDS ORDERED: DOCU100C37 PO (09:07)
[2021-01-21] MEDS ORDERED: MELO15TA39 PO (09:07)
[2021-01-21] MEDS ORDERED: TMSL.4C PO (09:07)
[2021-01-21] MEDS ORDERED: ASCO250T16 PO (09:07)
[2021-01-21] MEDS ORDERED: SENN-234 PO (09:20)
[2021-01-21] MEDS ORDERED: SENN1TAB93 PO (09:20)
[2021-01-21] MEDS: METHADONE PO SCH (11:33)
--- NOTE | 2021-01-21 11:33 | History & Physical-Hospitalist ---
History of Present Illness HPI/Chief Complaint Pt Is a 71-year-old male with a recent lengthy hospital stay due to sepsis from urinary tract infection complicated by obstructing ureteral stones. [facility] and had ureteral stenting done. He then moved down here with his sister who is his caregiver. She provides most of the history. He started feeling poorly yesterday and she decided to bring him in for evaluation. He was found to have another urinary tract infection and met severe sepsis criteria. He was admitted for IV antibiotics. He states he is feeling better today. His sister is at bedside and has brought in his home methadone. Source: patient Date Seen 01/21/21 Time Seen by a Provider: 11:33 Attending Physician Danielle Garcia MD PCP No,Local Physician Referring Physician Date of Admission Jan 20, 2021 at 14:45 Home Medications & Allergies Home Medications Reviewed patient Home Medication Reconciliation performed by pharmacy medication reconciliations cell phone repair technician and/or nursing. Patients Allergies have been reviewed. 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 SOBER Alcohol Use?: No Pt feels they are or have been: No Immunizations Up To Date First/Initial COVID19 Vaccinat: MAY 2020 Second COVID19 Vaccination Cb: JUNE 2020 Hepatitis B: Yes Current Status Advance Directives: Yes Advance Directive Location: Copy placed in chart Communicates: Verbally Primary Language: Yi Preferred Spoken Language: Yi Is interpretation needed?: No Sensory deficits: Vision impairment Implanted or Applied Medical D: Orthopedic hardware Past Medical History Kidney Stones, UTI-Chronic Family Medical History Reviewed Nursing Family Hx No Pertinent Family Hx Sister alive and healthy Review of Systems Constitutional: fever, malaise EENTM: no symptoms reported Respiratory: No cough, No short of breath Cardiovascular: No chest pain, No edema Gastrointestinal: abdominal pain, constipation, diarrhea; No nausea, No vomiting Genitourinary: see HPI Musculoskeletal: no symptoms reported Skin: no symptoms reported Psychiatric/Neurological: No Symptoms Reported Physical Exam Physical Exam Vital Signs Vital Signs - First Documented 01/20/21 13:01 Temp 37.9 Pulse 97 Resp 18 B/P (MAP) 99/73 (82) Pulse Ox 94 O2 Delivery Room Air Capillary Refill : Less Than 3 Seconds Height, Weight, BMI Height: '" Weight: lbs. oz. kg; 22.14 BMI Method: General Appearance: No Apparent Distress, WD/WN, Chronically ill, Thin HEENT: PERRL/EOMI, Moist Mucous Membranes Neck: Normal Inspection, Supple Respiratory: Lungs Clear, No Accessory Muscle Use, No Respiratory Distress Cardiovascular: Regular Rate, Rhythm, No Murmur Extremity: No Calf Tenderness, No Pedal Edema Neurologic/Psychiatric: Alert, Oriented x3, Normal Mood/Affect Skin: Normal Color, Warm/Dry Results Results/Procedures Labs Laboratory Tests 01/20/21 13:15 01/21/21 05:12 Patient resulted labs reviewed. Imaging: Reviewed Imaging Report Imaging [facility] [place] NAME: LUDWIGADIMAINOR [facility] REC#: [id number] PT STATUS: ADM IN : 1950 PHYSICIAN: XIN ORDONEZ MD ADMIT DATE: 01/20/21 Signed Date of Exam:01/20/21 CHEST 1 VIEW, AP/PA ONLY Indication: Dyspnea and fever. Comparison: None. Discussion: Single portable upright view of the chest was obtained. Normal heart size. No consolidation, pleural fluid, or pneumothorax. No osseous abnormality. Impression: 1. Negative chest. Dictated by: Dictated on workstation # [id number] Dict: 01/20/21 1429 Trans: 01/20/211602 [facility] [id number] Interpreted by: ABA HEART MD Electronically signed by: ABA HEART MD 01/20/21 1603 [facility] [place] NAME: MAREMAINOR Paul [facility] REC#: [id number] PT STATUS: ADM IN : 1950 PHYSICIAN: XIN ORDONEZ MD ADMIT DATE: 01/20/21 Signed Date of Exam:01/20/21 CT ABD/PELVIS WO(KIDNEY STONE) PROCEDURE: CT urinary tract, rule out kidney stone. TECHNIQUE: Multiple contiguous axial images were obtained through the abdomen and pelvis without the use of intravenous contrast. Auto Exposure Controls were utilized during the CT exam to meet ALARA standards for radiation dose reduction. Indication: Right upper quadrant pain. Comparison: None. Discussion: Infiltrates within the right lung base likely represent pneumonia. Normal heart size. No pleural or pericardial fluid. The liver, gallbladder, pancreas, stomach, spleen, and adrenal glands are unremarkable. Nonobstructing bilateral renal calculi are noted measuring up to 7 mm. No hydronephrosis. No ureteral stone. Bladder is unremarkable. Prostate is normal in size. No obstruction, pneumatosis, pneumoperitoneum. Mild constipation. No evidence for appendicitis. Punctate gas noted within the bladder which is of uncertain etiology or clinical significance. Recommend clinical correlation for recent catheterization or for infection. 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 Impression: 1. Right lower lobe pneumonia. 2. Nonobstructing bilateral renal calculi. 3. Constipation. Dictated by: Dictated on workstation # [id number] Dict: 01/20/21 1435 Trans: 01/20/21 1603 [facility] [id number] Interpreted by: ABA HEART MD Electronically signed by: ABA HEART MD 01/20/21 1602 Assessment/Plan Admission Diagnosis Severe Sepsis due to UTI Admission Status: Inpatient Order (span 2 midnights) Reason for Inpatient Admission: see below Assessment and Plan Severe Sepsis due to UTI Ureteral stones s/p ureteral stenting done at [facility] but since removed Continue on IV abx Await cultures no longer febrile, BP improved lactic acidosis resolved Chronic pain Continue home methadone as confirmed by Pharmacy Sister to bring in tomorrow dose as well Resume home tramadol and tylenol as well Chronic diarrhea Intermittent with constipation probiotics DVT ppx: EDGARDO Sanchez MD Jan 21, 2021 11:33
[2021-01-21 12:00] VITALS: BP 111/72
--- NOTE | 2021-01-21 14:13 | Physical Therapy Evaluation ---
PT Evaluation-General Medical Diagnosis Admission Date Jan 20, 2021 at 14:45 Medical Diagnosis: UTI/sepsis/pneumonia Onset Date: Jan 20, 2021 Therapy Diagnosis Therapy Diagnosis: debility/weakness Precautions Precautions/Isolations: Standard Precautions Referral Physician: Lanre Reason for Referral: Evaluation/Treatment Medical History Current History ER secondary to upper quadrant pain and fever Reviewed History: Yes Social History Home: Single Level Current Living Status: Other Family Prior Prior Level of Function SCALE: Activities may be completed with or without assistive devices. 9-Kwiacpzwuy-lcsmzxw completes the activity by him/herself with no assistance from a helper. 5-Set-up or Clean-up Assistance-helper sets up or cleans up; patient completes activity. [place] assists only prior to or following the activity. 4-Supervision or Touching Assistance-helper provides verbal cues and/or touchi ng/steadying and/or contact guard assistance as patient completes activity. Assistance may be provided throughout the activity or intermittently. 3-Partial/Moderate Assistance-helper does LESS THAN HALF the effort. [place] lifts, holds or supports trunk or limbs, but provides less than half the effort. 2-Substantial/Maximal Assistance-helper does MORE THAN HALF the effort. [place] lifts or holds trunk or limbs and provides more than half the effort. 8-Dofhlapxi-swxevw does ALL the effort. Patient does none of the effort to complete the activity. Or, the assistance of 2 or more helpers is required for the patient to complete the activity. If activity was not attempted, code reason: 7-Patient Refused. 9-Not Applicable-not attempted and the patient did not perform the activity before the current illness, exacerbation or injury. 10-Not Attempted due to Environmental Limitations-(lack of equipment, weather restraints, etc.). 88-Not Attempted due to Medical Conditions or Safety Concerns. Bed Mobility: 6 Transfers (B,C,W/C): 6 Gait: 6 Stairs: 6 Indoor Mobility (Ambulation): Independent Stairs: Independent Prior Devices Use: Walker PT Evaluation-Current Subjective Patient agrees to PT. Pain Numeric Pain Scale: 0-No Pain Location: No Pain Reported Objective Patient Orientation: Normal For Age Attachments: IV ROM/Strength ROM Lower Extremities bilateral LE WFL Strength Lower Extremities 3+/5 grossly bilateral LE Integumentary/Posture Bowel Incontinence: No Bladder Incontinence: No Posture WFL Neuromuscular (Tone, Coordination, Reflexes) grossly intact Sensory Vision: Functional Hearing: Functional Transfers Sit to Lying (QC): 6 Lying to Sitting/Side of Bed(Q: 6 Sit to Stand (QC): 4 Gait Does the Patient Walk?: Yes Mode of Locomotion: Walk Anticipated Mode of Locomotion: Walk Walk 10 feet (QC): 4 Walk 50 ft with 2 Turns(QC): 4 Walk 150 ft (QC): 4 Distance: 400' Gait Assistive Device: FWW Comments/Gait Description SBA/functional gait sequence Balance Sitting Static: Normal Sitting Dynamic: Normal Standing Static: Normal Standing Dynamic: Normal Assessment/Needs 71 y.o. male, will be seen short term by skilled PT to address functional strength and mobility to ensure safe return to home with family at maximum LOF. Rehab Potential: Fair PT Fpc Goals Photographic Lithographer Goals PT Photographic Lithographer Goals Time Frame: Feb 02, 2021 Roll Left & Right (QC): 6 Sit to Lying (QC): 6 Lying-Sitting on Side/Bed(QC): 6 Sit to Stand (QC): 6 Chair/Jpm-tk-Toqou Xfer(QC): 6 Toilet Transfer (QC): 6 Walk 10 feet (QC): 6 Walk 50ft with 2 Turns (QC): 6 Walk 150 ft (QC): 6 PT Plan Problem List Problem List: Activity Tolerance, Balance, Gait Treatment/Plan Treatment Plan: Continue Plan of Care Treatment Plan: Education, Functional Activity [place], Functional Strength, Gait , Safety, Therapeutic Exercise, Transfers Treatment Duration: Feb 02, 2021 Frequency: 6 times per week Estimated Hrs Per Day: .25 hour per day Patient and/or Family Agrees t: Yes Time/GCodes Time In: 1315 Time Out: 1332 Total Billed Treatment Time: 17 Total Billed Treatment 1 visit [facility] 17 min SHA DUMONT PT Jan 21, 2021 14:13
[2021-01-21] MEDS: cefTRIAXone 1,000 MG/SWFI 10 ML IV PUSH IV SCH ×2 (14:25)
[2021-01-21] MEDS ORDERED: NON-FORMULARY MEDICATION 1 EA EA (Meloxicam 15 MG) PO PRN (14:45)
[2021-01-21] MEDS ORDERED: NON-FORMULARY MEDICATION 1 EA EA (Hyoscyamine Sulfate 0.125 MG) SL PRN (14:45)
[2021-01-21] MEDS ORDERED: ACETAMINOPHEN 500 MG TAB (TYLENOL) PO PRN (14:45)
[2021-01-21] MEDS ORDERED: NON-FORMULARY MEDICATION 1 EA EA (Ascorbic Acid (Vitamin C) 250 MG) PO SCH (14:45)
[2021-01-21] MEDS ORDERED: SENNA W/DOCUSATE (SENOKOT S) TABLET PO PRN (14:45)
[2021-01-21] MEDS ORDERED: HYOSCYAMINE 0.125 MG (LEVSIN) TAB SL PRN (15:00)
[2021-01-21] MEDS ORDERED: MELOXICAM 7.5 MG (MOBIC) TABLET PO PRN (15:00)
[2021-01-21 16:00] VITALS: BP 102/61
[2021-01-21] MEDS: ENOXAPARIN 40 MG/0.4 ML (LOVENOX) SYR SQ SCH ×2 (16:04→16:07)
[2021-01-21] MEDS: AZITHROMYCIN 500 MG/NS 250 ML IVPB IV SCH ×2 (16:04)
[2021-01-21] MEDS: LACTOBACILLUS ACIDOPHILUS (PROBIOTIC) CAPSULE PO SCH (18:22)
[2021-01-21 20:19] VITALS: BP 116/66
[2021-01-21] MEDS: TAMSULOSIN 0.4 MG (FLOMAX) CAP PO SCH (21:41)
[2021-01-21 23:12] VITALS: BP 123/69
[2021-01-22 04:57] VITALS: BP 121/75
[2021-01-22 05:51] LABS: HEMATOCRIT 23 % (40-54); MEAN CORPUSCULAR HEMOGLOBIN 28 pg (25-34); MEAN CORPUSCULAR HGB CONC 31 g/dL (32-36); MEAN CORPUSCULAR VOLUME 90 fL (80-99); MEAN PLATELET VOLUME 8.9 fL (9.0-12.2); PLATELET COUNT 195 10^3/uL (130-400); WHITE BLOOD COUNT 4.9 10^3/uL (4.3-11.0)
[2021-01-22 06:07] LABS: POTASSIUM 3.5 MMOL/L (3.6-5.0)
[2021-01-22 06:08] LABS: CALCIUM 8.7 MG/DL (8.5-10.1)
[2021-01-22 06:12] LABS: CREATININE SERUM 0.8 MG/DL (0.60-1.30)
[2021-01-22 08:00] VITALS: BP 122/74
[2021-01-22] MEDS: LACTOBACILLUS ACIDOPHILUS (PROBIOTIC) CAPSULE PO SCH ×3 (09:26→17:56)
[2021-01-22] MEDS: METHADONE PO SCH (09:26)
[2021-01-22] MEDS: ACETAMINOPHEN 325 MG TABLET PO PRN ×2 (09:29→19:48)
--- NOTE | 2021-01-22 10:39 | Physician Query Clarification ---
PQ-Link Infection to Dev/Proc Admission/Discharge Admission Date: Jan 20, 2021 at 14:45 Discharge Date: Dr. De Dios, The medical record reflects the following clinical scenario: History/Risk Factors: ureteral stones, 2 month old catheter removed Clinical Findings: T37.9, P 97, R 18, BP 99/73, Lactic acidosis 2.40, Urine culture staphlococcous Treatment: IV Azithromycin, IV Ceftriaxone Question: Can you specify if the UTI is due to/associated with urinary catheter removed ? Please document a response in Progress Note or Discharge Summary. 1. Yes - UTI is due to/associated with urinary catheter removed . 2. No - UTI is due to/associated with urinary catheter removed . 3. Other, with explanation of the clinical findings. 4. Clinically undetermined, no explanation for the clinical findings. PHYSICIAN RESPONSE Specify if infection: 1 Please remember a lack of response to the above will prompt a phone page by CDI/Coding staff. In responding to this query, please exercise your independent professional judgment. The purpose of this communication is to more accurately reflect the complexity of your patients condition. The fact that a question is asked does not imply that any particular answer is desired or expected. Thank you for your timely response to this clarification. Requestors name: [ ] Phone # [ ] THIS PHYSICIAN QUERY FORM IS A PERMANENT PART OF THE MEDICAL RECORD SIMRAN LOPEZ Jan 22, 2021 10:39 EDGARDO DE DIOS MD Jan 22, 2021 16:05
--- NOTE | 2021-01-22 11:50 | Physical Therapy Daily Note ---
PT Daily Note-Current Subjective Patient agrees to PT. Mental Status Patient Orientation: Normal For Age Attachments: IV Transfers SCALE: Activities may be completed with or without assistive devices. 7-Uckxogeove-lckqpga completes the activity by him/herself with no assistance from a helper. 5-Set-up or Clean-up Assistance-helper sets up or cleans up; patient completes activity. [place] assists only prior to or following the activity. 4-Supervision or Touching Assistance-helper provides verbal cues and/or touching/steadying and/or contact guard assistance as patient completes activity. Assistance may be provided throughout the activity or intermittently. 3-Partial/Moderate Assistance-helper does LESS THAN HALF the effort. [place] lifts, holds or supports trunk or limbs, but provides less than half the effort. 2-Substantial/Maximal Assistance-helper does MORE THAN HALF the effort. [place] lifts or holds trunk or limbs and provides more than half the effort. 1-Ehqoietnb-pznnjw does ALL the effort. Patient does none of the effort to complete the activity. Or, the assistance of 2 or more helpers is required for the patient to complete the activity. If activity was not attempted, code reason: 7-Patient Refused. 9-Not Applicable-not attempted and the patient did not perform the activity before the current illness, exacerbation or injury. 10-Not Attempted due to Environmental Limitations-(lack of equipment, weather restraints, etc.). 88-Not Attempted due to Medical Conditions or Safety Concerns. Sit to Lying (QC): 6 Lying to Sitting/Side of Bed(Q: 6 Sit to Stand (QC): 6 Gait Training Does the Patient Walk?: Yes Distance: 500' Walk 10 feet (QC): 5 Walk 50 ft with 2 Turns(QC): 5 Walk 150 ft (QC): 5 Gait Assistive Device: Cane Large Base Quad Assessment Current Status: Excellent Progress Patient more stable today. Desires to go home this week. Increase activity PT Assisted Goals Assisted Goals PT Team Guide Goals Time Frame: Feb 02, 2021 Roll Left & Right (QC): 6 Sit to Lying (QC): 6 Lying-Sitting on Side/Bed(QC): 6 Sit to Stand (QC): 6 Chair/Txb-wz-Frezh Xfer(QC): 6 Toilet Transfer (QC): 6 Walk 10 feet (QC): 6 Walk 50ft with 2 Turns (QC): 6 Walk 150 ft (QC): 6 PT Plan Treatment/Plan Treatment Plan: Continue Plan of Care Treatment Plan: Education, Functional Activity [place], Functional Strength, Gait, Safety, Therapeutic Exercise, Transfers Treatment Duration: Feb 02, 2021 Frequency: 6 times per week Estimated Hrs Per Day: .25 hour per day Patient and/or Family Agrees t: Yes Time/GCodes Time In: 1100 Time Out: 1112 Total Billed Treatment Time: 12 Total Billed Treatment 1 visit FA 12 min SHA DUMONT PT Jan 22, 2021 11:50
[2021-01-22 13:48] VITALS: BP 127/75
[2021-01-22] MEDS: cefTRIAXone 1,000 MG/SWFI 10 ML IV PUSH IV SCH ×2 (13:59)
--- NOTE | 2021-01-22 14:46 | Progress Note - Hospitalist ---
Subjective HPI/CC On Admission Date Seen by Provider: Jan 22, 2021 Time Seen by Provider: 14:41 Pt Is a 71-year-old male with a recent lengthy hospital stay due to sepsis from urinary tract infection complicated by obstructing ureteral stones. He was admitted at the [facility] for this and had ureteral stenting done. He then mov ed down here with his sister who is his caregiver. She provides most of the history. He started feeling poorly yesterday and she decided to bring him in for evaluation. He was found to have another urinary tract infection and met severe sepsis criteria. He was admitted for IV antibiotics. He states he is feeling better today. His sister is at bedside and has brought in his home methadone. Subjective/Events-last exam Pt reports feeling ok today. About the same as yesterday. Did well with PT Focused Exam Lactate Level 01/20/21 13:15: Lactic Acid Level 2.40*H 01/20/21 17:13: Lactic Acid Level 1.27 Objective Exam Vital Signs Vital Signs Date Time Temp Pulse Resp B/P (MAP) Pulse Ox O2 Delivery O2 Flow Rate FiO2 01/22/21 13:48 36.0 80 16 127/75 (92) 94 01/22/21 08:00 Room Air Capillary Refill : Less Than 3 Seconds General Appearance: No Apparent Distress, Chronically ill, Thin Cardiovascular: Regular Rate, Rhythm, No Murmur Gastrointestinal: Normal Bowel Sounds, Non Tender, Soft Neurologic/Psychiatric: Alert, Oriented x3 Results/Procedures Lab Laboratory Tests 01/22/21 05:36 Patient resulted labs reviewed. Imaging: Reviewed Imaging Report Assessment/Plan Assessment and Plan Assess & Plan/Chief Complaint Severe Sepsis due to UTI Ureteral stones s/p ureteral stenting done at [facility] but since removed Continue on IV abx Blood cultures negative, UA with staph epi no longer febrile, BP improved lactic acidosis resolved Chronic pain Continue home methadone as confirmed by Pharmacy Since will be here tomorrow I told the patient to have his sister bring in tomorrow's dose if he would like it in the AM Continue home tramadol and tylenol as well Chronic diarrhea Intermittent with constipation probiotics DVT ppx: EDGARDO Sanchez MD Jan 22, 2021 14:46
[2021-01-22 15:15] VITALS: BP 116/74
[2021-01-22] MEDS: ENOXAPARIN 40 MG/0.4 ML (LOVENOX) SYR SQ SCH (15:36)
[2021-01-22] MEDS ORDERED: AZITHROMYCIN 250 MG TAB (ZITHROMAX) PO SCH (17:00)
[2021-01-22] MEDS: LACTATED RINGERS 1,000 ML IV SCH (19:44)
[2021-01-22] MEDS: TAMSULOSIN 0.4 MG (FLOMAX) CAP PO SCH (19:44)
[2021-01-23 00:57] VITALS: BP 110/76
[2021-01-23 05:51] LABS: HEMATOCRIT 23 % (40-54); HEMOGLOBIN 7.1 g/dL (13.3-17.7); MEAN CORPUSCULAR HEMOGLOBIN 28 pg (25-34); MEAN CORPUSCULAR HGB CONC 31 g/dL (32-36); MEAN CORPUSCULAR VOLUME 90 fL (80-99); MEAN PLATELET VOLUME 8.9 fL (9.0-12.2); PLATELET COUNT 208 10^3/uL (130-400); WHITE BLOOD COUNT 4.3 10^3/uL (4.3-11.0)
[2021-01-23 06:09] LABS: POTASSIUM 3.5 MMOL/L (3.6-5.0)
[2021-01-23 06:10] LABS: CALCIUM 8.8 MG/DL (8.5-10.1)
[2021-01-23 06:15] LABS: CREATININE SERUM 0.82 MG/DL (0.60-1.30)
[2021-01-23 07:56] VITALS: BP 132/77
[2021-01-23] MEDS ORDERED: ASCORBIC ACID (VIT C) 500 MG TABLET PO SCH (08:00)
[2021-01-23] MEDS: LACTOBACILLUS ACIDOPHILUS (PROBIOTIC) CAPSULE PO SCH (09:09)
[2021-01-23] MEDS: METHADONE PO SCH (09:10)
[2021-01-23 11:37] VITALS: BP 117/72
--- NOTE | 2021-01-23 11:53 | D/C HH Face to Face Order ---
D/C Face to Face Orders Instructions for Patient Via [facility], Patient Instructions/FollowUp: Please continue to take your medications as written. Please follow up with your PCP at the [facility] to follow up this hospital stay. Physician to follow Patient: [facility] Discharge Diet for Home: Soft Diet Patient Data-Allergies,Ht & Wt Patient Allergies: Coded Allergies: No Known Drug Allergies (Unverified , 01/20/21) Home Health Need/Face to Face Date of Face to Face: Jan 23, 2021 Clinical Findings: Generalized weakness and fatigue I have seen Pt qqqs-vk-pvul: Yes Discharged To: Home Diagnosis/Conditions: UTi, Sepsis Patient is Homebound due to: Douglas fall risk due to instabilty, Muscle weakness Homebound Status Due to the above stated illness, injury or surgical procedure (medical condition or diagnosis) and associated clinical findings, the patient is homebound because of his/her inability to leave home except with aid of a supportive device and/or person AND leaving the home requires a considerable and taxing effort or is medically contraindicated. Pt req the following assistanc: Aid of another person, Cane Home Health Nursing Orders Home Health Services Order: Nursing Services, Physical Therapy-Evaluate & Treat Bath aide twice a week Home Health Infusion Therapy Line Start Date: Jan 20, 2021 Therapy Orders Therapy Orders: Physical Therapy, PT to assess for OT Therapy Specific Orders: Eval assistive deivces, Teach enviro modifications/safety, Gait training, Increase strength/endurance Certify Stmt I certify that this patient is under my care and that I, a nurse practitioner or a physician; a wet process miller head assistant working with me, had a face to face encounter that - meets the physician face to face encounter requirements with this patient as dated. EDGARDO OLVERA MD Jan 23, 2021 11:53
[2021-01-23] MEDS ORDERED: DOXY100T2 PO (11:56)
[2021-01-23] MEDS ORDERED: METH10OR PO (11:56)
--- NOTE | 2021-01-23 11:56 | Physical Therapy Daily Note ---
PT Daily Note-Current Subjective Pt in bed upon arrival and agrees to tx Transfers SCALE: Activities may be completed with or without assistive devices. 3-Qcgobqnfkj-plwjbrs completes the activity by him/herself with no assistance from a helper. 5-Set-up or Clean-up Assistance-helper sets up or cleans up; patient completes activity. [place] assists only prior to or following the activity. 4-Supervision or Touching Assistance-helper provides verbal cues and/or touching/steadying and/or contact guard assistance as patient completes activity. Assistance may be provided throughout the activity or intermittently. 3-Partial/Moderate Assistance-helper does LESS THAN HALF the effort. [place] lifts, holds or supports trunk or limbs, but provides less than half the effort. 2-Substantial/Maximal Assistance-helper does MORE THAN HALF the effort. [place] lifts or holds trunk or limbs and provides more than half the effort. 3-Jcqszrlwd-vetyet does ALL the effort. Patient does none of the effort to complete the activity. Or, the assistance of 2 or more helpers is required for the patient to complete the activity. If activity was not attempted, code reason: 7-Patient Refused. 9-Not Applicable-not attempted and the patient did not perform the activity before the current illness, exacerbation or injury. 10-Not Attempted due to Environmental Limitations-(lack of equipment, weather restraints, etc.). 88-Not Attempted due to Medical Conditions or Safety Concerns. Lying to Sitting/Side of Bed(Q: 6 Sit to Stand (QC): 6 Gait Training Does the Patient Walk?: Yes Distance: 600' Walk 10 feet (QC): 5 Walk 50 ft with 2 Turns(QC): 5 Walk 150 ft (QC): 5 Gait Assistive Device: FWW No gait deviations noted at this time Treatments Pt supine to sit and donned shoes indep. followed by sit to stand. Pt amb 600' SBA w/ FWW in halls and returned to room. Pt left with all needs met, call light in hand. Assessment Current Status: Good Progress continue strengthening and endurance training PT Business Functional Analyst Goals Business Functional Analyst Goals PT Business Functional Analyst Goals Time Frame: Feb 02, 2021 Roll Left & Right (QC): 6 Sit to Lying (QC): 6 Lying-Sitting on Side/Bed(QC): 6 Sit to Stand (QC): 6 Chair/Psq-jp-Pqhen Xfer(QC): 6 Toilet Transfer (QC): 6 Walk 10 feet (QC): 6 Walk 50ft with 2 Turns (QC): 6 Walk 150 ft (QC): 6 PT Plan Treatment/Plan Treatment Plan: Continue Plan of Care Treatment Plan: Education, Functional Activity [place], Functional Strength, Gait, Safety, Therapeutic Exercise, Transfers Treatment Duration: Feb 02, 2021 Frequency: 6 times per week Estimated Hrs Per Day: .25 hour per day Patient and/or Family Agrees t: Yes Time/GCodes Time In: 1143 Time Out: 1152 Total Billed Treatment Time: 9 Total Billed Treatment 1, GT RENETTA LEE ASSEMBLER INSULATOR Jan 23, 2021 11:55
== END 2021-01-23 13:16 | disposition home or self-care (01) | DRG 698 ==
LOC: ER 12:44 → 4TH 14:45
PROVIDERS: ADMIT Internal Medicine; ATTEND Internal Medicine
DX: T83.518A Infection and inflammatory reaction due to other urinary catheter, initial encounter (principal); A41.9 Sepsis, unspecified organism; R65.20 Severe sepsis without septic shock; N39.0 Urinary tract infection, site not specified; G89.29 Other chronic pain; K52.9 Noninfective gastroenteritis and colitis, unspecified
CPT/HCPCS: 36415; 71045; 74176; 80048; 80053; 81000; 83605; 83690; 85007; 85025; 85027; 85610; 85730; 86141; 87040; 87077; 87088; 87186

== ENCOUNTER 2021-01-25 15:45 | Emergency (ER) | payer OTHER ==
[~2021-01-25] VITALS: Ht 177.8 cm; Wt 65.0 kg
[~2021-01-25 15:45] MED LIST: ACET-2267 PO; ASCO250T16 PO; DOCU100C37 PO; DOXY100T2 PO; HYOS-19 SL; MELO15TA39 PO; METH10OR PO; SENN-234 PO; SENN1TAB93 PO; TMSL.4C PO; TRAM50TA3 PO
--- OUTSIDE RECORDS SUMMARY | 2021-01-25 15:52 | XMS REPORT | Encounter Summary ---
Author Author [facility] Organization [facility] Address Unknown Phone Unavailable Care Team Providers Care Xray Tech Name Role Phone Juan Trejo PA-C PCP Sarah Sun RN [phone] [email or web address] Jo-Ann العلي MD Unavailable Encounter Details Care Team Description Date Type Department Link, Onbase 12/17/2020 OnBase Clinic [facility] Hos[facility] nathan Scan [address] [id number] [place] [address] Social History Date Tobacco Use Types Packs/Day [...] 11/16/2020 relatives? How often do you attend zoroastrian or judaism Never 11/16/2020 services? Do you belong to any clubs or organizations such No 11/16/2020 as zoroastrian groups, unions, fraternal or athletic groups, or [...] encounter Care Teams Start Date End Date Xray Tech Relationship Specialty 11/19/20 Juan Trejo PA-C PCP - General [address] [place] [address] 12/13/20 01/01/21 Sarah Sun building components designer [email or web address] 01/03/21 Jo-Ann العلي MD Infectious [address] [facility] [place] [address] [email or web address] documented as of this encounter
--- OUTSIDE RECORDS SUMMARY | 2021-01-25 15:52 | XMS REPORT | Encounter Summary ---
Author Author [facility] Organization [facility] Address Unknown Phone Unavailable Care Team Providers Care Annual Giving Director Name Role Phone Juan Trejo PA-C PCP Sarah Sun RN [phone] [email or web address] Jo-Ann العلي MD Unavailable Encounter Details Care Team Description Date Type Department Alie Peters V, EDITOR DEPARTMENT [address] [place] [address] [email or web address] Essential (primary) hypertension 12/04/2020 Lab Requisition LABORATORY [address] [id number] [place], [place] [address] Social History Date Tobacco Use Types Packs/Day [...] 11/16/2020 relatives? How often do you attend taoism or confucianist Never 11/16/2020 services? Do you belong to any clubs or organizations such No 11/16/2020 as taoism groups, unions, fraternal or athletic groups, or [...] Unable to 20 - 55 % [facility] calculate due to one or both LABORATORY results out of reportable range. Specimen Blood Performing Organization Address City/[facility]/ZIP Code P [place] Number [facility] [address] [place] [phone] * Iron Binding Capacity (12/04/2020 6:28 AM CDT) Iron Binding 253 250 - 450 ug/dL [facility] Capacity LABORATORY Specimen Blood Performing Organization Address City/[facility]/ZIP [facility] [place] Number [facility] [address] [place] [id number] * Iron (12/04/2020 6:28 AM CDT) Iron 27 (L) 81 - 208 ug/dL [facility]ORATORY Specimen Blood Performing Organization Address City/[facility]/ZIP Code P [place] Number [facility] [address] [place] [address] documented in this encounter Visit Diagnoses Diagnosis Essential (primary) hypertension Unspecified essential hypertension documented in this encounter Care Teams Start Date End Date Annual Giving Director Relationship Specialty 11/19/20 Juan Trejo PA-C PCP - General [address] [place] [address] 12/13/20 01/01/21 Sarah Sun java lead architect [email or web address] 01/03/21 Jo-Ann العلي MD Infectious [address] [facility] [place] [address] [email or web address] documented as of this encounter
--- OUTSIDE RECORDS SUMMARY | 2021-01-25 15:52 | XMS REPORT | Encounter Summary ---
Author Author [facility] Organization [facility] Address Unknown Phone Unavailable Care Team Providers Care Textile Technologist Name Role Phone Juan Trejo PA-C PCP Sarah Sun RN [phone] [email or web address] Jo-Ann العلي MD Unavailable Encounter Details Care Team Description Date Type Department Haley Duvall APRN [address] [place] [address] [email or web address] Essential (primary) hypertension 12/03/2020 Lab Requisition LABORATORY [address] [id number] [place] [address] Social History Date Tobacco Use [...] 11/16/2020 relatives? How often do you attend baptism or restorationist Never 11/16/2020 services? Do you belong to any clubs or organizations such No 11/16/2020 as baptism groups, unions, fraternal or athletic groups, or [...] CDT) WBC 5.5 3.5 - 10.5 10E9/L [facility] RBC 2.67 (L) 4.32 - 5.72 10E12/L [facility] Hemoglobin 8.1 (L) 13.5 - 17.5 g/dL [facility] Hematocrit 26.3 (L) 38.8 - 50.0 % [facility] MCV 98.5 (H) 81.2 - 95.1 fL [facility] MCH 30.3 26.0 - 34.0 pg [facility] MCHC 30.8 (L) 31.0 - 37.0 g/dL [facility] RDW 14.7 11.8 - 15.6 % [facility] Platelets 204 150 - 450 10E9/L [facility] nRBC 0.00 <=0.00 10E9/L [facility] Neutrophils % 69.3 40.0 - 75.0 % [facility] Lymphocytes % 19.0 (L) 22.0 - 49.0 % [facility] Monocytes % 9.6 2.0 - 10.0 % [facility] Eosinophils % 1.6 <=5.0 % [facility] Basophils % 0.5 0.0 - 2.5 % [facility] Neutrophils 3.83 1.70 - 7.00 10E9/L [facility] Absolute LABORATORY Lymphocytes 1.05 0.90 - 2.90 10E9/L [facility] Monocytes 0.53 0.30 - 0.90 10E9/L [facility] Eosinophils 0.09 0.05 - 0.50 10E9/L [facility] Basophils 0.03 0.00 - 0.30 10E9/L [facility] LABORAT[facility] % nRBC 0 % [facility] Specimen Blood Performing Organization Address City/State/ZIP Code P flor[place] Number [facility] [address] [place] [address] * Comprehensive Metabolic Panel (12/03/2020 5:33 AM CDT) Sodium 135 (L) 136 - 145 mmol/L [facility] Potassium 4.1 3.6 - 4.9 mmol/L [facility] Chloride 99 99 - 111 mmol/L [facility] CO2 34 20 - 36 mmol/L [facility] Anion Gap 2 [facility] Glucose 91 74 - 106 mg/dL [facility] Total Protein 6.4 5.7 - 8.2 g/dL [facility] Albumin 3.2 (L) 3.4 - 4.8 g/dL [facility] Calcium 8.7 8.3 - 10.6 mg/dL [facility] BUN, Bld 10 6 - 20 mg/dL [facility] Creatinine 1.00 0.60 - 1.20 mg/dL [facility] eGFR >59 >59 mL/min [facility] Total Bilirubin 0.3 0.0 - 1.2 mg/dL [facility] Alkaline 130 (H) 29 - 122 U/L [facility] Phosphatase LABORATORY ALT <9 (L) 10 - 46 U/L [facility] AST 32 16 - 37 U/L [facility] Specimen Blood Performing Organization Address City/State/ZIP Code P [place] Number [facility] [address] [place] [address] * C-Reactive Protein (12/03/2020 5:33 AM CDT) CRP 4.4 (H) <=0.9 mg/dL [facility] Specimen Blood Performing Organization Address City/State/ZIP Code P [place] Number [facility] [address] [place] [address] documented in this encounter Visit Diagnoses Diagnosis Essential (primary) hypertension Unspecified essential hypertension documented in this encounter Care Teams Start Date End Date Textile Technologist Relationship Specialty 11/19/20 Juan Trejo PA-C PCP - General [address] [place], [place] [id number] 12/13/20 01/01/21 Sarah Sun RN Care Manager [email or web address] 01/03/21 Jo-Ann العلي MD Infectious [address] [facility] [place] [address] [email or web address] documented as of this encounter
--- OUTSIDE RECORDS SUMMARY | 2021-01-25 15:52 | XMS REPORT | Encounter Summary ---
Author Author [facility] Organization [facility] Address Unknown Phone Unavailable Care Team Providers Care Sr. Manager Corporate Communications Name Role Phone Juan Trejo PA-C PCP Jo-Ann العلي MD Unavailable Encounter Details Care Team Description Date Type Department Dusty Deluna MD [address] [address] [email or web address] Kidney stone (Primary Dx); Urinary retention; MSSA infection, non-invasive; Chronic ankle pain, unspecified laterality; Chronic foot pain, unspecified laterality 2021 Care Home [facility] [address] [address] Social History Date Tobacco Use [...] 11/16/2020 relatives? How often do you attend episcopal or christianity Never 11/16/2020 services? Do you belong to any clubs or organizations such No 11/16/2020 as episcopal groups, unions, fraternal or athletic groups, or [...] with intermittent exacerbation. During his stay at [facility] the patient's foot and ankle has [...] discharge plan, he is in agreement. Dusty Dleuna M.D. JENNIFER/kathleen VXP #: [id number] / DEP #: [id number] documented in this encounter Plan of Treatment Not on filedocumented as of this encounter Visit Diagnoses Diagnosis Kidney stone - Primary Calculus of kidney Urinary retention Retention of urine, unspecified MSSA infection, non-invasive Chronic ankle pain, unspecified lateral ity Chronic foot pain, unspecified laterali ty documented in this encounter Care Teams Start Date End Date Sr. Manager Corporate Communications Relationship Specialty 11/19/20 Juan Trejo PA-C PCP - General [address] [place] [address] 01/03/21 Jo-Ann العلي MD Infectious [address] [facility] [place] [address] [email or web address] documented as of this encounter
--- OUTSIDE RECORDS SUMMARY | 2021-01-25 15:52 | XMS REPORT | Encounter Summary ---
Author Author [facility] Organization [facility] Address Unknown Phone Unavailable Care Team Providers Care Lead Designer Name Role Phone Juan Trejo PA-C PCP Sarah Sun RN [phone] [email or web address] Jo-Ann العلي MD Unavailable Encounter Details Care Team Description Date Type Department Haley Duvall APRN [address] [place] [address] [email or web address] Essential (primary) hypertension 12/10/2020 Lab Requisition LABORATORY [address] [id number] [place] [address] Social History Date Tobacco Use [...] How often do you attend advent or restoration Never 11/16/2020 services? Do you [...] Number [facility] [address] [place] [address] documented in this encounter Visit Diagnoses Diagnosis Essential (primary) hypertension Unspecified essential hypertension documented in this encounter Care Teams Start Date End Date Lead Designer Relationship Specialty 11/19/20 Juan Trejo PA-C PCP - General [address] [place], [place] [phone] 12/13/20 01/01/21 Sarah Sun RN Care Manager [email or web address] 01/03/21 Jo-Ann العلي MD Infectious [address] [facility] [place] [address] [email or web address] documented as of this encounter
--- OUTSIDE RECORDS SUMMARY | 2021-01-25 15:52 | XMS REPORT | Encounter Summary ---
Author Author [facility] Organization [facility] Address Unknown Phone Unavailable Care Team Providers Care Coal Sample Tester Name Role Phone Juan Trejo PA-C PCP Sarah Sun RN [phone] [email or web address] Jo-Ann العلي MD Unavailable Encounter Details Care Team Description Date Type Department Haley Duvall APRN [address] [place] [address] [email or web address] Essential (primary) hypertension 12/14/2020 Lab Requisition LABORATORY [address] [id number] [place] [address] Social History Date Tobacco Use [...] 11/16/2020 relatives? How often do you attend moravian or voodoo Never 11/16/2020 services? Do you belong to any clubs or organizations such No 11/16/2020 as moravian groups, unions, fraternal or athletic groups, or [...] Organization Address City/State/ZIP Code P flor[place]ma Number [facility] [address] [place] [address] documented in this encounter Visit Diagnoses Diagnosis Essential (primary) hypertension Unspecified essential hypertension documented in this encounter Care Teams Start Date End Date Coal Sample Tester Relationship Specialty 11/19/20 Juan Trejo PA-C PCP - General [address] [place], [place] [id number] 12/13/20 01/01/21 Sarah Sun food service worker [email or web address] 01/03/21 Jo-Ann العلي MD Infectious [address] [facility] [place] [address] [email or web address] documented as of this encounter
--- OUTSIDE RECORDS SUMMARY | 2021-01-25 15:52 | XMS REPORT | Encounter Summary ---
Author Author [facility] Organization [facility] Address Unknown Phone Unavailable Care Team Providers Care Worship Pastor Name Role Phone Juan Trejo PA-C PCP Sarah Sun RN [phone] [email or web address] Jo-Ann العلي MD Unavailable Encounter Details Care Team Description Date Type Department Desmond Murray MD [address] [place] [address] [email or web address] Other equipment operator intermodal yard (current) drug therapy 12/10/2020 Lab Requisition LABORATORY [address] [id number] [place], [place] [id number] Social History Date Tobacco Use Types Packs/Day [...] 11/16/2020 relatives? How often do you attend jew or church Never 11/16/2020 services? Do you belong to any clubs or organizations such No 11/16/2020 as jew groups, unions, fraternal or athletic groups, or [...] nosis CBC WITH AUTO Routine 12/10/2020 Other fpc (current) DIFFERENTIAL 5:39 AM CDT drug therapy CBC AND DIFFERENTIAL Routine 12/10/2020 Other tanja g term (current) 5:39 AM CDT drug therapy C-REACTIVE PROTEIN Routine 12/10/2020 Other fpc (current) 5:39 AM CDT drug therapy COMPREHENSIVE METABOLIC Routine 12/10/2020 Other fpc (current) PANEL 5:39 AM CDT drug therapy documented in this encounter Results * CBC auto differential (12/10/2020 5:39 AM CDT) WBC 4.9 3.5 - 10.5 10E9/L [facility] RBC 2.68 (L) 4.32 - 5.72 10E12/L [facility] Hemoglobin 8.0 (L) 13.5 - 17.5 g/dL [facility] Hematocrit 26.4 (L) 38.8 - 50.0 % [facility] MCV 98.5 (H) 81.2 - 95.1 fL [facility] MCH 29.9 26.0 - 34.0 pg [facility] MCHC 30.3 (L) 31.0 - 37.0 g/dL [facility] RDW 14.6 11.8 - 15.6 % [facility] Platelets 299 150 - 450 10E9/L [facility] nRBC 0.00 <=0.00 10E9/L [facility] Neutrophils % 62.8 40.0 - 75.0 % [facility] Lymphocytes % 23.2 22.0 - 49.0 % [facility] Monocytes % 11.2 (H) 2.0 - 10.0 % [facility] Eosinophils % 2.4 <=5.0 % [facility] Basophils % 0.4 0.0 - 2.5 % [facility] Neutrophils 3.09 1.70 - 7.00 10E9/L [facility] Lymphocytes 1.14 0.90 - 2.90 10E9/L [facility] Monocytes 0.55 0.30 - 0.90 10E9/L [facility] Eosinophils 0.12 0.05 - 0.50 10E9/L [facility] Basophils 0.02 0.00 - 0.30 10E9/L [facility] % nRBC 0 % [facility] Specimen Blood Performing Organization Address City/State/ZIP Code P [place] Number [facility] [address] [place] [address] * Comprehensive Metabolic Panel (12/10/2020 5:39 AM CDT) Sodium 136 136 - 145 mmol/L [facility] Potassium 3.9 3.6 - 4.9 mmol/L [facility] Chloride 98 (L) 99 - 111 mmol/L [facility] CO2 30 20 - 36 mmol/L [facility] Anion Gap 8 [facility] Glucose 91 74 - 106 mg/dL [facility] Total Protein 6.6 5.7 - 8.2 g/dL [facility] Albumin 3.2 (L) 3.4 - 4.8 g/dL [facility] Calcium 8.7 8.3 - 10.6 mg/dL [facility] BUN, Bld 15 6 - 20 mg/dL [facility] Creatinine 1.26 (H) 0.60 - 1.20 mg/dL [facility] eGFR 57 (L) >59 mL/min [facility] Total Bilirubin <0.3 0.0 - 1.2 mg/dL [facility] Alkaline 126 (H) 29 - 122 U/L [facility] Phosphatase LABORATORY ALT 13 10 - 46 U/L [facility] AST 29 16 - 37 U/L [facility] Specimen Blood Performing Organization Address City/[facility]/ZIP Code P [place] Number [facility] [address] [place] [address] * C-Reactive Protein (12/10/2020 5:39 AM CDT) CRP 2.8 (H) <=0.9 mg/dL [facility] Specimen Blood Performing Organization Address City/[facility]/ZIP Code P [place] Number [facility] [address] [place] [address] documented in this encounter Visit Diagnoses Diagnosis Other fpc (current) drug therapy documented in this encounter Care Teams Start Date End Date Worship Pastor Relationship Specialty 11/19/20 Juan Trejo PA-C PCP - General [address] [place], [place] [phone] 12/13/20 01/01/21 Sarah Sun RN Care Manager [email or web address] 01/03/21 Jo-Ann العلي MD Infectious [address] [place] [address] [email or web address] documented as of this encounter
--- OUTSIDE RECORDS SUMMARY | 2021-01-25 15:52 | XMS REPORT | Encounter Summary ---
Author Author [facility] Organization [facility] Address Unknown Phone Unavailable Care Team Providers Care Director Of Volunteer Services Name Role Phone Juan Trejo PA-C PCP Sarah Sun RN [phone] [email or web address] Jo-Ann العلي MD Unavailable Encounter Details Care Team Description Date Type Department Haley Duvall APRN [address] [place] [address] [email or web address] Essential (primary) hypertension 12/18/2020 Lab Requisition LABORATORY [address] [id number] [place] [address] Social History Date Tobacco Use [...] How often do you attend restorationist or shinto Never 11/16/2020 services? Do you [...] CDT) WBC 4.5 3.5 - 10.5 10E9/L [facility] RBC 2.81 (L) 4.32 - 5.72 10E12/L [facility] Hemoglobin 8.2 (L) 13.5 - 17.5 g/dL [facility] Hematocrit 26.7 (L) 38.8 - 50.0 % [facility] MCV 95.0 81.2 - 95.1 fL [facility] MCH 29.2 26.0 - 34.0 pg [facility] MCHC 30.7 (L) 31.0 - 37.0 g/dL [facility] RDW 14.1 11.8 - 15.6 % [facility] Platelets 276 150 - 450 10E9/L [facility] nRBC 0.00 <=0.00 10E9/L [facility] Neutrophils % 67.4 40.0 - 75.0 % [facility] Lymphocytes % 19.1 (L) 22.0 - 49.0 % [facility] Monocytes % 10.8 (H) 2.0 - 10.0 % [facility] Eosinophils % 2.0 <=5.0 % [facility] Basophils % 0.7 0.0 - 2.5 % [facility] Neutrophils 3.00 1.70 - 7.00 10E9/L [facility] Lymphocytes 0.85 (L) 0.90 - 2.90 10E9/L [facility] Monocytes 0.48 0.30 - 0.90 10E9/L [facility] Eosinophils 0.09 0.05 - 0.50 10E9/L [facility] Basophils 0.03 0.00 - 0.30 10E9/L [facility] % nRBC 0 % [facility] Specimen Blood Performing Organization Address City/[facility]/ZIP Code P [place] Number [facility] [address] [place] [address] * C-Reactive Protein (12/18/2020 5:43 AM CDT) [facility] CRP 2.0 (H) <=0.9 mg/dL [facility] Specimen Blood Performing Organization Address City/[facility] P [place] Number [facility] [address] [place] [address] * Comprehensive Metabolic Panel (12/18/2020 5:43 AM CDT) [facility] Sodium 137 136 - 145 mmol/L [facility] Potassium 3.8 3.6 - 4.9 mmol/L [facility] Chloride 100 99 - 111 mmol/L [facility] CO2 32 20 - 36 mmol/L [facility] Anion Gap 5 [facility] Glucose 84 74 - 106 mg/dL [facility] Total Protein 6.5 5.7 - 8.2 g/dL [facility] Albumin 3.2 (L) 3.4 - 4.8 g/dL [facility] Calcium 8.7 8.3 - 10.6 mg/dL [facility] BUN, Bld 12 6 - 20 mg/dL [facility] Creatinine 1.16 0.60 - 1.20 mg/dL [facility] eGFR >59 >59 mL/min [facility] Total Bilirubin 0.3 0.0 - 1.2 mg/dL [facility] Alkaline 126 (H) 29 - 122 U/L [facility] Phosphatase LABORATORY ALT 15 10 - 46 U/L [facility] AST 23 16 - 37 U/L [facility] Specimen Blood Performing Organization Address City/State/ZIP Code P [place] Number [facility] [address] [place] [address] documented in this encounter Visit Diagnoses Diagnosis Essential (primary) hypertension Unspecified essential hypertension documented in this encounter Care Teams Start Date End Date Director Of Volunteer Services Relationship Specialty 11/19/20 Juan Trejo PA-C PCP - General [address] [place], [place] [phone] 12/13/20 01/01/21 Sarah Sun RN Care Manager [email or web address] 01/03/21 Jo-Ann العلي MD Infectious [address] [facility] [place] [address] [email or web address] documented as of this encounter
--- OUTSIDE RECORDS SUMMARY | 2021-01-25 15:52 | XMS REPORT | Encounter Summary ---
Author Author [facility] Organization [facility] Healthcare Address Unknown Phone Unavailable Care Team Providers Care Early Childhood Education Instructor Name Role Phone Juan Trejo PA-C PCP aSrah Sun RN [phone] [email or web address] Jo-Ann العلي MD Unavailable Encounter Details Care Team Description Date Type Department Haley Duvall APRN [address] [place] [address] [email or web address] Other termite exterminator helper (current) drug therapy 12/17/2020 Lab Requisition LABORATORY [address] [id number] [place] [address] Social History Date Tobacco Use [...] How often do you attend jainism or worship Never 11/16/2020 services? Do you [...] nosis C-REACTIVE PROTEIN Routine 12/17/2020 Other termite exterminator helper (current) 5:44 AM CDT drug therapy documented in this encounter Results * C-Reactive Protein (12/17/2020 5:44 AM CDT) CRP 2.1 (H) <=0.9 mg/dL [facility] Specimen Blood Performing Organization Address City/State/ZIP Code P [place] Number [facility] [address] [place] [address] documented in this encounter Visit Diagnoses Diagnosis Other care home (current) drug therapy documented in this encounter Care Teams Start Date End Date Early Childhood Education Instructor Relationship Specialty 11/19/20 Juan Trejo PA-C PCP - General [address] [place], [place] [phone] 12/13/20 01/01/21 Sarah Sun finishing area supervisor [email or web address] 01/03/21 Jo-Ann العلي MD Infectious [address] [place] [address] [email or web address] documented as of this encounter
--- OUTSIDE RECORDS SUMMARY | 2021-01-25 15:52 | XMS REPORT | Encounter Summary ---
Author Author [facility] Organization [facility] Address Unknown Phone Unavailable Care Team Providers Care It Applications Analyst Name Role Phone Juan Trejo PA-C PCP Sarah Sun RN [phone] [email or web address] Jo-Ann العلي MD Unavailable Encounter Details Care Team Description Date Type Department Link, Onbase 12/25/2020 OnBase Clinic [facility] nathan Scan [address] [id number] [place] [address] Social History Date Tobacco Use Types Packs/Day [...] 11/16/2020 relatives? How often do you attend confucianism or holiness Never 11/16/2020 services? Do you belong to any clubs or organizations such No 11/16/2020 as confucianism groups, unions, fraternal or athletic groups, or [...] encounter Care Teams Start Date End Date It Applications Analyst Relationship Specialty 11/19/20 Juan Trejo PA-C PCP - General [address] [place] [address] 12/13/20 01/01/21 Sarah Sun autocutter [email or web address] 01/03/21 Jo-Ann العلي MD Infectious [address] [facility] [place] [address] [email or web address] documented as of this encounter
--- OUTSIDE RECORDS SUMMARY | 2021-01-25 15:52 | XMS REPORT | Encounter Summary ---
Author Author [facility] Organization [facility] Healthcare Address Unknown Phone Unavailable Care Team Providers Care Road Grader Operator Name Role Phone Juan Trejo PA-C PCP Sarah Sun RN [phone] [email or web address] Jo-Ann العلي MD Unavailable Encounter Details Care Team Description Date Type Department Desmond Murray MD [address] [place] [address] [email or web address] [place] 12/24/2020 Lab Requisition LABORATORY [address] [id number] [place], [place] [address] Social History Date Tobacco Use Types Packs/Day [...] How often do you attend jainism or shinto Never 11/16/2020 services? Do you [...] CDT) WBC 5.4 3.5 - 10.5 10E9/L [facility] RBC 2.96 (L) 4.32 - 5.72 10E12/L [facility] Hemoglobin 8.7 (L) 13.5 - 17.5 g/dL [facility] Hematocrit 28.8 (L) 38.8 - 50.0 % [facility] MCV 97.3 (H) 81.2 - 95.1 fL [facility] MCH 29.4 26.0 - 34.0 pg [facility] MCHC 30.2 (L) 31.0 - 37.0 g/dL [facility] RDW 13.9 11.8 - 15.6 % [facility] Platelets 243 150 - 450 10E9/L [facility] nRBC 0.00 <=0.00 10E9/L [facility] Neutrophils % 68.8 40.0 - 75.0 % [facility] Lymphocytes % 19.2 (L) 22.0 - 49.0 % [facility] Monocytes % 9.2 2.0 - 10.0 % [facility] Eosinophils % 2.2 <=5.0 % [facility] Basophils % 0.6 0.0 - 2.5 % [facility] Neutrophils 3.73 1.70 - 7.00 10E9/L [facility] Lymphocytes 1.04 0.90 - 2.90 10E9/L [facility] Monocytes 0.50 0.30 - 0.90 10E9/L [facility] Eosinophils 0.12 0.05 - 0.50 10E9/L [facility] Basophils 0.03 0.00 - 0.30 10E9/L [facility] % nRBC 0 % [facility] Specimen Blood Performing Organization Address [facility] P [place] Number [facility] [address] [place] [address] * Comprehensive Metabolic Panel (12/24/2020 9:00 AM CDT) Sodium 137 136 - 145 mmol/L [facility] Potassium 3.8 3.6 - 4.9 mmol/L [facility] Chloride 102 99 - 111 mmol/L [facility] CO2 31 20 - 36 mmol/L [facility] Anion Gap 4 [facility] Glucose 111 (H) 74 - 106 mg/dL [facility] Total Protein 6.8 5.7 - 8.2 g/dL [facility] Albumin 3.5 3.4 - 4.8 g/dL [facility] Calcium 9.2 8.3 - 10.6 mg/dL [facility] BUN, Bld 15 6 - 20 mg/dL [facility] Creatinine 1.12 0.60 - 1.20 mg/dL [facility] eGFR >59 >59 mL/min [facility] Total Bilirubin <0.3 0.0 - 1.2 mg/dL [facility] Alkaline 129 (H) 29 - 122 U/L [facility] Phosphatase LABORATORY ALT <9 (L) 10 - 46 U/L [facility] AST 12 (L) 16 - 37 U/L [facility] Specimen Blood Performing Organization Address City/[facility] P [place] Number [facility] [address] [place] [address] * C-Reactive Protein (12/24/2020 9:00 AM CDT) CRP 4.1 (H) <=0.9 mg/dL [facility] Specimen Blood Performing Organization Address City/State/ZIP Code P [place] Number [facility] [address] [place] [address] documented in this encounter Visit Diagnoses Not on filedocumented in this encounter Care Teams Start Date End Date Road Grader Operator Relationship Specialty 11/19/20 Juan Trejo PA-C PCP - General [address] [place] [address] 12/13/20 01/01/21 Sarah Sun community development officer [email or web address] 01/03/21 Jo-Ann العلي MD Infectious [address] [facility] [place] [address] [email or web address] [place] documented as of this encounter
--- OUTSIDE RECORDS SUMMARY | 2021-01-25 15:52 | XMS REPORT | Encounter Summary ---
Author Author [facility] Organization [facility] Healthcare Address Unknown Phone Unavailable Care Team Providers Care Home Health Care Worker Name Role Phone Juan Trejo PA-C PCP Sarah Sun RN [phone] [email or web address] Jo-Ann العلي MD Unavailable Encounter Details Care Team Description Date Type Department Desmond Murray MD [address] [place] [address] [email or web address] Essential (primary) hypertension 12/21/2020 Lab Requisition LABORATORY [address] [id number] [place], [place] [address] Social History Date Tobacco Use Types Packs/Day [...] How often do you attend orthodox or cheondoism Never 11/16/2020 services? Do you belong to [...] Blood Culture, No Growth after 5 days [facility] Routine incubation LABORATORY Specimen Blood - Peripheral Performing Organization Address City/State/ZIP Code P [place] Number [facility] [address] [place] [address] documented in this encounter Visit Diagnoses Diagnosis Essential (primary) hypertension Unspecified essential hypertension documented in this encounter Care Teams Start Date End Date Home Health Care Worker Relationship Specialty 11/19/20 Juan Trejo PA-C PCP - General [address] [place], [place] [phone] 12/13/20 01/01/21 Sarah Sun volleyball assembler [email or web address] 01/03/21 Jo-Ann العلي MD Infectious [address] [facility] Diseases [place], [place] [address] [email or web address] documented as of this encounter
--- OUTSIDE RECORDS SUMMARY | 2021-01-25 15:52 | XMS REPORT | Clinical Summary ---
Author Author [facility] Address Unknown Phone Unavailable Care Team Providers Care Director Of Global Sales Name Role Phone Juan Trejo PA-C PCP [...] laterality; Chronic foot pain, unspecified laterality 2021 [facility] Thelma Moreno RN 01/02/2021 Transitional Care Management Care Management (TCM) Dechand, Sarah S, RN 12/28/2020 Patient Care Management Outreach Sarah Sun RN 12/27/2020 Patient Care Management Outreach Dusty Deluna MD Kidney stone (Primary Dx); Urinary retention; MSSA infection, non-invasive; Chronic ankle pain, unspecified laterality; Chronic foot pain, unspecified laterality 12/26/2020 [facility] Alie Peters APRN Constipation, unspecified constipation t ype (Primary Dx); Gross hematuria; Anemia due to acute blood loss; Methadone dependence (HCC); MSSA bacteremia; Iron deficiency 12/26/2020 [facility] Internal Medicine Link, Onbase 12/25/2020 [facility] Scan Desmond Murray MD 12/24/2020 Lab Requisition Lab Desmond Murray MD Essential (primary) hypertension 12/21/2020 Lab Requisition Lab Haley Duvall APRN Essential (primary) hypertension 12/18/2020 Lab Requisition Lab Haley Duvall APRN Methadone dependence (HCC) (Primary Dx); Gross hematuria; MSSA bacteremia; Iron deficiency; KOFI (acute kidney injury) (HCC); Anemia, unspecified type; Numbness of fingers 12/17/2020 [facility] Internal Medicine Link, Onbase 12/17/2020 [facility] Scan Haley Duvall APRN 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 12/17/2020 Lab Requisition Lab Dusty Deluna MD Kidney stone (Primary Dx); Urinary retention; MSSA infection, non-invasive; Chronic ankle pain, unspecified laterality; Chronic foot pain, unspecified laterality 12/14/2020 [facility] Haley [...] kidney injury) (HCC); Diarrhea, unspecified type 12/10/2020 [facility] Internal Medicine Haley Duvall APRN Essential (primary) hypertension 12/10/2020 Lab Requisition Lab Desmond Murray MD 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 12/10/2020 Lab Requisition Lab Naseem العلي MD MSSA bacteremia (Primary Dx) 12/07/2020 Office Visit Infectious Diseases Naseem العلي MD Other (D/C midline ) 12/07/2020 Telephone Infectious Diseases Dusty Deluna MD Kidney stone (Primary Dx); Urinary retention; MSSA infection, non-invasive; Chronic ankle pain, unspecified laterality; Chronic foot pain, unspecified laterality 12/06/2020 [facility] Physical Medicine a ma Rehabilitation Provider, [email or web address], MODEL USER [phone] 12/04/2020 Hospital Radiology Encounter Alie Peters APRN Essential (primary) hypertension 12/04/2020 Lab Requisition Lab Alie Peters APRN Anemia due to acute blood loss (Primary Dx); Gross hematuria; MSSA bacteremia 12/03/2020 [facility] Internal Medicine Haley Duvall APRN Essential (primary) hypertension 12/03/2020 Lab Requisition Lab Desmond Murray MD Gross hematuria (Primary Dx); Anemia due to acute blood loss; Benign prostatic hyperplasia with lower urinary tract symptoms, symptom details unspecified; Stage 3 chronic kidney disease, unspecified whether stage 3a or 3b CKD (HCC); Methadone dependence (HCC) 11/30/2020 [facility] Internal Medicine Haley Duvall APRN Methadone [...] 11/16/2020 relatives? How often do you attend hindu or druze Never 11/16/2020 services? Do you belong to any clubs or organizations such No 11/16/2020 as hindu groups, unions, fraternal or athletic groups, or [...] CDT hypertension C-REACTIVE PROTEIN Routine 12/17/2020 Other retirement (current) 5:44 AM CDT drug therapy GASTROINTESTINAL PANEL Routine 12/13/2020 Essenti al (primary) FILMARRAY PCR 5:00 PM CDT hypertension STOOL CULTURE BY PCR Routine 12/10/2020 Essential (primary) 1:55 PM CDT hypertension CBC WITH AUTO Routine 12/10/2020 Other engineering faculty member (current) DIFFERENTIAL 5:39 AM CDT drug therapy COMPREHENSIVE METABOLIC Routine 12/10/2020 Other engineering faculty member (current) PANEL 5:39 AM CDT drug therapy CBC AND DIFFERENTIAL Routine 12/10/2020 Other tanja g term (current) 5:39 AM CDT drug therapy C-REACTIVE PROTEIN Routine 12/10/2020 Other engineering faculty member (current) 5:39 AM CDT drug therapy CD [...] included. WBC 5.4 3.5 - 10.5 10E9/L [facility] RBC 2.96 (L) 4.32 - 5.72 10E12/L [facility] Hemoglobin 8.7 (L) 13.5 - 17.5 g/dL [facility] Hematocrit 28.8 (L) 38.8 - 50.0 % [facility] MCV 97.3 (H) 81.2 - 95.1 fL [facility] MCH 29.4 26.0 - 34.0 pg [facility] MCHC 30.2 (L) 31.0 - 37.0 g/dL [facility] RDW 13.9 11.8 - 15.6 % [facility] Platelets 243 150 - 450 10E9/L [facility] nRBC 0.00 <=0.00 10E9/L [facility] Neutrophils % 68.8 40.0 - 75.0 % [facility] Lymphocytes % 19.2 (L) 22.0 - 49.0 % [facility] Monocytes % 9.2 2.0 - 10.0 % [facility] Eosinophils % 2.2 <=5.0 % [facility] Basophils % 0.6 0.0 - 2.5 % [facility] Neutrophils 3.73 1.70 - 7.00 10E9/L [facility] Lymphocytes 1.04 0.90 - 2.90 10E9/L [facility] Monocytes 0.50 0.30 - 0.90 10E9/L [facility] Eosinophils 0.12 0.05 - 0.50 10E9/L [facility] Basophils 0.03 0.00 - 0.30 10E9/L [facility] % nRBC 0 % [facility] Specimen Blood Performing Organization Address City/State/ZIP Code P [place] Number [facility] [address] [place] [address] * C-Reactive Protein (12/24/2020 9:00 AM CDT) Only the most recent of 6 results within the time period is included. Pathologist [facility] CRP 4.1 (H) <=0.9 mg/dL [facility] Specimen Blood Performing Organization Address City/[facility]/ZIP [facility] P [place] Number [facility] [address] [place] [address] * Comprehensive Metabolic Panel (12/24/2020 9:00 AM CDT) Only the most recent of 19 results within the time period is included. [facility] Sodium 137 136 - 145 mmol/L [facility] Potassium 3.8 3.6 - 4.9 mmol/L [facility] Chloride 102 99 - 111 mmol/L [facility] CO2 31 20 - 36 mmol/L [facility] Anion Gap 4 [facility] Glucose 111 (H) 74 - 106 mg/dL [facility] Total Protein 6.8 5.7 - 8.2 g/dL [facility] Albumin 3.5 3.4 - 4.8 g/dL [facility] Calcium 9.2 8.3 - 10.6 mg/dL [facility] BUN, Bld 15 6 - 20 mg/dL [facility] Creatinine 1.12 0.60 - 1.20 mg/dL [facility] eGFR >59 >59 mL/min [facility] Total Bilirubin <0.3 0.0 - 1.2 mg/dL [facility] Alkaline 129 (H) 29 - 122 U/L [facility] Phosphatase LABORATORY ALT <9 (L) 10 - 46 U/L [facility] AST 12 (L) 16 - 37 U/L [facility] Specimen Blood Performing Organization Address City/[facility]/ZIP Code P [place] Number [facility] [address] [place] [address] * Blood Culture (12/21/2020 5:57 AM CDT) Only the most recent of 5 results within the time period is included. [facility] Blood Culture, No Growth after 5 days [facility] Routine incubation LABORATORY Specimen Blood - Peripheral Performing Organization Address City/State/ZIP [facility] P [place] Number [facility] [address] [place] [address] * Gastrointestinal Panel FilmArray PCR (12/13/2020 5:00 PM CDT) Pathologist [facility] Sapovirus (l, Negative Negative [facility] ll, [...] Number [facility] [address] [place] [address] * STOOL CULTURE BY PCR (12/10/2020 1:55 PM CDT) Pathologist [facility] Salmonella NegativeComment: Negative [facility] species [facility] Shigella NegativeComment: Negative [facility] species/[facility]EC [facility] Shiga NegativeComment: Negative [facility] toxin/[facility] Campylobacter NegativeComment: Negative [facility] species [facility] Specimen Stool - Stool specimen (specimen) Performing Organization Address [facility]/ZIP Code P [place] Number [facility] [address] [place] [address] * CD Upload (12/04/2020 9:32 AM CDT) Modality Anatomical Region Laterality Computed Radiography Specimen Narrative PACS - 12/05/2020 9:41 AM CDT <Finalized by [facility] PACS interface> Procedure Note Provider, Default, MODEL USER - 12/05/2020 <Finalized by [facility] PACS interface> Performing Organization Address [facility] Code P [place] Number PACS * Iron Saturation (12/04/2020 6:28 AM CDT) Iron Saturation 11 (L)Comment: Unable to 20 - 55 % [facility] calculate due to one or both LAB[facility]ORY results out of reportable range. Specimen Blood Performing Organization Address [facility] P [place] Number [facility] [address] [place] [address] * Iron Binding Capacity (12/04/2020 6:28 AM CDT) Iron Binding 253 250 - 450 ug/dL [facility] Capacity [facility] Specimen Blood Performing Organization Address [facility] P [place] Number [facility] [address] [place] [address] * Iron (12/04/2020 6:28 AM CDT) Iron 27 (L) 81 - 208 ug/dL [facility] Specimen Blood Performing Organization Address City/[facility] P [place] Number [facility] [address] [place] [address] * COVID-19 ANTIGEN (11/29/2020 1:15 PM CDT) COVID-19 Negative Negative [facility] Antigen LABORATORY Specimen Nose - Swab of internal nose (specimen) Performing Organization Address [facility] P [place] Number [facility] [address] [place] [address] * TELEMETRY WAVEFORMS (11/28/2020 11:01 PM CDT) Only the most recent of 55 results within the time period is included. TELE RI 0.16 [facility]ORING TELE QRS 0.08 [facility] TORING TELE QT 0.36 [facility] TORING TELE COMMENTS SDB HR-60 [facility]ELE[facility] TORING TELE rsr PHILIPSTELEMONI INTERPRETATION TORING SEO MANAGER/BICYCLE INSPECTOR Yes [facility] APPROVED TORING Specimen Performing Organization Address City/State/ZIP Code P [place] Number [facility] * MRI Foot Right (without contrast) (11/27/2020 8:40 PM CDT) Modality Anatomical Region Laterality Magnetic Resonance Ankle, Foot Specimen Impressions [facility] - 11/28/2020 9:22 AM CDT [...] si. Correlate for sinus tarsi syndrome. [facility]ative [facility]28[facility]2020 9:22 AM CDT EXAM: MRI [...] Organization Address City/State/ZIP Code P [place] Number [facility], [place] * EKG 12 lead (11/27/2020 5:48 AM CDT) Only the most recent of 12 results within the time period is included. Height PHILIP[facility]CG Heart Rate 66 bpm [facility] Interval 909 ms PH[facility]IP[facility]CG Atrial Rate 65 ms [facility]IP[facility] SV P-R Interval 174 ms PHILIPSECG P Duration 114 ms PHILIPSECG P Horizontal -7 deg PHILIPSECG [place] P Front [place] 85 deg PHILIPSECG Q Onset 499 ms PHILIPSECG QRSD Interval 80 ms PHILIPSECG QT Interval 403 ms PHILIPSECG QTcB 423 ms PHILIPSECG QTcF 416 ms PHILIPSECG QRS Horizontal 13 deg PHILIPSECG [place] QRS AXIS 55 deg PHILIPSECG I40 Horizontal 58 deg PHILIPSECG [place] I40 Front [place] 84 deg PHILIPSECG T-40 Horizontal -7 deg PHILIPSECG [place] T-40 Front [place] 47 deg PHILIPSECG T Horizontal 28 deg PHILIPSECG [place] T Wave [place] 63 deg PHILIPSECG S-T HORIZONTAL 29 deg PHILIPSECG AXIS S-T FRONT AXIS 87 deg PHILIPSECG ECG Impression - NORMAL ECG - PHILIPSECG ECG Impression SR PHILIPSECG ECG Impression Sinus rhythm PHILIPSECG ECG Impression normal P axis, V-rate 60-99 PHILIPSEC G Specimen Performing Organization Address City/State/ZIP Code P [place] Number PHILIPSECG * Urinalysis, Reflex Culture If Needed (11/22/2020 9:29 PM CDT) Color, UA Red [facility] Appearance Cloudy [facility] Specific 1.013 1.003 - 1.030 [facility] [place], [place]A LABORATORY pH, UA 7.0 5.0 - 8.0 [facility] Leukoesterase, 3+ (A) Negative [facility] Nitrites, UA Negative Negative [facility] Protein, UA 2+ (A) Negative [facility] Glucose, UA Negative Negative [facility] Ketones, UA Negative Negative [facility] Urobilinogen, 0.2 0.2 EU [facility]A [facility] Bilirubin, UA Negative Negative [facility] Hemoglobin, UA 3+ (A) Negative [facility] Squam Epithel, Rare [facility] WBC, UA 21-50 (A) 0 - 3 [facility] RBC, UA >100 (A) 0 - 3 [facility] Hyaline Casts, 3 [facility] Specimen Urine - Urine specimen (specimen) Narrative [facility] - 11/22/2020 9:44 PM CDT Urine was cultured. Urinalysis results indicated culture criteria was met. Performing Organization Address City/State/ZIP Code P [place] Number [facility] [address] [place] [address] * Urine Culture (11/22/2020 9:29 PM CDT) Urine Culture No Growth [facility] Specimen Urine - Urine specimen (specimen) Performing Organization Address City/State/ZIP Code P [place] Number [facility] [address] [place] [address] * CVUS Echo-TAYLOR (use contrast as indicated) (11/21/2020 4:20 PM CDT) Modality Anatomical Region Laterality Ultrasound Chest Specimen Narrative [facility] - 11/21/2020 6:16 PM CDT Transesophageal Echocardiogram Report Patient Name: MAINOR BLANCA, [place] [facility] Rec #: [id number] Reading MD: Jeff Guzmán MD Study Date: 11/21/2020 Referring MD: NASEEM العلي MD Technologist: Teri LANGLEY Location: [facility] : 1950 Room: [facility] Gender: Male Height: 70.08in BP: 137/80 mmHg Weight: 169.76lb HR: Diagnosis Codes: I38 Endocarditis, valve unspecified Procedures: 77246 Echo TAYLOR 22103 Color Doppler Echo 06023 Spectral Doppler Echo Conclusions: The left ventricular [...] Patient Name: MAINOR BLANCA, Med Rec #: [id number] Reading MD: Jeff Guzmán MD Study Date: 11/21/2020 Referring MD: NASEEM العلي MD Technologist: Trei LANGLEY SV Location: [facility] : 1950 Room: [facility] Gender: Male Height: 70.08in BP: 137/80 mmHg Weight: 169.76lb HR: Diagnosis Codes: I38 Endocarditis, valve unspecified Procedures: 26286 Echo TAYLOR 82147 Color Doppler Echo 26871 Spectral Doppler Echo Conclusions: The left ventricular [...] a status of Final Performing Organization Address [facility] P [place] Number [facility] * Potassium (11/19/2020 3:43 PM CDT) Only the most recent of 2 results within the time period is included. Potassium 3.3 (L) 3.6 - 4.9 mmol/L [facility] Specimen Blood Performing Organization Address [facility] P [place] Number [facility] [address] [place] [address] * TELEMETRY CODE/EVENT STRIP REPORT (11/19/2020 4:29 AM CDT) Specimen Performing Organization Address [facility] P [place] Number [facility] * TSH (11/19/2020 3:49 AM CDT) TSH 2.640 0.400 - 4.000 uIU/mL [facility] Specimen Blood Performing Organization Address [facility] P [place] Number [facility] [address] [place] [address] * Phosphorus (11/19/2020 3:49 AM CDT) Only the most recent of 2 results within the time period is included. Phosphorus 2.4 (L) 2.7 - 4.5 mg/dL [facility] Specimen Blood Performing Organization Address [facility] P [place] Number [facility] [address] [place] [address] * Magnesium (11/19/2020 3:49 AM CDT) Only the most recent of 4 results within the time period is included. Magnesium 1.7 1.6 - 2.3 mg/dL [facility] Specimen Blood Performing Organization Address [facility] P [place] Number [facility] [address] [place] [address] * CT ABDOMEN PELVIS W CONTRAST (11/18/2020 [...] Sodium 152 (H) 136 - 145 mmol/L [facility] Potassium 2.7 (LL) 3.6 - 4.9 mmol/L [facility] Chloride 116 (H) 99 - 111 mmol/L [facility] CO2 31 20 - 36 mmol/L [facility] Anion Gap 5 [facility] Glucose 167 (H) 74 - 106 mg/dL [facility] Calcium 8.0 (L) 8.3 - 10.6 mg/dL [facility] BUN, Bld 27 (H) 6 - 20 mg/dL [facility] Creatinine 1.27 (H) 0.60 - 1.20 mg/dL [facility] eGFR 56 (L) >59 mL/min [facility] Specimen Blood Performing Organization Address City/State/ZIP Code P [place] Number [facility] [address] [place] [address] * Procalcitonin (11/16/2020 10:12 AM CDT) Only the most recent of 2 results within the time period is included. Procalcitonin 2.54 (H) <=0.09 ng/ml [facility] Specimen Blood Narrative [facility] - 11/16/2020 11:34 AM CDT [...] Address City/State/ZIP Code P [place] Number [facility] [address] [place] [address] * XR Foot Right (2 views) (11/15/2020 7:56 PM CDT) Modality Anatomical Region Laterality Computed Radiography Foot, Ankle Specimen Impressions [facility] - 11/15/2020 9:01 PM CDT IMPRESSION: Diffuse osteopenia without acute osseous abnormality. Narrative [facility] - 11/15/2020 9:01 PM CDT EXAM: Right [...] without acute osseous abnormality. Performing Organization Address [facility]/ZIP Code P [place] Number LUCIO Aquino * XR CHEST PA OR AP (11/15/2020 7:55 PM CDT) Modality Anatomical Region Laterality Computed Radiography Chest Specimen Impressions [facility] - 11/15/2020 8:59 PM CDT IMPRESSION: Right arm PICC in expected location. Narrative [facility] - 11/15/2020 8:59 PM CDT [...] PICC in expected location. Performing Organization Address City/[facility]/ZIP Code P [place] Number LUCIO Aquino * Blood Culture PCR Identification Panel (11/15/2020 7:31 PM CDT) Staphylococcus Positive (AA) Negative [facility] aureus PCR LABORATORY Specimen Blood - Peripheral Narrative [facility] - 11/20/2020 1:46 AM CDT [...] Address City/State/ZIP Code P [place] Number [facility] [address] [place] [address] from Last 3 Months Insurance Type Payer Benefit Subscriber ID Effective Phone Address Plan / Dates Group [facility] [id number] 2020- 11 PC SS UNAUTHORIZ Present [address] [place] [address] [facility] [id number] 2020- [phone] [address] [place] [address] Advance Directives For more information, please contact: [phone] Patient Demolition Expert Explanation Type Date Recorded Advance Directives and Living Will Power of Neonatal Social Worker POWER_OF_ATTORNEY Power of Neonatal Social Worker 11/21/2020 3:34 PM Date Inactivated Comments Code Status Date Activated Full Code 11/24/2020 3:33 PM 11/24/2020 3:33 PM Full Code 11/15/2020 6:16 PM Care Teams Start Date End Date Director Of Global Sales Relationship Specialty 11/19/20 uJan Trejo PA-C PCP - General [address] [place] [address] 01/03/21 Naseem العلي MD Infectious [address] [place] [address] [email or web address]
--- NOTE | 2021-01-25 16:00 | ED General ---
General Stated Complaint: UTI/FEVER/MAY BE ON WRONG MEDICATION Source of Information: Patient Exam Limitations: No Limitations History of Present Illness Date Seen by Provider: Jan 25, 2021 Time Seen by Provider: 16:00 Initial Comments To ER with concerns that he is not on the right antibiotic. He was discharged on 01/23 after admission for UTI. No fevers. He has some ongoing right flank pain no dysuria. Nausea yesterday none today. He is on doxycycline, culture shows sensitivity to nitrofurantoin, vancomycin and rifampin. [facility] Timing/Duration: 1-2 Days Severity: Moderate Associated Systoms: No Fever/Chills; Nausea/Vomiting Allergies and Home Medications Allergies Coded Allergies: No Known Drug Allergies (Unverified , 01/20/21) Patient Home Medication List Home Medication List Reviewed: Yes Acetaminophen (Tylenol Extra Strength) 500 Mg Tablet, 500 MG PO BID PRN for PAIN-MILD (1-4), (Reported) Entered as Reported by: MARICARMEN SURESH on 01/21/21 09 Ascorbic Acid (Vitamin C) 250 Mg Tab, 250 MG PO MON,WED,FRI, (Reported) Entered as Reported by: MARICARMEN SURESH on 01/21/21 09 Doxycycline Hyclate (Doxycycline Hyclate) 100 Mg Tablet, 100 MG PO BID Prescribed by: EDGARDO OLVERA on 01/23/21 115 Hyoscyamine Sulfate (Hyoscyamine Sulfate) 0.125 Mg Tab.subl, 0.125 MG SL BID PRN for BLADDER SPASMS, (Reported) Entered as Reported by: MARICARMEN SURESH on 01/21/21 09 Meloxicam (Meloxicam) 15 Mg Tablet, 15 MG PO DAILY PRN for ARTHRITIS, (Reported) Entered as Reported by: MARICARMEN SURESH on 01/21/21 09 Methadone HCl (Methadone HCl) 10 Mg/1 Ml Oral.conc, 160 MG PO DAILY Prescribed by: EDGARDO OLVERA on 01/23/21 115 Sennosides/Docusate Sodium (Senna-Docusate Sodium Tablet) 1 Each Tablet, 1 EACH PO DAILY PRN for CONSTIPATION-6TH LINE, (Reported) Entered as Reported by: MARICARMEN SURESH on 01/21/21 09 Tamsulosin HCl (Flomax) 0.4 Mg Cap, 0.4 MG PO HS, (Reported) Entered as Reported by: MARICARMEN SURESH on 01/21/21 09 Tramadol HCl (Tramadol HCl) 50 Mg Tablet, 50 MG PO Q6H PRN for PAIN-MODERATE (5- 7), (Reported) Entered as Reported by: MARICARMEN SURESH on 01/21/21906 Discontinued Medications Docusate Sodium (Docusate Sodium) 100 Mg Capsule, 100 MG PO DAILY PRN for CONSTIPATION-1ST LINE, (Reported) Discontinued Reason: Duplicate Order Entered as Reported by: MARICARMEN SURESH on 01/21/21906 Sennosides (Senna) 8.6 Mg Tablet, 8.6 MG PO DAILY PRN for CONSTIPATION-5TH LINE, (Reported) Discontinued Reason: Duplicate Order Entered as Reported by: MARICARMEN SURESH on 01/21/21 09 Review of Systems Review of Systems Constitutional: see HPI EENTM: see HPI Respiratory: no symptoms reported Cardiovascular: no symptoms reported Genitourinary: see HPI Musculoskeletal: no symptoms reported Skin: no symptoms reported Psychiatric/Neurological: No Symptoms Reported Hematologic/Lymphatic: No Symptoms Reported Past [id number] Hx Immunizations Up To Date First/Initial COVID19 Vaccinat: MAY 2020 Second COVID19 Vaccination Cb: JUNE 2020 Past Medical History Kidney Stones, UTI-Chronic Family Medical History No Pertinent Family Hx Sister alive and healthy Physical Exam Vital Signs Vital Signs - First Documented 01/25/21 16:05 Temp 37.1 Pulse 86 Resp 18 B/P (MAP) 104/74 (84) Pulse Ox 95 O2 Delivery Room Air Capillary Refill : Height, Weight, BMI Height: '" Weight: lbs. oz. kg; 22.14 BMI Method: General Appearance: No Apparent Distress, WD/WN, Chronically ill Eyes: Bilateral Eye Normal Inspection, Bilateral Eye PERRL, Bilateral Eye EOMI Respiratory: No Accessory Muscle Use, No Respiratory Distress Cardiovascular: Regular Rate, Rhythm, Normal Peripheral Pulses Gastrointestinal: Non Tender, Soft Extremity: Normal Capillary Refill, Normal Inspection Neurologic/Psychiatric: Alert, Oriented x3 Skin: Normal Color, Warm/Dry Progress/Results/Core Measures Suspected Sepsis SIRS Temperature: Pulse: Respiratory Rate: Laboratory Tests 01/25/21 14:10: White Blood Count 6.4 Blood Pressure / Mean: Laboratory Tests 01/25/21 14:10: Creatinine 0.81, Platelet Count 302 Results/Orders Lab Results Laboratory Tests Test 01/25/21 14:10 01/25/21 16:45 Range/Units White Blood Count 6.4 4.3-11.0 10^3/uL Red Blood Count 2.89 L 4.30-5.52 10^6/uL Hemoglobin 8.0 L 13.3-17.7 g/dL Hematocrit 26 L 40-54 % Mean Corpuscular Volume 90 80-99 fL Mean Corpuscular Hemoglobin 28 25-34 pg Mean Corpuscular Hemoglobin Concent 31 L 32-36 g/dL Red Cell Distribution Width 15.2 H 10.0-14.5 % Platelet Count 302 130-400 10^3/uL Mean Platelet Volume 8.5 L 9.0-12.2 fL Immature Granulocyte % (Auto) 1 % Neutrophils (%) (Auto) 70 42-75 % Lymphocytes (%) (Auto) 18 12-44 % Monocytes (%) (Auto) 10 0-12 % Eosinophils (%) (Auto) 1 0-10 % Basophils (%) (Auto) 1 0-10 % Neutrophils # (Auto) 4.5 1.8-7.8 10^3/uL Lymphocytes # (Auto) 1.1 1.0-4.0 10^3/uL Monocytes # (Auto) 0.6 0.0-1.0 10^3/uL Eosinophils # (Auto) 0.1 0.0-0.3 10^3/uL Basophils # (Auto) 0.0 0.0-0.1 10^3/uL Immature Granulocyte # (Auto) 0.0 0.0-0.1 10^3/uL Sodium Level 136 135-145 MMOL/L Potassium Level 3.6 3.6-5.0 MMOL/L Chloride Level 101 98-107 MMOL/L Carbon Dioxide Level 24 21-32 MMOL/L Anion Gap 11 5-14 MMOL/L Blood Urea Nitrogen 8 7-18 MG/DL Creatinine 0.81 0.60-1.30 MG/DL Estimat Glomerular Filtration Rate 94 BUN/Creatinine Ratio 10 Glucose Level 92 70-105 MG/DL Calcium Level 9.3 8.5-10.1 MG/DL My Orders Orders - JESUS GONG ACCOUNT EXECUTIVE Cbc With Automated Diff (10/8/21 15:57) Basic Metabolic Panel (01/25/21 15:57) Ua Culture If Indicated (01/25/21 16:02) Vital Signs/I&O 01/25/21 16:05 Temp 37.1 Pulse 86 Resp 18 B/P (MAP) 104/74 (84) Pulse Ox 95 O2 Delivery Room Air Capillary Refill : Departure Communication (Admissions) [id number] spoke with Dr. Crane who cared for this gentleman while he was admitted inpatient. She has spoken to [facility] and they did some extended sensitivities on this urine culture obtained on 01/20. This was shown to grow Staph epidermidis with sensitivity to nitrofurantoin rifampin and vancomycin. Upon further testing it was also susceptible to the doxycycline. Patient is nontoxic looking and will be able to go home as it seems that he is actually on the correct antibiotic. Impression Primary Impression: General medical exam Disposition: 01 HOME, SELF-CARE Condition: Stable Departure-Patient Inst. Decision time for Depature: 16:16 Referrals: NO,LOCAL PHYSICIAN (PCP/Family) Primary Care Physician Patient Instructions: Urinary Tract Infection, Adult (DC) Add. Discharge Instructions: 1. Return to ER for any concerns 2. Follow-up with your doctor next week 3. JESUS GONG APRN Jan 25, 2021 16:00
[2021-01-25 16:19] LABS: BASOPHILS % (AUTO) 1 % (0-10); EOSINOPHILS # (AUTO) 0.1 10^3/uL (0.0-0.3); EOSINOPHILS % (AUTO) 1 % (0-10); HEMATOCRIT 26 % (40-54); LYMPHOCYTES # (AUTO) 1.1 10^3/uL (1.0-4.0); LYMPHOCYTES % (AUTO) 18 % (12-44); MEAN CORPUSCULAR HEMOGLOBIN 28 pg (25-34); MEAN CORPUSCULAR HGB CONC 31 g/dL (32-36); MEAN CORPUSCULAR VOLUME 90 fL (80-99); MEAN PLATELET VOLUME 8.5 fL (9.0-12.2); MONOCYTES # (AUTO) 0.6 10^3/uL (0.0-1.0); MONOCYTES % (AUTO) 10 % (0-12); NEUTROPHILS # (AUTO) 4.5 10^3/uL (1.8-7.8); NEUTROPHILS % (AUTO) 70 % (42-75); PLATELET COUNT 302 10^3/uL (130-400); WHITE BLOOD COUNT 6.4 10^3/uL (4.3-11.0)
[2021-01-25 16:34] LABS: POTASSIUM 3.6 MMOL/L (3.6-5.0)
[2021-01-25 16:35] LABS: CALCIUM 9.3 MG/DL (8.5-10.1)
[2021-01-25 16:40] LABS: CREATININE SERUM 0.81 MG/DL (0.60-1.30)
[2021-01-25 16:52] LABS: BILIRUBIN,URINE NEGATIVE (NEGATIVE); CLARITY,URINE CLEAR; GLUCOSE, URINE (UA) NEGATIVE (NEGATIVE); KETONES,URINE NEGATIVE (NEGATIVE); LEUKOCYTE ESTERASE ,URINE TRACE (NEGATIVE); NITRITE,URINE POSITIVE (NEGATIVE); PH,URINE 7.5 (5-9); PROTEIN,URINE NEGATIVE (NEGATIVE)
[2021-01-25 17:32] LABS: BACTERIA,URINE NEGATIVE /HPF; COLOR,URINE YELLOW
[2021-01-25] MEDS ORDERED: RX-ONDANSETRON 4 MG ODT (ZOFRAN) PPK #4 PO STA (17:39)
[2021-01-25 20:29] VITALS: BP 108/73
== END 2021-01-25 17:47 | disposition home or self-care (01) ==
LOC: EDUNIT# 15:45 → ER 15:48
DX: Z00.00 Encounter for general adult medical examination without abnormal findings (principal)
CPT/HCPCS: 36415; 80048; 81000; 85025; 99282